=== PATIENT | male | born 1960 | race African-American/Black ===

== ENCOUNTER 2019-12-05 07:40 | Observation (INO) | payer MEDICARE, OTHER, SELFPAY ==
[2019-12-05] VITALS (10 sets, daily range): BP systolic 144–184; BP diastolic 89–104; PULSE 62–80; RESP 15–18; TEMP 35.8–36.8; O2SAT 94–100; BMI 17.6
--- NOTE | ~2019-12-05 | XR_ITS ---
XR chest 1V portable DATE: 12/05/2019 08:20 INDICATION: Chest pain TECHNIQUE: Portable upright AP chest on 12/05/2019 at 0806 hours COMPARISON: 10/10/2017 two-view chest FINDINGS: Cardiomegaly. A generator overlies the lower lateral left chest, with pacemaker/defibrillat or lead overlying the left parasagittal area, distal lead overlying the aortic arch. Aortic calcification and mild unfolding. No pulmonary infiltrate or consolidation, pleural effusion. Pulmonary vascularity appears within uppe r normal limits. There is suggestion of some osteosclerosis of the thoracic spine, possibly secondary to osteoblastic metastatic disease from prostate cancer. Consider bone scan. IMPRESSION: Cardiomegaly, aortic atherosclerosis Interval pacemaker/defibrillator device since 10/10/2017 No active pulmonary disease Possible osteosclerosis of thoracic spine; consider bone scan. Reviewed, dictated and finalized at location B. LE[employer] COLLECTOR
--- NOTE | 2019-12-05 08:10 | ED.ARRPALP ---
HPI - Arrhythmia/Palpitations General Chief Complaint: Arrhythmia/Palpitations Stated Complaint: tachycardia Time Seen by Provider: 12/05/19 07:42 Source: patient Mode of arrival: EMS Limitations: no limitations History of Present Illness HPI narrative: Pt is a 59 y/o male, with a H/O CKD, who presents to the ED, via EMS, secondary to having tachycardia while he was getting Dialysis. Pt denies CP, SOB, or palpitations. He states that he had an hour left of dialysis when EMS was called. Pt has a H/o multiple cardiac stents and a pacemaker/defibrillator. His Semiconductor Wafers Etch Operator is Dr. Newton and his Surgery Aide is Dr. Bah. Pt's pacemaker/defibrillator is a [employer] scientific and he states that it did not go off. MD complaint: rapid heart beat Duration: now resolved Arrhythmia history: pacemaker and AICD Associated symptoms: denies other symptoms Related Data Allergies Allergy/AdvReac Type Severity Reaction Status Date / Time No Known Allergies Allergy Unverified 07/02/19 10:40 Review of Systems Review of Systems: All systems reviewed & are unremarkable except as noted in HPI and below Cardiovascular: Cardiovascular: Reports chest pain and Denies palpitations Respiratory: Respiratory: Reports dyspnea PMFSH Past Medical History Medical History (Updated 12/05/19 @ 09:41 by Clifton Del Valle DO) Amputated right leg Anemia Arthritis CAD (coronary artery disease) Dialysis patient GERD (gastroesophageal reflux disease) Glaucoma HLD (hyperlipidemia) HTN (hypertension) Hypothyroid Myocardial infarction Surgical History Surgical History (Updated 12/05/19 @ 09:01 by Giovani Cook) H/O kidney transplant History of cardiac catheterization Social History Social History (Updated 12/05/19 @ 09:02 by Giovani Cook) Smoking status: Never smoker Exam Narrative: Exam Narrative: APPEARANCE: No acute distress, nontoxic, resting in bed EYES: EOMI HEENT: Normocephalic, atraumatic, OMM RESPIRATORY: No respiratory distress Clear to auscultation bilaterally with no rhonchi wheezing or rales. CARDIOVASCULAR: Regular rate and rhythm without murmurs rubs or gallops. ABDOMINAL: Soft, nontender, nondistended, no rebound or guarding MUSCULOSKELETAl: Moves all extremities. No clubbing, cyanosis or edema. Right BKA NEURO: Awake and alert. Following commands, speech normal, no focal deficits SKIN:: Warm, dry. No rashes lesions or abrasions PSYCHIATRIC: Normal affect/mood, Course Course Emergency Course: Reviewed old records Patient with a EMBI is a device. Unable to use our machine for interrogation called rep. Patient's device only follows after going above heart rate of 200 bpm. States only records of going this high. Rep will come in to interrogate. The patient does adamantly deny any defibrillation occurring Discussed with patient and family results of workup and diagnosis. Discussed need for admission. Patient and family understand and agree to current treatment plan Consultations Consultation #1: Discussed case with Jennie Martinez NP for the heart care group. Will consult with pt. Date: 12/05/19 Time: 09:25 Consultation #2: Discussed case with Dr. Tinsley, the hospitalist. Accepted admission. Date: 12/05/19 Time: 09:30 Vital Signs Vital signs: Vital Signs Temperature 98.3 F 12/05/19 07:40 Pulse Rate 77 12/05/19 07:40 Respiratory Rate 15 12/05/19 07:40 Blood Pressure 144/95 H 12/05/19 07:40 Pulse Oximetry 100 12/05/19 07:40 Temperature 98.3 F 12/05/19 07:40 Pulse Rate 77 12/05/19 07:40 Respiratory Rate 15 12/05/19 07:40 Blood Pressure 144/95 H 12/05/19 07:40 Pulse Oximetry 100 12/05/19 07:40 MDM - Arrhythmia/Palpitations Lab Data Result diagrams: 12/05/19 08:35 12/05/19 08:35 Labs: Lab Results 12/05/19 12/05/19 12/05/19 Range/Units 08:35 08:35 08:35 WBC 5.7 (4.5-10.0) K/mm3 RBC 4.02 L (4.6-6.20) M/mm3 Hgb 11.9 L (
[2019-12-05 08:42] LABS: Basophils Percent Auto 0.5 % (0.2-1.2); Eosinophils Absolute Auto 0.1 K/mm3 (0-0.3); Eosinophils Percent Auto 2.3 % (0-4.4); Hematocrit 39.2 % (42.0-52.0); Hemoglobin 11.9 g/dL (14.0-18.0); Immature Granulocyte Absolute 0.02 K/mm3 (0.00-0.031); Immature Granulocyte Percent A 0.3 % (0-0.5); Immature Platelet Fraction Pct 4.8 % (0.9-11.2); Lymphocytes Absolute Auto 0.69 K/mm3 (0.9-3.2); Lymphocytes Percent Auto 12.1 % (18.3-44.2); Mean Corpuscular HGB Conc 30.4 g/dl (32-36); Mean Corpuscular Hemoglobin 29.6 pg (26-34); Mean Corpuscular Volume 97.5 fl (80-100); Mean Platelet Volume 11.9 fl (7.4-10.4); Monocytes Absolute Auto 0.9 K/mm3 (0.1-0.6); Monocytes Percent Auto 15.4 % (2.6-8.5); Neutrophils Percent Auto 69.4 % (45.5-73.1); Platelet Count Result 122 k/mm3 (150-375); Red Blood Count 4.02 M/mm3 (4.6-6.20); White Blood Count 5.7 K/mm3 (4.5-10.0)
[2019-12-05 08:51] LABS: INR 1.2; Prothrombin Time 14.4 Seconds (11.1-14.7)
[2019-12-05 08:52] LABS: Partial Thromboplastin Time 36.4 SECONDS (22.3-36.8)
[2019-12-05 08:58] LABS: Alanine Aminotransferase 17 U/L (4-50); Albumin Level 4.2 g/dL (3.5-5.1); Alkaline Phosphatase 99 U/L (38-126); Aspartate Amino Transferase 23 U/L (17-59); Bilirubin,Total 0.4 mg/dL (0.2-1.3); Blood Urea Nitrogen 63 mg/dL (9-20); Calcium 8.7 mg/dL (8.4-10.2); Carbon Dioxide 26 mmol/L (22-30); Chloride 95 mmol/L (98-107); Estimated CRCL calculation 6 ml/min; Estimated Glomerular Filt Rate 7; Glucose 79 mg/dL (75-110); Magnesium 2.3 mg/dL (1.6-2.3); Potassium 4.4 mmol/L (3.4-5.0); Sodium 138 mmol/L (137-145)
--- NOTE | 2019-12-05 09:02 | PC.NURSE ---
after multiple failed attempts to interrogate pacemaker [employer] rep contacted. states will be out to read device
--- NOTE | 2019-12-05 09:59 | ECG_ITS ---
Measurements Intervals [place] Rate: 71 P: 58 SC: 176 QRS: 62 QRSD: 112 T: 242 QT: 435 QTc: 475 Interpretive Statements SINUS RHYTHM VENTRICULAR TRIGEMINY INTRAVENTRICULAR CONDUCTION DELAY ST-T WAVE ABNORMALITY IN INF/LAT LEADS- CONSIDE RISCHEMIA ABNORMAL ECG Electronically Signed On 12-05-2019 11:08:51 JALOUSIES INSTALLER by Nikita Jerez D.O.
[2019-12-05] MEDS: ASPIRIN 81 MG CHEWABLE TABLET 324 MG PO (11:19)
--- NOTE | 2019-12-05 12:01 | ADMGEN ---
This patient, Veronica Villagran, was admitted to IMU Room 206-02. Patient/family oriented to hospital policies and general routines including ID bracelet, bed and alarms, visiting hours, pain management, procedures, bathroom and other care routines, personal items, smoking policy, room service/diet, and visiting hours. Valuables list has been completed. Information on how to activate the Rapid Response Team has been discussed. Patient/Family are encouraged to report perceived risks to care and to ask questions if they do not understand what they are told or what they should do.
--- NOTE | 2019-12-05 15:03 | PM.CNCAR ---
Assessment and Plan Additional Plan 59-year-old gentleman with longstanding ischemic heart disease, stated history of ischemic cardiomyopathy and chronically implanted defibrillator. Admitted to the hospital because of labile blood pressure noted. When he was finishing dialysis this morning no symptoms of acute coronary syndrome no ECG evidence of acute coronary syndrome. Elevated troponin is noted but is flat and in this setting would be a attributes due to chronic renal failure rather than an acute coronary syndrome. He has active follow-up scheduled with cardiology [facility]. He does not need ischemic a workup while he is here at [place] in my opinion as he is completely asymptomatic. History of Present Illness History of Present Illness Consult date/time: Date of service: 12/05/19 15:03 Reason For Visit: Elevated troponin/palpitations/chronic renal fail Narrative: This is a very pleasant 59-year-old man with seeing at the request of the hospitalist because of abnormal troponin levels. He is sleeping soundly in bed when I entered the room to see him and upon awakening he is in good spirits and has no complaints of any kind. The patient was brought [facility] by ambulance this morning from his side to be to dialysis appointment because he states that the firestopper technician was concerned that his blood pressure was fluctuating wildly up and down as he was finishing dialysis. He reports that is Farsi could tell he was asymptomatic he did not feel like he was in any sort of distress. He specifically denies having any sense of chest pain pressure or heaviness. He has a history of coronary artery disease with previous infarction, percutaneous revascularization and chronic implantation of a per defibrillator. His group activities aide is in the group at [facility] and diagnosed he receives his care over there as far as his a cardiac and his general medical needs. He it when he was seen in the emergency room had an electrocardiogram done which showed a sinus mechanism with some PVCs, voltage evidence of LVH with secondary repolarization abnormalities. Troponin level was found to be elevated at 2.7 his 2nd level which just came back before the I came in to see him was 2.6. The remainder of his lab data is remarkable for id with end-stage renal disease his creatinine on arrival l is 9.2. He has not had any recent symptoms of orthopnea PND edema or so or shortness of breath he does not believe he has ever received a defibrillator countershock. He has a subcutaneous device placed with a of intrathoracic lead presumably to avoid accessing his subclavian veins since he has been on dialysis for close to 20 years. He states hypertensive nephrosclerosis was the principal reason for his renal failure. Review of Systems Constitutional: Constitutional: Reports no additional constitutional complaints Eyes: Eyes: Reports no additional eye complaints ENT: Reports system reviewed and no additional complaints, except as documented Cardiovascular: Cardiovascular: Reports no additional cardiovascular complaints Respiratory: Respiratory: Reports no additional respiratory complaints Gastrointestinal: Gastrointestinal: Reports nausea Genitourinary: Genitourinary: Reports no additional male genitourinary complaints Musculoskeletal: Musculoskeletal: Reports myalgias Integumentary/Breasts: Skin/Breast: Reports system reviewed and no additional complaints, except as docu Neurologic: Reports system reviewed and no additional complaints, except as documented Endocrine: Endocrine: Reports no additional endocrine complaints Hematologic/Lymphatic: Hematologic/Lymphatic: Reports no additional hematologic/lymphatic complaints [facility] Past Medical History Medical History (Updated 12/05/19 @ 09:41 by Clifton Del Valle DO) Amputated right leg Anemia Arthritis CAD (coronary artery disease) Dialysis patient GERD (gastroes
--- NOTE | 2019-12-05 15:20 | PM.IMHP ---
H&P: HPI History of Present Illness Chief complaint: Tachycardia and fluctuating blood pressure. <Monik Florez PA-C - Last Filed: 12/05/19 21:33> Narrative: Veronica Villagran is a pleasant 59 year old male with history of VFib arrest in November 2016, coronary artery disease with history of stent x4, ischemic cardiomyopathy status post PM/ICD insertion, end-stage renal disease on hemodialysis, peripheral vascular disease, and chronic anemia who presented to the emergency department earlier this morning via EMS from dialysis for evaluation of ?tachycardia and fluctuating blood pressures.? At the time my evaluation the patient has no complaints and tells me he was in his usual state of health when he went to dialysis. Near completion of his treatment, his blood pressures were noted to be fluctuating greatly (although I have not seen documentation of such and Veronica is unable to remember any of his readings) and he was reportedly tachycardic. The dialysis nurse was concerned by this, and called EMS. On arrival to the emergency department he was in sinus rhythm with a pulse of 77 and a blood pressure of 144/95. Troponins were drawn, came back elevated, and he is being admitted in this setting. Again, he was having no symptoms today and he continues to remain asymptomatic. He has not had lightheadedness, dizziness, headache, chest pain, pleuritic pain, racing heart, palpitations, shortness of breath, nausea, or vomiting. <Monik Florez PA-C - Last Filed: 12/05/19 21:33> Review of Systems Review of Systems: Narrative: Twelve systems were reviewed with pertinent positives and negatives as per HPI. He denies fever, chills, sweats. No recent cold or flu-like symptoms. He no longer urinates. Notes occasional loose stools. Except as documented, all other systems were reviewed and are negative. <Monik Florez PA-C - Last Filed: 12/05/19 21:33> [facility] Past Medical History Medical History: Medical History (Updated 12/06/19 @ 06:39 by Partha Dennis MD) Arthritis Cardiac arrest with ventricular fibrillation In November 2016. Chronic anemia Coronary artery disease With history of stent x4 at [facility] in November 2016. Dialysis patient End-stage renal disease on hemodialysis GERD (gastroesophageal reflux disease) Glaucoma Hypertension Hypothyroidism Hypothyroidism Ischemic cardiomyopathy Status post PM/ICD insertion. Peripheral vascular disease <Monik Florez PA-C - Last Filed: 12/05/19 21:33> Surgical History Surgical History: Surgical History (Updated 12/05/19 @ 21:23 by Monik Florez PA-C) H/O kidney transplant Renal transplant 1999. It became nonfunctioning in 2005 and he has been on hemodialysis since that diet. History of cardiac catheterization With stents x4 in November 2016 done at [facility]. Status post above-knee amputation of right lower extremity <Monik Florez PA-C - Last Filed: 12/05/19 21:33> Family History Family History: Family History (Updated 12/05/19 @ 21:23 by Monik Florez PA-C) Father Carcinoma of colon Acute myocardial infarction <Monik Florez PA-C - Last Filed: 12/05/19 21:33> Social History Social History: Social History (Updated 12/05/19 @ 21:24 by Monik Florez PA-C) Social History: The patient lives in [place] with his daughter. He designates his 3 children as his surrogate decision makers and he wishes to be a full code. 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 He smoked remotely in high school. No alcohol or drug abuse. Smoking status: Former smoker Alcohol intake: never Substance use: never Gender identity (if verbalized by the patient): Male Spiritual care concerns: Yes ([place]) Agree to blood products: Yes <Monik Florez PA-C - Last Filed: 12/05/19 21:33> Meds Home Medications and Allergies Home medications: Home Medi
--- NOTE | 2019-12-05 16:57 | PM.CNNEP ---
Assessment and Plan Assessment and plan (1) ESRD (end stage renal disease): Code(s): N18.6 - End stage renal disease Status: Acute Assessment and Plan: Veronica has ESRD. He had dialysis today rupesh most of the treatment. We will dialyze again on sunday. His volume status looks okay. His electrolytes look okay as well (sunday) He has hypertension. H is BP is doing pretty well currently on his current meds. (2) Palpitations: Code(s): R00.2 - Palpitations Status: Acute Assessment and Plan: he had rapid irregular heart rate. rhythm strip was not taken at dialysis. the EKG done here shows a controlled heart rate and sinus rhythm. He could have had an episode of atrial fibrillation or possible just frequent ectopy. he has positive troponins. Hospitalist will be seeing soon. cardiology will probably be consulted. History of Present Illness Reason for Consult Consult date: 12/06/19 Chief Complaint Chief complaint: Tachycardia and fluctuating blood pressure. History of Present Illness Narrative: (Note insertion delayed by crash of the computer system) Veronica is a very pleasant 59 yo gentleman who has ESRD on HD three times a week. He is taken care of Dr Avi Newton who does not come to this hospital. He also has hypertension, ahyperlipidemia, PVD s/p right AKA, Cardiomyopathy, cardiac arrest in the past, anemia of ckd, renal osteodystrophy. Veronica was doing well on HD today and about 2 hours into the treatment he developed rapid heart rate of about 140 and irregular rhythm. he felt fine at the time. no associated sx like chest pain or sob. the dialysis nurse called Dr Newton who requested he be sent to the ER. In the ER he was evaluated and admitted to the floor for further evaluation. He had an elevated troponin. he has been feeling fine before this. no exertional prater. zachary does not smoke or drink. Review of Systems Constitutional: Constitutional: Reports no additional constitutional complaints Eyes: Eyes: Reports no additional eye complaints ENT: Reports system reviewed and no additional complaints, except as documented Cardiovascular: Cardiovascular: Reports no additional cardiovascular complaints Respiratory: Respiratory: Reports no additional respiratory complaints Gastrointestinal: Gastrointestinal: Reports no additional gastrointestinal complaints Genitourinary: Genitourinary: Reports no additional male genitourinary complaints Musculoskeletal: Musculoskeletal: Reports no additional musculoskeletal complaints Integumentary/Breasts: Skin/Breast: Reports system reviewed and no additional complaints, except as docu Neurologic: Reports system reviewed and no additional complaints, except as documented Psychiatric: Psychiatric: Reports no additional psychiatric complaints [facility] Past Medical History Medical History (Updated 12/06/19 @ 06:39 by Partha Dennis MD) Arthritis Cardiac arrest with ventricular fibrillation In November 2016. Chronic anemia Coronary artery disease With history of stent x4 at [facility] in November 2016. Dialysis patient End-stage renal disease on hemodialysis GERD (gastroesophageal reflux disease) Glaucoma Hypertension Hypothyroidism Hypothyroidism Ischemic cardiomyopathy Status post PM/ICD insertion. Peripheral vascular disease Surgical History Surgical History (Updated 12/05/19 @ 21:23 by Monik Florez PA-C) H/O kidney transplant Renal transplant 1999. It became nonfunctioning in 2005 and he has been on hemodialysis since that diet. History of cardiac catheterization With stents x4 in November 2016 done at [facility]. Status post above-knee amputation of right lower extremity Family History Family History (Updated 12/05/19 @ 21:23 by Monik Florez PA-C) Father Carcinoma of colon Acute myocardial infarction Social History Social History (Updated 12/05/19 @ 21:24 by Monik Florez PA-C) Social Histo
[2019-12-05] MEDS: ACETAMINOPHEN 325 MG TABLET 650 MG PO (23:35)
[2019-12-05] MEDS: ATORVASTATIN 40 MG TABLET PO (23:35)
[2019-12-05] MEDS: TICAGRELOR 90 MG TABLET PO (23:35)
[2019-12-05] MEDS: carvediloL 25 MG TABLET PO (23:36)
[2019-12-05] MEDS: DORZOLAMIDE HCL 2% OPHTH DROPS 1 DROP EACH EYE (23:36)
[2019-12-06] VITALS (8 sets, daily range): BP systolic 123–144; BP diastolic 72–88; PULSE 55–80; RESP 16; TEMP 36–36.4; O2SAT 98–100
[2019-12-06 05:19] LABS: Basophils Percent Auto 0.6 % (0.2-1.2); Eosinophils Absolute Auto 0.1 K/mm3 (0-0.3); Eosinophils Percent Auto 1.9 % (0-4.4); Hematocrit 40.1 % (42.0-52.0); Hemoglobin 12.1 g/dL (14.0-18.0); Immature Granulocyte Absolute 0.02 K/mm3 (0.00-0.031); Immature Granulocyte Percent A 0.4 % (0-0.5); Lymphocytes Absolute Auto 0.45 K/mm3 (0.9-3.2); Lymphocytes Percent Auto 8.6 % (18.3-44.2); Mean Corpuscular HGB Conc 30.2 g/dl (32-36); Mean Corpuscular Hemoglobin 29.6 pg (26-34); Mean Platelet Volume 11.8 fl (7.4-10.4); Monocytes Absolute Auto 0.7 K/mm3 (0.1-0.6); Monocytes Percent Auto 13.1 % (2.6-8.5); Neutrophils Absolute Auto 3.9 K/mm3 (1.3-6.7); Neutrophils Percent Auto 75.4 % (45.5-73.1); Platelet Count Result 119 k/mm3 (150-375); Red Blood Count 4.09 M/mm3 (4.6-6.20); Red Cell Distribution Width 17.8 % (11.5-14.5); White Blood Count 5.2 K/mm3 (4.5-10.0)
[2019-12-06 05:36] LABS: Blood Urea Nitrogen 83 mg/dL (9-20); Calcium 9.6 mg/dL (8.4-10.2); Carbon Dioxide 24 mmol/L (22-30); Chloride 99 mmol/L (98-107); Estimated CRCL calculation 5 ml/min; Estimated Glomerular Filt Rate 6; Glucose 79 mg/dL (75-110); Potassium 5.6 mmol/L (3.4-5.0); Sodium 139 mmol/L (137-145)
[2019-12-06] MEDS: DORZOLAMIDE HCL 2% OPHTH DROPS 1 DROP EACH EYE (09:34)
[2019-12-06] MEDS: CINACALCET 30 MG TABLET 90 MG PO (09:36)
[2019-12-06] MEDS: AMIODARONE HCL 200 MG TABLET PO (09:36)
[2019-12-06] MEDS: TICAGRELOR 90 MG TABLET PO (09:37)
[2019-12-06] MEDS: ASPIRIN 81 MG ENTERIC TABLET PO (09:37)
[2019-12-06] MEDS: lisinopriL 20 MG TABLET 40 MG PO (09:37)
[2019-12-06] MEDS: carvediloL 25 MG TABLET PO (09:37)
--- NOTE | 2019-12-06 11:16 | PM.PNNEP ---
Progress Note: A&P Assessment and Plan (1) ESRD (end stage renal disease): Code(s): N18.6 - End stage renal disease Status: Acute Assessment and Plan: had most of his dialysis treatment on Sunday will plan next HD on Sunday if he remains hospitalized electrolytes, volume status, and clearance acceptable at this time (2) Palpitations: Code(s): R00.2 - Palpitations Status: Acute Assessment and Plan: no further instances since admission Cardiology recommendations noted Will continue to follow -- would not be opposed to discharge from renal perspective if otherwise medically stable. Discussed with Dr. Tinsley Subjective Date/time seen: 12/06/19 11:16 He seems to be doing reasonably well at the time of my visit; no further palpitations since admission; asking about possible discharge today. Exam Narrative: Exam Narrative: General: WD/WN male in NAD Heart: normal S1 and S2; no rub Lungs: clear to auscultation Abdomen: soft, nontender, nondistended, positive bowel sounds Extremities: no cyanosis or clubbing; no edema Skin: warm and dry Objective Data Vital Signs Vital Signs: Vital Signs Temp Pulse Resp BP Pulse Ox 12/06/19 10:00 62 12/06/19 09:37 64 12/06/19 09:36 64 12/06/19 08:00 36.0 C L 65 16 123/72 99 12/06/19 06:00 65 12/06/19 04:00 36.4 C 61 16 144/88 H 100 12/06/19 02:00 62 12/06/19 00:00 36.3 C L 80 16 128/73 98 12/05/19 23:36 72 12/05/19 22:00 68 12/05/19 20:00 36.2 C L 74 16 184/104 H 94 12/05/19 18:00 77 12/05/19 16:00 36.4 C L 65 18 157/89 H 98 12/05/19 14:00 79 12/05/19 12:05 35.8 C L 62 18 150/95 H 99 12/05/19 11:54 80 18 158/101 H 98 Intake/Output Intake/Output: Intake & Output 12/03/19 12/04/19 12/05/19 12/06/19 23:59 23:59 23:59 23:59 Intake Total 690 840 Output Total 0 Balance 690 840 Meds/Results Medications: Active Medications Generic Name Dose Route Start Last Admin Trade Name Freq PRN Reason Stop Dose Admin Acetaminophen 650 mg 12/05/19 22:56 12/05/19 23:35 Tylenol Tablet PO 650 mg Q6H PRN Administration Mild Pain (1-3) or Fever Amiodarone HCl 200 mg 12/06/19 08:00 12/06/19 09:36 Pacerone PO 200 mg DAILY@0800 TORITO Administration Aspirin 81 mg 12/06/19 09:00 12/06/19 09:37 Aspirin Ec PO 81 mg DAILY TORITO Administration Atorvastatin Calcium 40 mg 12/05/19 22:30 12/05/19 23:35 Lipitor PO 40 mg HS TORITO Administration Carvedilol 25 mg 12/05/19 22:30 12/06/19 09:37 Coreg PO 25 mg Q12HR TORITO Administration Cinacalcet 90 mg 12/06/19 09:00 12/06/19 09:36 Sensipar PO 01/05/20 09:01 90 mg DAILY TORITO Administration Dorzolamide HCl 1 drop 12/05/19 22:30 12/06/19 09:34 Trusopt EACH EYE 1 drop Q12HR TORITO Administration Lisinopril 40 mg 12/06/19 09:00 12/06/19 09:37 Prinivil PO 40 mg DAILY TORITO Administration Non-Formulary Medication 500 mg 12/06/19 09:00 Lanthanum [Fosrenol] PO 01/05/20 09:01 TID TORITO Ticagrelor 90 mg 12/05/19 22:30 12/06/19 09:37 Brilinta PO 90 mg Q12HR TORITO Administration Radiology Results: ITS Impressions Chest X-Ray 12/05/19 08:25 IMPRESSION: Cardiomegaly, aortic atherosclerosis Interval pacemaker/defibrillator device since 10/10/2017 No active pulmonary disease Possible osteosclerosis of thoracic spine; consider bone scan. Labs Labs: Laboratory Tests 12/06/19 04:36 12/06/19 04:36
--- NOTE | 2019-12-06 11:41 | PM.DS ---
DS: Diagnosis Admitting Diagnosis Admitting Diagnosis: Other specified abnormal findings of blood chemistry Discharge Diagnosis (1) Elevated troponin: Code(s): R79.89 - Other specified abnormal findings of blood chemistry Status: Acute Assessment and Plan: Patient initially sent to emergency department with reported tachycardia and fluctuations in blood pressure near the end of dialysis. He was completely asymptomatic with that, and vital signs have been stable since arrival to the hospital. Troponins were drawn for unclear reasons, and were elevated. Will continue to trend these to peak, however I doubt this indicates acute coronary syndrome. Dr. Bruno is input is appreciated. (2) End-stage renal disease on hemodialysis: Code(s): N18.6 - End stage renal disease; Z99.2 - Dependence on renal dialysis Status: Acute Assessment and Plan: Nephrology consulted by the emergency department physician. Dialysis was nearly complete today when he was sent to the emergency department, and he does not seem overtly overloaded. (3) Chronic anemia: Code(s): D64.9 - Anemia, unspecified Status: Acute Assessment and Plan: Hemoglobin and hematocrit are stable on review of previous labs. (4) Ischemic cardiomyopathy: Code(s): I25.5 - Ischemic cardiomyopathy Status: Acute Assessment and Plan: Interrogate pacemaker. No history to suggest that his defibrillator fired. At this time he is euvolemic and his volume status will be monitored closely. (5) Abnormal chest x-ray: Code(s): R93.89 - Abnormal findings on diagnostic imaging of other specified body structures Status: Acute Assessment and Plan: Possible osteosclerosis of thoracic spine noted on chest x-ray. Bone scan to be considered, may be done as an outpatient if deemed necessary. (6) Hypertension: Code(s): I10 - Essential (primary) hypertension Status: Acute Assessment and Plan: Blood pressures were reviewed and they are stable/reasonably well controlled. Continue antihypertensives and monitor daily. DS: Summary Hospital Course Reason for hospitalization: Veronica Villagran is a pleasant 59 year old male with history of VFib arrest in November 2016, coronary artery disease with history of stent x4, ischemic cardiomyopathy status post PM/ICD insertion, end-stage renal disease on hemodialysis, peripheral vascular disease, and chronic anemia who presented to the emergency department earlier this morning via EMS from dialysis for evaluation of ?tachycardia and fluctuating blood pressures.? At the time my evaluation the patient has no complaints and tells me he was in his usual state of health when he went to dialysis. Near completion of his treatment, his blood pressures were noted to be fluctuating greatly (although I have not seen documentation of such and Veronica is unable to remember any of his readings) and he was reportedly tachycardic. The dialysis nurse was concerned by this, and called EMS. On arrival to the emergency department he was in sinus rhythm with a pulse of 77 and a blood pressure of 144/95. Troponins were drawn, came back elevated, and he is being admitted in this setting. Again, he was having no symptoms today and he continues to remain asymptomatic. He has not had lightheadedness, dizziness, headache, chest pain, pleuritic pain, racing heart, palpitations, shortness of breath, nausea, or vomiting Hospital Course: Patient is a 59-year-old male with history of end-stage renal disease on hemodialysis he had a cardiac arrest in 2017, he was at the dialysis center during the dialysis it was noted the patient was tachycardic however patient did not have any complaint of chest pain palpitation fever or chills he was brought to the emergency department for further evaluation and he was admitted for observation, it present time patient is feelin
== END 2019-12-06 12:26 | disposition home or self-care (01) ==
LOC: ANHED 09:41 → ANHIMU 09:53
PROVIDERS: Admitting Provider Family Medicine; Emergency Provider Emergency Medicine; PCP Family Medicine; Visit Provider Family Medicine
DX: R00.0 Tachycardia, unspecified (principal); I99.8 Other disorder of circulatory system; R79.89 Other specified abnormal findings of blood chemistry; I25.10 Atherosclerotic heart disease of native coronary artery without angina pectoris; I25.5 Ischemic cardiomyopathy; R93.89 Abnormal findings on diagnostic imaging of other specified body structures; I12.0 Hypertensive chronic kidney disease with stage 5 chronic kidney disease or end stage renal disease; N18.6 End stage renal disease; Z99.2 Dependence on renal dialysis; Z94.0 Kidney transplant status; D63.1 Anemia in chronic kidney disease; N25.0 Renal osteodystrophy; E03.9 Hypothyroidism, unspecified; I25.2 Old myocardial infarction; I73.9 Peripheral vascular disease, unspecified; Z95.5 Presence of coronary angioplasty implant and graft; Z95.810 Presence of automatic (implantable) cardiac defibrillator; Z86.74 Personal history of sudden cardiac arrest; Z89.611 Acquired absence of right leg above knee
CPT/HCPCS: 36415; 71045; 80048; 80053; 83735; 84443; 84484; 85025; 85055; 85610; 85730; 87081; 93005; 99285; A9270; G0378

== ENCOUNTER 2019-12-26 07:13 | Observation (INO) | payer MEDICARE, OTHER, SELFPAY ==
[2019-12-26] VITALS (27 sets, daily range): BP systolic 111–158; BP diastolic 53–113; PULSE 67–134; RESP 16–22; TEMP 35.6–37; O2SAT 96–100; BMI 17.7; BMI 17.5
--- NOTE | ~2019-12-26 | XR_ITS ---
EXAMINATION: XR chest 1V portable DATE: 12/26/2019 07:54 INDICATION: Chest pain. TECHNIQUE: A single frontal view of the chest was obtained. COMPARISON: Chest single view 12/05/2019, CT abdomen 01/16/2018 FINDINGS: There is a diffuse interstitial pattern, consistent with mild pulmonary edema. There is no pneumonia, pleural effusion, or pneumothorax. Cardiomegaly is noted. There is a generator overlying t he left chest wall with lead overlying the mediastinum. IMPRESSION: 1. Mild pulmonary edema. 2. Cardiomegaly. Reviewed, dictated and finalized at location A. [facility]
[2019-12-26 07:50] LABS: Basophils Absolute Auto 0.1 K/mm3 (0.0-0.1); Basophils Percent Auto 0.8 % (0.2-1.2); Eosinophils Absolute Auto 0.1 K/mm3 (0-0.3); Eosinophils Percent Auto 1.9 % (0-4.4); Hematocrit 40.1 % (42.0-52.0); Immature Granulocyte Absolute 0.01 K/mm3 (0.00-0.031); Immature Granulocyte Percent A 0.2 % (0-0.5); Lymphocytes Absolute Auto 0.46 K/mm3 (0.9-3.2); Lymphocytes Percent Auto 7.4 % (18.3-44.2); Mean Corpuscular HGB Conc 29.9 g/dl (32-36); Mean Corpuscular Hemoglobin 29.3 pg (26-34); Mean Platelet Volume 12.7 fl (7.4-10.4); Monocytes Absolute Auto 0.9 K/mm3 (0.1-0.6); Monocytes Percent Auto 14.6 % (2.6-8.5); Neutrophils Absolute Auto 4.7 K/mm3 (1.3-6.7); Neutrophils Percent Auto 75.1 % (45.5-73.1); Platelet Count Result 136 k/mm3 (150-375); Red Blood Count 4.09 M/mm3 (4.6-6.20); Red Cell Distribution Width 17.2 % (11.5-14.5); White Blood Count 6.3 K/mm3 (4.5-10.0)
[2019-12-26 08:01] LABS: INR 1.2; Prothrombin Time 14.9 Seconds (11.1-14.7)
[2019-12-26 08:02] LABS: Alanine Aminotransferase 18 U/L (4-50); Albumin Level 4.5 g/dL (3.5-5.1); Alkaline Phosphatase 119 U/L (38-126); Aspartate Amino Transferase 27 U/L (17-59); Bilirubin,Total 0.5 mg/dL (0.2-1.3); Blood Urea Nitrogen 61 mg/dL (9-20); Calcium 8.7 mg/dL (8.4-10.2); Carbon Dioxide 24 mmol/L (22-30); Chloride 96 mmol/L (98-107); Estimated CRCL calculation 7 ml/min; Estimated Glomerular Filt Rate 8; Glucose 102 mg/dL (75-110); Potassium 4.3 mmol/L (3.4-5.0); Sodium 141 mmol/L (137-145)
--- NOTE | 2019-12-26 09:13 | ED.GENADULT ---
HPI - General Adult General Chief complaint: Chest Pain Stated complaint: CP,TACHYCARDIA Time Seen by Provider: 12/26/19 07:26 Source: patient, family and EMS Mode of arrival: EMS Limitations: no limitations History of Present Illness HPI narrative: 59-year-old -[place] with a history of ESRD on hemodialysis, here with a complaint of midsternal chest pain. Patient states that he was on dialysis started to develop severe midsternal chest pain. He states that it was like severe heartburn. Patient denies any shortness of breath, nausea or vomiting. He states that his pain is now better. Onset (ago): minute(s) (30) Location: chest Radiation: non-radiation Severity: severe Severity scale (1-10): 9 Quality: burning Pain Consistency: constant Relieving factors: none Exacerbating factors: none Associated symptoms: denies other symptoms Related Data Home Medications Medication Instructions Recorded Confirmed Brilinta 90 mg PO Q12H 12/05/19 12/05/19 amiodarone 200 mg PO DAILY 12/05/19 12/05/19 aspirin [Adult Low Dose Aspirin] 81 mg PO DAILY 12/05/19 12/05/19 atorvastatin 40 mg PO HS 12/05/19 12/05/19 carvedilol 25 mg PO Q12H 12/05/19 12/05/19 cinacalcet [Sensipar] 90 mg PO DAILY 12/05/19 12/05/19 dorzolamide 1 drp OPHTHALMIC (EYE) Q12H 12/05/19 12/05/19 lanthanum [Fosrenol] 500 mg PO TID 12/05/19 12/05/19 lisinopril 40 mg PO DAILY 12/05/19 12/05/19 Allergies Allergy/AdvReac Type Severity Reaction Status Date / Time No Known Allergies Allergy Verified 12/26/19 07:38 Review of Systems Review of Systems: All systems reviewed & are unremarkable except as noted in HPI and below Constitutional: Constitutional: Reports as per HPI Eyes: Eyes: Reports as per HPI ENT: Reports system reviewed and no additional complaints, except as documented Cardiovascular: Cardiovascular: Reports as per HPI Respiratory: Respiratory: Reports no additional respiratory complaints Gastrointestinal: Gastrointestinal: Reports as per HPI Musculoskeletal: Musculoskeletal: Reports no additional musculoskeletal complaints Neurologic: Reports system reviewed and no additional complaints, except as documented [facility] Past Medical History Medical History Arthritis Cardiac arrest with ventricular fibrillation In November 2016. Chronic anemia Coronary artery disease With history of stent x4 at [facility] in November 2016. Dialysis patient End-stage renal disease on hemodialysis GERD (gastroesophageal reflux disease) Glaucoma Hypertension Hypothyroidism Hypothyroidism Ischemic cardiomyopathy Status post PM/ICD insertion. Peripheral vascular disease Surgical History Surgical History (System 12/17/19 @ 16:28 by Kayla Brooke) H/O kidney transplant Renal transplant 1999. It became nonfunctioning in 2005 and he has been on hemodialysis since that diet. History of cardiac catheterization With stents x4 in November 2016 done at [facility]. Status post above-knee amputation of right lower extremity Family History Family History (System 12/17/19 @ 16:28 by Kayla Brooke) Father Carcinoma of colon Acute myocardial infarction Social History Social History (System 12/17/19 @ 16:28 by Kayla Brooke) Social History: The patient lives in [place] with his daughter. He designates his 3 children as his surrogate decision makers and he wishes to be a full code. 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 He smoked remotely in high school. No alcohol or drug abuse. Smoking status: Former smoker Alcohol intake: never Substance use: never Gender identity (if verbalized by the patient): Male Spiritual care concerns: Yes (Worship) Agree to blood products: Yes Exam Narrative: Exam Narrative: GENERAL: Well-appearing, well-nourished, and in no acute distress. HEAD: Normocephalic, atraumatic. EYES: PERRLA and
--- NOTE | 2019-12-26 10:21 | ADMGEN ---
This patient, Veronica Villagran , was admitted to IMU Room 212-01. Patient/family oriented to hospital policies and general routines including ID bracelet, bed and alarms, visiting hours, pain management, procedures, bathroom and other care routines, personal items, smoking policy, room service/diet, and visiting hours. Valuables list has been completed. Information on how to activate the Rapid Response Team has been discussed. Patient/Family are encouraged to report perceived risks to care and to ask questions if they do not understand what they are told or what they should do.
--- NOTE | 2019-12-26 11:59 | ECG_ITS ---
Measurements Intervals [place] Rate: 136 P: 177 ME: 103 QRS: 45 QRSD: 109 T: -72 QT: 317 QTc: 478 Interpretive Statements SINUS OR ECTOPIC ATRIAL TACHYCARDIA WITH SHORT ME INTERVAL LEFT VENTRICULAR HYPERTROPHY AND ST-T CHANGE DELAYED PRECORDIAL R/S TRANSITION ST-T WAVE ABNORMALITY IN ANTEROLAT/INF LEADS- CONSIDER ISCHEMIA BASELINE ARTIFACT- I, III, AVL, AVF ABNORMAL ECG Electronically Signed On 12-26-2019 12:33:17 REHAB PHYSICIAN by Nikita Jerez D.O.
--- NOTE | 2019-12-26 15:11 | PM.IMHP ---
H&P: HPI History of Present Illness Chief complaint: chest pain Narrative: Veronica Villagran Sr. is a 59 year old male who has end-stage renal disease. He was at dialysis on Sunday and Sunday. The patient stated that he has severe GERD at times. The patient had been admitted earlier this month with chest pain. It was felt that it was noncardiac in nature. He had elevated troponins at that time it was felt that it was just related to his dialysis. Patient was near the end of his dialysis other he did not completed when he started to complain of some burning to the is midsternal area. The patient stated this is felt like acid reflux it did not feel like any chest pain or pressure discomfort. He had no nausea or vomiting. The patient stated when he started to have the flush with his dialysis he was feeling better are ready before evening came to the emergency room. Patient's troponin was noted to be 1.520. 2.64 was his last troponin on his last admission. He does have a history of having in defibrillator and four cardiac stents performed at [facility]. Patient has a asset protection specialist that is at [facility]. He is currently pain free and not having any discomfort. Initially cardiology had been consulted but I discontinued that consult Since patient was recently here with a similar episode approximately 3 weeks ago. Date of service 12/26/2019 Review of Systems Review of Systems: Narrative: No further complaints at this time. The patient tells me that he has been wheelchair-bound because he has not been fitted for a prosthesis for his right above the knee amputation yet. He said that he is supposed to be fitted soon. He has early cataracts not yet mature enough to be extracted. He stated that he is supposed to return to his eye doctor and someone the near future. All systems reviewed & are unremarkable except as noted in HPI and below Constitutional: Constitutional: Reports as per HPI and Reports no additional constitutional complaints Eyes: Eyes: Reports as per HPI, Reports no additional eye complaints and Reports blurry vision ENT: Reports system reviewed and no additional complaints, except as documented and Reports Normal hearing present Cardiovascular: Cardiovascular: Reports no additional cardiovascular complaints Respiratory: Respiratory: Reports no additional respiratory complaints and Reports no additional respiratory complaints Gastrointestinal: Gastrointestinal: Reports as per HPI and Reports no additional gastrointestinal complaints Musculoskeletal: Musculoskeletal: Reports no additional musculoskeletal complaints Integumentary/Breasts: Skin/Breast: Reports system reviewed and no additional complaints, except as docu and Reports as per HPI Neurologic: Reports system reviewed and no additional complaints, except as documented, Reports as per HPI and Reports Normal hearing present Psychiatric: Psychiatric: Reports no additional psychiatric complaints and Reports as per HPI Endocrine: Endocrine: Reports no additional endocrine complaints Hematologic/Lymphatic: Hematologic/Lymphatic: Reports no additional hematologic/lymphatic complaints Allergic/Immunologic: Allergic/Immunologic: Reports no additional allergic/immunologic complaints [facility] Past Medical History Medical History (Updated 12/26/19 @ 15:33 by Britt Longo NP) Arthritis Cardiac arrest with ventricular fibrillation In November 2016. Chronic anemia Coronary artery disease With history of stent x4 at [facility] in November 2016. Dialysis AV fistula malfunction 2 in the left forearm that are new nonfunctioning. The 1 on the right has a positive bruit and thrill. Dialysis patient End-stage renal disease on hemodialysis GERD (gastroesophageal reflux disease) Glaucoma Hyperparathyroidism Hypertension Ischemic cardiomyopathy Status post PM/ICD insertion. Peripheral vascular disease Surgical History Surgical History (Updated 12/26/19 @ 15:21 by Britt Longo NP)
[2019-12-26] MEDS: SEVELAMER CARBONATE 800 MG TABLET PO (17:29)
--- NOTE | 2019-12-26 17:30 | PM.CNNEP ---
Assessment and Plan Assessment and plan (1) ESRD (end stage renal disease): Code(s): N18.6 - End stage renal disease Status: Chronic (2) Chest pain: Qualifiers: Chest pain type: chest pain due to myocardial ischemia Ischemic chest pain type: unspecified angina pectoris type Qualified Code(s): I25.9 - Chronic ischemic heart disease, unspecified Code(s): R07.9 - Chest pain, unspecified Status: Acute (3) Ischemic cardiomyopathy: Code(s): I25.5 - Ischemic cardiomyopathy Status: Acute (4) Hypertension: Code(s): I10 - Essential (primary) hypertension Status: Acute Assessment and Plan: . Additional Plan Celso has end-stage renal disease. He was unable to complete his full dialysis treatment due to symptoms of chest pain that led to ending his dialysis treatment and being sent to the emergency room for further evaluation and therapy. Although his troponins are elevated, they are not any different than the last time he was here arguing that these are probably more related to his kidney disease than to actual acute coronary syndrome. Furthermore, the patient is quite insistent that his symptoms more related to his gastroesophageal reflux disease than to his heart (cardiac in nature). He is currently chest pain-free now but I will defer to Cardiology if any other intervention needs to be done as he does have known coronary artery disease with a history of stents in place. As the patient received a partial dialysis treatment today, I will do the right the ?rest of his treatment and ?later today to maintain his Sunday, Sunday, Sunday dialysis schedule as well as to ensure adequate clearance of uremic toxins and maintain stability in his electrolytes. He does not appear to be any respiratory distress and his electrolytes, as evidence by testing in the ER, appear to be quite stable. I will continue follow patient with you while he remains hospitalized and make further recommendations during his hospital course. Thank you for allowing me to participate in the care of this patient. History of Present Illness Reason for Consult Consult date: 12/26/19 Reason for consult: end stage renal disease Chief Complaint Chief complaint: chest pain History of Present Illness Narrative: The patient is a 59 year old male with a past medical history as noted below who presented to [facility] ER with complaints of chest pain. The patient was at his scheduled dialysis treatment today when he started having a burning sensation to the midsternal area. He told the dialysis nurses that it felt like his GERD/refux symptoms. However, the dialysis nurses were concerned that the symptom was more cardiac related. His dialysis treatment was aborted and his blood was returned -- per the patient, when his blood was returned to him, he was already feeling much better. Nevertheless, he sent to the ER for further evaluation. Workup and evaluation in the emergency room demonstrated the patient to be hemodynamically stable. Routine blood test demonstrated labs consistent with his known history of end-stage renal disease although he did have an elevated troponin. However, in comparison to his previous troponins, he was not any higher than this. As he only received a partial dialysis treatment and on the possibility that his chest pain symptoms were indeed cardiac related, he was admitted the hospital for further evaluation and therapy. Renal consultation was requested due to his end-stage renal disease. The patient normally dialyzes under the care of Dr. Avi Newton at [facility] on a Sunday, Sunday, Sunday schedule. As already mentioned, he was receiving dialysis when the chest pain symptoms began. From what he tells me, he had about an hour of his dialysis treatment before the treatment was abruptly aborted/ended. He did not have much fluid on in comparison to what
[2019-12-26] MEDS: TICAGRELOR 90 MG TABLET PO (22:39)
[2019-12-26] MEDS: carvediloL 25 MG TABLET PO (22:39)
[2019-12-26] MEDS: ATORVASTATIN 40 MG TABLET PO (22:39)
[2019-12-26] MEDS: DORZOLAMIDE HCL 2% OPHTH DROPS 1 DROP EACH EYE (22:40)
[2019-12-27] VITALS: PULSE 65
--- NOTE | 2019-12-27 | ECHO_ITS ---
Patient Info Name: Veronica Villagran Age: 59 years : 1960 Gender: Male Ht: 69 in Wt: 117 lbs BSA: 1.59 m2 HR: 57 bpm BP: 102 / 66 mmHg Heart Rhythm: Sinus Rhythm Technical Quality: Good Exam Date: 12/27/2019 9:54 AM Exam Location: [facility] Exam Room: [facility] Patient Status: Inpatient Admit Date: 12/26/2019 Staff Ordering Physician: Britt Longo NP Train Control Technician: Barbara Qiu RDCS Attending Provider: Lolis Zavala PA-C Referring Physician: Qing THOMPSON; Exam Type: CA echo doppler color flow Study Info Indications - CHEST PRESSURE CARDIOMEGALY Complete two-dimensional, color flow and Doppler transthoracic echocardiogram is performed. Summary 1. Left ventricular chamber dimension is moderately enlarged. 2. Left ventricular systolic function is severely reduced, estimated at 15-20%. 3. The aortic valve is trileaflet. 4. The aortic valve is sclerotic but leaflet separation is well maintained. 5. There is trivial prater valvular regurgitation. Left Ventricle Left ventricular chamber dimension is moderately enlarged. Left ventricular systolic function is severely reduced, estimated at 15-20%. The left ventricular diastolic function is grade II diastolic dysfunction. Right Ventricle Right ventricular chamber dimension is normal. Left Atria Left atrial chamber dimension is severely enlarged. Right Atria Right atrial chamber dimension is moderately enlarged. Aortic Valve The aortic valve is trileaflet. There is trace aortic valve regurgitation. The aortic valve is sclerotic but leaflet separation is well maintained. Pulmonic Valve The pulmonic valve is normal. There is trace pulmonic regurgitation. Mitral Valve The mitral valve has normal leaflets. There is trace mitral valve regurgitation. Tricuspid Valve The tricuspid valve leaflets are normal. There is mild tricuspid valve regurgitation. Pericardium/Pleural The pericardium appears normal. Aorta The aortic root size at the sinus of Valsalva is normal. Left Ventricular Outflow Tract Name Value Normal LVOT Doppler LVOT Peak Gradient 5 mmHg LVOT Mean Gradient 2 mmHg LVOT VTI 19 cm LVOT VTI/AV VTI Ratio 0.7 Pulmonic Valve Name Value Normal PV Doppler PV Peak Gradient 4 mmHg PV Regurgitation Doppler [place] Peak End Diastolic Velocity 149 cm/s Mitral Valve Name Value Normal MV Doppler MV Decel Dickson 492 cm/s2 MV PHT
[2019-12-27 02:00] VITALS: PULSE 58
[2019-12-27 04:00] VITALS: BP 102/66; PULSE 57; PULSE 59; RESP 18; TEMP 36.3; O2SAT 100
[2019-12-27 04:25] LABS: Basophils Percent Auto 0.9 % (0.2-1.2); Eosinophils Absolute Auto 0.2 K/mm3 (0-0.3); Eosinophils Percent Auto 3.3 % (0-4.4); Hematocrit 37.1 % (42.0-52.0); Hemoglobin 11.1 g/dL (14.0-18.0); Immature Granulocyte Absolute 0.01 K/mm3 (0.00-0.031); Immature Granulocyte Percent A 0.2 % (0-0.5); Lymphocytes Absolute Auto 0.39 K/mm3 (0.9-3.2); Lymphocytes Percent Auto 8.6 % (18.3-44.2); Mean Corpuscular HGB Conc 29.9 g/dl (32-36); Mean Corpuscular Hemoglobin 29.6 pg (26-34); Mean Corpuscular Volume 98.9 fl (80-100); Mean Platelet Volume 11.9 fl (7.4-10.4); Monocytes Absolute Auto 0.7 K/mm3 (0.1-0.6); Neutrophils Absolute Auto 3.3 K/mm3 (1.3-6.7); Platelet Count Result 109 k/mm3 (150-375); Red Blood Count 3.75 M/mm3 (4.6-6.20); Red Cell Distribution Width 16.9 % (11.5-14.5); White Blood Count 4.5 K/mm3 (4.5-10.0)
[2019-12-27 04:42] LABS: Alanine Aminotransferase 15 U/L (4-50); Albumin Level 3.5 g/dL (3.5-5.1); Alkaline Phosphatase 85 U/L (38-126); Aspartate Amino Transferase 20 U/L (17-59); Bilirubin,Total 0.3 mg/dL (0.2-1.3); Blood Urea Nitrogen 44 mg/dL (9-20); Calcium 9.3 mg/dL (8.4-10.2); Carbon Dioxide 28 mmol/L (22-30); Chloride 102 mmol/L (98-107); Estimated CRCL calculation 7 ml/min; Estimated Glomerular Filt Rate 9; Glucose 94 mg/dL (75-110); Magnesium 2.6 mg/dL (1.6-2.3); Potassium 4.1 mmol/L (3.4-5.0); Sodium 139 mmol/L (137-145)
[2019-12-27 04:52] LABS: Macrocytosis 1+ (NORMAL)
[2019-12-27 04:53] LABS: Ovalocytes 1+ (NORMAL)
[2019-12-27 06:00] VITALS: PULSE 63
[2019-12-27 08:00] VITALS: BP 116/77; PULSE 61; RESP 18; TEMP 36.3; O2SAT 100
--- NOTE | 2019-12-27 09:14 | PM.DS ---
DS: Diagnosis Admitting Diagnosis Admitting Diagnosis: End stage renal disease Discharge Diagnosis (1) Chest pain: Qualifiers: Chest pain type: chest pain due to myocardial ischemia Ischemic chest pain type: unspecified angina pectoris type Qualified Code(s): I25.9 - Chronic ischemic heart disease, unspecified Code(s): R07.9 - Chest pain, unspecified Status: Acute Assessment and Plan: Date of Service 12/27/19 Mr. Villagran is a pleasant 59 yo M with history of end-stage renal disease on hemodialysis MWF, right above the knee amputation, coronary artery disease, and hypertension. He presented to the ED from dialysis due to chest pain, although the patient adamantly denies chest pain to me and tells me he just was having heart burn, reflux symptoms. His troponins were elevated to 1.7 in the ED and he was admitted for observation. Troponins were elevated but flat, trended 1.70 > 1.52 > 1.59. He had a similar event a few weeks ago 12/05/19 for which he was also admitted here, at which time troponins trended 2.71 > 2.65 > 2.64. During his last admission 12/05/19, he was evaluated by cardiology here and was not felt to require further ischemic workup at that time. Patient has a history of ischemic heart disease for which he follows with a retail business development manager at [facility]. He has a history of 4 coronary stents and ICD. He reports he recently saw his retail business development manager in the last couple weeks. He will continue to follow with his retail business development manager. He was not having any dyspepsia or chest pain day of discharge and offered no complaints. Although he does have a history of ischemic heart disease, it is felt that his elevated troponins at this time are a result of his end-stage renal disease. He will follow up with his retail business development manager at [facility] and Dr Newton (his sheet heater) at discharge. (2) Elevated troponin: Code(s): R79.89 - Other specified abnormal findings of blood chemistry Status: Acute Assessment and Plan: . (3) ESRD (end stage renal disease): Code(s): N18.6 - End stage renal disease Status: Chronic Assessment and Plan: Nephrology consulted and he did complete dialysis here Sunday. (4) Hypertension: Qualifiers: Hypertension type: essential hypertension Qualified Code(s): I10 - Essential (primary) hypertension Code(s): I10 - Essential (primary) hypertension Status: Acute Assessment and Plan: Continue with lisinopril and Coreg (5) Peripheral vascular disease: Code(s): I73.9 - Peripheral vascular disease, unspecified Status: Acute (6) Hyperparathyroidism: Code(s): E21.3 - Hyperparathyroidism, unspecified Status: Acute DS: Summary Time Spent with Patient Time attestation: Total time spent providing and/or coordinating discharge services: 35 minutes Exam Narrative: Exam Narrative: General: Male sitting up in bed in no acute distress. HEENT: Normocephalic, EOMI, oral mucosa moist. Cardiovascular: Rate and rhythm are regular. Respiratory: Lungs clear to auscultation all flores. Non-labored breathing. Abdomen: Soft, non-tender, non-distended, bowel sounds present. Extremities: Peripheral pulses intact. No edema. Right AKA. Neuro: No focal neurological deficits. Speech is clear. DS: Data Data Completed and Pending Labs on day of discharge: Labs from last 24 hours 12/27/19 12/27/19 12/27/19 04:10 04:09 04:09 WBC 4.5 RBC 3.75 L Hgb 11.1 L Hct 37.1 L MCV 98.9 MCH 29.6 MCHC 29.9 L RDW 16.9 H Plt Count 109 L MPV 11.9 H Immature Gran % (Auto) 0.2 Neut % (Auto) 72.0 Lymph % (Auto) 8.6 L [place] % (Auto) 15.0 H Eos % (Auto) 3.3 Baso % (Auto) 0.9 Lymph # (Auto) 0.39 L [place] # (Auto) 0.7 H Eos # (Auto) 0.2 Baso # (Auto) 0.0 Abs Immat Gran (auto) 0.01 Absolute Neuts (auto)
[2019-12-27] MEDS: SEVELAMER CARBONATE 800 MG TABLET PO (10:46)
[2019-12-27] MEDS: CINACALCET 30 MG TABLET 90 MG PO (10:46)
[2019-12-27] MEDS: lisinopriL 20 MG TABLET 40 MG PO (10:47)
[2019-12-27] MEDS: ASPIRIN 81 MG CHEWABLE TABLET PO (10:47)
[2019-12-27] MEDS: TICAGRELOR 90 MG TABLET PO (10:48)
[2019-12-27] MEDS: carvediloL 25 MG TABLET PO (10:49)
[2019-12-27] MEDS: AMIODARONE HCL 200 MG TABLET PO (10:49)
[2019-12-27] MEDS: DORZOLAMIDE HCL 2% OPHTH DROPS 1 DROP EACH EYE (10:50)
== END 2019-12-27 11:15 | disposition home or self-care (01) ==
LOC: ANHED 09:29 → ANHIMU 09:58
PROVIDERS: Nurse Practitioner; Admitting Provider Family Medicine; Emergency Provider Family Medicine; PCP Family Medicine; Visit Provider Physician Assistant
DX: I25.9 Chronic ischemic heart disease, unspecified (principal); R79.89 Other specified abnormal findings of blood chemistry; I12.0 Hypertensive chronic kidney disease with stage 5 chronic kidney disease or end stage renal disease; N18.6 End stage renal disease; Z94.0 Kidney transplant status; Z99.2 Dependence on renal dialysis; K21.9 Gastro-esophageal reflux disease without esophagitis; I73.9 Peripheral vascular disease, unspecified; E21.3 Hyperparathyroidism, unspecified; I25.10 Atherosclerotic heart disease of native coronary artery without angina pectoris; I25.5 Ischemic cardiomyopathy; D64.9 Anemia, unspecified; E03.9 Hypothyroidism, unspecified; H26.9 Unspecified cataract; H40.9 Unspecified glaucoma; M19.90 Unspecified osteoarthritis, unspecified site; Z79.82 Long term (current) use of aspirin; Z79.899 Other long term (current) drug therapy; Z86.74 Personal history of sudden cardiac arrest; Z87.891 Personal history of nicotine dependence; Z89.611 Acquired absence of right leg above knee; Z95.5 Presence of coronary angioplasty implant and graft; Z95.810 Presence of automatic (implantable) cardiac defibrillator
CPT/HCPCS: 36415; 71045; 80053; 83735; 84443; 84484; 85025; 85610; 93005; 93306; 99285; A9270; G0257; G0378; J7030

== ENCOUNTER 2020-05-17 07:12 | Observation (INO) | payer MEDICARE, OTHER, SELFPAY ==
[2020-05-17] VITALS (20 sets, daily range): BP systolic 92–146; BP diastolic 53–92; PULSE 51–96; RESP 16–20; TEMP 35.8–36.6; O2SAT 93–100; BMI 18.9
--- NOTE | ~2020-05-17 | XR_ITS ---
EXAMINATION: XR chest 1V portable DATE: 05/17/2020 07:48 INDICATION: Chest pain. TECHNIQUE: A single frontal view of the chest was obtained. COMPARISON: Chest single view 12/26/2019, CT abdomen 01/16/2018 FINDINGS: There are interstitial opacities in the mid and lower lung zones. No pleural effusion or pn eumothorax. Cardiomegaly is noted. There is a defibrillator in left chest with lead overlying the med iastinum. IMPRESSION: 1. Interstitial opacities in the mid and lower lung zones, likely mild pulmonary edema. 2. Cardiomegaly. Reviewed, dictated and finalized at location A. IMPRESSION: 1. Interstitial opacities in the mid and lower lung zones, likely mild pulmonar y edema. 2. Cardiomegaly.
--- NOTE | 2020-05-17 07:20 | ECG_ITS ---
Measurements Intervals [place] Rate: 85 P: 42 CA: 180 QRS: 59 QRSD: 114 T: 85 QT: 408 QTc: 488 Interpretive Statements SINUS RHYTHM VENTRICULAR COUPLET, ATRIAL AND VENTRICULAR PREMATURE COMPLEXES POSSIBLE LEFT ATRIAL ENLARGEMENT INTRAVENTRICULAR CONDUCTION DELAY LEFT VENTRICULAR HYPERTROPHY AND ST-T CHANGE DELAYED PRECORDIAL R/S TRANSITION BORDERLINE ST-T WAVE ABNORMALITY- INF/HIGH LAT LEADS BASELINE ARTIFACT- I, III, AVL ABNORMAL ECG Electronically Signed On 05-17-2020 7:41:51 CDT by Nikita Jerez D.O.
--- NOTE | 2020-05-17 07:30 | ED.CHESTPAIN ---
HPI - Chest Pain General Chief Complaint: Chest Pain Stated Complaint: elevated heart rate - resolved Time Seen by Provider: 05/17/20 07:14 Source: patient Mode of arrival: EMS Limitations: no limitations History of Present Illness HPI narrative: This patient is a 60 year old male with history of CAD, VT s/p stent, defibrillator, ESRD on dialysis who presents for evaluation of an elevated heart rate. Patient states he was receiving dialysis when he developed heart burn . He states he told nursing staff at [facility] and they checked his heart rate. He states they reported his heart rate was 126-135 so they recommended him be sent to ER. He reports his heart burn lasted only minutes and it has already resolved. He denies associated diaphoresis, shortness of breath, dizziness, nausea, vomiting or palpitation with his heart burn. He reports history of VT in the past but states this does not feel like his previous VT. He denies chest pain , heart burn or sob with exertion. Pertinent past history: coronary artery disease Onset (ago): minute(s) Timing of current episode: now resolved Onset: during rest Pain location: left chest Pain radiation: none Quality: burning Relieving factors: nothing Exacerbating factors: nothing Related Data Home Medications Medication Instructions Recorded Confirmed Brilinta 90 mg PO Q12H 12/05/19 05/17/20 amiodarone 200 mg PO DAILY 12/05/19 05/17/20 aspirin [Adult Low Dose Aspirin] 81 mg PO DAILY 12/05/19 05/17/20 atorvastatin [Lipitor] 40 mg PO HS 12/05/19 05/17/20 carvedilol [Coreg] 25 mg PO Q12H 12/05/19 05/17/20 dorzolamide 1 drp OPHTHALMIC (EYE) DAILY 12/05/19 05/17/20 lanthanum [Fosrenol] 1,000 mg PO TID 12/05/19 05/17/20 lisinopril 40 mg PO DAILY 12/05/19 05/17/20 Allergies Allergy/AdvReac Type Severity Reaction Status Date / Time No Known Allergies Allergy Verified 12/26/19 07:38 Review of Systems Review of Systems: All systems reviewed & are unremarkable except as noted in HPI and below Constitutional: Constitutional: Denies chills and Denies fever(s) ENT: Denies sore throat Cardiovascular: Cardiovascular: Denies radiating jaw, neck or arm pain and Denies slow heart rate Respiratory: Respiratory: Denies cough, Denies dyspnea and Denies wheezing Gastrointestinal: Gastrointestinal: Denies abdominal pain, Denies diarrhea, Denies nausea and Denies vomiting Genitourinary: Genitourinary: Denies hematuria [facility] Past Medical History Medical History Burning chest pain Cardiac arrest with ventricular fibrillation In November 2016. Chronic anemia Coronary artery disease With history of stent x4 at [facility] in November 2016. Dialysis AV fistula malfunction 2 in the left forearm that are new nonfunctioning. The 1 on the right has a positive bruit and thrill. Dialysis patient End-stage renal disease on hemodialysis Sunday GERD (gastroesophageal reflux disease) Glaucoma Hyperparathyroidism Hypertension Ischemic cardiomyopathy Status post PM/ICD insertion. Peripheral artery disease Peripheral vascular disease Surgical History Surgical History H/O kidney transplant Renal transplant 2002. It became nonfunctioning in 2005 and he has been on hemodialysis since that diet. History of cardiac catheterization With stents x4 in November 2016 done at [facility]. Status post above-knee amputation of right lower extremity Family History Family History Father Carcinoma of colon Sibling Heart disease both brothers Social History Social History Social History: The patient lives in [place] and his daughter last with him. He designates his 3 children as his surrogate decision makers and he wishes to be a full code. He was honorably discharged from
--- NOTE | 2020-05-17 07:35 | PC.NURSE ---
mom present to sign transfer form. mom gave verbal consent to [facility] for transfer
[2020-05-17 07:39] LABS: Basophils Percent Auto 0.6 % (0.2-1.2); Eosinophils Absolute Auto 0.1 K/mm3 (0-0.3); Eosinophils Percent Auto 2.2 % (0-4.4); Hematocrit 37.1 % (42.0-52.0); Hemoglobin 11.8 g/dL (14.0-18.0); Immature Granulocyte Absolute 0.01 K/mm3 (0.00-0.031); Immature Granulocyte Percent A 0.2 % (0-0.5); Lymphocytes Absolute Auto 0.47 K/mm3 (0.9-3.2); Lymphocytes Percent Auto 9.3 % (18.3-44.2); Mean Corpuscular HGB Conc 31.8 g/dl (32-36); Mean Corpuscular Hemoglobin 31.3 pg (26-34); Mean Corpuscular Volume 98.4 fl (80-100); Mean Platelet Volume 12.2 fl (7.4-10.4); Monocytes Absolute Auto 0.6 K/mm3 (0.1-0.6); Monocytes Percent Auto 11.4 % (2.6-8.5); Neutrophils Absolute Auto 3.9 K/mm3 (1.3-6.7); Neutrophils Percent Auto 76.3 % (45.5-73.1); Platelet Count Result 102 k/mm3 (150-375); Red Blood Count 3.77 M/mm3 (4.6-6.20); White Blood Count 5.1 K/mm3 (4.5-10.0)
[2020-05-17 07:44] LABS: Blood Urea Nitrogen 62 mg/dL (9-20); Calcium 9.4 mg/dL (8.4-10.2); Carbon Dioxide 27 mmol/L (22-30); Chloride 97 mmol/L (98-107); Estimated CRCL calculation 6 ml/min; Estimated Glomerular Filt Rate 6; Glucose 100 mg/dL (75-110); Potassium 4.1 mmol/L (3.4-5.0); Sodium 139 mmol/L (137-145)
[2020-05-17 08:01] LABS: Troponin I 0.185 ng/mL (0.000-0.034)
[2020-05-17 11:33] LABS: Troponin I 0.185 ng/mL (0.000-0.034)
--- NOTE | 2020-05-17 12:36 | PM.IMHP ---
H&P: HPI History of Present Illness Chief complaint: elevated troponin/arrhythmia/chest pain Narrative: Veronica Villagran Sr. is a 60 year old maleWho has a history of end-stage renal disease and has dialysis on Sunday. The patient's last admission here was December [id number]. The patient was admitted for chest pain at that time. and the patient had been admitted earlier that month and was found to be noncardiac. The patient chronically has elevated troponin the baseline troponin was 0.185 and that the 3 hour was the same. Patient complain of some heartburn in dialysis and felt that his heart was racing. His heart rate was in the 126-135. Patient stated his pain lasted about a minute and he stated that it was just heart burn. Patient stated that he has severe acid reflux and he gets heartburn on and off several times. The patient was just laying there and dialysis when this occurred. He took some Tums and the pain went away. However since the patient complained of some heartburn and fast heart rate he was then sent to the emergency room. He is pain-free at this time. He does have a history of having for cardiac stents performed at [facility]. The patient does have a defibrillator and has gone off on several occasions. His heart rate sounds regular and it looks like he is having frequent PVCs. Multifocal PVCs. He a is sinus rhythm with occasional supraventricular premature complex. Is with the EKG is read as. His chest x-ray is read as interstitial PACs in the mid and lower lung zones. Likely mild pulmonary edema. Cardiomegaly. This appears to be the same as his last admission. The patient was ordered Zofran. Review of Systems Review of Systems: All systems reviewed & are unremarkable except as noted in HPI and below Constitutional: Constitutional: Reports as per HPI and Reports no additional constitutional complaints Eyes: Eyes: Reports as per HPI and Reports no additional eye complaints ENT: Reports system reviewed and no additional complaints, except as documented and Reports Normal hearing present Cardiovascular: Cardiovascular: Reports no additional cardiovascular complaints Respiratory: Respiratory: Reports no additional respiratory complaints and Reports no additional respiratory complaints Gastrointestinal: Gastrointestinal: Reports as per HPI and Reports no additional gastrointestinal complaints Musculoskeletal: Musculoskeletal: Reports no additional musculoskeletal complaints Integumentary/Breasts: Skin/Breast: Reports system reviewed and no additional complaints, except as docu and Reports as per HPI Neurologic: Reports system reviewed and no additional complaints, except as documented, Reports as per HPI and Reports Normal hearing present Psychiatric: Psychiatric: Reports no additional psychiatric complaints and Reports as per HPI Endocrine: Endocrine: Reports no additional endocrine complaints Hematologic/Lymphatic: Hematologic/Lymphatic: Reports no additional hematologic/lymphatic complaints Allergic/Immunologic: Allergic/Immunologic: Reports no additional allergic/immunologic complaints [facility] Past Medical History Medical History (Updated 05/17/20 @ 12:46 by Britt Longo NP) Cardiac arrest with ventricular fibrillation In November 2016. Chronic anemia Coronary artery disease With history of stent x4 at [facility] in November 2016. Dialysis AV fistula malfunction 2 in the left forearm that are new nonfunctioning. The 1 on the right has a positive bruit and thrill. Dialysis patient End-stage renal disease on hemodialysis Sunday GERD (gastroesophageal reflux disease) Glaucoma Hyperparathyroidism Hypertension Ischemic cardiomyopathy Status post PM/ICD insertion. Peripheral artery disease Peripheral vascular disease Surgical History Surgical History (Updated 12/26/19 @ 15:21 by Britt Longo NP) H/O kidney transplant Renal transplant 2002. It
--- NOTE | 2020-05-17 13:49 | PM.CNNEP ---
Assessment and Plan Assessment and plan (1) End-stage renal disease on hemodialysis: Code(s): N18.6 - End stage renal disease; Z99.2 - Dependence on renal dialysis Status: Chronic Assessment and Plan: the patient has end-stage renal disease. He had dialysis for an hour and a half today. Electrolytes are okay. He has no shortness of breath or swelling and is on no oxygen. If he gets dialysis at will be till midnight tonight because there are other patients ahead of him so we will just do the last 2 hours of today's treatment tomorrow since he is not in any distress. We can check a renal panel and will dialyze him in the morning. (2) Burning chest pain: Code(s): R07.89 - Other chest pain Status: Acute Assessment and Plan: The patient has a history of GERD. Because of the rapid heart rate this was fear to be cardiac. He is getting an evaluation to make sure he is okay. He does have substantial risk factors for cardiac disease including prior cardiac arrest and known coronary disease. His troponins are lower than they have been in a long time. (3) Peripheral artery disease: Code(s): I73.9 - Peripheral vascular disease, unspecified Status: Chronic Assessment and Plan: Status post right [id number] amputation (4) Cardiac defibrillator in place: Code(s): Z95.810 - Presence of automatic (implantable) cardiac defibrillator Status: Chronic Assessment and Plan: no cardiac issues lately (5) Chronic anemia: Code(s): D64.9 - Anemia, unspecified Status: Chronic Assessment and Plan: hemoglobin is good. Is above 11. Will hold off on the EPO today. (6) Hypertension: Qualifiers: Hypertension type: essential hypertension Qualified Code(s): I10 - Essential (primary) hypertension Code(s): I10 - Essential (primary) hypertension Status: Chronic Assessment and Plan: Blood pressure is well controlled. History of Present Illness Reason for Consult Consult date: 05/17/20 Chief Complaint Chief complaint: elevated troponin/arrhythmia/chest pain History of Present Illness Narrative: Celso is a very pleasant 60-year-old gentleman who has multiple medical problems including peripheral vascular disease status post right above the knee amputation, end-stage renal disease on dialysis 3 times a week, history of cardiac arrest, coronary disease, GERD, glaucoma, renal osteodystrophy, anemia of kidney disease, hypertension, who was well until today when he was at dialysis. He began to have heartburn. This is described as a burning in his chest which worsened if he laid down. He says that he has had episodes of GERD in the last 20 years. Generally he will goal whole year without symptoms but then he will have symptoms for a couple of weeks. He feels like this is what is coming along. He went to dialysis this morning and asked for Tums for his chest. The nurses saw that his heart rate was higher than it usually is and they were worried this might be angina so they took him off the machineand sent him over to the emergency room. He had been on dialysis for about an hour and a half. Patient denies any shortness of breath. No chest pain. The burning in his chest is actually improved. No swelling or skin rash. Review of Systems Constitutional: Constitutional: Reports no additional constitutional complaints Eyes: Eyes: Reports no additional eye complaints ENT: Reports system reviewed and no additional complaints, except as documented Cardiovascular: Cardiovascular: Reports no additional cardiovascular complaints Respiratory: Respiratory: Reports no additional respiratory complaints Gastrointestinal: Gastrointestinal: Reports no additional gastrointestinal complaints Genitourinary: Genitourinary: Reports no additional male genitourinary complaints Musculoskeletal: Musculoskeletal: Reports no additional
[2020-05-17 14:02] LABS: Troponin I 0.224 ng/mL (0.000-0.034)
--- NOTE | 2020-05-17 14:55 | PM.CNCAR ---
Assessment and Plan Assessment and plan (1) Elevated troponin: Code(s): R79.89 - Other specified abnormal findings of blood chemistry <Jennie Martinez APRN - Last Filed: 05/17/20 15:59> Status: Chronic <Jennie Martinez APRN - Last Filed: 05/17/20 15:59> Assessment and Plan: Troponin 0.185, 0.185 and 0.224 without ischemic symptoms. EKG personally reviewed reveals sinus rhythm at 85 beats per minute. Ventricular couplets and atrial premature complexes. Possible left atrial enlargement. LVH with ST T wave abnormalities. Elevated troponins are most likely related to the tachycardia in a known ischemic cardiomyopathy and end-stage renal disease. Not ACS. His heartburn lasted only minutes relieved with Tums. He states he has been having some heartburn lately. When he has VF arrest and 4 stents placed in 2017 he remembers having chest tightness but not heartburn. Continue aspirin, atorvastatin, carvedilol, lisinopril, Brilinta and amiodarone. <Jennie Martinez APRN - Last Filed: 05/17/20 15:59> (2) Ischemic cardiomyopathy: Code(s): I25.5 - Ischemic cardiomyopathy <Jennie Martinez APRN - Last Filed: 05/17/20 15:59> Status: Acute <Jennie Martinez APRN - Last Filed: 05/17/20 15:59> Assessment and Plan: Follows at [facility] regularly. Continue meds as above. ICD was interrogated in the emergency room by [email or web address]. The rate of the tachycardia this morning was 150 beats per minute. The ICD has a conditional shock zone is set at 170 beats per minute. Shock zone at 200 beats per minute. <Jennie Martinez APRN - Last Filed: 05/17/20 15:59> (3) Cardiac defibrillator in place: Code(s): Z95.810 - Presence of automatic (implantable) cardiac defibrillator <Jennie Martinez APRN - Last Filed: 05/17/20 15:59> Status: Chronic <Jennie Martinez APRN - Last Filed: 05/17/20 15:59> Assessment and Plan: [employer] subcutaneous ICD. Followed by [facility]. Settings as above. <Jennie Martinez APRN - Last Filed: 05/17/20 15:59> (4) Tachycardia: Code(s): R00.0 - Tachycardia, unspecified <Jennie Martinez APRN - Last Filed: 05/17/20 15:59> Status: Acute <Jennie Martinez APRN - Last Filed: 05/17/20 15:59> Assessment and Plan: During dialysis. Rhythm strip from EMS reveals a rate of 150 beats per minute. SVT versus atrial fibrillation. Plan is to have him have dialysis tomorrow morning. Monitor his heart rhythm and rate during dialysis. He should follow up with his primary production broacher soon after discharge. <Jennie Martinez APRN - Last Filed: 05/17/20 15:59> Additional Plan Plan discussed Dr. Eason 1545 05/17/2020. <Jennie Martinez APRN - Last Filed: 05/17/20 15:59> History of Present Illness History of Present Illness Consult date/time: 05/17/20 14:18 <Jennie Martinez APRN - Last Filed: 05/17/20 15:59> Requesting physician: Antonella Lewis MD <Jennie Martinez APRN - Last Filed: 05/17/20 15:59> Consult reason: Other (Significant cardiac history, chest pain) <Jennie Martinez APRN - Last Filed: 05/17/20 15:59> Reason For Visit: elevated troponin/arrhythmia/chest pain <Jennie Martinez APRN - Last Filed: 05/17/20 15:59> Narrative: 60-year-old male with a history of V fib arrest in November of 2016, coronary artery disease with history of stent x4, ischemic cardiomyopathy status post [employer] subcutaneous ICD implant, end-stage renal disease on hemodialysis, chronic anemia, peripheral vascular disease that was brought via EMS to the emergency room from dialysis this morning for elevated heart rate. He states he was in dialysis and after about an an hour and a half he experienced heartburn. He told the nurse and she took vital signs notin
[2020-05-17] MEDS: carvediloL 25 MG TABLET PO ×2 (15:41→20:44)
[2020-05-17] MEDS: ASPIRIN 81 MG ENTERIC TABLET PO (15:41)
[2020-05-17] MEDS: lisinopriL 20 MG TABLET 40 MG PO (15:42)
[2020-05-17] MEDS: AMIODARONE HCL 200 MG TABLET PO (15:42)
[2020-05-17] MEDS: TICAGRELOR 90 MG TABLET PO ×2 (15:42→20:44)
[2020-05-17] MEDS: DORZOLAMIDE HCL 2% OPHTH DROPS 1 DROP EACH EYE (15:43)
[2020-05-17] MEDS: ONDANSETRON INJ 4 MG/2 ML VIAL IV PUSH (20:44)
[2020-05-17] MEDS: ATORVASTATIN 40 MG TABLET PO (20:44)
[2020-05-17] MEDS: FAMOTIDINE 20 MG/2 ML VIAL IV PUSH (20:44)
[2020-05-18] VITALS (18 sets, daily range): BP systolic 94–117; BP diastolic 53–76; PULSE 51–62; RESP 16–20; TEMP 35.8–36.8; O2SAT 97–100
[2020-05-18 05:07] LABS: Alanine Aminotransferase 10 U/L (4-50); Albumin Level 3.8 g/dL (3.5-5.1); Alkaline Phosphatase 259 U/L (38-126); Aspartate Amino Transferase 16 U/L (17-59); Bilirubin,Total 0.5 mg/dL (0.2-1.3); Blood Urea Nitrogen 79 mg/dL (9-20); CRP 0.9 mg/dL (<1.0); Calcium 9.3 mg/dL (8.4-10.2); Carbon Dioxide 25 mmol/L (22-30); Chloride 100 mmol/L (98-107); Estimated CRCL calculation 5 ml/min; Estimated Glomerular Filt Rate 5; Glucose 104 mg/dL (75-110); Magnesium 3.1 mg/dL (1.6-2.3); Phosphorus 7.6 mg/dL (2.5-4.5); Potassium 4.7 mmol/L (3.4-5.0); Sodium 138 mmol/L (137-145)
[2020-05-18] MEDS: ONDANSETRON INJ 4 MG/2 ML VIAL IV PUSH (07:28)
[2020-05-18] MEDS: ASPIRIN 81 MG ENTERIC TABLET PO (07:36)
--- NOTE | 2020-05-18 08:07 | PM.PNNEP ---
Progress Note: A&P Assessment and Plan (1) End-stage renal disease on hemodialysis: Code(s): N18.6 - End stage renal disease; Z99.2 - Dependence on renal dialysis Status: Chronic Assessment and Plan: the patient has end-stage renal disease. will do another treatment today for a couple of hours to make up for the short treatment yesterday. (2) Burning chest pain: Code(s): R07.89 - Other chest pain Status: Acute Assessment and Plan: The patient has a history of GERD. No symptoms today. (3) Peripheral artery disease: Code(s): I73.9 - Peripheral vascular disease, unspecified Status: Chronic Assessment and Plan: Status post right vwzit-slf-eodf amputation (4) Cardiac defibrillator in place: Code(s): Z95.810 - Presence of automatic (implantable) cardiac defibrillator Status: Chronic Assessment and Plan: no cardiac issues lately Cardiology input appreciated. He had SVT yesterday at the end of dialysis. Will monitor his heart rate today while getting treatment this morning. (5) Chronic anemia: Code(s): D64.9 - Anemia, unspecified Status: Chronic Assessment and Plan: hemoglobin is good. Is above 11. Will hold off on the EPO today. (6) Hypertension: Qualifiers: Hypertension type: essential hypertension Qualified Code(s): I10 - Essential (primary) hypertension Code(s): I10 - Essential (primary) hypertension Status: Chronic Assessment and Plan: Blood pressure is well controlled. Subjective Date/time seen: 05/18/20 08:07 Interval history: Patient is alert. He feels better. No more indigestion. Review of Systems Cardiovascular: Cardiovascular: Reports no additional cardiovascular complaints Respiratory: Respiratory: Reports no additional respiratory complaints Gastrointestinal: Gastrointestinal: Reports no additional gastrointestinal complaints Genitourinary: Genitourinary: Reports no additional male genitourinary complaints Exam Narrative: Exam Narrative: WDWN in NAD skin no rash head ncat lungs clear cor reg no rub abd BS+ nontender and soft ext no edema. Status post right BKA Objective Data Vital Signs Vital Signs: Vital Signs - 24 hr 05/17/20 08:19 05/17/20 09:38 05/17/20 10:00 Temperature Pulse Rate 86 84 96 Respiratory Rate 16 16 16 Blood Pressure 122/83 132/85 132/85 Pulse Oximetry 99 96 98 07/20/20 10:54 05/17/20 11:00 05/17/20 11:54 Temperature 36.6 C 35.9 C L Pulse Rate 80 84 87 Respiratory Rate 20 18 Blood Pressure 134/84 100/53 L 146/78 H Pulse Oximetry 99 99 05/17/20 12:00 05/17/20 14:00 05/17/20 15:41 Temperature Pulse Rate 88 89 85 Respiratory Rate Blood Pressure Pulse Oximetry 05/17/20 15:42 05/17/20 15:54 05/17/20 16:00 Temperature 36.4 C L Pulse Rate 85 86 88 Respiratory Rate 18 Blood Pressure 131/85 Pulse Oximetry 100 05/17/20 18:00 05/17/20 20:00 05/17/20 20:44 Temperature 36.5 C Pulse Rate 70 63 63 Respiratory Rate 20 Blood Pressure 92/62 L Pulse Oximetry 95 05/17/20 22:00 05/17/20 23:55 05/18/20 00:00 Temperature 35.8 C L Pulse Rate 64 55 L 58 L Respiratory Rate 18 Blood Pressure 114/76 Pulse Oximetry 93 05/18/20 02:00 05/18/20 04:00 05/18/20 06:00 Temperature 35.8 C L Pulse Rate 59 L 62 58 L Respiratory Rate 16 Blood Pressure 94/57 L Pulse Oximetry 100 05/18/20 07:33 Temperature 36.4 C L Pulse Rate 54 L Respiratory Rate 18 Blood Pressure 94/53 L Pulse Oximetry 100 Intake/Output Intake/Output: Intake & Output 05/15/20 05/16/20 05/17/20 05/18/20 23:59 23:59 23:59 23:59 Intake Total 100 Balance 100 Meds/Results Medications: Active Medications Generic Name Dose Route Start Last Admin Trade Name Freq PRN Reason Stop Dose Admin Amiodarone HCl 200 mg 05/17/20 09:00 05/17/20 15:42 Pac
[2020-05-18] MEDS: FAMOTIDINE 20 MG/2 ML VIAL IV PUSH (09:25)
[2020-05-18] MEDS: TICAGRELOR 90 MG TABLET PO (09:25)
[2020-05-18] MEDS: DORZOLAMIDE HCL 2% OPHTH DROPS 1 DROP EACH EYE (09:25)
--- NOTE | 2020-05-18 14:49 | PM.DS ---
DS: Admitting Diagnosis Admitting Diagnosis Admitting Diagnosis: Other specified abnormal findings of blood chemistry DS: Discharge Diagnosis Discharge Diagnosis (1) Chest pain: Code(s): R07.9 - Chest pain, unspecified Status: Acute (2) Elevated troponin: Code(s): R79.89 - Other specified abnormal findings of blood chemistry Status: Chronic (3) Hyperparathyroidism: Code(s): E21.3 - Hyperparathyroidism, unspecified Status: Chronic (4) Glaucoma: Code(s): H40.9 - Unspecified glaucoma Status: Chronic (5) Chronic anemia: Code(s): D64.9 - Anemia, unspecified Status: Chronic (6) Hypertension: Qualifiers: Hypertension type: essential hypertension Qualified Code(s): I10 - Essential (primary) hypertension Code(s): I10 - Essential (primary) hypertension Status: Chronic (7) Ischemic cardiomyopathy: Code(s): I25.5 - Ischemic cardiomyopathy Status: Acute (8) ESRD (end stage renal disease): Code(s): N18.6 - End stage renal disease Status: Chronic DS: Summary Hospital Course Reason for hospitalization: Tachycardia Hospital Course: Mr. Villagran is a 60 y.o. male with PMH significant for ESRD on HD M,W,F, V fib arrest in Nov, CAD with hx of stenting x4, ischemic cardiomyopathy s/p ICD implant, chronic anemia, hypertension, GERD, and PVD who presented to the emergency department from hemodialysis for the evaluation of elevated heart rate. He reports that he developed heartburn approximately 1.5 hours after starting dialysis. The nurse took his vitals and noticed that his heart rate was between 126-135. His heartburn resolved with Tums. The initial rhythm strip revealed tachycardia with a rate of 150 bpm and was reviewed by cardiology and noted to be SVT versus atrial fibrillation. Initial EKG demonstrated sinus rhythm with frequent PVCs. Subsequent EKGs demonstrated sinus rhythm. During the episode, he had no palpitations, chest pain, or dyspnea. The ICD was interrogated in the ED and revealed a 16 beat run of NSVT documented 05/14/20. Initial workup in the ED revealed WBC 5,100, Hb 11.8, Hct 37.1, platelets 102, sodium 139, potassium 4.1, chloride 97, CO2 27, BUN 62, Cr 10, glucose 100, troponin 0.185 with trend up to 0.224 in the setting of ESRD, and CXR with cardiomegaly and interstitial opacities which may represent mild pulmonary edema. He was admitted to the hospitalist service and cardiology was consulted. His troponin elevation was likely related to his tachycardia with known ischemic cardiomyopathy and ESRD and was not felt to be ACS. He was monitored on telemetry monitoring with sinus ryhthm and frequent PVCs. Cardiology recommended that he follow-up with his primary cardiology service soon after discharge. He underwent dialysis 05/18/20 to complete his full treatment since his prior treatment was short and tolerated this well with no tachycardia noted. He was cleared for discharge from a cardiology standpoint and discharged in stable condition on the afternoon of 05/18/20. Status at Discharge Functional status at discharge: wheelchair bound Overall status at discharge: patient is back to baseline Time Spent with Patient Time attestation: Total time spent providing and/or coordinating discharge services: 35 minutes Exam Narrative: Exam Narrative: Vitals at presentation: Temp Pulse Resp BP Pulse Ox 97.8 F 90 18 133/92 H 99 05/17/20 07:12 05/17/20 07:12 05/17/20 07:12 05/17/20 07:12 05/17/20 07:12 Vitals at discharge: Temp Pulse Resp BP Pulse Ox 98.2 F 57 L 20 110/76 97 05/18/20 12:30 05/18/20 14:00 05/18/20 12:30 05/18/20 12:30 05/18/20 12:00
== END 2020-05-18 15:12 | disposition home or self-care (01) ==
LOC: ANHED 07:29 → ANHIMU 09:41
PROVIDERS: Nurse Practitioner; Admitting Provider Family Medicine; Emergency Provider General Practice; PCP Family Medicine; Visit Provider Physician Assistant
DX: R07.89 Other chest pain (principal); R79.89 Other specified abnormal findings of blood chemistry; E21.3 Hyperparathyroidism, unspecified; D63.1 Anemia in chronic kidney disease; I25.10 Atherosclerotic heart disease of native coronary artery without angina pectoris; I25.2 Old myocardial infarction; Z95.5 Presence of coronary angioplasty implant and graft; Z95.810 Presence of automatic (implantable) cardiac defibrillator; I12.0 Hypertensive chronic kidney disease with stage 5 chronic kidney disease or end stage renal disease; N18.6 End stage renal disease; Z99.2 Dependence on renal dialysis; K21.9 Gastro-esophageal reflux disease without esophagitis; I73.9 Peripheral vascular disease, unspecified; I49.9 Cardiac arrhythmia, unspecified; I25.9 Chronic ischemic heart disease, unspecified; Z89.611 Acquired absence of right leg above knee; R00.0 Tachycardia, unspecified; H40.9 Unspecified glaucoma
CPT/HCPCS: 36415; 71045; 80048; 80053; 83735; 84100; 84443; 84484; 85025; 86140; 93005; 96374; 96375; 96376; 99285; A9270; G0257; G0378; J2405; J7030

== ENCOUNTER 2020-06-21 06:53 | Emergency (ER) | payer MEDICARE, OTHER, SELFPAY ==
[2020-06-21] VITALS (17 sets, daily range): BP systolic 129–154; BP diastolic 90–98; PULSE 72–89; RESP 13–26; TEMP 36.6; O2SAT 96–100
--- NOTE | ~2020-06-21 | XR_ITS ---
EXAMINATION: XR chest 2V EXAM DATE: 06/21/2020 07:32 INDICATION: Arrhythmia. secured entrance monitor. TECHNIQUE: Frontal and lateral projections of the chest obtained and reviewed. Comparison is made to prior examination from 05/17/2020. FINDINGS: There is cardiomegaly and pulmonary vascular congestion. No confluent consolidation, pneum othorax or pleural effusion suspected. Bones appear sclerotic, and on the lateral projection appears to disproportionately affect the endplates. This appearance could indicate hyperparathyroidism. There is aortic arteriosclerosis. IMPRESSION: 1. Sclerotic appearing bones, endplates in particular. Recommend evaluating possibility of hyperpara thyroidism. 2. Cardiomegaly, congestion. Reviewed, dictated and finalized at location B. IMPRESSION: 1. Sclerotic appearing bones, endplates in particular. Recommend evaluating po ssibility of hyperparathyroidism. 2. Cardiomegaly, congestion.
--- NOTE | 2020-06-21 07:04 | ECG_ITS ---
Measurements Intervals [place] Rate: 83 P: 56 HI: 180 QRS: -49 QRSD: 136 T: -88 QT: 427 QTc: 504 Interpretive Statements SINUS RHYTHM VENTRICULAR PREMATURE COMPLEXES POSSIBLE LEFT ATRIAL ENLARGEMENT LEFT AXIS DEVIATION INCOMPLETE LEFT BUNDLE BRANCH BLOCK DELAYED PRECORDIAL R/S TRANSITION ST-T WAVE ABNORMALITY IN LATERAL LEADS- CONSIDER ISCHEMIA BASELINE ARTIFACT- I, V1, V5-V6 ABNORMAL ECG Electronically Signed On 06-21-2020 7:52:40 CDT by Nikita Jerez D.O.
--- NOTE | 2020-06-21 07:08 | ED.ARRPALP ---
HPI - Arrhythmia/Palpitations General Chief Complaint: Arrhythmia/Palpitations Stated Complaint: ELEVATED HR Time Seen by Provider: 06/21/20 07:04 History of Present Illness HPI narrative: He was tachycardic today at dialysis with reported willy in the 130s. He has a h/o similar events. He was recently admitted here and [place] for the same. He has had a continuous lpn rn hospice in placed for the past month. He has an AICD. No Chest pain, SOB. Related Data Home Medications Medication Instructions Recorded Confirmed Brilinta 90 mg PO Q12H 12/05/19 05/17/20 amiodarone 200 mg PO DAILY 12/05/19 05/17/20 aspirin [Adult Low Dose Aspirin] 81 mg PO DAILY 12/05/19 05/17/20 atorvastatin [Lipitor] 40 mg PO HS 12/05/19 05/17/20 carvedilol [Coreg] 25 mg PO Q12H 12/05/19 05/17/20 dorzolamide 1 drp OPHTHALMIC (EYE) DAILY 12/05/19 05/17/20 lanthanum [Fosrenol] 1,000 mg PO TID 12/05/19 05/17/20 lisinopril 40 mg PO DAILY 12/05/19 05/17/20 cinacalcet [Sensipar] mg PO 06/21/20 isosorbide mononitrate mg PO 06/21/20 Allergies Allergy/AdvReac Type Severity Reaction Status Date / Time No Known Allergies Allergy Verified 06/21/20 07:03 Review of Systems Review of Systems: All systems reviewed & are unremarkable except as noted in HPI and below Constitutional: Constitutional: Denies chills and Denies fever(s) Cardiovascular: Cardiovascular: Denies chest pain, Reports rapid heart rate and Denies radiating jaw, neck or arm pain Respiratory: Respiratory: Denies dyspnea Gastrointestinal: Gastrointestinal: Denies abdominal pain Musculoskeletal: Musculoskeletal: Denies back pain Neurologic: Denies confusion [facility] Past Medical History Medical History Burning chest pain Cardiac arrest with ventricular fibrillation In November 2016. Chronic anemia Coronary artery disease With history of stent x4 at [facility] in November 2016. Dialysis AV fistula malfunction 2 in the left forearm that are new nonfunctioning. The 1 on the right has a positive bruit and thrill. Dialysis patient End-stage renal disease on hemodialysis Sunday GERD (gastroesophageal reflux disease) Glaucoma Hyperparathyroidism Hypertension Ischemic cardiomyopathy Status post PM/ICD insertion. Peripheral artery disease Peripheral vascular disease Surgical History Surgical History H/O kidney transplant Renal transplant 2002. It became nonfunctioning in 2005 and he has been on hemodialysis since that diet. History of cardiac catheterization With stents x4 in November 2016 done at [facility]. Status post above-knee amputation of right lower extremity Family History Family History Father Carcinoma of colon Sibling Heart disease both brothers Social History Social History Social History: The patient lives in [place] and his daughter last with him. He designates his 3 children as his surrogate decision makers and he wishes to be a full code. 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 He smoked remotely in high school. No alcohol or drug abuse. Smoking status: Former smoker Alcohol intake: current Drinks per week: 1 Substance use type: marijuana Gender identity (if verbalized by the patient): Male Spiritual care concerns: No Agree to blood products: Yes Exam Const: General: no acute distress, alert and ill appearing chronically Orientation/consciousness: patient oriented x3 HENMT: Head: normal to inspection Chest: Chest palpation & inspection: no tenderness Resp: Effort & Inspection: normal respiratory effort Auscultation: clear to auscultation bilaterally Cardio: Rate: regular rate Rhythm: regular rhythm GI: Inspection: non-distended Other: no
[2020-06-21 07:29] LABS: Basophils Percent Auto 0.4 % (0.2-1.2); Eosinophils Absolute Auto 0.1 K/mm3 (0-0.3); Eosinophils Percent Auto 1.7 % (0-4.4); Hematocrit 41.7 % (42.0-52.0); Hemoglobin 12.8 g/dL (14.0-18.0); Immature Granulocyte Absolute 0.01 K/mm3 (0.00-0.031); Immature Granulocyte Percent A 0.2 % (0-0.5); Lymphocytes Absolute Auto 0.47 K/mm3 (0.9-3.2); Mean Corpuscular HGB Conc 30.7 g/dl (32-36); Mean Corpuscular Hemoglobin 30.1 pg (26-34); Mean Corpuscular Volume 98.1 fl (80-100); Mean Platelet Volume 12.9 fl (7.4-10.4); Monocytes Absolute Auto 0.5 K/mm3 (0.1-0.6); Monocytes Percent Auto 11.1 % (2.6-8.5); Neutrophils Absolute Auto 3.6 K/mm3 (1.3-6.7); Neutrophils Percent Auto 76.6 % (45.5-73.1); Platelet Count Result 122 k/mm3 (150-375); Red Blood Count 4.25 M/mm3 (4.6-6.20); Red Cell Distribution Width 15.2 % (11.5-14.5); White Blood Count 4.7 K/mm3 (4.5-10.0)
[2020-06-21 07:39] LABS: Anion Gap 16 mmol/L (8-16); Blood Urea Nitrogen 61 mg/dL (9-20); Calcium 9.5 mg/dL (8.4-10.2); Carbon Dioxide 27 mmol/L (22-30); Chloride 98 mmol/L (98-107); Estimated CRCL calculation 6 ml/min; Estimated Glomerular Filt Rate 7; Glucose 91 mg/dL (75-110); Potassium 4.5 mmol/L (3.4-5.0); Sodium 141 mmol/L (137-145)
[2020-06-21 07:43] LABS: INR 1.4; Prothrombin Time 16.8 Seconds (11.1-14.7)
[2020-06-21 07:58] LABS: Troponin I 0.176 ng/mL (0.000-0.034)
== END 2020-06-21 09:10 | disposition home or self-care (01) ==
PROVIDERS: Emergency Medicine; Emergency Provider Emergency Medicine; PCP Family Medicine
DX: R00.0 Tachycardia, unspecified (principal); I25.10 Atherosclerotic heart disease of native coronary artery without angina pectoris; Z95.5 Presence of coronary angioplasty implant and graft; N18.6 End stage renal disease; Z99.2 Dependence on renal dialysis; I12.0 Hypertensive chronic kidney disease with stage 5 chronic kidney disease or end stage renal disease; I73.9 Peripheral vascular disease, unspecified; Z94.0 Kidney transplant status; I25.5 Ischemic cardiomyopathy; Z95.0 Presence of cardiac pacemaker; Z89.611 Acquired absence of right leg above knee; I51.7 Cardiomegaly; Z87.891 Personal history of nicotine dependence; I49.3 Ventricular premature depolarization; I44.7 Left bundle-branch block, unspecified; R94.31 Abnormal electrocardiogram [ECG] [EKG]
CPT/HCPCS: 36415; 71046; 80048; 84484; 85025; 85610; 85730; 93005; 99284

== ENCOUNTER 2020-06-25 06:07 | Emergency (ER) | payer MEDICARE, OTHER, SELFPAY ==
[2020-06-25] VITALS (20 sets, daily range): BP systolic 102–150; BP diastolic 76–103; PULSE 64–150; RESP 13–24; TEMP 36.6–36.9; O2SAT 96–100
--- NOTE | ~2020-06-25 | XR_ITS ---
EXAMINATION: XR chest 1V portable EXAM DATE: 06/25/2020 06:39 INDICATION: Heart palpitations. TECHNIQUE: Frontal AP chest x-ray for interpretation, compared to study dated 06/21/2020. FINDINGS: There is cardiomegaly and pulmonary vascular congestion. No confluent consolidation, pneu mothorax or pleural effusion suspected. Bones appear sclerotic, and on the lateral projection appears to disproportionately affect the endplates. This appearance could indicate hyperparathyroidism. Ther e is aortic arteriosclerosis. There is no significant interval change. IMPRESSION: 1. Sclerotic appearing bones, endplates in particular. Recommend considering possibility of calcium turnover disorder. 2. Cardiomegaly, congestion. Reviewed, dictated and finalized at location A. IMPRESSION: 1. Sclerotic appearing bones, endplates in particular. Recommend considering p ossibility of calcium turnover disorder. 2. Cardiomegaly, congestion.
--- NOTE | 2020-06-25 06:12 | ECG_ITS ---
Measurements Intervals [place] Rate: 148 P: 206 OR: 86 QRS: -2 QRSD: 107 T: 250 QT: 318 QTc: 500 Interpretive Statements SUPRAVENTRICULAR TACHYCARDIA, POSSIBLE ATRIAL FLUTTER LOW QRS VOLTAGE IN LIMB LEADS INTRAVENTRICULAR CONDUCTION DELAY BORDERLINE R WAVE PROGRESSION, ANTERIOR LEADS ST-T WAVE ABNORMALITY IN INF/LAT LEADS- CONSIDER ISCHEMIA ABNORMAL ECG Electronically Signed On 06-25-2020 12:21:49 CDT by Nikita Jerez D.O.
--- NOTE | 2020-06-25 06:21 | ED.GENADULT ---
HPI - General Adult General Chief complaint: Unspecified <Bhanu Mcfarland MD - Last Filed: 06/28/20 19:11> Stated complaint: elevated hr <Bhanu Mcfarland MD - Last Filed: 06/28/20 19:11> Time Seen by Provider: 06/25/20 06:09 <Bhanu Mcfarland MD - Last Filed: 06/28/20 19:11> History of Present Illness HPI narrative: Patient is a 60-year-old male with history of end-stage renal disease who presents the ER with an elevated heart rate. Patient went to dialysis which she is due for and was found to have a heart rate in the 150s so he was sent to the ER without receiving his treatment. This happened patient a couple days ago. Patient has been wearing a Holter monitor and is post received results today from his weight reducing technician, Dr. Walker, is located at [facility].. Patient has had a similar episode to this in the past and has seen cardiology here. At that time they felt he had either SVT or atrial fibrillation. Patient has no chest pain or shortness of breath or nausea or vomiting. He has not taken his carvedilol or his amiodarone as he waits until after he finishes dialysis take his medications. <Bhanu Mcfarland MD - Last Filed: 06/28/20 19:11> Related Data Home medications: Home Medications Medication Instructions Recorded Confirmed Brilinta 90 mg PO Q12H 12/05/19 05/17/20 amiodarone 200 mg PO DAILY 12/05/19 05/17/20 aspirin [Adult Low Dose Aspirin] 81 mg PO DAILY 12/05/19 05/17/20 atorvastatin [Lipitor] 40 mg PO HS 12/05/19 05/17/20 carvedilol [Coreg] 25 mg PO Q12H 12/05/19 05/17/20 dorzolamide 1 drp OPHTHALMIC (EYE) DAILY 12/05/19 05/17/20 lanthanum [Fosrenol] 1,000 mg PO TID 12/05/19 05/17/20 lisinopril 40 mg PO DAILY 12/05/19 05/17/20 cinacalcet [Sensipar] mg PO 06/21/20 isosorbide mononitrate mg PO 06/21/20 <Bhanu Mcfarland MD - Last Filed: 06/28/20 19:11> Allergies/adverse reactions: Allergies Allergy/AdvReac Type Severity Reaction Status Date / Time No Known Allergies Allergy Verified 06/21/20 07:03 <Bhanu Mcfarland MD - Last Filed: 06/28/20 19:11> Review of Systems Review of Systems: All systems reviewed & are unremarkable except as noted in HPI and below <Bhanu Mcfarland MD - Last Filed: 06/28/20 19:11> Constitutional: Constitutional: Denies chills, Denies fever(s) and Denies weakness <Bhanu Mcfarland MD - Last Filed: 06/28/20 19:11> ENT: Denies nasal congestion and Denies sore throat <Bhanu Mcfarland MD - Last Filed: 06/28/20 19:11> Cardiovascular: Cardiovascular: Denies chest pain, Reports rapid heart rate and Denies radiating jaw, neck or arm pain <Bhanu Mcfarland MD - Last Filed: 06/28/20 19:11> Respiratory: Respiratory: Denies cough and Denies dyspnea <Bhanu Mcfarland MD - Last Filed: 06/28/20 19:11> Gastrointestinal: Gastrointestinal: Denies abdominal pain, Denies nausea and Denies vomiting <Bhanu Mcfarland MD - Last Filed: 06/28/20 19:11> PMFSH Social History Social History: Social History Social History: The patient lives in [place] and his daughter last with him. He designates his 3 children as his surrogate decision makers and he wishes to be a full code. 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 He smoked remotely in high school. No alcohol or drug abuse. Smoking status: Former smoker Alcohol intake: current Drinks per week: 1 Substance use type: marijuana Gender identity (if verbalized by the patient): Male Spiritual care concerns: No Agree to blood products: Yes <Bhanu Mcfarland MD - Last Filed: 06/28/20 19:11> Exam Narrative: Exam Narrative: GENERAL: Chronically ill-appearing, well-nourished, and in no acute distress. HEAD: Normocephalic, atraumatic. EYES: PERRL and EOMI. ENT: Mucous membranes moist. CHEST: Clear to auscultation. No respiratory distress. HEART: T
[2020-06-25] MEDS: METOPROLOL TARTRATE INJ 5 MG/5 ML VIAL (06:25)
[2020-06-25] MEDS: METOPROLOL TARTRATE INJ 5 MG/5 ML VIAL IV PUSH (06:34)
[2020-06-25 06:50] LABS: INR 1.3; Prothrombin Time 15.7 Seconds (11.1-14.7)
[2020-06-25 06:51] LABS: Partial Thromboplastin Time 36.2 SECONDS (22.3-36.8)
[2020-06-25 06:55] LABS: Anion Gap 15 mmol/L (8-16); Blood Urea Nitrogen 53 mg/dL (9-20); Calcium 8.7 mg/dL (8.4-10.2); Carbon Dioxide 28 mmol/L (22-30); Chloride 96 mmol/L (98-107); Estimated CRCL calculation 7 ml/min; Estimated Glomerular Filt Rate 8; Glucose 111 mg/dL (75-110); Potassium 4.7 mmol/L (3.4-5.0); Sodium 139 mmol/L (137-145)
[2020-06-25 06:59] LABS: Basophils Percent Auto 0.3 % (0.2-1.2); Eosinophils Absolute Auto 0.1 K/mm3 (0-0.3); Eosinophils Percent Auto 0.9 % (0-4.4); Hematocrit 41.4 % (42.0-52.0); Hemoglobin 12.8 g/dL (14.0-18.0); Immature Granulocyte Absolute 0.05 K/mm3 (0.00-0.031); Immature Granulocyte Percent A 0.7 % (0-0.5); Lymphocytes Absolute Auto 0.37 K/mm3 (0.9-3.2); Lymphocytes Percent Auto 5.3 % (18.3-44.2); Mean Corpuscular HGB Conc 30.9 g/dl (32-36); Mean Corpuscular Hemoglobin 30.8 pg (26-34); Mean Corpuscular Volume 99.8 fl (80-100); Mean Platelet Volume 12.7 fl (7.4-10.4); Monocytes Percent Auto 14.2 % (2.6-8.5); Neutrophils Absolute Auto 5.5 K/mm3 (1.3-6.7); Neutrophils Percent Auto 78.6 % (45.5-73.1); Platelet Count Result 141 k/mm3 (150-375); Red Blood Count 4.15 M/mm3 (4.6-6.20); Red Cell Distribution Width 15.2 % (11.5-14.5)
[2020-06-25 07:11] LABS: NT Pro B Type Natriuretic Pept > 35000 PG/ML (5-100)
[2020-06-25] MEDS: ASPIRIN 81 MG CHEWABLE TABLET 324 MG PO (07:56)
[2020-06-25] MEDS: AMIODARONE HCL 200 MG TABLET PO (08:17)
[2020-06-25] MEDS: carvediloL 12.5 MG TABLET PO (10:18)
--- NOTE | 2020-06-25 12:01 | PC.NURSE ---
Called for bed status - No beds yet
[2020-06-25] MEDS: SIMETHICONE 80 MG TAB.CHEW PO (14:45)
== END 2020-06-25 15:00 | disposition short-term general hospital (02) ==
PROVIDERS: Emergency Medicine; Emergency Provider Emergency Medicine; PCP Family Medicine
DX: I48.92 Unspecified atrial flutter (principal); R79.89 Other specified abnormal findings of blood chemistry; I12.0 Hypertensive chronic kidney disease with stage 5 chronic kidney disease or end stage renal disease; N18.6 End stage renal disease; Z99.2 Dependence on renal dialysis; D63.1 Anemia in chronic kidney disease; K21.9 Gastro-esophageal reflux disease without esophagitis; E21.3 Hyperparathyroidism, unspecified; I25.5 Ischemic cardiomyopathy; I73.9 Peripheral vascular disease, unspecified; Z94.0 Kidney transplant status; Z89.611 Acquired absence of right leg above knee; Z79.82 Long term (current) use of aspirin; I47.1 Supraventricular tachycardia; I45.9 Conduction disorder, unspecified; R94.31 Abnormal electrocardiogram [ECG] [EKG]
CPT/HCPCS: 36415; 71045; 80048; 83880; 84484; 85025; 85610; 85730; 93005; 96374; 96375; 99285; A9270

== ENCOUNTER 2020-07-05 06:08 | Inpatient (IN) | payer MEDICARE, OTHER, SELFPAY ==
[2020-07-05] VITALS (12 sets, daily range): BP systolic 91–163; BP diastolic 49–78; PULSE 76–105; RESP 16–24; TEMP 36.4–37.5; O2SAT 95–100; BMI 18.7
--- NOTE | ~2020-07-05 | CT_ITS ---
EXAMINATION: CT abdomen pelvis wo con DATE: 07/05/2020 09:05 INDICATION: Generalized abdominal pain and diarrhea TECHNIQUE: Computed tomography (CT) of the abdomen and pelvis was performed without intravenous contr ast. The dose-length product (DLP) was 230.61 mGy-cm. Automated exposure control and iterative recons truction technique were employed. COMPARISON: 01/16/2018 FINDINGS: There is stable cardiomegaly. A 1.9 x 1.7 cm pleural-based nodule is present in the right m iddle lobe. There is subsegmental atelectasis of the left lower lobe. There are chronic innumerable c entrilobular nodules of the visualized lung bases. A 2.6 cm area of low attenuation of the liver ayden cent to the ligamentum teres may reflect focal fatty infiltration. There is chronic mild prominence o f the pancreatic duct. The pancreas itself appears unremarkable. The spleen and adrenal glands are un remarkable. Stones are present in the nondistended gallbladder. There are multiple rim calcified cyst s of the kidneys. There is extensive calcified atherosclerosis of the aorta and many of the other art eries with multiple areas of severe stenosis. A femoral bypass graft is noted on the left. There is l iquid stool in the distal colon, consistent with history of diarrhea. Colonic diverticulosis is prese nt without evidence of diverticulitis. No pathologically enlarged abdominal or pelvic lymph nodes are identified. There is no free intraperitoneal gas or evidence of bowel obstruction. Severe renal oste odystrophy is noted. Coarse right lower quadrant calcification are most consistent with calcified and nonfunctional transplant kidney. IMPRESSION: 1. Liquid stool in the distal colon, consistent with history of diarrhea. 2. Pleural-based nodule of the right middle lobe, possibly infectious/inflammatory or atelectasis, fo llow-up CT of the chest in three months is recommended. 3. Chronic innumerable centrilobular nodules of the visualized lung bases, likely infection/inflammat ion. 4. Cholelithiasis without evidence of cholecystitis. 5. Cardiomegaly. 6. Low attenuation of the liver adjacent to the ligamentum teres, possibly fatty infiltration. Attent ion on follow-up examination is recommended. Reviewed, dictated and finalized at location A. IMPRESSION: 1. Liquid stool in the distal colon, consistent with history of diarrhea. 2. Pleural-based nodule of the right middle lobe, possibly infectious/inflammat ory or atelectasis, follow-up CT of the chest in three months is recommended. 3. Chronic innumerable centrilobular nodules of the visualized lung bases, like ly infection/inflammation. 4. Cholelithiasis without evidence of cholecystitis. 5. Cardiomegaly. 6. Low attenuation of the liver adjacent to the ligamentum teres, possibly fatt y infiltration. Attention on follow-up examination is recommended.
--- NOTE | ~2020-07-05 | XR_ITS ---
EXAMINATION: XR chest 1V portable DATE: 07/06/2020 05:48 INDICATION: End-stage renal disease TECHNIQUE: frontal view of the chest was obtained. COMPARISON: Chest radiograph dated 06/25/2020 FINDINGS: Nipple shadow projects over the anterior left sixth rib and lateral right lower lung zone. Minimal st reaky atelectasis/scarring at the left lung bases. Blunting at the left costophrenic angle suggesting small left pleural effusion. No other airspace opacities, pulmonary edema, pneumothorax or right-feliberto ed pleural effusion. Cardiomegaly. Implantable cardiac defibrillator with lead projecting over the st ernum. Coronary artery stenting. IMPRESSION: 1. Small left pleural effusion and minimal bibasilar atelectasis. 2. Cardiomegaly. Reviewed, dictated and finalized at location A.
--- NOTE | ~2020-07-05 | CT_ITS ---
EXAMINATION: CT forearm LT wo con DATE: 07/09/2020 14:48 INDICATION: Staph aureus bacteremia. TECHNIQUE: High resolution computed tomography (CT) of the left forearm was performed without intrave nous contrast. Additional sagittal and coronal reconstructions were performed. Automated exposure con trol and iterative reconstruction technique were employed. The dose-length product was 540.76 mGy-cm. COMPARISON: None FINDINGS: Bone alignment is normal. No fracture. There are few small enthesopathic ossicles at the distal tessa ps tendon along with a few chronic erosions with sclerotic margins at its insertion at the tip of the olecranon. There is subcutaneous edema about throughout the left forearm most prominent along the ul vidhya side. No soft tissue gas to suggest necrotizing fasciitis. No evident abscess although sensitivit y is decreased in the absence of intravenous contrast. Extensive vascular calcifications. There are a few scattered subcutaneous heterotopic ossicles predominant along the radial side of the forearm as well as at the distal aspect of a likely prior dialysis fistula at the humeral fossa. IMPRESSION: 1. Subcutaneous edema throughout the left forearm most prominent along the ulnar side which given his tory of prior IV site infection is concerning for cellulitis. No evident abscess or soft tissue gas. 2. Erosive encephalopathy at the olecranon insertion of the distal triceps tendon likely related to c hronic renal insufficiency although differential would include other rheumatologic diseases such as r heumatoid or psoriatic arthritis. Reviewed, dictated and finalized at location A. IMPRESSION: 1. Subcutaneous edema throughout the left forearm most prominent along the ulna r side which given history of prior IV site infection is concerning for celluli tis. No evident abscess or soft tissue gas. 2. Erosive encephalopathy at the olecranon insertion of the distal triceps tend on likely related to chronic renal insufficiency although differential would in clude other rheumatologic diseases such as rheumatoid or psoriatic arthritis.
--- NOTE | ~2020-07-05 | US_ITS ---
EXAMINATION: US venous doppler [facility] DATE: 07/07/2020 14:29 INDICATION: Bilateral lower limb pain TECHNIQUE: Grayscale ultrasound images without and with compression and Doppler ultrasound images of the bilateral lower extremity veins were obtained. COMPARISON: None. FINDINGS: The visualized portions of right common femoral vein, femoral vein and greater saphenous vein outflow are patent. Remaining vessels are not visualized due to reported right sided [id number] amputati on. The visualized portions of left common femoral vein, femoral vein, popliteal vein, posterior tibial v eins, peroneal veins, gastrocnemius vein, lesser saphenous vein and greater saphenous vein outflow ar e patent. IMPRESSION: 1. No deep venous thrombosis in either lower limb. Reviewed, dictated and finalized at location A.
--- NOTE | ~2020-07-05 | CT_ITS ---
EXAMINATION: CT chest wo con DATE: 07/07/2020 14:34 INDICATION: Pleural nodules, Staphylococcus bacteremia TECHNIQUE: Computed tomography (CT) of the chest was performed without intravenous contrast. The dose -length product (DLP) was 228.18 mGy-cm. Automated exposure control and iterative reconstruction tech [employer] were employed. COMPARISON: 07/05/2020 FINDINGS: A pleural-based nodule of the right middle lobe described on recent CT is unchanged. There are additional developing nodules in the right lower lobe. There is a 1.9 x 1.5 cm nodule in the left lung apex with tiny foci of internal cavitation. Additional smaller nodules are seen in the superior segment of the right lower lobe. There are innumerable centrilobular nodules of the lungs. Small ple ural effusions are present. There is no pneumothorax. Cardiomegaly is noted. There is enlargement of the main and central pulmonary arteries, consistent with pulmonary hypertension. Calcified coronary a rtery atherosclerosis is noted. No pathologically enlarged thoracic lymph nodes are identified. Renal osteodystrophy is noted. IMPRESSION: 1. Multifocal airspace opacities of the lungs, consistent with pneumonia. 2. Small pleural effusions. 3. Cardiomegaly. 4. Findings consistent with pulmonary hypertension. Reviewed, dictated and finalized at location B.
--- NOTE | ~2020-07-05 | CT_ITS ---
EXAMINATION: CT chest w con EXAM DATE: 07/19/2020 08:37 INDICATION: Evaluate veins for SVC syndrome. Dialysis for 20 years. TECHNIQUE: Spiral CT of the chest following intravenous injection of 75 mL Omnipaque 350. Axial, cor onal and sagittal images were reviewed. Coronal maximum intensity pixel images of chest reviewed. Davis naqvi dose-length product (DLP) for this examination was 202.86 mGy-cm. The exposure was tailored accor ding to patient size (auto mA exposure control), and iterative reconstruction (ASIR) was used as genaro tional dose reduction technique. Comparison is made to prior examination from 07/07/2020. FINDINGS: The left arm was injected. There is extensive edema along the left side of the chest, both superficially and also surrounding the pectoralis major and minor muscles. The left subclavian vein is patent. There is narrowing of the subclavian as it crosses the aortic arch, and near complete loss of opacification at the brachiocephalic junction which also appears narrowed without extrinsic mass effect identified. No contrast reflux into the right IJ vein which appears to be dominant drainage fr om neck, could be from unopacified blood. Cannot evaluate right internal jugular vein for thrombosis, however the SVC opacified normally and is widely patent beyond the brachiocephalic junction. There are 6 pulmonary nodules identified without spiculations. These are in regions of previously jamil pected pneumonia on chest CT 2 weeks ago, therefore could be noncalcified granulomas. Can't exclude m etastatic disease. Largest in the right lower lobe measuring 1.3 cm. There is mild emphysema. Moderate-sized bilateral pleural effusions with adjacent right basilar segmental atelectasis and left basilar multisegmental atelectasis, most of the left lower lobe is collapsed. Tracheobronchial tree is patent. There is no mediastinal, hilar or axillary lymphadenopathy. There is no pneumothorax. There is severe cardiomegaly, with contrast also refluxed beyond the right atrium suggesting some com ponent of right heart dysfunction. No central pulmonary emboli. There are likely coronary arterial s tent or stents. Correlate with prior cardiac history. Upper abdomen is unremarkable. Dense bones l ikely renal osteodystrophy. IMPRESSION: 1. Narrowing of the brachiocephalic junction with widely patent SVC. Could be from scarring at this location, particularly if patient has had dialysis catheters. If patient has SVC syndrome clinically, potentially this could be evaluated by vascular interventionalists for possible stent placement. 2. Approximately 6 pulmonary nodules, could be granulomas but metastatic disease not excludable. 3. Moderate bilateral pleural effusions, left basilar multi segmental right basilar segmental atelec tasis. 4. Severe cardiomegaly. 5. Renal osteodystrophy. 6. Emphysema Reviewed, dictated and finalized at location B. IMPRESSION: 1. Narrowing of the brachiocephalic junction with widely patent SVC. Could be from scarring at this location, particularly if patient has had dialysis cathet ers. If patient has SVC syndrome clinically, potentially this could be evaluate d by vascular interventionalists for possible stent placement. 2. Approximately 6 pulmonary nodules, could be granulomas but metastatic disea se not excludable. 3. Moderate bilateral pleural effusions, left basilar multi segmental right ba silar segmental atelectasis. 4. Severe cardiomegaly. 5. Renal osteodystrophy. 6. Emphysema
[2020-07-05 06:33] LABS: Basophils Absolute Auto 0.1 K/mm3 (0.0-0.1); Basophils Percent Auto 0.6 % (0.2-1.2); Eosinophils Percent Auto 0.2 % (0-4.4); Hematocrit 33.1 % (42.0-52.0); Hemoglobin 10.1 g/dL (14.0-18.0); Immature Granulocyte Absolute 0.19 K/mm3 (0.00-0.031); Immature Granulocyte Percent A 1.7 % (0-0.5); Lymphocytes Absolute Auto 0.18 K/mm3 (0.9-3.2); Lymphocytes Percent Auto 1.6 % (18.3-44.2); Mean Corpuscular HGB Conc 30.5 g/dl (32-36); Mean Corpuscular Volume 101.5 fl (80-100); Mean Platelet Volume 12.4 fl (7.4-10.4); Monocytes Absolute Auto 1.1 K/mm3 (0.1-0.6); Monocytes Percent Auto 9.8 % (2.6-8.5); Neutrophils Absolute Auto 9.4 K/mm3 (1.3-6.7); Neutrophils Percent Auto 86.1 % (45.5-73.1); Nucleated Red Blood Cells Perc 0.3 % (0.0-0.2); Platelet Count Result 110 k/mm3 (150-375); Red Blood Count 3.26 M/mm3 (4.6-6.20); Red Cell Distribution Width 16.5 % (11.5-14.5)
[2020-07-05 06:43] LABS: Ovalocytes 1+ (NORMAL); Platelet Estimate Decreased (Adequate)
[2020-07-05 06:44] LABS: Burr Cells 1+ (NORMAL)
[2020-07-05 07:00] LABS: Alanine Aminotransferase 92 U/L (4-50); Albumin Level 4.2 g/dL (3.5-5.1); Alkaline Phosphatase 266 U/L (38-126); Anion Gap 23 mmol/L (8-16); Aspartate Amino Transferase 166 U/L (17-59); Bilirubin,Total 1.2 mg/dL (0.2-1.3); Blood Urea Nitrogen 73 mg/dL (9-20); Calcium 7.7 mg/dL (8.4-10.2); Carbon Dioxide 19 mmol/L (22-30); Chloride 93 mmol/L (98-107); Glucose 43 mg/dL (75-110); Lipase 180 U/L (23-300); Sodium 135 mmol/L (137-145)
--- NOTE | 2020-07-05 07:09 | ED.NAVMDI ---
HPI - Nausea/Vomiting/Diarrhea General Chief complaint: Nausea/Vomiting/Diarrhea Stated complaint: bad case of diarrhea Time Seen by Provider: 07/05/20 07:09 Source: patient Mode of arrival: wheelchair Limitations: no limitations History of Present Illness HPI Narrative: Patient is a 60-year-old male with a history of hypertension, end-stage renal disease on Sunday, Sunday, Sunday dialysis, who presents for evaluation of diarrhea. Patient reports he has had a 3-day history of runny stools. He denies abdominal pain or fever. No nausea or vomiting. Patient denies fever or cough. No chest pain or shortness of breath. Denies any palpitations. Patient states he has been able to eat but has continuous diarrhea anytime he eats something. Patient with recent admissions and discharges from [facility] for tachycardia. Patient is due for dialysis today. Patient son present at bedside and states he has not been doing well at home and they would like to obtain placement for him as well. Related Data Home Medications Medication Instructions Recorded Confirmed Brilinta 90 mg PO Q12H 12/05/19 05/17/20 amiodarone 200 mg PO DAILY 12/05/19 05/17/20 aspirin [Adult Low Dose Aspirin] 81 mg PO DAILY 12/05/19 05/17/20 atorvastatin [Lipitor] 40 mg PO HS 12/05/19 05/17/20 carvedilol [Coreg] 25 mg PO Q12H 12/05/19 05/17/20 dorzolamide 1 drp OPHTHALMIC (EYE) DAILY 12/05/19 05/17/20 lanthanum [Fosrenol] 1,000 mg PO TID 12/05/19 05/17/20 lisinopril 40 mg PO DAILY 12/05/19 05/17/20 cinacalcet [Sensipar] mg PO 06/21/20 isosorbide mononitrate mg PO 06/21/20 Allergies Allergy/AdvReac Type Severity Reaction Status Date / Time No Known Allergies Allergy Verified 07/05/20 06:19 Review of Systems Review of Systems: Narrative: CONSTITUTIONAL: Denies fever, chills, or sweats. ENT: Denies rhinorrhea, congestion, sore throat CARDIOVASCULAR: Denies chest pain, palpitations, or edema. RESPIRATORY: Denies cough or dyspnea. GASTROINTESTINAL: Denies abdominal pain, nausea, vomiting, reports diarrhea GENITOURINARY: Denies dysuria or hematuria. SKIN: Denies rash or itching. MUSCULOSKELETAL: Denies back pain, joint pain, or myalgia. NEUROLOGIC: Denies headache, numbness, or weakness. [facility] Past Medical History Medical History Burning chest pain Cardiac arrest with ventricular fibrillation In November 2016. Chronic anemia Coronary artery disease With history of stent x4 at [facility] in November 2016. Dialysis AV fistula malfunction 2 in the left forearm that are new nonfunctioning. The 1 on the right has a positive bruit and thrill. Dialysis patient End-stage renal disease on hemodialysis Sunday GERD (gastroesophageal reflux disease) Glaucoma Hyperparathyroidism Hypertension Ischemic cardiomyopathy Status post PM/ICD insertion. Peripheral artery disease Peripheral vascular disease Surgical History Surgical History H/O kidney transplant Renal transplant 2002. It became nonfunctioning in 2005 and he has been on hemodialysis since that diet. History of cardiac catheterization With stents x4 in November 2016 done at [facility]. Status post above-knee amputation of right lower extremity Family History Family History Father Carcinoma of colon Sibling Heart disease both brothers Social History Social History Social History: The patient lives in [place] and his daughter last with him. He designates his 3 children as his surrogate decision makers and he wishes to be a full code. 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 He smoked remotely in high school. No alcohol or drug abuse. Smoking status: Former smoker Alcohol intake: current D
[2020-07-05 07:18] LABS: Estimated Glomerular Filt Rate 6
--- NOTE | 2020-07-05 07:42 | PC.NURSE ---
pt given 2 cups of cranberry juice for low blood sugar per md request. 22 ga iv cath lt hand found to be accidentally removed by pt. iv cath partially pulled out while pt up to bsc. have requested ultrasound placement of new iv. aware
--- NOTE | 2020-07-05 07:51 | PC.NURSE ---
could not draw blood on patient. patient is a difficult stick, RN, Doctor, and charge notify.
[2020-07-05 08:54] LABS: Glucose Point of Care 97 (65-105)
--- NOTE | 2020-07-05 09:01 | PC.NURSE ---
lt ij iv placed by physician. lactic acid obtained. states ok that blood cultures not obtained at this time. pt will need port-a-cath for future iv access. to ct scan
[2020-07-05] MEDS: SODIUM CHLORIDE 0.9% IV 1,000 ML 100 ML IV CONT (09:05)
[2020-07-05 09:09] LABS: Lactic Acid Reflex 3.1 mmol/L (0.7-2.1)
--- NOTE | 2020-07-05 10:05 | ADMGEN ---
This patient, Veronica Villagran Aleah, was admitted to Medical Room 348-01. Patient/family oriented to hospital policies and general routines including ID bracelet, bed and alarms, visiting hours, pain management, procedures, bathroom and other care routines, personal items, smoking policy, room service/diet, and visiting hours. Valuables list has been completed. Information on how to activate the Rapid Response Team has been discussed. Patient/Family are encouraged to report perceived risks to care and to ask questions if they do not understand what they are told or what they should do.
[2020-07-05] MEDS: ACETAMINOPHEN 325 MG TABLET 650 MG PO (11:41)
[2020-07-05 11:55] LABS: Reflex Lactic Acid Yes or No Add Lactic
--- NOTE | 2020-07-05 14:00 | PM.IMHP ---
H&P: HPI History of Present Illness Date/Time: 07/05/20 14:00 Chief complaint: Diarrhea. Narrative: Veronica Villagran Sr. is a 60-year-old male with multiple medical problems including VFib arrest in November 2016, coronary artery disease with history of stents, ischemic cardiomyopathy status post PM/ICD insertion, end-stage renal disease on hemodialysis, peripheral vascular disease, and chronic anemia who presented to the emergency department earlier today via private vehicle from home with complaints of diarrhea. Yesterday afternoon he ordered food from a local restaurant and had a chicken sandwich with roasted vegetables for lunch. Within approximately 30 minutes, he began having diarrhea and has had 6 to 8 loose stools since that time. The stool is watery and brown/yellow in color, and he has had a couple of episodes of incontinence due to having a sudden urge to have a bowel movement and inability to get to the bathroom quickly as he has been feeling more weak in the last 12 hours. His appetite is poor but he goes on to say this is been an ongoing issue for about a month as I am just not hungry for some reason. He has not had fever, chills, or sweats. He denies sick contacts but reports a recent hospitalization within the last week at [facility] in which he had a cardiac stent placed. At that time he was also started on amiodarone and long-term anticoagulation due to the discovery of atrial fibrillation, presumably on a Holter monitor that he had recently worn due to tachyarrhythmias. He has not been on any antibiotics recently and has never been exposed to or had C diff to his knowledge. There is no blood or mucus in his stool. He denies epigastric pain, abdominal pain, indigestion, bloating, and vomiting. The biggest complaint he has at the time my evaluation is of a sore buttocks from the bed, but he has had ongoing problems with discomfort in this area due to limited mobility. He also mentions that the last several days he has had severe pain in both of his thighs, occasionally it feels like a charley horse, and they are very tender to palpation. With further questioning, it was discovered that he had his atorvastatin dose was doubled, from 40 mg to 80 mg during his recent hospitalization at [facility]. Review of Systems Review of Systems: Narrative: Twelve systems were reviewed with pertinent positives and negatives as per HPI. No recent travel. He denies sick contacts. No cough or shortness of breath. He denies anosmia and dysgeusia. No chest pain, pleuritic pain, or palpitations. As above he was recently hospitalized at [facility] and had a stent placed in possibly angioplasty as well. For the last 6 or more months he has had intermittent tachyarrhythmias in wore a 30 day event monitor recently. He was started on amiodarone and long-term anticoagulation while at [facility] last week for atrial fibrillation, and I presume this was found on his Holter monitor and perhaps even at the time of his stent. He no longer urinates. He has no wounds. No lightheadedness or dizziness. Except as documented, all other systems were reviewed and are negative. [facility] Past Medical History Medical History (Updated 07/05/20 @ 21:49 by Monik Florez PA-C) Cardiac arrest with ventricular fibrillation (~11/2016) Chronic anemia Coronary artery disease (~11/2016) History of stent x4 at [facility]. Dialysis AV fistula malfunction 2 in the left forearm that are new nonfunctioning. The 1 on the right has a positive bruit and thrill. End-stage renal disease on hemodialysis Sunday, Sunday, and Sunday schedule. Gastroesophageal reflux disease Glaucoma Hyperparathyroidism Hypertension Ischemic cardiomyopathy Status post PM/ICD insertion. Paroxysmal atrial fibrillation On amiodarone and anticoagulation as of June 2020. Peripheral vascular disease Surgical History Surgical History (Updated 07/05/20 @ 17:06 by Monik Florez PA-C) History of card
[2020-07-05 14:42] LABS: Glucose Point of Care 86 (65-105)
[2020-07-05 16:14] LABS: INR 2.5; Lactic Acid 3.7 mmol/L (0.7-2.1); Prothrombin Time 26.1 Seconds (11.1-14.7)
[2020-07-05 16:16] LABS: Partial Thromboplastin Time 67.3 SECONDS (22.3-36.8)
--- NOTE | 2020-07-05 16:18 | PM.CNNEP ---
Assessment and Plan Assessment and plan (1) ESRD (end stage renal disease): Code(s): N18.6 - End stage renal disease Status: Chronic (2) Diarrhea: Code(s): R19.7 - Diarrhea, unspecified Status: Acute (3) Elevated LFTs: Code(s): R79.89 - Other specified abnormal findings of blood chemistry Status: Acute (4) Hypoglycemia: Code(s): E16.2 - Hypoglycemia, unspecified Status: Acute (5) Elevated lactic acid level: Code(s): R79.89 - Other specified abnormal findings of blood chemistry Status: Acute (6) Ischemic cardiomyopathy: Code(s): I25.5 - Ischemic cardiomyopathy Status: Acute Assessment and Plan: . Additional Plan Celso has end-stage renal disease. He was unable to get his dialysis treatment today at his outpatient dialysis unit as he presented to the hospital for further evaluation. Although he is due for dialysis today, he has no critical electrolytes and his volume status is stable (he is probably more volume depleted at this time). Unfortunately, at this time, there are number of other dialysis patients that need dialysis treatments today as well so I will tentative plan to do the patient's dialysis treatment tomorrow and eventually convert him back to his normal Sunday dialysis schedule. As already mentioned, he does not appear to be any respiratory distress and his electrolytes, as evidence by testing in the ER, appear to be quite stable. I will follow the trend of his CKD parameters while he remains hospitalized and adjust his medications and dialysis prescription as deemed necessary to maintain stability in these parameters. I will continue follow patient with you while he remains hospitalized and make further recommendations during his hospital course. Thank you for allowing me to participate in the care of this patient. History of Present Illness Reason for Consult Consult date: 07/05/20 Reason for consult: end stage renal disease Chief Complaint Chief complaint: Diarrhea. History of Present Illness Narrative: The patient is a 60 year old male with a past medical history as noted below who presented to [facility] ER with complaints of diarrhea. Patient states he has been having runny stools for the last 3 - 4 days. He states that anytime he eats something, within half an hour, he has diarrhea averaging somewhere between 6 to 8 loose stools The stool is watery and without evidence of bright red blood, and he has had a couple of episodes of incontinence due to having a sudden urge to have a bowel movement and inability to get to the bathroom quickly enough. This ongoing diarrhea has resulted in further weakness and fatigue, particularly in the last 12 - 24hours. His appetite is poor as well. However, he denies any abdominal pain, fever, chills, nausea/vomiting, chest pain, palpitations, dizziness/lightheadedness, or shortness of breath. Due to the persistence of these symptoms, he came to the ER for further evaluation. Workup and evaluation in the emergency room demonstrated the patient to be hemodynamically stable (runs soft BPs at baseline). Routine blood test demonstrated labs consistent with his known history of end-stage renal disease although significant findings included elevated LFTs, mild leukocytosis, hypoglycemia, and an elevated lactic acid. He had a CT scan of the abdomen and pelvis which demonstrated no acute intra-abdominal findings other than fluid present in the colon consistent with history of diarrhea. He was given some IVFs due to concerns of dehydration/volume depletion and given the constellation of symptoms as welll as aboratory + imaging findings, he was admitted to the hospital for further treatment. Renal consultation was requested due to his end-stage renal disease. The patient normally dialyzes under the care of Dr. Avi Newton at [facility] on a Sunday,
[2020-07-05 16:21] LABS: Anion Gap 16 mmol/L (8-16); Blood Urea Nitrogen 76 mg/dL (9-20); Calcium 7.6 mg/dL (8.4-10.2); Carbon Dioxide 21 mmol/L (22-30); Chloride 98 mmol/L (98-107); Glucose 87 mg/dL (75-110); Lactate Dehydrogenase 1065 U/L (313-618); Magnesium 2.1 mg/dL (1.6-2.3); Potassium 4.3 mmol/L (3.4-5.0); Sodium 135 mmol/L (137-145)
[2020-07-05 16:22] LABS: Creatine Kinase 2615 U/L (55-170); Estimated CRCL calculation 5 ml/min; Estimated Glomerular Filt Rate 5
[2020-07-05 16:57] LABS: CRP 38.4 mg/dL (<1.0)
[2020-07-05 17:22] LABS: Vitamin B12 > 1000.0 pg/mL (239-931)
[2020-07-05 18:06] LABS: Free T4 Free Thyroxine Reflex 1.78 ng/dL (0.78-2.19)
[2020-07-05 18:16] LABS: Ferritin > 2000.00 ng/mL (11.1-264)
[2020-07-05] MEDS: DEXTROSE 5%/0.9% SOD CHL 1,000 ML 75 ML IV CONT (18:25)
[2020-07-05 18:55] LABS: Total Triiodothyronine (T3) 0.45 NG/ML (0.97-1.69)
[2020-07-05 20:31] LABS: Hepatitis B Surface Antigen Negative (Negative)
[2020-07-05 20:37] LABS: HAV RESULT Negative (Negative); Hepatitis B Core IgM Result Negative (Negative)
[2020-07-05 20:48] LABS: Hepatitis C Virus Antibody Negative (Negative)
[2020-07-05] MEDS: TICAGRELOR 90 MG TABLET PO (20:54)
[2020-07-05] MEDS: SODIUM CHLORIDE 0.9% IV 500 ML 250 ML IV CONT (23:34)
[2020-07-06] VITALS (31 sets, daily range): BP systolic 92–182; BP diastolic 42–78; PULSE 68–147; RESP 14–18; TEMP 36–36.9; O2SAT 92–100; BMI 20.2
[2020-07-06] MEDS: DEXTROSE 5%/0.9% SOD CHL 1,000 ML 75 ML IV CONT (01:11)
[2020-07-06] MEDS: ACETAMINOPHEN 325 MG TABLET 650 MG PO ×2 (04:38→10:31)
[2020-07-06 06:23] LABS: Hematocrit 28.7 % (42.0-52.0); Hemoglobin 9.2 g/dL (14.0-18.0); Mean Corpuscular HGB Conc 32.1 g/dl (32-36); Mean Corpuscular Hemoglobin 30.9 pg (26-34); Mean Corpuscular Volume 96.3 fl (80-100); Mean Platelet Volume 12.8 fl (7.4-10.4); Platelet Count Result 81 k/mm3 (150-375); Red Blood Count 2.98 M/mm3 (4.6-6.20); Red Cell Distribution Width 16.4 % (11.5-14.5); White Blood Count 12.6 K/mm3 (4.5-10.0)
[2020-07-06 06:48] LABS: Alanine Aminotransferase 91 U/L (4-50); Alkaline Phosphatase 169 U/L (38-126); Anion Gap 16 mmol/L (8-16); Aspartate Amino Transferase 129 U/L (17-59); Blood Urea Nitrogen 86 mg/dL (9-20); Calcium 7.6 mg/dL (8.4-10.2); Carbon Dioxide 20 mmol/L (22-30); Chloride 98 mmol/L (98-107); Glucose 79 mg/dL (75-110); Magnesium 2.2 mg/dL (1.6-2.3); Potassium 4.5 mmol/L (3.4-5.0); Sodium 134 mmol/L (137-145)
[2020-07-06 06:53] LABS: Creatine Kinase 2435 U/L (55-170); Estimated CRCL calculation 5 ml/min; Estimated Glomerular Filt Rate 5
[2020-07-06 07:03] LABS: Band Neutrophils Percent 7 % (0-6); Eosinophils Absolute Manual 0.12 K/mm3 (0.02-0.5); Eosinophils Percent Manual 1 % (0-4); Lymphocytes Absolute Manual 0.75 K/mm3 (1.1-4.5); Monocytes Absolute Manual 0.63 K/mm3 (0.1-0.90); Monocytes Percent Manual 5 % (3-9); Neutrophils Absolute Manual 11.08 K/mm3 (1.3-6.7); Neutrophils Percent Manual 81 % (46-73); Total Cells Counted 100
[2020-07-06 07:05] LABS: Platelet Estimate Decreased (Adequate)
[2020-07-06 07:06] LABS: Burr Cells 2+ (NORMAL)
[2020-07-06 08:09] LABS: Hepatitis B Surface Anti Res Positive
--- NOTE | 2020-07-06 09:58 | P.PNNP_ITS ---
Progress Note: A&P Assessment and Plan (1) ESRD (end stage renal disease): Code(s): N18.6 - End stage renal disease Status: Chronic Assessment and Plan: * HD today and eventually get back on Sun/Sun/Sunday schedule * follow electrolytes, volume status, and clearance (2) Diarrhea: Code(s): R19.7 - Diarrhea, unspecified Status: Acute Assessment and Plan: * etiology? * clinically better today * follow cultures * on empiric antibiotics (3) Elevated LFTs: Code(s): R79.89 - Other specified abnormal findings of blood chemistry Status: Acute Assessment and Plan: * possibly due to mild rhabdomyolysis +/- high dose statin therapy * trend LFTs * follow CPK levels * statin on hold (4) Hypoglycemia: Code(s): E16.2 - Hypoglycemia, unspecified Status: Resolved Assessment and Plan: * due to diarrhea and poor oral intake * follow oral intake and blood sugars (5) Elevated lactic acid level: Code(s): R79.89 - Other specified abnormal findings of blood chemistry Status: Acute (6) Ischemic cardiomyopathy: Code(s): I25.5 - Ischemic cardiomyopathy Status: Acute Assessment and Plan: * appears compensated * fluid removal with HD as tolerated * follow respiratory status and daily weights Will continue to follow. Subjective Date/time seen: 07/06/20 09:58 Tolerating dialysis at the time of my visit (seen on HD at 9:50AM); feels significantly better today -- less diarrhea although still with some pain in bilateral thighs; no events/issues overnight or earlier this AM. Exam Narrative: Exam Narrative: General: Frail AA male in NAD Heart: normal S1 and S2; no rub Lungs: clear to auscultation Abdomen: soft, nontender, nondistended, positive bowel sounds Extremities: no cyanosis or clubbing; no edema; s/p right AKA Skin: warm and dry Objective Data Vital Signs Vital Signs: Vital Signs Temp Pulse Resp BP Pulse Ox 07/06/20 09:52 36.7 C 91 18 182/74 H 07/06/20 09:16 97 07/06/20 08:00 88 07/06/20 04:36 36.9 C 93 16 108/64 99 07/06/20 04:00 86 07/06/20 00:00 94 07/05/20 20:00 94 07/05/20 19:39 36.4 C L 89 18 98/64 L 100 07/05/20 16:00 81 07/05/20 14:00 37.3 C 76 20 163/70 H 97 07/05/20 12:36 104 H 135/59 L 07/05/20 12:00 101 H 07/05/20 10:05 36.9 C 89 24 H 103/49 L 100 07/05/20 10:01 102 H 22 H 91/77 L 96 Intake/Output Intake/Output: Intake & Output 07/03/20 07/04/20 07/05/20 07/06/20 23:59 23:59 23:59 23:59 Intake Total 1570 1154 Balance 1570 1154 Meds/Results Medications: Active Medications Generic Name Dose Route Start Last Admin Trade Name Freq PRN Reason Stop Dose Admin Acetaminophen 650 mg 07/05/20 11:20 07/06/20 04:38 Tylenol Tablet PO 650 mg Q4H PRN Administration Headache Amiodarone HCl 200 mg 07/06/20 09:00 Pacerone PO DAILY [facility] Apixaban 2.5 mg 07/05/20 22:55 07/05/20 23:23 Eliquis PO Not Given BID [facility] Carvedilol 25 mg 07/05/20 21:00 07/05/20 23:23 Coreg PO Not Given
--- NOTE | 2020-07-06 09:58 | PM.PNNEP ---
Progress Note: A&P Assessment and Plan (1) ESRD (end stage renal disease): Code(s): N18.6 - End stage renal disease Status: Chronic Assessment and Plan: HD today and eventually get back on Sun/Sun/Sunday schedule follow electrolytes, volume status, and clearance (2) Diarrhea: Code(s): R19.7 - Diarrhea, unspecified Status: Acute Assessment and Plan: etiology? clinically better today follow cultures on empiric antibiotics (3) Elevated LFTs: Code(s): R79.89 - Other specified abnormal findings of blood chemistry Status: Acute Assessment and Plan: possibly due to mild rhabdomyolysis +/- high dose statin therapy trend LFTs follow CPK levels statin on hold (4) Hypoglycemia: Code(s): E16.2 - Hypoglycemia, unspecified Status: Resolved Assessment and Plan: due to diarrhea and poor oral intake follow oral intake and blood sugars (5) Elevated lactic acid level: Code(s): R79.89 - Other specified abnormal findings of blood chemistry Status: Acute (6) Ischemic cardiomyopathy: Code(s): I25.5 - Ischemic cardiomyopathy Status: Acute Assessment and Plan: appears compensated fluid removal with HD as tolerated follow respiratory status and daily weights Will continue to follow. Subjective Date/time seen: 07/06/20 09:58 Tolerating dialysis at the time of my visit (seen on HD at 9:50AM); feels significantly better today -- less diarrhea although still with some pain in bilateral thighs; no events/issues overnight or earlier this AM. Exam Narrative: Exam Narrative: General: Frail AA male in NAD Heart: normal S1 and S2; no rub Lungs: clear to auscultation Abdomen: soft, nontender, nondistended, positive bowel sounds Extremities: no cyanosis or clubbing; no edema; s/p right AKA Skin: warm and dry Objective Data Vital Signs Vital Signs: Vital Signs Temp Pulse Resp BP Pulse Ox 07/06/20 09:52 36.7 C 91 18 182/74 H 07/06/20 09:16 97 07/06/20 08:00 88 07/06/20 04:36 36.9 C 93 16 108/64 99 07/06/20 04:00 86 07/06/20 00:00 94 07/05/20 20:00 94 07/05/20 19:39 36.4 C L 89 18 98/64 L 100 07/05/20 16:00 81 07/05/20 14:00 37.3 C 76 20 163/70 H 97 07/05/20 12:36 104 H 135/59 L 07/05/20 12:00 101 H 07/05/20 10:05 36.9 C 89 24 H 103/49 L 100 07/05/20 10:01 102 H 22 H 91/77 L 96 Intake/Output Intake/Output: Intake & Output 07/03/20 07/04/20 07/05/20 07/06/20 23:59 23:59 23:59 23:59 Intake Total 1570 1154 Balance 1570 1154 Meds/Results Medications: Active Medications Generic Name Dose Route Start Last Admin Trade Name Freq PRN Reason Stop Dose Admin Acetaminophen 650 mg 07/05/20 11:20 07/06/20 04:38 Tylenol Tablet PO 650 mg Q4H PRN Administration Headache Amiodarone HCl 200 mg 07/06/20 09:00 Pacerone PO DAILY [facility] Apixaban 2.5 mg 07/05/20 22:55 07/05/20 23:23 Eliquis PO Not Given BID [facility] Carvedilol 25 mg 07/05/20 21:00 07/05/20 23:23 Coreg PO Not Given Q12HR [facility] Cinacalcet 90 mg 07/06/20 09:00 Sensipar PO 08/05/20 09:01 DAILY [facility] Clopidogrel Bisulfate 75 mg 07/06/20 09:00 Plavix PO DAILY [facility] Dextrose 12.5 gm 07/05/20 14:08 Dextrose 50% Syringe IV PUSH PRN PRN Hypoglycemia Protocol Dorzolamide HCl 1 drop 07/06/20 09:00 Trusopt EACH EYE DAILY [facility] Glucagon 1 mg 07/05/20 14:08 Glucagon For Inj IM PRN PRN Hypoglycemia Protocol Glucose 15 gm 07/05/20 14:08 Glutose 15 PO PRN PRN Hypoglycemia Protocol Piperacillin Sod/Tazobactam Sod 2.25 gm in 50 mls @ 100 mls/hr 07/05/20 21:00 07/05/20 21:24 Zosyn 2.25 Gm/D5w 50 Ml IVPB Infused Q12H [facility] Infusion Dextrose 1,000 mls @ 100 mls/hr 07/05/20 14:08 Dextrose 5% 1,000 Ml IVPB PRN P
[2020-07-06] MEDS: AMIODARONE HCL 200 MG TABLET PO (10:33)
--- NOTE | 2020-07-06 13:06 | PM.IMPN ---
Progress Note: A&P Assessment and Plan (1) Rhabdomyolysis: Code(s): M62.82 - Rhabdomyolysis Status: Acute Assessment and Plan: Recenlty his atorvastatin dose was increased from 40mg daily to 80mg daily which may have contributed. Hold statin therapy. Continue dialysis. Trend CK in the morning. (2) Diarrhea: Code(s): R19.7 - Diarrhea, unspecified Status: Acute Assessment and Plan: Seems improved today. For now he has been started on Zosyn, pending stool studies. (3) Elevated LFTs: Code(s): R79.89 - Other specified abnormal findings of blood chemistry Status: Acute Assessment and Plan: These are likely elevated in the setting of rhabdomyolysis, however CT of the abdomen pelvis does show low attenuation of the liver adjacent to the ligamentum teres which could be possible fatty infiltration. Recommendation was given for follow-up examination. Hepatitis panel is negative. Cholelithiasis noted on CT, but no exam findings or imaging findings to suggest cholecystitis. Continue to trend LFTs. (4) Hypoglycemia: Code(s): E16.2 - Hypoglycemia, unspecified Status: Resolved Assessment and Plan: He has had poor oral intake over the past couple of days. We can continue to monitor accu-cheks q shift for now and continue hypoglycemia protocol. (5) Elevated lactic acid level: Code(s): R79.89 - Other specified abnormal findings of blood chemistry Status: Acute Assessment and Plan: Cannot rule out sepsis given tachycardia, relatively soft blood pressures (which have improved), mild leukocytosis, and elevated lactic acid level. Dehydration could be responsible for all of the above as well. For now will continue with Zosyn, pending blood and stool stool cultures. (6) Generalized weakness: Code(s): R53.1 - Weakness Status: Acute Assessment and Plan: Secondary to diarrhea, mild dehydration, and rhabdomyolysis. Appreciate PT/OT evaluations. (7) End-stage renal disease on hemodialysis: Code(s): N18.6 - End stage renal disease; Z99.2 - Dependence on renal dialysis Status: Chronic Assessment and Plan: Dr. Vora has been consulted and his input is appreciated. Patient follows with Dr Benjy Newton and receives HD on [facility]. (8) Chronic anemia: Code(s): D64.9 - Anemia, unspecified Status: Chronic Assessment and Plan: H&H low but stable. No signs or symptoms of acute bleeding. Will monitor. Suspect a component of anemia chronic kidney disease. (9) Paroxysmal atrial fibrillation: Code(s): I48.0 - Paroxysmal atrial fibrillation Status: Acute Assessment and Plan: Continue carvedilol, amiodarone (monitor LFTs), and apixaban. (10) Abnormal finding on lung imaging: Code(s): R91.8 - Other nonspecific abnormal finding of lung field Status: Acute Assessment and Plan: Noted on CT of the abdomen and pelvis: (1) Pleural-based nodule of the right middle lobe, possibly infectious/inflammatory or atelectasis, follow-up CT of the chest in three months is recommended. (2) Chronic innumerable centrilobular nodules of the visualized lung bases, likely infection/inflammation. He gives no history to suggest underlying infection.. Continue Zosyn and monitor for change in respiratory status or development of cough. He will need follow-up CT imaging as detailed above. (11) Coronary artery disease: Onset Date: ~11/2016
[2020-07-06] MEDS: APIXABAN 2.5 MG TABLET PO ×2 (13:26→18:29)
[2020-07-06] MEDS: PANTOPRAZOLE 40 MG TABLET PO (13:26)
[2020-07-06] MEDS: CLOPIDOGREL BISULFATE 75 MG TABLET PO (13:26)
[2020-07-06] MEDS: DORZOLAMIDE HCL 2% OPHTH DROPS 1 DROP EACH EYE (13:26)
[2020-07-06] MEDS: CINACALCET 30 MG TABLET 90 MG PO (13:26)
[2020-07-06] MEDS: carvediloL 25 MG TABLET PO (14:38)
[2020-07-06 22:29] LABS: Glucose Point of Care 87 (65-105)
[2020-07-07] VITALS (25 sets, daily range): BP systolic 75–104; BP diastolic 35–61; PULSE 48–97; RESP 12–22; TEMP 35.9–37; O2SAT 87–100
--- NOTE | 2020-07-07 | ECHO_ITS ---
Patient Info Name: Veronica Villagran Age: 60 years : 1960 Gender: Male Ht: 69 in Wt: 123 lbs BSA: 1.64 m2 HR: 70 bpm BP: 82 / 52 mmHg Heart Rhythm: Sinus Arrhythmia Technical Quality: Good Exam Date: 07/07/2020 3:24 PM [facility] Status: Inpatient Admit Date: 07/06/2020 Staff Ordering Physician: Lolis Zavala PA-C Bioinformatician: Roddy Lindsay RDCS Attending Provider: Lolis Zavala PA-C Exam Type: CA echo doppler color flow Study Info Indications I25.5 - Ischemic cardiomyopathy Complete two-dimensional, color flow and Doppler transthoracic echocardiogram is performed. Strain analysis performed. History/Risk Factors Bacteremia w/ concern for endocarditis; CAD w/ recent stent, ESRD, HTN, pAfib. Summary 1. Complete two-dimensional, color flow and Doppler transthoracic echocardiogram is performed. 2. There is mildly increased left ventricular wall thickness. 3. Left ventricular systolic function is severely reduced, estimated at 25-30%. 4. Left ventricular septal wall motion is abnormal with septal motion related to bundle branch block. 5. The left ventricular diastolic function is grade I diastolic dysfunction. 6. Left atrial chamber dimension is severely enlarged. 7. Right atrial chamber dimension is severely enlarged. 8. There is mild mitral valve regurgitation. 9. Moderate pulmonary hypertension, estimated pulmonary arterial systolic pressure is 51 mmHg. 10. There is mild to moderate tricuspid valve regurgitation. 11. There is mild aortic valve stenosis with a peak velocity of 165 cm/s, mean gradient of 6 mmHg, and aortic valve area of 2.0 cm2. Recommendations * Consider CHRISTY if clinically indicated. Left Ventricle Left ventricular chamber dimension is normal. Left ventricular systolic function is severely reduced, estimated at 25-30%. There is mildly increased left ventricular wall thickness. Left ventricular septal wall motion is abnormal with septal motion related to bundle branch block. The left ventricular diastolic function is grade I diastolic dysfunction. Right Ventricle Right ventricular chamber dimension is mildly enlarged. Right ventricular systolic function is reduced. Left Atria Left atrial chamber dimension is severely enlarged. Right Atria Right atrial chamber dimension is severely enlarged. Atrial Septum Aneurysmal atrial septal motion. Aortic Valve The aortic valve is trileaflet. There is mild aortic valve stenosis with a peak velocity of 165 cm/s, mean gradient of 6 mmHg, and aortic valve area of 2.0 cm2. There is mild aortic valve regurgitation. There is mild aortic valve calcification. Pulmonic Valve The pulmonic valve is normal. There is mild pulmonic regurgitation. Mitral Valve The mitral valve has normal leaflets. There is mild mitral valve regurgitation. The mitral valve annulus is mildly calcified. Tricuspid Valve The tricuspid valve leaflets are normal. There is mild to moderate tricuspid valve regurgitation. Moderate pulmonary hypertension, estimated pulmonary arterial systolic pressure is 51 mmHg. Pericardium/Pleural The pericardium appears normal. There is trivial pericardial effusion. Inferior Vena Cava Normal inferior vena cava with <50% collapse upon inspiration consistent with elevated right atrial pressure, 10 mmHg. Aorta There is mild aortic atherosclerosis. Left Ventricular Outflow Tract
[2020-07-07 05:32] LABS: Basophils Percent Auto 0.1 % (0.2-1.2); Eosinophils Percent Auto 0.3 % (0-4.4); Hematocrit 28.6 % (42.0-52.0); Immature Granulocyte Absolute 0.42 K/mm3 (0.00-0.031); Immature Granulocyte Percent A 3.8 % (0-0.5); Lymphocytes Absolute Auto 0.51 K/mm3 (0.9-3.2); Lymphocytes Percent Auto 4.7 % (18.3-44.2); Mean Corpuscular HGB Conc 31.5 g/dl (32-36); Mean Corpuscular Volume 95.3 fl (80-100); Mean Platelet Volume 12.6 fl (7.4-10.4); Monocytes Absolute Auto 1.1 K/mm3 (0.1-0.6); Monocytes Percent Auto 9.7 % (2.6-8.5); Neutrophils Absolute Auto 8.9 K/mm3 (1.3-6.7); Neutrophils Percent Auto 81.4 % (45.5-73.1); Nucleated Red Blood Cells Perc 0.2 % (0.0-0.2); Platelet Count Result 86 k/mm3 (150-375); Red Cell Distribution Width 16.4 % (11.5-14.5); White Blood Count 10.9 K/mm3 (4.5-10.0)
[2020-07-07 05:41] LABS: Lactic Acid Reflex 3.9 mmol/L (0.7-2.1)
[2020-07-07 05:43] LABS: Alanine Aminotransferase 140 U/L (4-50); Albumin Level 3.1 g/dL (3.5-5.1); Alkaline Phosphatase 165 U/L (38-126); Anion Gap 14 mmol/L (8-16); Aspartate Amino Transferase 177 U/L (17-59); Bilirubin,Total 1.1 mg/dL (0.2-1.3); Blood Urea Nitrogen 51 mg/dL (9-20); Calcium 6.9 mg/dL (8.4-10.2); Carbon Dioxide 22 mmol/L (22-30); Chloride 100 mmol/L (98-107); Glucose 84 mg/dL (75-110); Magnesium 2.2 mg/dL (1.6-2.3); Potassium 4.5 mmol/L (3.4-5.0); Sodium 136 mmol/L (137-145)
[2020-07-07 05:56] LABS: Estimated CRCL calculation 8 ml/min; Estimated Glomerular Filt Rate 10
[2020-07-07 08:25] LABS: Reflex Lactic Acid Yes or No Add Lactic
[2020-07-07 08:54] LABS: Lactic Acid 2.7 mmol/L (0.7-2.1)
--- NOTE | 2020-07-07 09:27 | PC.NURSE ---
Pt to dialysis per bed.
[2020-07-07 10:06] LABS: Creatine Kinase 2630 U/L (55-170)
[2020-07-07] MEDS: ALBUMIN HUMAN 25% 12.5 GM/50ML 50 ML IVPB ×2 (11:00→11:29)
[2020-07-07] MEDS: SODIUM CHLORIDE 0.9% IV 1,000 ML 999 ML IV CONT (11:00)
--- NOTE | 2020-07-07 11:05 | PC.NURSE ---
Called Mother in regards to the pts Lanthanum/Fosrenol. Pt mother to bring home meds since it is a nonformulary medication with our pharmacy.
[2020-07-07] MEDS: EPOETIN ALFA-EPBX 10,000 UNITS/ML VIAL 10000 UNITS IV PUSH (11:13)
--- NOTE | 2020-07-07 12:21 | PM.PNNEP ---
Progress Note: A&P Assessment and Plan (1) ESRD (end stage renal disease): Code(s): N18.6 - End stage renal disease Status: Chronic Assessment and Plan: HD today and to get back on Sun/Sun/Sunday schedule follow electrolytes, volume status, and clearance (2) Staphylococcus aureus bacteremia with sepsis: Code(s): A41.01 - Sepsis due to Methicillin susceptible Staphylococcus aureus Status: Acute Assessment and Plan: as note by blood cultures source? on antibiotics Infectious Disease consulted follow repeat cultures (3) Diarrhea: Code(s): R19.7 - Diarrhea, unspecified Status: Acute Assessment and Plan: etiology? seems somewhat better follow cultures on empiric antibiotics (4) Elevated LFTs: Code(s): R79.89 - Other specified abnormal findings of blood chemistry Status: Acute Assessment and Plan: possibly due to mild rhabdomyolysis +/- high dose statin therapy trend LFTs follow CPK levels statin on hold (5) Hypoglycemia: Code(s): E16.2 - Hypoglycemia, unspecified Status: Resolved Assessment and Plan: due to diarrhea and poor oral intake follow oral intake and blood sugars (6) Ischemic cardiomyopathy: Code(s): I25.5 - Ischemic cardiomyopathy Status: Acute Assessment and Plan: appears compensated fluid removal with HD as tolerated follow respiratory status and daily weights Will continue to follow. Subjective Date/time seen: 07/07/20 12:21 Seen on dialysis at the time of my visit (seen at ~ 11:50AM); discomfort laying bed due to on/off diarrhea; BP quite low at the start of HD and better now; no acute distress noted. Exam Narrative: Exam Narrative: General: Frail AA male in NAD Heart: normal S1 and S2; no rub Lungs: clear to auscultation Abdomen: soft, nontender, nondistended, positive bowel sounds Extremities: no cyanosis or clubbing; no edema; s/p right AKA Skin: warm and intact Objective Data Vital Signs Vital Signs: Vital Signs Temp Pulse Resp BP Pulse Ox 07/07/20 12:00 82 94/49 L 07/07/20 11:45 69 103/45 L 07/07/20 11:30 82/47 L 07/07/20 11:15 97 75/35 L 07/07/20 11:00 67 89/40 L 07/07/20 10:30 75 75/39 L 07/07/20 10:15 85/54 L 07/07/20 10:00 76 75/47 L 07/07/20 09:57 85 81/52 L 07/07/20 09:40 36.4 C L 77 18 77/43 L 07/07/20 08:00 76 07/07/20 04:30 36.6 C 81 18 104/52 L 100 07/07/20 04:07 75 07/07/20 00:00 74 07/06/20 21:37 70 92 07/06/20 21:29 36.6 C 16 92/42 L 07/06/20 20:00 69 07/06/20 19:11 99 07/06/20 18:28 96/54 L 07/06/20 16:00 90 07/06/20 15:54 102/50 L 07/06/20 14:40 36.4 C 89 14 98/54 L 98 07/06/20 14:38 89 07/06/20 12:49 36.8 C Intake/Output Intake/Output: Intake & Output 07/04/20 07/05/20 07/06/20 07/07/20 23:59 23:59 23:59 23:59 Intake Total 1570 1504 836 Balance 1570 1504 836 Meds/Results Medications: Active Medications Generic Name Dose Route Start Last Admin Trade Name Freq PRN Reason Stop Dose Admin Acetaminophen 650 mg 07/07/20 09:21 Tylenol Tablet PO Q4H PRN Pain Rated 5 or Less Hydrocodone Bitart/Acetaminophen 1 tab 07/07/20 09:20 [place] 5-325 Mg PO Q6H PRN Pain Rated 6 or Greater Amiodarone HCl 200 mg 07/06/20 09:00 07/06/20 10:33 Pacerone PO 200 mg DAILY TORITO Administration Apixaban 2.5 mg 07/05/20 22:55 07/06/20 18:29 Eliquis PO 2.5 mg BID TORITO Administration Aspirin 81 mg 07/07/20 09:00 Aspirin Ec PO QAM TORITO Carvedilol 12.5 mg 07/07/20 09:00 Coreg PO Q12HR TORITO Cinacalcet 90 mg 07/06/20 09:00 07/06/20 13:26 Sensipar PO 10/08/20 09:01 90 mg DAILY TORITO Administration Clopidogrel Bisulfate 75 mg 07/06/20 09:00 07/06/20 13:26 Plavix PO 75 mg DAILY TORITO Adm
--- NOTE | 2020-07-07 13:45 | WPDINFPN2 ---
Progress Note: A&P Assessment and Plan (1) Staphylococcus aureus bacteremia with sepsis: Code(s): A41.01 - Sepsis due to Methicillin susceptible Staphylococcus aureus Status: Acute Assessment and Plan: S aureus bacteremia, possibly due to peripheral IV left forearm when at [facility] last week. REC Vanc #1, f/u micro. Subjective Date/time seen: 07/07/20 13:45 Objective Data Vital Signs Vital Signs: Vital Signs - 24 hr 07/06/20 14:38 07/06/20 14:40 07/06/20 15:54 Temperature 36.4 C Pulse Rate 89 89 Respiratory Rate 14 Blood Pressure 98/54 L 102/50 L Pulse Oximetry 98 07/06/20 16:00 07/06/20 18:28 07/06/20 19:11 Temperature Pulse Rate 90 Respiratory Rate Blood Pressure 96/54 L Pulse Oximetry 99 07/06/20 20:00 07/06/20 21:29 07/06/20 21:37 Temperature 36.6 C Pulse Rate 69 70 Respiratory Rate 16 Blood Pressure 92/42 L Pulse Oximetry 92 07/07/20 00:00 07/07/20 04:07 07/07/20 04:30 Temperature 36.6 C Pulse Rate 74 75 81 Respiratory Rate 18 Blood Pressure 104/52 L Pulse Oximetry 100 07/07/20 08:00 07/07/20 09:40 07/07/20 09:57 Temperature 36.4 C L Pulse Rate 76 77 85 Respiratory Rate 18 Blood Pressure 77/43 L 81/52 L Pulse Oximetry 07/07/20 10:00 07/07/20 10:15 07/07/20 10:30 Temperature Pulse Rate 76 75 Respiratory Rate Blood Pressure 75/47 L 85/54 L 75/39 L Pulse Oximetry 07/07/20 11:00 07/07/20 11:15 07/07/20 11:30 Temperature Pulse Rate 67 97 Respiratory Rate Blood Pressure 89/40 L 75/35 L 82/47 L Pulse Oximetry 07/07/20 11:45 07/07/20 12:00 07/07/20 12:15 Temperature Pulse Rate 69 82 65 Respiratory Rate Blood Pressure 103/45 L 94/49 L 94/41 L Pulse Oximetry 07/07/20 12:30 Temperature Pulse Rate 59 L Respiratory Rate Blood Pressure 94/56 L Pulse Oximetry Intake/Output Intake/Output: Intake & Output 07/04/20 07/05/20 07/06/20 07/07/20 23:59 23:59 23:59 23:59 Intake Total 1570 1504 836 Balance 1570 1504 836 Meds/Results Medications: Active Medications Generic Name Dose Route Start Last Admin Trade Name Freq PRN Reason Stop Dose Admin Acetaminophen 650 mg 07/07/20 09:21 Tylenol Tablet PO Q4H PRN Pain Rated 5 or Less Hydrocodone Bitart/Acetaminophen 1 tab 07/07/20 09:20 [place] 5-325 Mg PO Q6H PRN Pain Rated 6 or Greater Amiodarone HCl 200 mg 07/06/20 09:00 07/06/20 10:33 Pacerone PO 200 mg DAILY TORITO Administration Apixaban 2.5 mg 07/05/20 22:55 07/06/20 18:29 Eliquis PO 2.5 mg BID TORITO Administration Aspirin 81 mg 07/07/20 09:00 Aspirin Ec PO QAM TORITO Carvedilol 12.5 mg 07/07/20 09:00 Coreg PO Q12HR TORITO Cinacalcet 90 mg 07/06/20 09:00 07/06/20 13:26 Sensipar PO 08/05/20 09:01 90 mg DAILY TORITO Administration Clopidogrel Bisulfate 75 mg 07/06/20 09:00 07/06/20 13:26 Plavix PO 75 mg DAILY TORITO Administration Dextrose 12.5 gm 07/05/20 14:08 Dextrose 50% Syringe IV PUSH PRN PRN Hypoglycemia Protocol Dorzolamide HCl 1 drop 07/06/20 09:00 07/06/20 13:26 Trusopt EACH EYE 1 drop DAILY TORITO Administration Glucagon 1 mg 07/05/20 14:08 Glucagon For Inj IM PRN PRN Hypoglycemia Protocol Glucose 15 gm 07/05/20 14:08 Glutose 15 PO PRN PRN Hypoglycemia Protocol Dextrose 1,000 mls @ 100 mls/hr 07/05/20 14:08 Dextrose 5% 1,000 Ml IVPB PRN PRN Hypoglycemia Protocol Albumin Human 50 mls @ 999 mls/hr 07/06/20 00:44 07/07/20 11:29 Albutein IVPB 08/05/20 00:45 999 mls/hr Q10M PRN Administration HYPOTENSION Vancomycin HCl 1,000 mg in 250 mls @ 250 mls/hr 07/07/20 09:00 Vancomycin 1,000 Mg/D5w 250 Ml IVPB PRN PRN PHARMACY DOSING Lisinopril 40 mg 07/06/20 18:00 07/06/20 18:28 Prinivil PO Not Given QPM [facility] Non-Formulary Medicati
[2020-07-07] MEDS: AMIODARONE HCL 200 MG TABLET PO (13:50)
--- NOTE | 2020-07-07 13:51 | ECG_ITS ---
Measurements Intervals [place] Rate: 68 P: 16 OR: 214 QRS: 73 QRSD: 129 T: 60 QT: 442 QTc: 472 Interpretive Statements SINUS RHYTHM WITH FIRST DEGREE AV BLOCK VENTRICULAR BIGEMINY AND VENTRICULAR PREMATURE COMPLEX INTRAVENTRICULAR CONDUCTION DELAY BORDERLINE R WAVE PROGRESSION, ANTERIOR LEADS BORDERLINE T WAVE ABNORMALITY- INF/HIGH LAT LEADS ABNORMAL ECG Electronically Signed On 07-07-2020 16:03:56 CDT by Nikita Jerez D.O.
--- NOTE | 2020-07-07 14:09 | PCOTNOTE ---
Attempted OT evaluation, but unable to complete at this time as patient leaving for ultrasound and CT scan. Will attempt again later today.
--- NOTE | 2020-07-07 15:01 | CONS_ITS ---
DATE OF CONSULTATION: 07/07/2020 REASON FOR CONSULTATION: Staph aureus bacteremia. HISTORY OF PRESENT ILLNESS: The patient is a 60-year-old male who has had previous renal transplant, which became nonfunctional. He is not on any immunosuppressants. He denies previous bloodstream infection or long-term antibiotics for any purpose. He was at [facility], been admitted about 10 days prior to admission and discharged about 3 to 4 days before admission. He was there for acute coronary syndrome and had stents placed. He did have a left ulnar peripheral IV that infiltrated while he was inpatient and was removed. He did have pain at the time and subsequently has had bruising throughout the left forearm. He does not have chronic edema. After discharge from [facility], he developed diarrhea and presented here on the . He also had fecal incontinence and rectal urgency along with anorexia. Upon arrival here, he did have mild leukocytosis, was also suspected to have rhabdomyolysis. Elevated lactate level was also noted and as a result, he had blood cultures performed and was started on piperacillin. A single blood culture now positive and consultation requested. Piperacillin has been changed to vancomycin today. No other recent antibiotics. He denies fever, rigors, night sweats. His diarrhea has improved and no surgical intervention. ALLERGIES: NONE KNOWN. PRESENT MEDICATIONS: Home medication list reviewed. No immunosuppressants. HABITS: No alcohol or illicit drugs. Tobacco, briefly smoked in high school. PAST MEDICAL HISTORY: In addition to the above, AICD placement, coronary artery disease, GERD, glaucoma, hyperparathyroidism, hypertension, ischemic cardiomyopathy, PAF, PVD, prior cardiac cath, and above the knee amputation, right leg. REVIEW OF SYSTEMS: 14-point review was otherwise negative. FAMILY HISTORY: Not pertinent to his present illness. SOCIAL HISTORY: He is single, disabled, retired. PHYSICAL EXAMINATION: GENERAL: This is a middle-aged male who appears his actual age, in no distress. VITAL SIGNS: T-max 37.5 on arrival, afebrile since. 94/56, 59, 18, saturation 100% on room air. SKIN: He has ecchymoses which are confluent over the left forearm with woody edema. No fluctuance, draining sinus tracts. There are few areas of dried blood. He has no cords. He has no decubitus ulcers. NODES: No cervical adenopathy. EENT: Teeth in excellent repair. No thrush. The conjunctivae are normal. No petechiae. Pupils equal, round, reactive. NECK: No masses or thyromegaly. LUNGS: Clear to auscultation and percussion. Chest equal expansion. Normal AP diameter. CARDIAC: Bradycardic, regular. Has a grade 1/6 systolic flow murmur, left sternal border. Chest with AICD in place. No overlying erythema nor fluctuance. ABDOMEN: Soft, nontender. No organomegaly. No masses. EXTREMITIES: His right AKA wound is very well healed. No inflammatory findings. Left foot and left leg without ulcers or cellulitis. LABORATORY DATA: MRSA screen in November was negative. Blood cultures from 07/05, 1 set identified as Staph aureus, the other as gram-positive cocci. His white count today 10.9, after being 11 on admission. Hemoglobin 9, platelets are 86,000, down from 110. Differential with minimal left shift. Prothrombin time 26.1. His hyponatremia 136, BUN 51, creatinine 7.1, down from 11.6. His lactate 2.7. Calcium is low, but his albumin is 3.1. CRP 38. CPK 2630 similar to prior. Transaminases 4 times normal. Ferritin high. Hepatitis panel was nonreactive other than the surface antibody which was positive. RADIOLOGY DATA: Chest x-ray, left pleural effusion, atelectasis, cardiomegaly, no acute findings. His abdomen pe
--- NOTE | 2020-07-07 15:14 | PCOTNOTE ---
Attempted OT evaluation, but unable to complete as patient having an ECHO done. Will attempt again at another time.
[2020-07-07] MEDS: carvediloL 12.5 MG TABLET PO (15:32)
[2020-07-07] MEDS: DORZOLAMIDE HCL 2% OPHTH DROPS 1 DROP EACH EYE (16:02)
[2020-07-07] MEDS: PANTOPRAZOLE 40 MG TABLET PO (16:02)
[2020-07-07] MEDS: CLOPIDOGREL BISULFATE 75 MG TABLET PO (16:03)
[2020-07-07] MEDS: CINACALCET 30 MG TABLET 90 MG PO (16:03)
[2020-07-07] MEDS: ASPIRIN 81 MG ENTERIC TABLET PO (16:03)
--- NOTE | 2020-07-07 16:24 | P.PNIM_ITS ---
Progress Note: A&P Assessment and Plan (1) Staphylococcus aureus bacteremia with sepsis: Code(s): A41.01 - Sepsis due to Methicillin susceptible Staphylococcus aureus Status: Acute Assessment and Plan: * Blood culture growing Staph aureus. Concerning given his subcutaneous defibrillator, recent coronary stenting, and hemodialysis vascular access. It is noted he had a left upper extremity peripheral IV infiltration at recent hospitalization at [facility], Dr Nuñez suspects could be possible source. * Appreciate Dr Nuñez's input. He was initially treated with IV zosyn for presumed infectious diarrhea. Diarrhea is now resolved. * Switched to IV vancomycin today, continue. * Echocardiogram pending. (2) Rhabdomyolysis: Qualifiers: Rhabdomyolysis type: non-traumatic Qualified Code(s): M62.82 - Rhabdomyolysis Code(s): M62.82 - Rhabdomyolysis Status: Acute Assessment and Plan: * Recenlty his atorvastatin dose was increased from 40mg daily to 80mg daily which could have contributed. * Hold statin therapy. Continue dialysis. Trend CK. (3) Diarrhea: Qualifiers: Diarrhea type: unspecified type Qualified Code(s): R19.7 - Diarrhea, unspecified Code(s): R19.7 - Diarrhea, unspecified Status: Resolved Assessment and Plan: * Resolved; no BMs since admission. (4) Elevated LFTs: Code(s): R79.89 - Other specified abnormal findings of blood chemistry Status: Acute Assessment and Plan: * These may be elevated in the setting of rhabdomyolysis or infection, however CT of the abdomen pelvis does show low attenuation of the liver adjacent to the ligamentum teres which could be possible fatty infiltration. Recommendation was given for follow-up examination. * Hepatitis panel is negative. Cholelithiasis noted on CT, but no exam findings or imaging findings to suggest cholecystitis. * Continue to trend LFTs. (5) Hypoglycemia: Code(s): E16.2 - Hypoglycemia, unspecified Status: Resolved Assessment and Plan: * Poor oral intake. Blood sugars as low as 20s this evening, administered glucose gel x 2; D5% at 50mL per hour started. * Continue to monitor accu-cheks closely and continue hypoglycemia protocol. (6) Generalized weakness: Code(s): R53.1 - Weakness Status: Acute Assessment and Plan: * Multifactorial may be related to renal failure, acute infection, rhabdo. Appreciate PT/OT evaluations. (7) End-stage renal disease on hemodialysis: Code(s): N18.6 - End stage renal disease; Z99.2 - Dependence on renal dialysis Status: Chronic Assessment and Plan: * Dr. Vora has been consulted and his input is appreciated. Patient follows with Dr Benjy Newton and receives HD [facility]. (8) Chronic anemia: Code(s): D64.9 - Anemia, unspecified Status: Chronic Assessment and Plan: * H&H low but stable. No signs or symptoms of acute bleeding. Will monitor. Suspect a component of anemia chronic kidney disease. (9) Paroxysmal atrial fibrillation: Code(s): I48.0 - Paroxysmal atrial fibrillation Status: Acute Assessment and Plan: * Continue amiodarone (monitor LFTs)
--- NOTE | 2020-07-07 16:24 | PM.IMPN ---
Progress Note: A&P Assessment and Plan (1) Staphylococcus aureus bacteremia with sepsis: Code(s): A41.01 - Sepsis due to Methicillin susceptible Staphylococcus aureus Status: Acute Assessment and Plan: Blood culture growing Staph aureus. Concerning given his subcutaneous defibrillator, recent coronary stenting, and hemodialysis vascular access. It is noted he had a left upper extremity peripheral IV infiltration at recent hospitalization at [facility], Dr Nuñez suspects could be possible source. Appreciate Dr Nuñez's input. He was initially treated with IV zosyn for presumed infectious diarrhea. Diarrhea is now resolved. Switched to IV vancomycin today, continue. Echocardiogram pending. (2) Rhabdomyolysis: Qualifiers: Rhabdomyolysis type: non-traumatic Qualified Code(s): M62.82 - Rhabdomyolysis Code(s): M62.82 - Rhabdomyolysis Status: Acute Assessment and Plan: Recenlty his atorvastatin dose was increased from 40mg daily to 80mg daily which could have contributed. Hold statin therapy. Continue dialysis. Trend CK. (3) Diarrhea: Qualifiers: Diarrhea type: unspecified type Qualified Code(s): R19.7 - Diarrhea, unspecified Code(s): R19.7 - Diarrhea, unspecified Status: Resolved Assessment and Plan: Resolved; no BMs since admission. (4) Elevated LFTs: Code(s): R79.89 - Other specified abnormal findings of blood chemistry Status: Acute Assessment and Plan: These may be elevated in the setting of rhabdomyolysis or infection, however CT of the abdomen pelvis does show low attenuation of the liver adjacent to the ligamentum teres which could be possible fatty infiltration. Recommendation was given for follow-up examination. Hepatitis panel is negative. Cholelithiasis noted on CT, but no exam findings or imaging findings to suggest cholecystitis. Continue to trend LFTs. (5) Hypoglycemia: Code(s): E16.2 - Hypoglycemia, unspecified Status: Resolved Assessment and Plan: Poor oral intake. Blood sugars as low as 20s this evening, administered glucose gel x 2; D5% at 50mL per hour started. Continue to monitor accu-cheks closely and continue hypoglycemia protocol. (6) Generalized weakness: Code(s): R53.1 - Weakness Status: Acute Assessment and Plan: Multifactorial may be related to renal failure, acute infection, rhabdo. Appreciate PT/OT evaluations. (7) End-stage renal disease on hemodialysis: Code(s): N18.6 - End stage renal disease; Z99.2 - Dependence on renal dialysis Status: Chronic Assessment and Plan: Dr. Vora has been consulted and his input is appreciated. Patient follows with Dr Benjy Newton and receives HD on F at [facility]. (8) Chronic anemia: Code(s): D64.9 - Anemia, unspecified Status: Chronic Assessment and Plan: H&H low but stable. No signs or symptoms of acute bleeding. Will monitor. Suspect a component of anemia chronic kidney disease. (9) Paroxysmal atrial fibrillation: Code(s): I48.0 - Paroxysmal atrial fibrillation Status: Acute Assessment and Plan: Continue amiodarone (monitor LFTs), and apixaban. Coreg held due to hypotension. (10) Abnormal finding on lung imaging: Code(s): R91.8 - Other nonspecific abnormal finding of lung field Status: Acute Assessment and Plan: Possible pneumonia noted on chest CT. Pleural-based nodule of right middle lobe is noted, additional developing nodules in right lower
[2020-07-07 16:29] LABS: Glucose Point of Care 47 (65-105)
[2020-07-07] MEDS: GLUCOSE ORAL GEL 15 GM OF GLUCSE IN 37.5 GM TUBE PO ×2 (16:29→16:59)
[2020-07-07] MEDS: APIXABAN 2.5 MG TABLET PO (16:30)
--- NOTE | 2020-07-07 16:49 | PHAR ---
HOME MEDICATION VERIFIED BY PHARMACY: LANTHANUM CARBONATE 1000 MG CHEWABLE TABLETS
[2020-07-07 16:53] LABS: Glucose Point of Care 58 (65-105)
[2020-07-07 17:45] LABS: Glucose Point of Care 24 (65-105)
[2020-07-07 17:45] LABS: Glucose Point of Care < 20 (65-105)
[2020-07-07] MEDS: DEXTROSE 5% 1,000 ML 1,000 ML 50 ML IVPB (17:50)
[2020-07-07 18:06] LABS: Glucose Point of Care 111 (65-105)
[2020-07-07 18:06] LABS: Glucose Point of Care 73 (65-105)
[2020-07-07 18:11] LABS: Glucose 86 mg/dL (75-110)
[2020-07-07 18:22] LABS: Glucose Point of Care 93 (65-105)
[2020-07-07 18:41] LABS: Glucose Point of Care 97 (65-105)
[2020-07-07] MEDS: ACETAMINOPHEN 325 MG TABLET 650 MG PO (21:55)
[2020-07-07 22:18] LABS: Glucose Point of Care 134 (65-105)
[2020-07-08 02:23] LABS: Glucose Point of Care 96 (65-105)
[2020-07-08 05:58] LABS: Basophils Percent Auto 0.2 % (0.2-1.2); Eosinophils Absolute Auto 0.1 K/mm3 (0-0.3); Eosinophils Percent Auto 0.5 % (0-4.4); Hematocrit 29.3 % (42.0-52.0); Hemoglobin 9.3 g/dL (14.0-18.0); Immature Granulocyte Absolute 0.53 K/mm3 (0.00-0.031); Immature Granulocyte Percent A 3.1 % (0-0.5); Lymphocytes Absolute Auto 1.22 K/mm3 (0.9-3.2); Lymphocytes Percent Auto 7.2 % (18.3-44.2); Mean Corpuscular HGB Conc 31.7 g/dl (32-36); Mean Corpuscular Hemoglobin 30.6 pg (26-34); Mean Corpuscular Volume 96.4 fl (80-100); Mean Platelet Volume 12.7 fl (7.4-10.4); Monocytes Absolute Auto 1.5 K/mm3 (0.1-0.6); Monocytes Percent Auto 9.1 % (2.6-8.5); Neutrophils Absolute Auto 13.5 K/mm3 (1.3-6.7); Neutrophils Percent Auto 79.9 % (45.5-73.1); Nucleated Red Blood Cells Absolute Auto 0.2 K/mm3 (0.0-0.012); Nucleated Red Blood Cells Perc 1.1 % (0.0-0.2); Platelet Count Result 98 k/mm3 (150-375); Red Blood Count 3.04 M/mm3 (4.6-6.20); Red Cell Distribution Width 16.6 % (11.5-14.5); White Blood Count 16.9 K/mm3 (4.5-10.0)
[2020-07-08 05:59] VITALS: BP 110/49; PULSE 68; RESP 18; TEMP 35.8; O2SAT 83
[2020-07-08 06:19] LABS: Alanine Aminotransferase 137 U/L (4-50); Albumin Level 2.9 g/dL (3.5-5.1); Alkaline Phosphatase 148 U/L (38-126); Anion Gap 12 mmol/L (8-16); Aspartate Amino Transferase 157 U/L (17-59); Blood Urea Nitrogen 35 mg/dL (9-20); Calcium 6.5 mg/dL (8.4-10.2); Carbon Dioxide 22 mmol/L (22-30); Chloride 99 mmol/L (98-107); Glucose 96 mg/dL (75-110); Magnesium 2.2 mg/dL (1.6-2.3); Potassium 4.3 mmol/L (3.4-5.0); Sodium 133 mmol/L (137-145)
[2020-07-08 06:21] LABS: Estimated CRCL calculation 14 ml/min; Estimated Glomerular Filt Rate 17
[2020-07-08 06:22] LABS: Creatine Kinase 3046 U/L (55-170)
[2020-07-08] MEDS: CINACALCET 30 MG TABLET 90 MG PO (09:19)
[2020-07-08] MEDS: ASPIRIN 81 MG ENTERIC TABLET PO (09:20)
[2020-07-08] MEDS: APIXABAN 2.5 MG TABLET PO ×2 (09:20→16:47)
[2020-07-08 09:21] VITALS: PULSE 68
[2020-07-08] MEDS: AMIODARONE HCL 200 MG TABLET PO (09:21)
[2020-07-08] MEDS: DORZOLAMIDE HCL 2% OPHTH DROPS 1 DROP EACH EYE (09:21)
[2020-07-08] MEDS: CLOPIDOGREL BISULFATE 75 MG TABLET PO (09:21)
[2020-07-08] MEDS: PANTOPRAZOLE 40 MG TABLET PO (09:21)
[2020-07-08 11:55] LABS: Glucose Point of Care 77 (65-105)
[2020-07-08 12:08] LABS: Glucose Point of Care 83 (65-105)
--- NOTE | 2020-07-08 13:34 | PM.PNNEP ---
Progress Note: A&P Assessment and Plan (1) ESRD (end stage renal disease): Code(s): N18.6 - End stage renal disease Status: Chronic Assessment and Plan: HD tomorrow and continue Sun/Sun/Sunday schedule follow electrolytes, volume status, and clearance (2) Staphylococcus aureus bacteremia with sepsis: Code(s): A41.01 - Sepsis due to Methicillin susceptible Staphylococcus aureus Status: Acute Assessment and Plan: as note by blood cultures source? on antibiotics Infectious Disease recommendations follow repeat cultures (3) Diarrhea: Qualifiers: Diarrhea type: unspecified type Qualified Code(s): R19.7 - Diarrhea, unspecified Code(s): R19.7 - Diarrhea, unspecified Status: Resolved Assessment and Plan: etiology? seems somewhat better follow cultures on empiric antibiotics (4) Elevated LFTs: Code(s): R79.89 - Other specified abnormal findings of blood chemistry Status: Acute Assessment and Plan: possibly due to mild rhabdomyolysis +/- high dose statin therapy trend LFTs follow CPK levels statin on hold (5) Hypoglycemia: Code(s): E16.2 - Hypoglycemia, unspecified Status: Resolved Assessment and Plan: due to diarrhea and poor oral intake follow oral intake and blood sugars (6) Ischemic cardiomyopathy: Code(s): I25.5 - Ischemic cardiomyopathy Status: Acute Assessment and Plan: appears compensated fluid removal with HD as tolerated follow respiratory status and daily weights Will continue to follow. Subjective Date/time seen: 07/08/20 13:34 Tolerated dialysis yesterday although BP was bit soft during treatment and minimal fluid was removed; otherwise, no acute complaints voiced at this time. Exam Narrative: Exam Narrative: General: WD/WN AA male in NAD Heart: normal S1 and S2; no rub Lungs: clear to auscultation Abdomen: soft, nontender, nondistended, positive bowel sounds Extremities: no cyanosis or clubbing; no edema; s/p right AKA Skin: no rash or nodules Objective Data Vital Signs Vital Signs: Vital Signs Temp Pulse Resp BP Pulse Ox 07/08/20 09:21 68 07/08/20 05:59 35.8 C L 68 18 110/49 L 83 L 07/07/20 20:46 35.9 C L 56 L 22 H 95/55 L 91 07/07/20 16:00 68 07/07/20 15:32 85 07/07/20 14:04 36.6 C 58 L 12 82/52 L 87 L 07/07/20 13:50 85 Intake/Output Intake/Output: Intake & Output 07/05/20 07/06/20 07/07/20 07/08/20 23:59 23:59 23:59 23:59 Intake Total 1570 1504 1406 390 Output Total 400 0 Balance 1570 1504 1006 390 Meds/Results Medications: Active Medications Generic Name Dose Route Start Last Admin Trade Name Freq PRN Reason Stop Dose Admin Acetaminophen 650 mg 07/07/20 09:21 07/07/20 21:55 Tylenol Tablet PO 650 mg Q4H PRN Administration Pain Rated 5 or Less Hydrocodone Bitart/Acetaminophen 1 tab 07/07/20 09:20 [place] 5-325 Mg PO Q6H PRN Pain Rated 6 or Greater Amiodarone HCl 200 mg 07/06/20 09:00 07/08/20 09:21 Pacerone PO 200 mg DAILY TORITO Administration Apixaban 2.5 mg 07/05/20 22:55 07/08/20 09:20 Eliquis PO 2.5 mg BID TORITO Administration Aspirin 81 mg 07/07/20 09:00 07/08/20 09:20 Aspirin Ec PO 81 mg QAM TORITO Administration Carvedilol 12.5 mg 07/07/20 09:00 07/07/20 15:32 Coreg PO 12.5 mg Q12HR TORITO Administration Cinacalcet 90 mg 07/06/20 09:00 07/08/20 09:19 Sensipar PO 08/05/20 09:01 90 mg DAILY TORITO Administration Clopidogrel Bisulfate 75 mg 07/06/20 09:00 07/08/20 09:21 Plavix PO 75 mg DAILY TORITO Administration Dextrose 12.5 gm 07/05/20 14:08 Dextrose 50% Syringe IV PUSH PRN PRN Hypoglycemia Protocol Dorzolamide HCl 1 drop 07/06/20 09:00 07/08/20 09:21 Trusopt EACH EYE 1 drop DAILY TORITO Administration Glucagon 1 mg 07/05/20 14:08
--- NOTE | 2020-07-08 14:24 | WPDINFPN2 ---
Progress Note: A&P Assessment and Plan (1) Staphylococcus aureus bacteremia with sepsis: Code(s): A41.01 - Sepsis due to Methicillin susceptible Staphylococcus aureus Status: Acute Assessment and Plan: 1. S aureus bacteremia, possibly due to peripheral IV left forearm when at [facility] last week. Exam and symptoms do not suggest need for surgical intervention L arm. 2. CRf, no U.O at baseline REC Vanc #2, change to Ancef #1. Repeat BCs done this am. Subjective Date/time seen: 07/08/20 14:24 Interval history: no complaints Exam Narrative: Exam Narrative: afebrile Const: General: no acute distress Eyes: General: appearance normal, both eyes and all related structures Resp: Effort & Inspection: normal respiratory effort Auscultation: clear to auscultation bilaterally Cardio: Rate: regular rate Rhythm: regular rhythm Heart sounds: no murmurs GI: Inspection: non-distended GI Palp: Yes Soft to palpation and No Tenderness to palpation present (GI) Extrem: Left upper extremity: edema Objective Data Vital Signs Vital Signs: Vital Signs - 24 hr 07/07/20 15:32 07/07/20 16:00 07/07/20 20:46 Temperature 35.9 C L Pulse Rate 85 68 56 L Respiratory Rate 22 H Blood Pressure 95/55 L Pulse Oximetry 91 07/08/20 05:59 07/08/20 09:21 Temperature 35.8 C L Pulse Rate 68 68 Respiratory Rate 18 Blood Pressure 110/49 L Pulse Oximetry 83 L Intake/Output Intake/Output: Intake & Output 07/05/20 07/06/20 07/07/20 07/08/20 23:59 23:59 23:59 23:59 Intake Total 1570 1504 1406 390 Output Total 400 0 Balance 1570 1504 1006 390 Meds/Results Medications: Active Medications Generic Name Dose Route Start Last Admin Trade Name Freq PRN Reason Stop Dose Admin Acetaminophen 650 mg 07/07/20 09:21 07/07/20 21:55 Tylenol Tablet PO 650 mg Q4H PRN Administration Pain Rated 5 or Less Hydrocodone Bitart/Acetaminophen 1 tab 07/07/20 09:20 [place] 5-325 Mg PO Q6H PRN Pain Rated 6 or Greater Amiodarone HCl 200 mg 07/06/20 09:00 07/08/20 09:21 Pacerone PO 200 mg DAILY TORITO Administration Apixaban 2.5 mg 07/05/20 22:55 07/08/20 09:20 Eliquis PO 2.5 mg BID TORITO Administration Aspirin 81 mg 07/07/20 09:00 07/08/20 09:20 Aspirin Ec PO 81 mg QAM TORITO Administration Carvedilol 12.5 mg 07/07/20 09:00 07/07/20 15:32 Coreg PO 12.5 mg Q12HR TORITO Administration Cinacalcet 90 mg 07/06/20 09:00 07/08/20 09:19 Sensipar PO 08/05/20 09:01 90 mg DAILY TORITO Administration Clopidogrel Bisulfate 75 mg 07/06/20 09:00 07/08/20 09:21 Plavix PO 75 mg DAILY TORITO Administration Dextrose 12.5 gm 07/05/20 14:08 Dextrose 50% Syringe IV PUSH PRN PRN Hypoglycemia Protocol Dorzolamide HCl 1 drop 07/06/20 09:00 07/08/20 09:21 Trusopt EACH EYE 1 drop DAILY TORITO Administration Glucagon 1 mg 07/05/20 14:08 Glucagon For Inj IM PRN PRN Hypoglycemia Protocol Glucose 15 gm 07/05/20 14:08 07/07/20 16:59 Glutose 15 PO 15 gm PRN PRN Administration Hypoglycemia Protocol Dextrose 1,000 mls @ 100 mls/hr 07/05/20 14:08 07/07/20 17:50 Dextrose 5% 1,000 Ml IVPB 50 mls/hr PRN PRN Administration Hypoglycemia Protocol Albumin Human 50 mls @ 999 mls/hr 07/06/20 00:44 07/07/20 11:29 Albutein IVPB 08/05/20 00:45 999 mls/hr Q10M PRN Administration HYPOTENSION Cefazolin Sodium 2 gm in 50 mls @ 100 mls/hr 07/08/20 17:00 Ancef 2 Gm/D5w 50 Ml IVPB DAILY@1700 TORITO Lisinopril 40 mg 07/06/20 18:00 07/06/20 18:28 Prinivil PO Not Given QPM TORITO Pantoprazole Sodium 40 mg 07/06/20 09:00 07/08/20 09:21 Protonix PO 40 mg QAM TORITO Administration Radiology Results: ITS Impressions Abdomen/Pelvis CT 07/05/20 09:09 IMPRESSION: 1. Liquid stool in the distal colon, consistent with history of diarrhea. 2. Pleural-base
[2020-07-08 14:35] VITALS: BP 80/54; PULSE 75; RESP 20; TEMP 35.8
[2020-07-08 15:51] LABS: Glucose Point of Care 262 (65-105)
--- NOTE | 2020-07-08 16:01 | P.PNIM_ITS ---
Progress Note: A&P Assessment and Plan (1) Staphylococcus aureus bacteremia with sepsis: Code(s): A41.01 - Sepsis due to Methicillin susceptible Staphylococcus aureus Status: Acute Assessment and Plan: * Blood culture growing Staph aureus methicillin sensitive. Concerning given his subcutaneous defibrillator, recent coronary stenting, and hemodialysis vascular access. It is noted he had a left upper extremity peripheral IV infiltration at recent hospitalization at [facility], Dr Nuñez suspects could be possible source. * He was initially treated with IV zosyn for presumed infectious diarrhea. Diarrhea is now resolved. * Switched to IV vancomycin 07/07 and today to ancef with cultures growing MSSA * Echocardiogram still pending. (2) Rhabdomyolysis: Qualifiers: Rhabdomyolysis type: non-traumatic Qualified Code(s): M62.82 - Rha bdomyolysis Code(s): M62.82 - Rhabdomyolysis Status: Acute Assessment and Plan: * Recenlty his atorvastatin dose was increased from 40mg daily to 80mg daily which could have contributed. * Hold statin therapy. Continue dialysis. slightly higher today and continue to follow (3) Diarrhea: Qualifiers: Diarrhea type: unspecified type Qualified Code(s): R19.7 - Diarrhea, unspecified Code(s): R19.7 - Diarrhea, unspecified Status: Resolved Assessment and Plan: * Resolved; no BMs since admission. (4) Elevated LFTs: Code(s): R79.89 - Other specified abnormal findings of blood chemistry Status: Acute Assessment and Plan: * These may be elevated in the setting of rhabdomyolysis or infection, however CT of the abdomen pelvis does show low attenuation of the liver adjacent to the ligamentum teres which could be possible fatty infiltration. Recommendation was given for follow-up examination. * Hepatitis panel is negative. Cholelithiasis noted on CT, but no exam findings or imaging findings to suggest cholecystitis. * Continue to trend LFTs. (5) Hypoglycemia: Code(s): E16.2 - Hypoglycemia, unspecified Status: Resolved Assessment and Plan: * Poor oral intake. Blood sugars as low as 20s 07/07, administered glucose gel x 2; D5% at 50mL per hour started. * Continue to monitor accu-cheks closely and up today so can DC IV glucose (6) Generalized weakness: Code(s): R53.1 - Weakness Status: Acute Assessment and Plan: * Multifactorial may be related to renal failure, acute infection, rhabdo. Appreciate PT/OT evaluations. (7) End-stage renal disease on hemodialysis: Code(s): N18.6 - End stage renal disease; Z99.2 - Dependence on renal dialysis Status: Chronic Assessment and Plan: * Dr. Vora has been consulted . Patient follows with Dr Benjy Newton and receives HD on [facility] at [facility] [place]. (8) Chronic anemia: Code(s): D64.9 - Anemia, unspecified Status: Chronic Assessment and Plan: * H&H low but stable. No signs or symptoms of acute bleeding. Will monitor. Suspect a component of anemia chronic kidney disease. (9) Paroxysmal atrial fibrillation: Code(s): I48.0 - Paroxysmal atrial fibrillation Status: Acute Assessment and Plan:
--- NOTE | 2020-07-08 16:01 | PM.IMPN ---
Progress Note: A&P Assessment and Plan (1) Staphylococcus aureus bacteremia with sepsis: Code(s): A41.01 - Sepsis due to Methicillin susceptible Staphylococcus aureus Status: Acute Assessment and Plan: Blood culture growing Staph aureus methicillin sensitive. Concerning given his subcutaneous defibrillator, recent coronary stenting, and hemodialysis vascular access. It is noted he had a left upper extremity peripheral IV infiltration at recent hospitalization at [facility], Dr Nuñez suspects could be possible source. He was initially treated with IV zosyn for presumed infectious diarrhea. Diarrhea is now resolved. Switched to IV vancomycin 07/07 and today to ancef with cultures growing MSSA Echocardiogram still pending. (2) Rhabdomyolysis: Qualifiers: Rhabdomyolysis type: non-traumatic Qualified Code(s): M62.82 - Rhabdomyolysis Code(s): M62.82 - Rhabdomyolysis Status: Acute Assessment and Plan: Recenlty his atorvastatin dose was increased from 40mg daily to 80mg daily which could have contributed. Hold statin therapy. Continue dialysis. slightly higher today and continue to follow (3) Diarrhea: Qualifiers: Diarrhea type: unspecified type Qualified Code(s): R19.7 - Diarrhea, unspecified Code(s): R19.7 - Diarrhea, unspecified Status: Resolved Assessment and Plan: Resolved; no BMs since admission. (4) Elevated LFTs: Code(s): R79.89 - Other specified abnormal findings of blood chemistry Status: Acute Assessment and Plan: These may be elevated in the setting of rhabdomyolysis or infection, however CT of the abdomen pelvis does show low attenuation of the liver adjacent to the ligamentum teres which could be possible fatty infiltration. Recommendation was given for follow-up examination. Hepatitis panel is negative. Cholelithiasis noted on CT, but no exam findings or imaging findings to suggest cholecystitis. Continue to trend LFTs. (5) Hypoglycemia: Code(s): E16.2 - Hypoglycemia, unspecified Status: Resolved Assessment and Plan: Poor oral intake. Blood sugars as low as 20s 07/07, administered glucose gel x 2; D5% at 50mL per hour started. Continue to monitor accu-cheks closely and up today so can DC IV glucose (6) Generalized weakness: Code(s): R53.1 - Weakness Status: Acute Assessment and Plan: Multifactorial may be related to renal failure, acute infection, rhabdo. Appreciate PT/OT evaluations. (7) End-stage renal disease on hemodialysis: Code(s): N18.6 - End stage renal disease; Z99.2 - Dependence on renal dialysis Status: Chronic Assessment and Plan: Dr. Vora has been consulted . Patient follows with Dr Benjy Newton and receives HD on [facility] at [facility]. (8) Chronic anemia: Code(s): D64.9 - Anemia, unspecified Status: Chronic Assessment and Plan: H&H low but stable. No signs or symptoms of acute bleeding. Will monitor. Suspect a component of anemia chronic kidney disease. (9) Paroxysmal atrial fibrillation: Code(s): I48.0 - Paroxysmal atrial fibrillation Status: Acute Assessment and Plan: Continue amiodarone (monitor LFTs), and apixaban. Coreg held due to hypotension. (10) Abnormal finding on lung imaging: Code(s): R91.8 - Other nonspecific abnormal finding of lung field Status: Acute Assessment and Plan: Possible pneumonia noted on chest CT. Pleural-based nodule of right middle lobe is noted, additional
[2020-07-08] MEDS: ceFAZolin 2 GM/D5W 50 ML 2 GM/50 ML BAG IVPB (16:48)
[2020-07-08 19:43] VITALS: BP 86/40; PULSE 83; RESP 18; TEMP 36.1; O2SAT 92
[2020-07-08 21:25] LABS: Glucose Point of Care 72 (65-105)
[2020-07-09] VITALS (27 sets, daily range): BP systolic 82–141; BP diastolic 52–101; PULSE 56–91; RESP 12–18; TEMP 36–36.8; O2SAT 93–100
[2020-07-09 02:38] LABS: Glucose Point of Care 110 (65-105)
[2020-07-09 05:36] LABS: Basophils Absolute Auto 0.1 K/mm3 (0.0-0.1); Basophils Percent Auto 0.5 % (0.2-1.2); Eosinophils Absolute Auto 0.1 K/mm3 (0-0.3); Eosinophils Percent Auto 0.6 % (0-4.4); Hematocrit 30.7 % (42.0-52.0); Hemoglobin 9.6 g/dL (14.0-18.0); Immature Granulocyte Absolute 0.83 K/mm3 (0.00-0.031); Immature Granulocyte Percent A 3.6 % (0-0.5); Lymphocytes Absolute Auto 1.55 K/mm3 (0.9-3.2); Lymphocytes Percent Auto 6.7 % (18.3-44.2); Mean Corpuscular HGB Conc 31.3 g/dl (32-36); Mean Corpuscular Hemoglobin 30.4 pg (26-34); Mean Corpuscular Volume 97.2 fl (80-100); Mean Platelet Volume 12.2 fl (7.4-10.4); Monocytes Absolute Auto 1.5 K/mm3 (0.1-0.6); Monocytes Percent Auto 6.3 % (2.6-8.5); Neutrophils Absolute Auto 19.2 K/mm3 (1.3-6.7); Neutrophils Percent Auto 82.3 % (45.5-73.1); Nucleated Red Blood Cells Absolute Auto 0.4 K/mm3 (0.0-0.012); Nucleated Red Blood Cells Perc 1.7 % (0.0-0.2); Platelet Count Result 130 k/mm3 (150-375); Red Blood Count 3.16 M/mm3 (4.6-6.20); Red Cell Distribution Width 16.7 % (11.5-14.5); White Blood Count 23.3 K/mm3 (4.5-10.0)
[2020-07-09 06:17] LABS: Anion Gap 13 mmol/L (8-16); Blood Urea Nitrogen 48 mg/dL (9-20); Calcium 5.7 mg/dL (8.4-10.2); Carbon Dioxide 21 mmol/L (22-30); Chloride 98 mmol/L (98-107); Estimated CRCL calculation 11 ml/min; Estimated Glomerular Filt Rate 13; Glucose 73 mg/dL (75-110); Potassium 4.4 mmol/L (3.4-5.0); Sodium 132 mmol/L (137-145)
[2020-07-09 06:31] LABS: Creatine Kinase 7124 U/L (55-170)
[2020-07-09] MEDS: GLUCOSE ORAL GEL 15 GM OF GLUCSE IN 37.5 GM TUBE PO ×2 (06:39→07:01)
[2020-07-09] MEDS: DEXTROSE 50% 25 GM/50 ML SYRINGE IV PUSH ×3 (07:55→12:43)
[2020-07-09 07:57] LABS: Glucose Point of Care 20 (65-105)
[2020-07-09 08:09] LABS: Glucose Point of Care 61 (65-105)
[2020-07-09 08:09] LABS: Glucose Point of Care 43 (65-105)
[2020-07-09 08:09] LABS: Glucose Point of Care 59 (65-105)
[2020-07-09] MEDS: DEXTROSE 5% 1,000 ML 1,000 ML 50 ML IV CONT (08:23)
[2020-07-09 08:37] LABS: Glucose Point of Care 67 (65-105)
[2020-07-09] MEDS: AMIODARONE HCL 200 MG TABLET PO (09:06)
--- NOTE | 2020-07-09 09:25 | PC.NURSE ---
Patient to dialysis at 0920.
[2020-07-09] MEDS: SODIUM CHLORIDE 0.9% IV 1,000 ML 999 ML IV CONT (09:49)
[2020-07-09] MEDS: EPOETIN ALFA-EPBX 10,000 UNITS/ML VIAL 10000 UNITS IV PUSH (10:50)
--- NOTE | 2020-07-09 11:04 | PCOTNOTE ---
Patient in dialysis and unavailable to be seen for skilled OT. Will attempt treatment later if time, or continue plan of care tomorrow 07/10/2020.
[2020-07-09 11:22] LABS: Glucose Point of Care 38 (65-105)
--- NOTE | 2020-07-09 12:34 | PM.PNNEP ---
Progress Note: A&P Assessment and Plan (1) ESRD (end stage renal disease): Code(s): N18.6 - End stage renal disease Status: Chronic Assessment and Plan: HD today and continue Sun/Sun/Sunday schedule follow electrolytes, volume status, and clearance (2) Staphylococcus aureus bacteremia with sepsis: Code(s): A41.01 - Sepsis due to Methicillin susceptible Staphylococcus aureus Status: Acute Assessment and Plan: as noted by blood cultures source? on antibiotics Infectious Disease recommendations follow repeat cultures (3) Diarrhea: Qualifiers: Diarrhea type: unspecified type Qualified Code(s): R19.7 - Diarrhea, unspecified Code(s): R19.7 - Diarrhea, unspecified Status: Resolved Assessment and Plan: etiology? seems somewhat better follow cultures on empiric antibiotics (4) Elevated LFTs: Code(s): R79.89 - Other specified abnormal findings of blood chemistry Status: Acute Assessment and Plan: possibly due to mild rhabdomyolysis +/- high dose statin therapy trend LFTs follow CPK levels statin on hold (5) Hypoglycemia: Code(s): E16.2 - Hypoglycemia, unspecified Status: Resolved Assessment and Plan: due to diarrhea and poor oral intake follow oral intake and blood sugars (6) Ischemic cardiomyopathy: Code(s): I25.5 - Ischemic cardiomyopathy Status: Acute Assessment and Plan: appears compensated fluid removal with HD as tolerated follow respiratory status and daily weights Will continue to follow. Subjective Date/time seen: 07/09/20 12:34 Tolerating dialysis at the time of my visit (see on HD treatment at ~ 12:20PM); feels a bit better but states he feels cold as a rock -- no acute distress voiced and no apparent events/issues overnight or earlier this AM; still does not feel like his usual state though -- main complaint is just weakness. Exam Narrative: Exam Narrative: General: WD/WN AA male in NAD Heart: normal S1 and S2; no rub Lungs: clear to auscultation Abdomen: soft, nontender, nondistended, positive bowel sounds Extremities: no cyanosis or clubbing; no edema; s/p right AKA Skin: warm and dry Objective Data Vital Signs Vital Signs: Vital Signs Temp Pulse Resp BP Pulse Ox 07/09/20 12:15 66 98/54 L 07/09/20 12:00 56 L 108/56 L 07/09/20 11:45 79 120/70 07/09/20 11:30 83 101/60 07/09/20 11:15 85 120/64 07/09/20 11:00 72 122/72 07/09/20 10:45 76 91/53 L 07/09/20 10:30 59 L 103/66 07/09/20 10:15 79 121/68 07/09/20 10:00 77 139/80 07/09/20 09:45 77 141/66 H 07/09/20 09:37 77 121/54 L 07/09/20 09:32 86 113/79 07/09/20 09:21 36.8 C 73 18 137/64 07/09/20 09:06 81 07/09/20 04:16 36.2 C L 59 L 16 100/52 L 96 07/08/20 19:43 36.1 C L 83 18 86/40 L 92 07/08/20 14:35 35.8 C L 75 20 80/54 L Intake/Output Intake/Output: Intake & Output 07/06/20 07/07/20 07/08/20 07/09/20 23:59 23:59 23:59 23:59 Intake Total 1504 1406 1740 470 Output Total 400 0 Balance 1504 1006 1740 470 Meds/Results Medications: Active Medications Generic Name Dose Route Start Last Admin Trade Name Freq PRN Reason Stop Dose Admin Acetaminophen 650 mg 07/07/20 09:21 07/07/20 21:55 Tylenol Tablet PO 650 mg Q4H PRN Administration Pain Rated 5 or Less Hydrocodone Bitart/Acetaminophen 1 tab 07/07/20 09:20 [place] 5-325 Mg PO Q6H PRN Pain Rated 6 or Greater Amiodarone HCl 200 mg 07/06/20 09:00 07/09/20 09:06 Pacerone PO 200 mg DAILY TORITO Administration Apixaban 2.5 mg 07/05/20 22:55 07/08/20 16:47 Eliquis PO 2.5 mg BID TORITO Administration Aspirin 81 mg 07/07/20 09:00 07/08/20 09:20 Aspirin Ec PO 81 mg QAM TORITO Administration Carvedilol 12.5 mg 07/07/20 09:00 07/07/20 15:32 Coreg PO 12.5
--- NOTE | 2020-07-09 12:38 | PC.NURSE ---
GLUCOSE 35. PT AWAKE AND ALERT. DR REARDON NOTIFIED AND NEW ORDERS RECEIVED.
--- NOTE | 2020-07-09 12:54 | PCPTNOTE ---
The PT treatment was unable to be completed today due to patient out of room for dialysis. Will continue per Plan of Care frequency and duration.
[2020-07-09 13:00] LABS: Glucose Point of Care 77 (65-105)
[2020-07-09 13:00] LABS: Glucose Point of Care 35 (65-105)
--- NOTE | 2020-07-09 13:26 | WPDINFPN2 ---
Progress Note: A&P Assessment and Plan (1) Staphylococcus aureus bacteremia with sepsis: Code(s): A41.01 - Sepsis due to Methicillin susceptible Staphylococcus aureus Status: Acute Assessment and Plan: 1. S aureus bacteremia, possibly due to peripheral IV left forearm when at [facility] last week. Exam and symptoms do not suggest need for surgical intervention L arm. But BC still +, 1/2 sets so far 2. CRf, no U.O at baseline REC (antibiotic #3) Ancef #2. F/U on identification of new organism but likely the same PHUONG. Due to new + BC, get CT of forearm. Will need minimum 11 days more IV rx Subjective Date/time seen: 07/09/20 13:26 Interval history: feeling a little better, on HD Exam Narrative: Exam Narrative: afebrile Const: General: no acute distress Resp: Effort & Inspection: normal respiratory effort Auscultation: clear to auscultation bilaterally Cardio: Rate: regular rate Rhythm: regular rhythm Heart sounds: no murmurs GI: Inspection: non-distended GI Palp: Yes Soft to palpation and No Tenderness to palpation present (GI) Extrem: Other: left forearm with a little less edema. No cord and no tenderness and no fluctuance Objective Data Vital Signs Vital Signs: Vital Signs - 24 hr 07/08/20 14:35 07/08/20 19:43 07/09/20 04:16 Temperature 35.8 C L 36.1 C L 36.2 C L Pulse Rate 75 83 59 L Respiratory Rate 20 18 16 Blood Pressure 80/54 L 86/40 L 100/52 L Pulse Oximetry 92 96 07/09/20 09:06 07/09/20 09:21 07/09/20 09:32 Temperature 36.8 C Pulse Rate 81 73 86 Respiratory Rate 18 Blood Pressure 137/64 113/79 Pulse Oximetry 07/09/20 09:37 07/09/20 09:45 07/09/20 10:00 Temperature Pulse Rate 77 77 77 Respiratory Rate Blood Pressure 121/54 L 141/66 H 139/80 Pulse Oximetry 07/09/20 10:15 07/09/20 10:30 07/09/20 10:45 Temperature Pulse Rate 79 59 L 76 Respiratory Rate Blood Pressure 121/68 103/66 91/53 L Pulse Oximetry 07/09/20 11:00 07/09/20 11:15 07/09/20 11:30 Temperature Pulse Rate 72 85 83 Respiratory Rate Blood Pressure 122/72 120/64 101/60 Pulse Oximetry 07/09/20 11:45 07/09/20 12:00 07/09/20 12:15 Temperature Pulse Rate 79 56 L 66 Respiratory Rate Blood Pressure 120/70 108/56 L 98/54 L Pulse Oximetry Intake/Output Intake/Output: Intake & Output 07/06/20 07/07/20 07/08/20 07/09/20 23:59 23:59 23:59 23:59 Intake Total 1504 1406 1740 470 Output Total 400 0 Balance 1504 1006 1740 470 Meds/Results Medications: Active Medications Generic Name Dose Route Start Last Admin Trade Name Freq PRN Reason Stop Dose Admin Acetaminophen 650 mg 07/07/20 09:21 07/07/20 21:55 Tylenol Tablet PO 650 mg Q4H PRN Administration Pain Rated 5 or Less Hydrocodone Bitart/Acetaminophen 1 tab 07/07/20 09:20 07/09/20 12:53 [place] 5-325 Mg PO 1 tab Q6H PRN Administration Pain Rated 6 or Greater Amiodarone HCl 200 mg 07/06/20 09:00 07/09/20 09:06 Pacerone PO 200 mg DAILY TORITO Administration Apixaban 2.5 mg 07/05/20 22:55 07/08/20 16:47 Eliquis PO 2.5 mg BID TORITO Administration Aspirin 81 mg 07/07/20 09:00 07/08/20 09:20 Aspirin Ec PO 81 mg QAM TORITO Administration Carvedilol 12.5 mg 07/07/20 09:00 07/07/20 15:32 Coreg PO 12.5 mg Q12HR TORITO Administration Cinacalcet 90 mg 07/06/20 09:00 07/08/20 09:19 Sensipar PO 08/05/20 09:01 90 mg DAILY TORITO Administration Clopidogrel Bisulfate 75 mg 07/06/20 09:00 07/08/20 09:21 Plavix PO 75 mg DAILY TORITO Administration Dextrose 12.5 gm 07/05/20 14:08 07/09/20 11:48 Dextrose 50% Syringe IV PUSH 12.5 gm PRN PRN Administration Hypoglycemia Protocol Dorzolamide HCl 1 drop 07/06/20 09:00 07/08/20 09:21 Trusopt EACH EYE 1 drop DAILY TORITO Administration Epoetin Nathaniel-epbx 10,000 units 07/09/20 18:37 07/09/20 10:50 Retacrit IV PUSH 07/09/20 18:38 10,000 uni
[2020-07-09 13:49] LABS: Glucose Point of Care 65 (65-105)
--- NOTE | 2020-07-09 13:52 | PC.NURSE ---
DR REARDON NOTIFIED OF GLUCOSE OF 65
[2020-07-09] MEDS: ASPIRIN 81 MG ENTERIC TABLET PO (14:03)
[2020-07-09] MEDS: DORZOLAMIDE HCL 2% OPHTH DROPS 1 DROP EACH EYE (14:04)
[2020-07-09] MEDS: CINACALCET 30 MG TABLET 90 MG PO (14:04)
[2020-07-09] MEDS: APIXABAN 2.5 MG TABLET PO ×2 (14:04→20:09)
--- NOTE | 2020-07-09 14:04 | PCOTNOTE ---
Per RN, patient having low blood sugar (38) and recommended holding treatment today. Will continue plan of care tomorrow 07/10/2020.
[2020-07-09] MEDS: PANTOPRAZOLE 40 MG TABLET PO (14:05)
--- NOTE | 2020-07-09 14:57 | P.PNIM_ITS ---
Progress Note: A&P Assessment and Plan (1) Staphylococcus aureus bacteremia with sepsis: Code(s): A41.01 - Sepsis due to Methicillin susceptible Staphylococcus aureus Status: Acute Assessment and Plan: * Blood culture growing Staph aureus methicillin sensitive. Concerning given his subcutaneous defibrillator, recent coronary stenting, and hemodialysis vascular access. It is noted he had a left upper extremity peripheral IV infiltration at recent hospitalization at [facility], Dr Nuñez suspects could be possible source. and CT of warm ordered for today * He was initially treated with IV zosyn for presumed infectious diarrhea. Diarrhea is now resolved. * Switched to IV vancomycin 07/07 and 07/08 to ancef(D#3 total antibiotics) with cultures growing MSSA and 1 of 2 of 2nd set still positive * Echocardiogram EF 25-30% with no vegetations seen. (2) Rhabdomyolysis: Qualifiers: Rhabdomyolysis type: non-traumatic Qualified Code(s): M62.82 - Rhabdomyolysis Code(s): M62.82 - Rhabdomyolysis Status: Acute Assessment and Plan: * Recenlty his atorvastatin dose was increased from 40mg daily to 80mg daily which could have contributed. * Holding statin therapy. Continue dialysis. slightly higher today and continue to follow (3) Diarrhea: Qualifiers: Diarrhea type: unspecified type Qualified Code(s): R19.7 - Diarrhea, unspecified Code(s): R19.7 - Diarrhea, unspecified Status: Resolved Assessment and Plan: * Resolved. (4) Elevated LFTs: Code(s): R79.89 - Other specified abnormal findings of blood chemistry Status: Acute Assessment and Plan: * These may be elevated in the setting of rhabdomyolysis or infection, however CT of the abdomen pelvis does show low attenuation of the liver adjacent to the ligamentum teres which could be possible fatty infiltration. R ecommendation was given for follow-up examination. * Hepatitis panel is negative. Cholelithiasis noted on CT, but no exam findings or imaging findings to suggest cholecystitis. * Continue to trend LFTs. (5) Hypoglycemia: Code(s): E16.2 - Hypoglycemia, unspecified Status: Resolved Assessment and Plan: * Poor oral intake. and sepsis. Blood sugars as low as 20s 07/07, administered glucose gel x 2; D5% at 100mL per hour started. * Continue to monitor accu-cheks closely and up today so can DC IV glucose (6) Generalized weakness: Code(s): R53.1 - Weakness Status: Acute Assessment and Plan: * Multifactorial may be related to renal failure, acute infection, rhabdo. Appreciate PT/OT evaluations. (7) End-stage renal disease on hemodialysis: Code(s): N18.6 - End stage renal disease; Z99.2 - Dependence on renal dialysis Status: Chronic Assessment and Plan: * Dr. Diony ly . Patient follows with Dr Benjy Newton and receives HD on [facility] at [facility]. (8) Chronic anemia: Code(s): D64.9 - Anemia, unspecified Status: Chronic Assessment and Plan: * H&H low but stable. No signs or symptoms of acute bleeding. Will monitor. Suspect a component of anemia chronic kidney disease. (9) Paroxysmal atrial fibrillation: Code(
--- NOTE | 2020-07-09 14:57 | PM.IMPN ---
Progress Note: A&P Assessment and Plan (1) Staphylococcus aureus bacteremia with sepsis: Code(s): A41.01 - Sepsis due to Methicillin susceptible Staphylococcus aureus Status: Acute Assessment and Plan: Blood culture growing Staph aureus methicillin sensitive. Concerning given his subcutaneous defibrillator, recent coronary stenting, and hemodialysis vascular access. It is noted he had a left upper extremity peripheral IV infiltration at recent hospitalization at [facility], Dr Nuñez suspects could be possible source. and CT of warm ordered for today He was initially treated with IV zosyn for presumed infectious diarrhea. Diarrhea is now resolved. Switched to IV vancomycin 07/07 and 07/08 to ancef(D#3 total antibiotics) with cultures growing MSSA and 1 of 2 of 2nd set still positive Echocardiogram EF 25-30% with no vegetations seen. (2) Rhabdomyolysis: Qualifiers: Rhabdomyolysis type: non-traumatic Qualified Code(s): M62.82 - Rhabdomyolysis Code(s): M62.82 - Rhabdomyolysis Status: Acute Assessment and Plan: Recenlty his atorvastatin dose was increased from 40mg daily to 80mg daily which could have contributed. Holding statin therapy. Continue dialysis. slightly higher today and continue to follow (3) Diarrhea: Qualifiers: Diarrhea type: unspecified type Qualified Code(s): R19.7 - Diarrhea, unspecified Code(s): R19.7 - Diarrhea, unspecified Status: Resolved Assessment and Plan: Resolved. (4) Elevated LFTs: Code(s): R79.89 - Other specified abnormal findings of blood chemistry Status: Acute Assessment and Plan: These may be elevated in the setting of rhabdomyolysis or infection, however CT of the abdomen pelvis does show low attenuation of the liver adjacent to the ligamentum teres which could be possible fatty infiltration. Recommendation was given for follow-up examination. Hepatitis panel is negative. Cholelithiasis noted on CT, but no exam findings or imaging findings to suggest cholecystitis. Continue to trend LFTs. (5) Hypoglycemia: Code(s): E16.2 - Hypoglycemia, unspecified Status: Resolved Assessment and Plan: Poor oral intake. and sepsis. Blood sugars as low as 20s 07/07, administered glucose gel x 2; D5% at 100mL per hour started. Continue to monitor accu-cheks closely and up today so can DC IV glucose (6) Generalized weakness: Code(s): R53.1 - Weakness Status: Acute Assessment and Plan: Multifactorial may be related to renal failure, acute infection, rhabdo. Appreciate PT/OT evaluations. (7) End-stage renal disease on hemodialysis: Code(s): N18.6 - End stage renal disease; Z99.2 - Dependence on renal dialysis Status: Chronic Assessment and Plan: Dr. Diony ly . Patient follows with Dr Benjy Newton and receives HD on [facility] at [facility]. (8) Chronic anemia: Code(s): D64.9 - Anemia, unspecified Status: Chronic Assessment and Plan: H&H low but stable. No signs or symptoms of acute bleeding. Will monitor. Suspect a component of anemia chronic kidney disease. (9) Paroxysmal atrial fibrillation: Code(s): I48.0 - Paroxysmal atrial fibrillation Status: Acute Assessment and Plan: Continue amiodarone (monitor LFTs), and apixaban. restart Coreg at half the usual dose 12.5 (10) Abnormal finding on lung imaging: Code(s): R91.8 - Other nonspecific abnormal finding of lung field Status: Acute Assessment a
[2020-07-09] MEDS: CLOPIDOGREL BISULFATE 75 MG TABLET PO (15:12)
--- NOTE | 2020-07-09 15:54 | PC.NURSE ---
This patient, Veronica Villagran , was transferred to [IMU] on 07/09/20 at 1525. Personal belongings sent with patient. Belongings list checked and signed with receiving [EDGING SUPERVISOR]. Report given to [Dee]. Appropriate documentation sent with patient.
[2020-07-09 16:23] LABS: Glucose Point of Care 93 (65-105)
[2020-07-09 17:38] LABS: Glucose Point of Care 53 (65-105)
[2020-07-09 19:11] LABS: Glucose Point of Care 85 (65-105)
[2020-07-09] MEDS: ceFAZolin 2 GM/D5W 50 ML 2 GM/50 ML BAG IVPB (20:09)
[2020-07-09 20:53] LABS: Glucose Point of Care 181 (65-105)
[2020-07-09] MEDS: DEXTROSE 5% 1,000 ML 1,000 ML 100 ML IV CONT (23:47)
[2020-07-10] VITALS (15 sets, daily range): BP systolic 87–114; BP diastolic 58–76; PULSE 69–90; RESP 16–20; TEMP 35.9–36.2; O2SAT 92–100
[2020-07-10 00:31] LABS: Glucose Point of Care 91 (65-105)
[2020-07-10 05:32] LABS: Glucose Point of Care 114 (65-105)
[2020-07-10 05:37] LABS: Basophils Absolute Auto 0.1 K/mm3 (0.0-0.1); Basophils Percent Auto 0.6 % (0.2-1.2); Eosinophils Absolute Auto 0.2 K/mm3 (0-0.3); Eosinophils Percent Auto 0.7 % (0-4.4); Hematocrit 28.6 % (42.0-52.0); Immature Granulocyte Absolute 1.24 K/mm3 (0.00-0.031); Immature Granulocyte Percent A 5.3 % (0-0.5); Mean Corpuscular HGB Conc 31.5 g/dl (32-36); Mean Corpuscular Hemoglobin 30.4 pg (26-34); Mean Corpuscular Volume 96.6 fl (80-100); Mean Platelet Volume 12.6 fl (7.4-10.4); Monocytes Absolute Auto 1.2 K/mm3 (0.1-0.6); Monocytes Percent Auto 5.1 % (2.6-8.5); Neutrophils Absolute Auto 19.4 K/mm3 (1.3-6.7); Neutrophils Percent Auto 82.3 % (45.5-73.1); Nucleated Red Blood Cells Absolute Auto 0.3 K/mm3 (0.0-0.012); Nucleated Red Blood Cells Perc 1.2 % (0.0-0.2); Platelet Count Result 143 k/mm3 (150-375); Red Blood Count 2.96 M/mm3 (4.6-6.20); Red Cell Distribution Width 16.9 % (11.5-14.5); White Blood Count 23.5 K/mm3 (4.5-10.0)
[2020-07-10 05:45] LABS: Alanine Aminotransferase 58 U/L (4-50); Albumin Level 2.9 g/dL (3.5-5.1); Alkaline Phosphatase 179 U/L (38-126); Anion Gap 14 mmol/L (8-16); Aspartate Amino Transferase 157 U/L (17-59); Bilirubin,Total 0.8 mg/dL (0.2-1.3); Blood Urea Nitrogen 28 mg/dL (9-20); Calcium 6.3 mg/dL (8.4-10.2); Carbon Dioxide 23 mmol/L (22-30); Chloride 95 mmol/L (98-107); Estimated CRCL calculation 15 ml/min; Estimated Glomerular Filt Rate 20; Glucose 94 mg/dL (75-110); Potassium 3.8 mmol/L (3.4-5.0); Sodium 132 mmol/L (137-145)
[2020-07-10 07:37] LABS: Creatine Kinase 5320 U/L (55-170)
[2020-07-10 08:47] LABS: Glucose Point of Care 57 (65-105)
[2020-07-10] MEDS: GLUCOSE ORAL GEL 15 GM OF GLUCSE IN 37.5 GM TUBE PO (09:52)
[2020-07-10] MEDS: DEXTROSE 5% 1,000 ML 1,000 ML 100 ML IV CONT ×2 (10:11→22:43)
[2020-07-10] MEDS: carvediloL 12.5 MG TABLET PO ×2 (11:11→22:43)
[2020-07-10] MEDS: ASPIRIN 81 MG ENTERIC TABLET PO (11:11)
[2020-07-10] MEDS: PANTOPRAZOLE 40 MG TABLET PO (11:11)
[2020-07-10] MEDS: CINACALCET 30 MG TABLET 90 MG PO (11:12)
[2020-07-10] MEDS: APIXABAN 2.5 MG TABLET PO ×2 (11:12→18:34)
[2020-07-10] MEDS: lisinopriL 10 MG TABLET PO (11:12)
[2020-07-10] MEDS: AMIODARONE HCL 200 MG TABLET PO (11:12)
[2020-07-10] MEDS: CLOPIDOGREL BISULFATE 75 MG TABLET PO (11:12)
[2020-07-10] MEDS: DORZOLAMIDE HCL 2% OPHTH DROPS 1 DROP EACH EYE (11:26)
[2020-07-10 12:39] LABS: Glucose Point of Care 92 (65-105)
--- NOTE | 2020-07-10 15:00 | PCPTNOTE ---
PT reevaluation this date, due to pt transfer from medical floor to IMU due to change in medical status; continue PT with updated goals/POC;
--- NOTE | 2020-07-10 15:56 | P.PNIM_ITS ---
Progress Note: A&P Assessment and Plan (1) Staphylococcus aureus bacteremia with sepsis: Code(s): A41.01 - Sepsis due to Methicillin susceptible Staphylococcus aureus Status: Acute Assessment and Plan: * Blood culture growing Staph aureus methicillin sensitive. Concerning given his subcutaneous defibrillator, recent coronary stenting, and hemodialysis vascular access. It is noted he had a left upper extremity peripheral IV infiltration at recent hospitalization at [facility], Dr Nuñez suspects could be possible source. and CT of arm ordered revealed cellulitis with no abscess * He was initially treated with IV zosyn for presumed infectious diarrhea. Diarrhea is still present and will check stool cultures * Switched to IV vancomycin 07/07 and 07/08 to ancef(D#4 total antibiotics) with cultures growing MSSA and 2 of 2 of 2nd set still positive * Echocardiogram EF 25-30% with no vegetations seen. (2) Rhabdomyolysis: Qualifiers: Rhabdomyolysis type: non-traumatic Qualified Code(s): M62.82 - Rhabdomyolysis Code(s): M62.82 - Rhabdomyolysis Status: Acute Assessment and Plan: * Recenlty his atorvastatin dose was increased from 40mg daily to 80mg daily which could have contributed. * Holding statin therapy. Continue dialysis. ck downt to 5300 today (3) Diarrhea: Qualifiers: Diarrhea type: unspecified type Qualified Code(s): R19.7 - Diarrhea, unspecified Code(s): R19.7 - Diarrhea, unspecified Status: Resolved Assessment and Plan: * check stool specimens (4) Elevated LFTs: Code(s): R79.89 - Other specified abnormal findings of blood chemistry Status: Acute Assessment and Plan: * These may be elevated in the setting of rhabdomyolysis or infection, however CT of the abdomen pelvis does show low attenuation of the liver adjacent to the ligamentum teres which could be possible fatty infiltration. Recommendation was given for follow-up examination. * Hepatitis panel is negative. Cholelithiasis noted on CT, but no exam findings or imaging findings to suggest cholecystitis. * Continue to trend LFTs. (5) Hypoglycemia: Code(s): E16.2 - Hypoglycemia, unspecified Status: Resolved Assessment and Plan: * Poor oral intake. and sepsis. Blood sugars as low as 20s /, administered glucose gel x 2; D5% at 100mL per hour started. * Continue to monitor accu-cheks closely still requiring intermitant D 50 with the d5w at 100 per hour (6) Generalized weakness: Code(s): R53.1 - Weakness Status: Acute Assessment and Plan: * Multifactorial may be related to renal failure, acute infection, rhabdo. Appreciate PT/OT evaluations. (7) End-stage renal disease on hemodialysis: Code(s): N18.6 - End stage renal disease; Z99.2 - Dependence on renal dialysis Status: Chronic Assessment and Plan: * Dr. Diony ly . Patient follows with Dr Benjy Newton and receives HD on F at [facility]. (8) Chronic anemia: Code(s): D64.9 - Anemia, unspecified Status: Chronic Assessment and Plan: * H&H low but stable. No signs or symptoms of acute bleeding. Will monitor. Suspect a component of anemia chronic kidney disease.
--- NOTE | 2020-07-10 15:56 | PM.IMPN ---
Progress Note: A&P Assessment and Plan (1) Staphylococcus aureus bacteremia with sepsis: Code(s): A41.01 - Sepsis due to Methicillin susceptible Staphylococcus aureus Status: Acute Assessment and Plan: Blood culture growing Staph aureus methicillin sensitive. Concerning given his subcutaneous defibrillator, recent coronary stenting, and hemodialysis vascular access. It is noted he had a left upper extremity peripheral IV infiltration at recent hospitalization at [facility], Dr Nuñez suspects could be possible source. and CT of arm ordered revealed cellulitis with no abscess He was initially treated with IV zosyn for presumed infectious diarrhea. Diarrhea is still present and will check stool cultures Switched to IV vancomycin 07/07 and 07/08 to ancef(D#4 total antibiotics) with cultures growing MSSA and 2 of 2 of 2nd set still positive Echocardiogram EF 25-30% with no vegetations seen. (2) Rhabdomyolysis: Qualifiers: Rhabdomyolysis type: non-traumatic Qualified Code(s): M62.82 - Rhabdomyolysis Code(s): M62.82 - Rhabdomyolysis Status: Acute Assessment and Plan: Recenlty his atorvastatin dose was increased from 40mg daily to 80mg daily which could have contributed. Holding statin therapy. Continue dialysis. ck downt to 5300 today (3) Diarrhea: Qualifiers: Diarrhea type: unspecified type Qualified Code(s): R19.7 - Diarrhea, unspecified Code(s): R19.7 - Diarrhea, unspecified Status: Resolved Assessment and Plan: check stool specimens (4) Elevated LFTs: Code(s): R79.89 - Other specified abnormal findings of blood chemistry Status: Acute Assessment and Plan: These may be elevated in the setting of rhabdomyolysis or infection, however CT of the abdomen pelvis does show low attenuation of the liver adjacent to the ligamentum teres which could be possible fatty infiltration. Recommendation was given for follow-up examination. Hepatitis panel is negative. Cholelithiasis noted on CT, but no exam findings or imaging findings to suggest cholecystitis. Continue to trend LFTs. (5) Hypoglycemia: Code(s): E16.2 - Hypoglycemia, unspecified Status: Resolved Assessment and Plan: Poor oral intake. and sepsis. Blood sugars as low as 20s 07/07, administered glucose gel x 2; D5% at 100mL per hour started. Continue to monitor accu-cheks closely still requiring intermitant D 50 with the d5w at 100 per hour (6) Generalized weakness: Code(s): R53.1 - Weakness Status: Acute Assessment and Plan: Multifactorial may be related to renal failure, acute infection, rhabdo. Appreciate PT/OT evaluations. (7) End-stage renal disease on hemodialysis: Code(s): N18.6 - End stage renal disease; Z99.2 - Dependence on renal dialysis Status: Chronic Assessment and Plan: Dr. Diony ly . Patient follows with Dr Benjy Newton and receives HD on [facility] at [facility]. (8) Chronic anemia: Code(s): D64.9 - Anemia, unspecified Status: Chronic Assessment and Plan: H&H low but stable. No signs or symptoms of acute bleeding. Will monitor. Suspect a component of anemia chronic kidney disease. (9) Paroxysmal atrial fibrillation: Code(s): I48.0 - Paroxysmal atrial fibrillation Status: Acute Assessment and Plan: Continue amiodarone (monitor LFTs), and apixaban. restarted Coreg at half the usual dose 12.5 (10) Abnormal finding on lung imaging: Code(s): R91.8 - Other nonspecif
--- NOTE | 2020-07-10 16:08 | PM.PNNEP ---
Progress Note: A&P Assessment and Plan (1) ESRD (end stage renal disease): Code(s): N18.6 - End stage renal disease Status: Chronic Assessment and Plan: HD yesterday and continue Sun/Sun/Sunday schedule follow electrolytes, volume status, and clearance (2) Staphylococcus aureus bacteremia with sepsis: Code(s): A41.01 - Sepsis due to Methicillin susceptible Staphylococcus aureus Status: Acute Assessment and Plan: as noted by blood cultures source? - presumed to be previous IV infiltration/phebitis on antibiotics Infectious Disease recommendations follow repeat cultures (3) Elevated LFTs: Code(s): R79.89 - Other specified abnormal findings of blood chemistry Status: Acute Assessment and Plan: possibly due to mild rhabdomyolysis +/- high dose statin therapy trend LFTs follow CPK levels statin on hold (4) Hypoglycemia: Code(s): E16.2 - Hypoglycemia, unspecified Status: Resolved Assessment and Plan: due to diarrhea and poor oral intake follow oral intake and blood sugars (5) Ischemic cardiomyopathy: Code(s): I25.5 - Ischemic cardiomyopathy Status: Acute Assessment and Plan: appears compensated fluid removal with HD as tolerated follow respiratory status and daily weights Will continue to follow. Subjective Date/time seen: 07/10/20 16:08 Tolerated dialysis yesterday without any acute issues or problems; no apparent distress voiced aside from fatigue; blood cultures remain positive; no events overnight or earlier this AM. Exam Narrative: Exam Narrative: General: WD/WN AA male in NAD Heart: normal S1 and S2; no rub Lungs: clear to auscultation Abdomen: soft, nontender, nondistended, positive bowel sounds Extremities: no cyanosis or clubbing; no edema; s/p right AKA Skin: warm and dry Objective Data Vital Signs Vital Signs: Vital Signs Temp Pulse Resp BP Pulse Ox 07/10/20 12:00 36.2 C L 88 20 99/69 L 99 07/10/20 11:12 89 07/10/20 11:11 89 07/10/20 08:00 36.1 C L 76 18 98/66 L 95 07/10/20 04:00 35.9 C L 90 18 114/76 100 07/10/20 02:00 89 07/10/20 00:18 102/76 07/10/20 00:00 87 16 98 07/09/20 23:11 36.1 C L 86 16 82/66 L 98 07/09/20 22:00 73 07/09/20 21:21 36.1 C L 88 16 87/55 L 96 07/09/20 20:00 91 16 96 Intake/Output Intake/Output: Intake & Output 07/07/20 07/08/20 07/09/20 07/10/20 23:59 23:59 23:59 23:59 Intake Total 1406 1740 1760 2004 Output Total 400 0 1523 Balance 1006 0989 663 4751 Meds/Results Medications: Active Medications Generic Name Dose Route Start Last Admin Trade Name Freq PRN Reason Stop Dose Admin Acetaminophen 650 mg 07/07/20 09:21 07/07/20 21:55 Tylenol Tablet PO 650 mg Q4H PRN Administration Pain Rated 5 or Less Hydrocodone Bitart/Acetaminophen 1 tab 07/07/20 09:20 07/09/20 12:53 Quincy 5-325 Mg PO 1 tab Q6H PRN Administration Pain Rated 6 or Greater Amiodarone HCl 200 mg 07/06/20 09:00 07/10/20 11:12 Pacerone PO 200 mg DAILY TORITO Administration Apixaban 2.5 mg 07/05/20 22:55 07/10/20 11:12 Eliquis PO 2.5 mg BID TORITO Administration Aspirin 81 mg 07/07/20 09:00 07/10/20 11:11 Aspirin Ec PO 81 mg QAM TORITO Administration Carvedilol 12.5 mg 07/07/20 09:00 07/10/20 11:11 Coreg PO 12.5 mg Q12HR TORITO Administration Cinacalcet 90 mg 07/06/20 09:00 07/10/20 11:12 Sensipar PO 08/05/20 09:01 90 mg DAILY TORITO Administration Clopidogrel Bisulfate 75 mg 07/06/20 09:00 07/10/20 11:12 Plavix PO 75 mg DAILY TORITO Administration Dextrose 12.5 gm 07/05/20 14:08 07/09/20 11:48 Dextrose 50% Syringe IV PUSH 12.5 gm PRN PRN Administration Hypoglycemia Protocol Dorzolamide HCl 1 drop 07/06/20 09:00 07/10/20 11:26 Trusopt EACH EYE 1 drop DAILY TORITO Administration Gl
[2020-07-10 17:19] LABS: Glucose Point of Care 62 (65-105)
[2020-07-10] MEDS: ceFAZolin 2 GM/D5W 50 ML 2 GM/50 ML BAG IVPB (18:35)
[2020-07-10 20:48] LABS: Glucose Point of Care 93 (65-105)
[2020-07-11] VITALS (17 sets, daily range): BP systolic 69–100; BP diastolic 41–73; PULSE 61–76; RESP 16–20; TEMP 35.8–36.4; O2SAT 97–100
[2020-07-11 00:21] LABS: Glucose Point of Care 114 (65-105)
[2020-07-11] MEDS: ACETAMINOPHEN 325 MG TABLET 650 MG PO ×2 (01:46→05:30)
[2020-07-11 02:54] LABS: Glucose Point of Care 98 (65-105)
[2020-07-11 04:41] LABS: Glucose Point of Care 117 (65-105)
[2020-07-11 04:55] LABS: Basophils Absolute Auto 0.1 K/mm3 (0.0-0.1); Basophils Percent Auto 0.4 % (0.2-1.2); Eosinophils Absolute Auto 0.2 K/mm3 (0-0.3); Eosinophils Percent Auto 0.9 % (0-4.4); Hematocrit 22.8 % (42.0-52.0); Hemoglobin 7.3 g/dL (14.0-18.0); Immature Granulocyte Absolute 1.04 K/mm3 (0.00-0.031); Immature Granulocyte Percent A 4.5 % (0-0.5); Immature Platelet Fraction Pct 10.2 % (0.9-11.2); Lymphocytes Absolute Auto 1.11 K/mm3 (0.9-3.2); Lymphocytes Percent Auto 4.8 % (18.3-44.2); Mean Corpuscular Hemoglobin 31.2 pg (26-34); Mean Corpuscular Volume 97.4 fl (80-100); Mean Platelet Volume 12.3 fl (7.4-10.4); Monocytes Absolute Auto 1.2 K/mm3 (0.1-0.6); Monocytes Percent Auto 5.1 % (2.6-8.5); Neutrophils Absolute Auto 19.7 K/mm3 (1.3-6.7); Neutrophils Percent Auto 84.3 % (45.5-73.1); Nucleated Red Blood Cells Absolute Auto 0.1 K/mm3 (0.0-0.012); Nucleated Red Blood Cells Perc 0.5 % (0.0-0.2); Platelet Count Result 117 k/mm3 (150-375); Red Blood Count 2.34 M/mm3 (4.6-6.20); Red Cell Distribution Width 17.1 % (11.5-14.5); White Blood Count 23.3 K/mm3 (4.5-10.0)
[2020-07-11 05:23] LABS: Alanine Aminotransferase 19 U/L (4-50); Albumin Level 2.6 g/dL (3.5-5.1); Alkaline Phosphatase 167 U/L (38-126); Anion Gap 13 mmol/L (8-16); Aspartate Amino Transferase 128 U/L (17-59); Bilirubin,Total 0.6 mg/dL (0.2-1.3); Blood Urea Nitrogen 37 mg/dL (9-20); Calcium 5.5 mg/dL (8.4-10.2); Carbon Dioxide 21 mmol/L (22-30); Chloride 90 mmol/L (98-107); Glucose 96 mg/dL (75-110); Potassium 3.9 mmol/L (3.4-5.0); Sodium 124 mmol/L (137-145)
[2020-07-11 05:28] LABS: Estimated CRCL calculation 14 ml/min; Estimated Glomerular Filt Rate 15
[2020-07-11] MEDS: CINACALCET 30 MG TABLET 90 MG PO (11:08)
[2020-07-11] MEDS: ASPIRIN 81 MG ENTERIC TABLET PO (11:09)
[2020-07-11] MEDS: PANTOPRAZOLE 40 MG TABLET PO (11:09)
[2020-07-11] MEDS: CLOPIDOGREL BISULFATE 75 MG TABLET PO (11:09)
[2020-07-11] MEDS: AMIODARONE HCL 200 MG TABLET PO (11:10)
[2020-07-11] MEDS: carvediloL 12.5 MG TABLET PO ×2 (11:10→20:48)
[2020-07-11] MEDS: APIXABAN 2.5 MG TABLET PO ×2 (11:10→16:25)
[2020-07-11] MEDS: DORZOLAMIDE HCL 2% OPHTH DROPS 1 DROP EACH EYE (11:11)
[2020-07-11] MEDS: lisinopriL 10 MG TABLET PO (11:11)
[2020-07-11] MEDS: DEXTROSE 5% 1,000 ML 1,000 ML 100 ML IV CONT (11:12)
[2020-07-11 12:02] LABS: Glucose Point of Care 113 (65-105)
[2020-07-11 14:58] LABS: Glucose Point of Care 85 (65-105)
[2020-07-11] MEDS: DEXTROSE 10% 1,000 ML 50 ML IV CONT (16:27)
--- NOTE | 2020-07-11 16:57 | PM.IMPN ---
Progress Note: A&P Assessment and Plan (1) Staphylococcus aureus bacteremia with sepsis: Code(s): A41.01 - Sepsis due to Methicillin susceptible Staphylococcus aureus Status: Acute Assessment and Plan: Blood culture growing Staph aureus methicillin sensitive. Concerning given his subcutaneous defibrillator, recent coronary stenting, and hemodialysis vascular access. It is noted he had a left upper extremity peripheral IV infiltration at recent hospitalization at [facility], Dr Nuñez suspects could be possible source. and CT of arm ordered revealed cellulitis with no abscess He was initially treated with IV zosyn for presumed infectious diarrhea. Diarrhea is still present and check stool cultures Switched to IV vancomycin 07/07 and 07/08 to ancef(D#5 total antibiotics) with cultures growing MSSA and 2 of 2 of 2nd set still positive from 07/08 will repeat 07/12 Echocardiogram EF 25-30% with no vegetations seen. (2) Rhabdomyolysis: Qualifiers: Rhabdomyolysis type: non-traumatic Qualified Code(s): M62.82 - Rhabdomyolysis Code(s): M62.82 - Rhabdomyolysis Status: Acute Assessment and Plan: Recenlty his atorvastatin dose was increased from 40mg daily to 80mg daily which could have contributed. Holding statin therapy. Continue dialysis. ck downt to 5300 07/10, recheck am (3) Diarrhea: Qualifiers: Diarrhea type: unspecified type Qualified Code(s): R19.7 - Diarrhea, unspecified Code(s): R19.7 - Diarrhea, unspecified Status: Resolved Assessment and Plan: check stool specimens (4) Elevated LFTs: Code(s): R79.89 - Other specified abnormal findings of blood chemistry Status: Acute Assessment and Plan: These may be elevated in the setting of rhabdomyolysis or infection, however CT of the abdomen pelvis does show low attenuation of the liver adjacent to the ligamentum teres which could be possible fatty infiltration. Recommendation was given for follow-up examination. Hepatitis panel is negative. Cholelithiasis noted on CT, but no exam findings or imaging findings to suggest cholecystitis. Continue to trend LFTs. (5) Hypoglycemia: Code(s): E16.2 - Hypoglycemia, unspecified Status: Resolved Assessment and Plan: Poor oral intake. and sepsis. Blood sugars as low as 20s 07/07, administered glucose gel x 2; D5% at 100mL per hour started.and changed to d10 at 50 to decrease volume Continue to monitor accu-cheks closely (6) Generalized weakness: Code(s): R53.1 - Weakness Status: Acute Assessment and Plan: Multifactorial may be related to renal failure, acute infection, rhabdo. Appreciate PT/OT evaluations. (7) End-stage renal disease on hemodialysis: Code(s): N18.6 - End stage renal disease; Z99.2 - Dependence on renal dialysis Status: Chronic Assessment and Plan: Dr. Diony ly . Patient follows with Dr Benjy Newton and receives HD on F at [facility]. (8) Chronic anemia: Code(s): D64.9 - Anemia, unspecified Status: Chronic Assessment and Plan: H&H low but stable. No signs or symptoms of acute bleeding. Will monitor. Suspect a component of anemia chronic kidney disease. (9) Paroxysmal atrial fibrillation: Code(s): I48.0 - Paroxysmal atrial fibrillation Status: Acute Assessment and Plan: Continue amiodarone (monitor LFTs), and apixaban. restarted Coreg at half the usual dose 12.5 (10) Abnormal finding on lung imaging: Code(s): R91.8 -
[2020-07-11 17:02] LABS: Glucose Point of Care 91 (65-105)
--- NOTE | 2020-07-11 17:02 | P.PNNP_ITS ---
Progress Note: A&P Assessment and Plan (1) ESRD (end stage renal disease): Code(s): N18.6 - End stage renal disease Status: Chronic Assessment and Plan: * HD tomorrow and continue Sun/Sun/Sunday schedule * follow electrolytes, volume status, and clearance (2) Staphylococcus aureus bacteremia with sepsis: Code(s): A41.01 - Sepsis due to Methicillin susceptible Staphylococcus aureus Status: Acute Assessment and Plan: * as noted by blood cultures * source? - presumed to be previous IV infiltration/phebitis - transthoracic echo negative for endocarditits * on antibiotics * Infectious Disease recommendations * follow repeat cultures (3) Elevated LFTs: Code(s): R79.89 - Other specified abnormal findings of blood chemistry Status: Acute Assessment and Plan: * possibly due to mild rhabdomyolysis +/- high dose statin therapy * trend LFTs * follow CPK levels * statin on hold (4) Hypoglycemia: Code(s): E16.2 - Hypoglycemia, unspecified Status: Resolved Assessment and Plan: * due to diarrhea and poor oral intake * follow oral intake and blood sugars (5) Hyponatremia: Code(s): E87.1 - Hypo-osmolality and hyponatremia Status: Acute Assessment and Plan: * due to the use of D10W IVFs to maintain his blood sugar + kidney failure + cardiomyopathy * dialysis will compensate to some degree * would wean D10 IVF as tolerated (6) Ischemic cardiomyopathy: Code(s): I25.5 - Ischemic cardiomyopathy Status: Acute Assessment and Plan: * appears compensated * fluid removal with HD as tolerated * follow respiratory status and daily weights Will continue to follow. Subjective Date/time seen: 07/11/20 17:02 BP has been fluctuating (but has chronic hypotension at baseline); no apparent distress aside from his bottom being sore and just feeling weak and tired. Exam Narrative: Exam Narrative: General: WD/WN AA male in NAD Heart: normal S1 and S2; no rub Lungs: clear to auscultation Abdomen: soft, nontender, nondistended, positive bowel sounds Extremities: no cyanosis or clubbing; no edema; s/p right AKA Skin: warm and intact Objective Data Vital Signs Vital Signs: Vital Signs Temp Pulse Resp BP Pulse Ox 07/11/20 16:47 35.8 C L 61 20 69/41 L 100 07/11/20 14:00 71 07/11/20 13:25 35.8 C L 66 20 87/51 L 98 07/11/20 12:00 70 07/11/20 11:10 66 07/11/20 10:00 68 07/11/20 09:34 35.9 C L 66 20 70/47 L 97 07/11/20 08:00 69 07/11/20 06:00 62 07/11/20 04:00 36.4 C 68 16 89/62 L 100 07/11/20 01:39 75 07/11/20 00:00 36.4 C 76 18 100/73 100 07/10/20 22:43 78 07/10/20 22:00 69 07/10/20 20:00 36.2 C L 79 18 94/60 L 100 07/10/20 18:00 79 Intake/Output Intake/Output: Intake & Output 07/08/20 07/09/20 07/10/20 07/11/20 23:59 23:59 23:59 23:59 Intake Total 1740 1760 3155 1540 Output Total 0 1523 300 Balance 9527 805 9545 1540 Meds/Results Medications: Active Medications Generic Name Dose Route Start Last Admin Trade Name Freq PRN Reason Stop Dose Admin Acetaminophen 6
--- NOTE | 2020-07-11 17:02 | PM.PNNEP ---
Progress Note: A&P Assessment and Plan (1) ESRD (end stage renal disease): Code(s): N18.6 - End stage renal disease Status: Chronic Assessment and Plan: HD tomorrow and continue Sun/Sun/Sunday schedule follow electrolytes, volume status, and clearance (2) Staphylococcus aureus bacteremia with sepsis: Code(s): A41.01 - Sepsis due to Methicillin susceptible Staphylococcus aureus Status: Acute Assessment and Plan: as noted by blood cultures source? - presumed to be previous IV infiltration/phebitis - transthoracic echo negative for endocarditits on antibiotics Infectious Disease recommendations follow repeat cultures (3) Elevated LFTs: Code(s): R79.89 - Other specified abnormal findings of blood chemistry Status: Acute Assessment and Plan: possibly due to mild rhabdomyolysis +/- high dose statin therapy trend LFTs follow CPK levels statin on hold (4) Hypoglycemia: Code(s): E16.2 - Hypoglycemia, unspecified Status: Resolved Assessment and Plan: due to diarrhea and poor oral intake follow oral intake and blood sugars (5) Hyponatremia: Code(s): E87.1 - Hypo-osmolality and hyponatremia Status: Acute Assessment and Plan: due to the use of D10W IVFs to maintain his blood sugar + kidney failure + cardiomyopathy dialysis will compensate to some degree would wean D10 IVF as tolerated (6) Ischemic cardiomyopathy: Code(s): I25.5 - Ischemic cardiomyopathy Status: Acute Assessment and Plan: appears compensated fluid removal with HD as tolerated follow respiratory status and daily weights Will continue to follow. Subjective Date/time seen: 07/11/20 17:02 BP has been fluctuating (but has chronic hypotension at baseline); no apparent distress aside from his bottom being sore and just feeling weak and tired. Exam Narrative: Exam Narrative: General: WD/WN AA male in NAD Heart: normal S1 and S2; no rub Lungs: clear to auscultation Abdomen: soft, nontender, nondistended, positive bowel sounds Extremities: no cyanosis or clubbing; no edema; s/p right AKA Skin: warm and intact Objective Data Vital Signs Vital Signs: Vital Signs Temp Pulse Resp BP Pulse Ox 07/11/20 16:47 35.8 C L 61 20 69/41 L 100 07/11/20 14:00 71 07/11/20 13:25 35.8 C L 66 20 87/51 L 98 07/11/20 12:00 70 07/11/20 11:10 66 07/11/20 10:00 68 07/11/20 09:34 35.9 C L 66 20 70/47 L 97 07/11/20 08:00 69 07/11/20 06:00 62 07/11/20 04:00 36.4 C 68 16 89/62 L 100 07/11/20 01:39 75 07/11/20 00:00 36.4 C 76 18 100/73 100 07/10/20 22:43 78 07/10/20 22:00 69 07/10/20 20:00 36.2 C L 79 18 94/60 L 100 07/10/20 18:00 79 Intake/Output Intake/Output: Intake & Output 07/08/20 07/09/20 07/10/20 07/11/20 23:59 23:59 23:59 23:59 Intake Total 1740 1760 3155 1540 Output Total 0 1523 300 Balance 8124 718 5252 1540 Meds/Results Medications: Active Medications Generic Name Dose Route Start Last Admin Trade Name Freq PRN Reason Stop Dose Admin Acetaminophen 650 mg 07/07/20 09:21 07/11/20 05:30 Tylenol Tablet PO 650 mg Q4H PRN Administration Pain Rated 5 or Less Hydrocodone Bitart/Acetaminophen 1 tab 07/07/20 09:20 07/11/20 11:15 [place] 5-325 Mg PO 1 tab Q6H PRN Administration Pain Rated 6 or Greater Amiodarone HCl 200 mg 07/06/20 09:00 07/11/20 11:10 Pacerone PO 200 mg DAILY TORITO Administration Apixaban 2.5 mg 07/05/20 22:55 07/11/20 16:25 Eliquis PO 2.5 mg BID TORITO Administration Aspirin 81 mg 07/07/20 09:00 07/11/20 11:09 Aspirin Ec PO 81 mg QAM TORITO Administration Carvedilol 12.5 mg 07/07/20 09:00 07/11/20 11:10 Coreg PO 12.5 mg Q12HR TORITO Administration Cinacalcet 90 mg 07/06/20 09:00 07/11/20 11:08 Sensipar PO 10/0
[2020-07-11] MEDS: ceFAZolin 2 GM/D5W 50 ML 2 GM/50 ML BAG IVPB (17:53)
[2020-07-11 20:52] LABS: Glucose Point of Care 83 (65-105)
[2020-07-12] VITALS (32 sets, daily range): BP systolic 74–111; BP diastolic 41–77; PULSE 53–89; RESP 12–20; TEMP 35–36.9; O2SAT 91–100
[2020-07-12 00:12] LABS: Glucose Point of Care 99 (65-105)
[2020-07-12 04:09] LABS: Glucose Point of Care 72 (65-105)
[2020-07-12 05:20] LABS: Hematocrit 24.4 % (42.0-52.0); Hemoglobin 7.9 g/dL (14.0-18.0); Immature Platelet Fraction Pct 10.6 % (0.9-11.2); Mean Corpuscular HGB Conc 32.4 g/dl (32-36); Mean Corpuscular Hemoglobin 30.5 pg (26-34); Mean Corpuscular Volume 94.2 fl (80-100); Mean Platelet Volume 12.1 fl (7.4-10.4); Platelet Count Result 123 k/mm3 (150-375); Red Blood Count 2.59 M/mm3 (4.6-6.20); Red Cell Distribution Width 16.9 % (11.5-14.5); White Blood Count 23.6 K/mm3 (4.5-10.0)
[2020-07-12 05:40] LABS: Alanine Aminotransferase 11 U/L (4-50); Albumin Level 2.5 g/dL (3.5-5.1); Alkaline Phosphatase 163 U/L (38-126); Anion Gap 15 mmol/L (8-16); Aspartate Amino Transferase 101 U/L (17-59); Bilirubin,Total 0.6 mg/dL (0.2-1.3); Blood Urea Nitrogen 48 mg/dL (9-20); Calcium 5.1 mg/dL (8.4-10.2); Carbon Dioxide 17 mmol/L (22-30); Chloride 88 mmol/L (98-107); Creatine Kinase 3136 U/L (55-170); Estimated CRCL calculation 12 ml/min; Estimated Glomerular Filt Rate 13; Glucose 86 mg/dL (75-110); Phosphorus 4.1 mg/dL (2.5-4.5); Potassium 4.1 mmol/L (3.4-5.0); Sodium 120 mmol/L (137-145)
[2020-07-12 07:01] LABS: Band Neutrophils Percent 6 % (0-6); Lymphocytes Absolute Manual 0.94 K/mm3 (1.1-4.5); Monocytes Percent Manual 3 % (3-9); Neutrophils Absolute Manual 21.94 K/mm3 (1.3-6.7); Neutrophils Percent Manual 87 % (46-73); Platelet Estimate Decreased (Adequate); Total Cells Counted 100
[2020-07-12 07:02] LABS: Burr Cells 1+ (NORMAL); Hypochromasia 1+ (NORMAL); Poikilocytosis 1+ (NORMAL); Polychromasia 1+ (NORMAL)
[2020-07-12 08:17] LABS: Glucose Point of Care 74 (65-105)
[2020-07-12] MEDS: CINACALCET 30 MG TABLET 90 MG PO (08:45)
[2020-07-12] MEDS: CLOPIDOGREL BISULFATE 75 MG TABLET PO (08:46)
[2020-07-12] MEDS: ASPIRIN 81 MG ENTERIC TABLET PO (08:46)
[2020-07-12] MEDS: PANTOPRAZOLE 40 MG TABLET PO (08:46)
[2020-07-12] MEDS: AMIODARONE HCL 200 MG TABLET PO (08:47)
[2020-07-12] MEDS: APIXABAN 2.5 MG TABLET PO ×2 (08:47→19:06)
[2020-07-12] MEDS: DORZOLAMIDE HCL 2% OPHTH DROPS 1 DROP EACH EYE (08:47)
[2020-07-12] MEDS: lisinopriL 5 MG TABLET PO (08:47)
[2020-07-12] MEDS: carvediloL 12.5 MG TABLET PO (08:47)
--- NOTE | 2020-07-12 08:57 | PC.NURSE ---
Patient left floor for dialysis at this time
[2020-07-12] MEDS: ALBUMIN HUMAN 25% 12.5 GM/50ML 50 ML IVPB (09:43)
[2020-07-12] MEDS: SODIUM CHLORIDE 0.9% IV 1,000 ML 999 ML IV CONT (09:43)
--- NOTE | 2020-07-12 10:32 | PCOTNOTE ---
Attempted to see Patient at this time, Patient out of the room, in dialysis. Will try back at a later time.
[2020-07-12] MEDS: EPOETIN ALFA-EPBX 10,000 UNITS/ML VIAL 10000 UNITS IV PUSH (11:20)
--- NOTE | 2020-07-12 11:50 | PCPTNOTE ---
The patient treatment was not able to be completed today due to patient being out of the room in dialysis. Will plan to continue treatment per plan of care.
[2020-07-12 12:20] LABS: SARS-CoV-2 RNA PCR Negative
--- NOTE | 2020-07-12 13:00 | PCOTNOTE ---
Attempted to see Patient for afternoon session this date. Patient has not returned from dialysis at this time.
[2020-07-12] MEDS: DEXTROSE 10% 1,000 ML 50 ML IV CONT (14:21)
--- NOTE | 2020-07-12 14:51 | WPDINFPN2 ---
Progress Note: A&P Assessment and Plan (1) Staphylococcus aureus bacteremia with sepsis: Code(s): A41.01 - Sepsis due to Methicillin susceptible Staphylococcus aureus Status: Acute Assessment and Plan: 1. S aureus bacteremia, suspect septic phlebitis LUAva. BC still +, as of 07/07 2. CRf, no U.O at baseline REC (antibiotic #6) Ancef #5. CT reviewed with him, no need for surgical intervention. Will need another 3 weeks IV rx. Redo BCs Subjective Date/time seen: 07/12/20 14:51 Interval history: no new complaints, seen at end of his HD session Exam Narrative: Exam Narrative: afebrile Const: General: no acute distress Resp: Effort & Inspection: normal respiratory effort Auscultation: clear to auscultation bilaterally Cardio: Rate: regular rate Rhythm: regular rhythm Heart sounds: no gallops, no murmurs and no rubs GI: Inspection: non-distended GI Palp: Yes Soft to palpation and No Tenderness to palpation present (GI) Skin: General skin exam: normal color Extrem: Other: LUE edema, about the same. No erythema nor fluctuance nor tenderness Objective Data Vital Signs Vital Signs: Vital Signs - 24 hr 07/11/20 16:00 07/11/20 16:47 07/11/20 18:00 Temperature 35.8 C L Pulse Rate 62 61 64 Respiratory Rate 20 Blood Pressure 69/41 L Pulse Oximetry 100 07/11/20 20:00 07/11/20 20:48 07/11/20 22:00 Temperature 36.2 C L Pulse Rate 66 65 65 Respiratory Rate 16 Blood Pressure 91/61 L Pulse Oximetry 98 07/12/20 00:00 07/12/20 02:00 07/12/20 04:00 Temperature 36.3 C L 36.1 C L Pulse Rate 62 58 L 62 Respiratory Rate 18 18 Blood Pressure 98/61 L 96/58 L Pulse Oximetry 100 99 07/12/20 06:00 07/12/20 08:00 07/12/20 08:41 Temperature 35.7 C L Pulse Rate 59 L 89 Respiratory Rate 14 Blood Pressure 88/57 L Pulse Oximetry 91 07/12/20 08:47 07/12/20 09:05 07/12/20 09:15 Temperature 35.7 C L Pulse Rate 63 66 64 Respiratory Rate 16 Blood Pressure 85/52 L 85/46 L Pulse Oximetry 07/12/20 09:30 07/12/20 09:45 07/12/20 10:00 Temperature Pulse Rate 60 55 L 60 Respiratory Rate Blood Pressure 74/48 L 102/56 L 84/43 L Pulse Oximetry 07/12/20 10:15 07/12/20 10:30 07/12/20 10:45 Temperature Pulse Rate 64 61 64 Respiratory Rate Blood Pressure 92/49 L 104/52 L 98/44 L Pulse Oximetry 07/12/20 11:00 07/12/20 11:15 07/12/20 11:30 Temperature Pulse Rate 55 L 61 64 Respiratory Rate Blood Pressure 85/60 L 104/67 111/66 Pulse Oximetry 07/12/20 11:45 07/12/20 12:00 07/12/20 12:15 Temperature Pulse Rate 64 63 66 Respiratory Rate Blood Pressure 91/57 L 85/63 L 85/43 L Pulse Oximetry 07/12/20 12:30 07/12/20 12:45 07/12/20 13:00 Temperature Pulse Rate 66 60 60 Respiratory Rate Blood Pressure 81/77 L 85/43 L 103/45 L Pulse Oximetry 07/12/20 13:15 07/12/20 13:24 Temperature 36.9 C Pulse Rate 63 53 L Respiratory Rate 16 Blood Pressure 98/50 L 99/56 L Pulse Oximetry Intake/Output Intake/Output: Intake & Output 07/09/20 07/10/20 07/11/20 07/12/20 23:59 23:59 23:59 23:59 Intake Total 1760 3155 1660 1000 Output Total 1012 010 3660 Balance 237 4201 1659 Meds/Results Medications: Active Medications Generic Name Dose Route Start Last Admin Trade Name Freq PRN Reason Stop Dose Admin Acetaminophen 650 mg 07/07/20 09:21 07/11/20 05:30 Tylenol Tablet PO 650 mg Q4H PRN Administration Pain Rated 5 or Less Hydrocodone Bitart/Acetaminophen 1 tab 07/07/20 09:20 07/12/20 14:45 [place] 5-325 Mg PO 1 tab Q6H PRN Administration Pain Rated 6 or Greater Amiodarone HCl 200 mg 07/06/20 09:00 07/12/20 08:47 Pacerone PO 200 mg DAILY TORITO Administration Apixaban 2.5 mg 07/05/20 22:55 07/12/20 08:47 Eliquis PO 2.5 mg BID TORITO Administration Aspirin 81 mg 07/07/20 09:00 07/12/20 08:46 Aspirin Ec PO 81 mg QAM TORITO Admini
[2020-07-12] MEDS: DEXTROSE 50% 25 GM/50 ML SYRINGE IV PUSH (16:07)
[2020-07-12 16:44] LABS: Glucose Point of Care 35 (65-105)
[2020-07-12 16:44] LABS: Glucose Point of Care 147 (65-105)
--- NOTE | 2020-07-12 17:16 | P.PNNP_ITS ---
Progress Note: A&P Assessment and Plan (1) ESRD (end stage renal disease): Code(s): N18.6 - End stage renal disease Status: Chronic Assessment and Plan: * HD earlier today * did well. (2) Staphylococcus aureus bacteremia with sepsis: Code(s): A41.01 - Sepsis due to Methicillin susceptible Staphylococcus aureus Status: Acute Assessment and Plan: * as noted by blood cultures * source? - presumed to be previous IV infiltration/phebitis - transthoracic echo negative for endocarditits * ID on the case * on ancef (3) Elevated LFTs: Code(s): R79.89 - Other specified abnormal findings of blood chemistry Status: Acute Assessment and Plan: * possibly due to mild rhabdomyolysis +/- high dose statin therapy * alt is now normal * follow CPK levels this has dropped from ove 7000 to today's value of around 5000. check in am * statin on hold (4) Hypoglycemia: Code(s): E16.2 - Hypoglycemia, unspecified Status: Resolved Assessment and Plan: * due to diarrhea and poor oral intake * follow oral intake and blood sugars * he may have some liver disease as well. (5) Hyponatremia: Code(s): E87.1 - Hypo-osmolality and hyponatremia Status: Acute Assessment and Plan: * due to the use of D10W IVFs to maintain his blood sugar + kidney failure + cardiomyopathy * dialysis will compensate to some degree * would wean D10 IVF as tolerated (6) Ischemic cardiomyopathy: Code(s): I25.5 - Ischemic cardiomyopathy Status: Acute Assessment and Plan: * appears compensated * fluid removal with HD as tolerated * follow respiratory status and daily weights Additional Plan Subjective Date/time seen: 07/12/20 17:16 Interval history: patient is sleepy. had HD earlier today no cp or sob Review of Systems Cardiovascular: Cardiovascular: Reports no additional cardiovascular complaints Respiratory: Respiratory: Reports no additional respiratory complaints Gastrointestinal: Gastrointestinal: Reports no additional gastrointestinal complaints Genitourinary: Genitourinary: Reports no additional male genitourinary complaints Exam Narrative: Exam Narrative: WDWN in NAD skin no rash head ncat lungs clear cor reg no rub abd BS+ nontender and soft ext no edema. Objective Data Vital Signs Vital Signs: Vital Signs - 24 hr 07/11/20 18:00 07/11/20 20:00 07/11/20 20:48 Temperature 36.2 C L Pulse Rate 64 66 65 Respiratory Rate 16 Blood Pressure 91/61 L Pulse Oximetry 98 07/11/20 22:00 07/12/20 00:00 07/12/20 02:00 Temperature 36.3 C L Pulse Rate 65 62 58 L Respiratory Rate 18 Blood Pressure 98/61 L Pulse Oximetry 100 07/12/20 04:00 07/12/20 06:00 07/12/20 08:00 Temperature 36.1 C L 35.7 C L Pulse Rate 62 59 L 89 Respiratory Rate 18 14 Blood Pressure 96/58 L Pulse Oximetry 99 91 07/12/20 08:41 07/12/20 08:47 07/12/20 09:05 Temperature 35.7 C L Pulse Rate 63 66 Respiratory Rate 16 Blood Pressure 88/57 L 85/52 L Pulse Oximetry
--- NOTE | 2020-07-12 17:16 | PM.PNNEP ---
Progress Note: A&P Assessment and Plan (1) ESRD (end stage renal disease): Code(s): N18.6 - End stage renal disease Status: Chronic Assessment and Plan: HD earlier today did well. (2) Staphylococcus aureus bacteremia with sepsis: Code(s): A41.01 - Sepsis due to Methicillin susceptible Staphylococcus aureus Status: Acute Assessment and Plan: as noted by blood cultures source? - presumed to be previous IV infiltration/phebitis - transthoracic echo negative for endocarditits ID on the case on ancef (3) Elevated LFTs: Code(s): R79.89 - Other specified abnormal findings of blood chemistry Status: Acute Assessment and Plan: possibly due to mild rhabdomyolysis +/- high dose statin therapy alt is now normal follow CPK levels this has dropped from ove 7000 to today's value of around 5000. check in am statin on hold (4) Hypoglycemia: Code(s): E16.2 - Hypoglycemia, unspecified Status: Resolved Assessment and Plan: due to diarrhea and poor oral intake follow oral intake and blood sugars he may have some liver disease as well. (5) Hyponatremia: Code(s): E87.1 - Hypo-osmolality and hyponatremia Status: Acute Assessment and Plan: due to the use of D10W IVFs to maintain his blood sugar + kidney failure + cardiomyopathy dialysis will compensate to some degree would wean D10 IVF as tolerated (6) Ischemic cardiomyopathy: Code(s): I25.5 - Ischemic cardiomyopathy Status: Acute Assessment and Plan: appears compensated fluid removal with HD as tolerated follow respiratory status and daily weights Additional Plan Subjective Date/time seen: 07/12/20 17:16 Interval history: patient is sleepy. had HD earlier today no cp or sob Review of Systems Cardiovascular: Cardiovascular: Reports no additional cardiovascular complaints Respiratory: Respiratory: Reports no additional respiratory complaints Gastrointestinal: Gastrointestinal: Reports no additional gastrointestinal complaints Genitourinary: Genitourinary: Reports no additional male genitourinary complaints Exam Narrative: Exam Narrative: WDWN in NAD skin no rash head ncat lungs clear cor reg no rub abd BS+ nontender and soft ext no edema. Objective Data Vital Signs Vital Signs: Vital Signs - 24 hr 07/11/20 18:00 07/11/20 20:00 07/11/20 20:48 Temperature 36.2 C L Pulse Rate 64 66 65 Respiratory Rate 16 Blood Pressure 91/61 L Pulse Oximetry 98 07/11/20 22:00 07/12/20 00:00 07/12/20 02:00 Temperature 36.3 C L Pulse Rate 65 62 58 L Respiratory Rate 18 Blood Pressure 98/61 L Pulse Oximetry 100 07/12/20 04:00 07/12/20 06:00 07/12/20 08:00 Temperature 36.1 C L 35.7 C L Pulse Rate 62 59 L 89 Respiratory Rate 18 14 Blood Pressure 96/58 L Pulse Oximetry 99 91 07/12/20 08:41 07/12/20 08:47 07/12/20 09:05 Temperature 35.7 C L Pulse Rate 63 66 Respiratory Rate 16 Blood Pressure 88/57 L 85/52 L Pulse Oximetry 07/12/20 09:15 07/12/20 09:30 07/12/20 09:45 Temperature Pulse Rate 64 60 55 L Respiratory Rate Blood Pressure 85/46 L 74/48 L 102/56 L Pulse Oximetry 07/12/20 10:00 07/12/20 10:15 07/12/20 10:30 Temperature Pulse Rate 60 64 61 Respiratory Rate Blood Pressure 84/43 L 92/49 L 104/52 L Pulse Oximetry 07/12/20 10:45 07/12/20 11:00 07/12/20 11:15 Temperature Pulse Rate 64 55 L 61 Respiratory Rate Blood Pressure 98/44 L 85/60 L 104/67 Pulse Oximetry 07/12/20 11:30 07/12/20 11:45 07/12/20 12:00 Temperature Pulse Rate 64 64 63 Respiratory Rate Blood Pressure 111/66 91/57 L 85/63 L Pulse Oximetry 07/12/20 12:15 07/12/20 12:30 07/12/20 12:45 Temperature Pulse Rate 66 66 60 Respiratory Rate Blood Pressure 85/43 L 81/77 L 85/43 L Pulse Oximetry 07/12/20 13:00 07/12/20 1
--- NOTE | 2020-07-12 18:06 | PM.IMPN ---
Progress Note: A&P Assessment and Plan (1) Staphylococcus aureus bacteremia with sepsis: Code(s): A41.01 - Sepsis due to Methicillin susceptible Staphylococcus aureus Status: Acute Assessment and Plan: Blood culture growing Staph aureus methicillin sensitive. Concerning given his subcutaneous defibrillator, recent coronary stenting, and hemodialysis vascular access. It is noted he had a left upper extremity peripheral IV infiltration at recent hospitalization at [facility], Dr Nuñez suspects could be possible source. and CT of arm ordered revealed cellulitis with no abscess He was initially treated with IV zosyn for presumed infectious diarrhea. Diarrhea is still present and stool cultures so far negative Switched to IV vancomycin 07/07 and 07/08 to ancef(D#6 total antibiotics) with cultures growing MSSA and 2 of 2 of 2nd set still positive from 07/08 repeat drawn today 07/12 Echocardiogram EF 25-30% with no vegetations seen. (2) Rhabdomyolysis: Qualifiers: Rhabdomyolysis type: non-traumatic Qualified Code(s): M62.82 - Rhabdomyolysis Code(s): M62.82 - Rhabdomyolysis Status: Acute Assessment and Plan: Recenlty his atorvastatin dose was increased from 40mg daily to 80mg daily which could have contributed. Holding statin therapy. Continue dialysis. ck downt to 3136 today (3) Diarrhea: Qualifiers: Diarrhea type: unspecified type Qualified Code(s): R19.7 - Diarrhea, unspecified Code(s): R19.7 - Diarrhea, unspecified Status: Resolved Assessment and Plan: stool cultures so far neg, c diff not tested (4) Elevated LFTs: Code(s): R79.89 - Other specified abnormal findings of blood chemistry Status: Acute Assessment and Plan: These may be elevated in the setting of rhabdomyolysis or infection, however CT of the abdomen pelvis does show low attenuation of the liver adjacent to the ligamentum teres which could be possible fatty infiltration. Recommendation was given for follow-up examination. Hepatitis panel is negative. Cholelithiasis noted on CT, but no exam findings or imaging findings to suggest cholecystitis. Continue to trend LFTs down (5) Hypoglycemia: Code(s): E16.2 - Hypoglycemia, unspecified Status: Resolved Assessment and Plan: Poor oral intake. and sepsis. Blood sugars as low as 20s 07/07, administered glucose gel x 2; D5% at 100mL per hour started.and changed to d10 at 50 to decrease volume Continue to monitor accu-cheks closely (6) Generalized weakness: Code(s): R53.1 - Weakness Status: Acute Assessment and Plan: Multifactorial may be related to renal failure, acute infection, rhabdo. Appreciate PT/OT evaluations. (7) End-stage renal disease on hemodialysis: Code(s): N18.6 - End stage renal disease; Z99.2 - Dependence on renal dialysis Status: Chronic Assessment and Plan: Dr. Diony ly . Patient follows with Dr Benjy Newton and receives HD on F at [facility]. (8) Chronic anemia: Code(s): D64.9 - Anemia, unspecified Status: Chronic Assessment and Plan: H&H low but stable. No signs or symptoms of acute bleeding. Will monitor. Suspect a component of anemia chronic kidney disease. hgb 7.9 today (9) Paroxysmal atrial fibrillation: Code(s): I48.0 - Paroxysmal atrial fibrillation Status: Acute Assessment and Plan: Continue amiodarone (monitor LFTs), and apixaban. restarted Coreg at half the usual dose 12.5 (10) Abnorm
[2020-07-12] MEDS: ceFAZolin 2 GM/D5W 50 ML 2 GM/50 ML BAG IVPB (19:05)
[2020-07-12 19:44] LABS: Glucose Point of Care 86 (65-105)
[2020-07-12 23:39] LABS: Glucose Point of Care 72 (65-105)
[2020-07-13] VITALS (13 sets, daily range): BP systolic 81–101; BP diastolic 49–67; PULSE 68–87; RESP 20; TEMP 36.1–36.6; O2SAT 95–99
[2020-07-13] MEDS: ACETAMINOPHEN 325 MG TABLET 650 MG PO (04:28)
[2020-07-13 06:03] LABS: Basophils Absolute Auto 0.1 K/mm3 (0.0-0.1); Basophils Percent Auto 0.5 % (0.2-1.2); Eosinophils Absolute Auto 0.2 K/mm3 (0-0.3); Eosinophils Percent Auto 0.7 % (0-4.4); Hematocrit 27.7 % (42.0-52.0); Hemoglobin 8.9 g/dL (14.0-18.0); Immature Granulocyte Absolute 1.25 K/mm3 (0.00-0.031); Immature Granulocyte Percent A 4.3 % (0-0.5); Lymphocytes Absolute Auto 0.83 K/mm3 (0.9-3.2); Lymphocytes Percent Auto 2.9 % (18.3-44.2); Mean Corpuscular HGB Conc 32.1 g/dl (32-36); Mean Corpuscular Hemoglobin 30.6 pg (26-34); Mean Corpuscular Volume 95.2 fl (80-100); Mean Platelet Volume 12.7 fl (7.4-10.4); Monocytes Absolute Auto 1.2 K/mm3 (0.1-0.6); Neutrophils Absolute Auto 25.2 K/mm3 (1.3-6.7); Neutrophils Percent Auto 87.6 % (45.5-73.1); Nucleated Red Blood Cells Absolute Auto 0.2 K/mm3 (0.0-0.012); Nucleated Red Blood Cells Perc 0.6 % (0.0-0.2); Platelet Count Result 146 k/mm3 (150-375); Red Blood Count 2.91 M/mm3 (4.6-6.20); Red Cell Distribution Width 16.6 % (11.5-14.5); White Blood Count 28.8 K/mm3 (4.5-10.0)
[2020-07-13 06:21] LABS: Alanine Aminotransferase 9 U/L (4-50); Albumin Level 2.7 g/dL (3.5-5.1); Alkaline Phosphatase 205 U/L (38-126); Anion Gap 12 mmol/L (8-16); Aspartate Amino Transferase 93 U/L (17-59); Bilirubin,Total 0.5 mg/dL (0.2-1.3); Blood Urea Nitrogen 32 mg/dL (9-20); Calcium 5.6 mg/dL (8.4-10.2); Carbon Dioxide 23 mmol/L (22-30); Chloride 90 mmol/L (98-107); Glucose 86 mg/dL (75-110); Phosphorus 3.1 mg/dL (2.5-4.5); Potassium 3.7 mmol/L (3.4-5.0); Sodium 125 mmol/L (137-145)
[2020-07-13 06:25] LABS: Creatine Kinase 2759 U/L (55-170); Estimated CRCL calculation 16 ml/min; Estimated Glomerular Filt Rate 19
--- NOTE | 2020-07-13 08:28 | P.PNNP_ITS ---
Progress Note: A&P Assessment and Plan (1) ESRD (end stage renal disease): Code(s): N18.6 - End stage renal disease Status: Chronic Assessment and Plan: * HD earlier today * did well. (2) Staphylococcus aureus bacteremia with sepsis: Code(s): A41.01 - Sepsis due to Methicillin susceptible Staphylococcus aureus Status: Acute Assessment and Plan: * as noted by blood cultures * on ancef * id following the patient. * Source of the infection is still unclear. Fistula looks fine. (3) Elevated LFTs: Code(s): R79.89 - Other specified abnormal findings of blood chemistry Status: Acute Assessment and Plan: * possibly due to mild rhabdomyolysis +/- high dose statin therapy * alt is now normal * CK down to 05/17/2059 * statin on hold (4) Hypoglycemia: Code(s): E16.2 - Hypoglycemia, unspecified Status: Resolved Assessment and Plan: * due to diarrhea and poor oral intake * follow oral intake and blood sugars * he may have some liver disease as well. (5) Hyponatremia: Code(s): E87.1 - Hypo-osmolality and hyponatremia Status: Acute Assessment and Plan: * due to renal failure and free water intake. * D10W doesn't help (6) Ischemic cardiomyopathy: Code(s): I25.5 - Ischemic cardiomyopathy Status: Acute Assessment and Plan: * appears compensated * fluid removal with HD as tolerated * follow respiratory status and daily weights Additional Plan Subjective Date/time seen: 07/13/20 08:28 Interval history: patient is Alert and feels okay. No chest pain or shortness of breath. Due for dialysis tomorrow Review of Systems Cardiovascular: Cardiovascular: Reports no additional cardiovascular complaints Respiratory: Respiratory: Reports no additional respiratory complaints Gastrointestinal: Gastrointestinal: Reports no additional gastrointestinal complaints Genitourinary: Genitourinary: Reports no additional male genitourinary complaints Exam Narrative: Exam Narrative: WDWN in NAD skin no rash head ncat lungs clear cor reg no rub abd BS+ nontender and soft ext no edema. Objective Data Vital Signs Vital Signs: Vital Signs - 24 hr 07/12/20 08:41 07/12/20 08:47 07/12/20 09:05 Temperature 35.7 C L Pulse Rate 63 66 Respiratory Rate 16 Blood Pressure 88/57 L 85/52 L Pulse Oximetry 07/12/20 09:15 07/12/20 09:30 07/12/20 09:45 Temperature Pulse Rate 64 60 55 L Respiratory Rate Blood Pressure 85/46 L 74/48 L 102/56 L Pulse Oximetry 07/12/20 10:00 07/12/20 10:15 07/12/20 10:30 Temperature Pulse Rate 60 64 61 Respiratory Rate Blood Pressure 84/43 L 92/49 L 104/52 L Pulse Oximetry 07/12/20 10:45 07/12/20 11:00 07/12/20 11:15 Temperature Pulse Rate 64 55 L 61 Respiratory Rate Blood Pressure 98/44 L 85/60 L 104/67 Pulse Oximetry 07/12/20 11:30 07/12/20 11:45 07/12/20 12:00 Temperature Pulse Rate 64 64 63 Respiratory Rate Blood Pressure 111/66 91/57 L
--- NOTE | 2020-07-13 08:28 | PM.PNNEP ---
Progress Note: A&P Assessment and Plan (1) ESRD (end stage renal disease): Code(s): N18.6 - End stage renal disease Status: Chronic Assessment and Plan: HD earlier today did well. (2) Staphylococcus aureus bacteremia with sepsis: Code(s): A41.01 - Sepsis due to Methicillin susceptible Staphylococcus aureus Status: Acute Assessment and Plan: as noted by blood cultures on ancef id following the patient. Source of the infection is still unclear. Fistula looks fine. (3) Elevated LFTs: Code(s): R79.89 - Other specified abnormal findings of blood chemistry Status: Acute Assessment and Plan: possibly due to mild rhabdomyolysis +/- high dose statin therapy alt is now normal CK down to 05/17/2059 statin on hold (4) Hypoglycemia: Code(s): E16.2 - Hypoglycemia, unspecified Status: Resolved Assessment and Plan: due to diarrhea and poor oral intake follow oral intake and blood sugars he may have some liver disease as well. (5) Hyponatremia: Code(s): E87.1 - Hypo-osmolality and hyponatremia Status: Acute Assessment and Plan: due to renal failure and free water intake. D10W doesn't help (6) Ischemic cardiomyopathy: Code(s): I25.5 - Ischemic cardiomyopathy Status: Acute Assessment and Plan: appears compensated fluid removal with HD as tolerated follow respiratory status and daily weights Additional Plan Subjective Date/time seen: 07/13/20 08:28 Interval history: patient is Alert and feels okay. No chest pain or shortness of breath. Due for dialysis tomorrow Review of Systems Cardiovascular: Cardiovascular: Reports no additional cardiovascular complaints Respiratory: Respiratory: Reports no additional respiratory complaints Gastrointestinal: Gastrointestinal: Reports no additional gastrointestinal complaints Genitourinary: Genitourinary: Reports no additional male genitourinary complaints Exam Narrative: Exam Narrative: WDWN in NAD skin no rash head ncat lungs clear cor reg no rub abd BS+ nontender and soft ext no edema. Objective Data Vital Signs Vital Signs: Vital Signs - 24 hr 07/12/20 08:41 07/12/20 08:47 07/12/20 09:05 Temperature 35.7 C L Pulse Rate 63 66 Respiratory Rate 16 Blood Pressure 88/57 L 85/52 L Pulse Oximetry 07/12/20 09:15 07/12/20 09:30 07/12/20 09:45 Temperature Pulse Rate 64 60 55 L Respiratory Rate Blood Pressure 85/46 L 74/48 L 102/56 L Pulse Oximetry 07/12/20 10:00 07/12/20 10:15 07/12/20 10:30 Temperature Pulse Rate 60 64 61 Respiratory Rate Blood Pressure 84/43 L 92/49 L 104/52 L Pulse Oximetry 07/12/20 10:45 07/12/20 11:00 07/12/20 11:15 Temperature Pulse Rate 64 55 L 61 Respiratory Rate Blood Pressure 98/44 L 85/60 L 104/67 Pulse Oximetry 07/12/20 11:30 07/12/20 11:45 07/12/20 12:00 Temperature Pulse Rate 64 64 63 Respiratory Rate Blood Pressure 111/66 91/57 L 85/63 L Pulse Oximetry 07/12/20 12:15 07/12/20 12:30 07/12/20 12:45 Temperature Pulse Rate 66 66 60 Respiratory Rate Blood Pressure 85/43 L 81/77 L 85/43 L Pulse Oximetry 07/12/20 13:00 07/12/20 13:15 07/12/20 13:24 Temperature 36.9 C Pulse Rate 60 63 53 L Respiratory Rate 16 Blood Pressure 103/45 L 98/50 L 99/56 L Pulse Oximetry 07/12/20 16:00 07/12/20 20:00 07/12/20 21:00 Temperature 35.5 C L 36.4 C Pulse Rate 62 64 73 Respiratory Rate 12 20 Blood Pressure 74/47 L 87/41 L Pulse Oximetry 91 96 100 07/12/20 21:29 07/12/20 22:05 07/12/20 23:43 Temperature 36.6 C Pulse Rate 65 71 Respiratory Rate 20 Blood Pressure 94/64 L Pulse Oximetry 95 97 07/13/20 04:36 07/13/20 08:00 Temperature 36.6 C 36.4 C Pulse Rate 79 78 Respiratory Rate 20 20 Blood Pressure 101/67 94/62 L Pulse Oximetry 97 97 Intake/Output In
[2020-07-13 08:31] LABS: Glucose Point of Care 72 (65-105)
[2020-07-13] MEDS: CINACALCET 30 MG TABLET 90 MG PO (08:43)
[2020-07-13] MEDS: APIXABAN 2.5 MG TABLET PO ×2 (08:43→18:19)
[2020-07-13] MEDS: AMIODARONE HCL 200 MG TABLET PO (08:43)
[2020-07-13] MEDS: CLOPIDOGREL BISULFATE 75 MG TABLET PO (08:44)
[2020-07-13] MEDS: DORZOLAMIDE HCL 2% OPHTH DROPS 1 DROP EACH EYE (08:44)
[2020-07-13] MEDS: PANTOPRAZOLE 40 MG TABLET PO (08:44)
[2020-07-13] MEDS: ASPIRIN 81 MG ENTERIC TABLET PO (08:45)
[2020-07-13] MEDS: carvediloL 12.5 MG TABLET PO (08:47)
--- NOTE | 2020-07-13 11:36 | PCDIET ---
Nutrition Follow-Up Complete: Nutrition Diagnosis: Inadequate oral intake R/T reduced appetite and diarrhea as evidence by wt loss of 2-13lbs Nutrition Goal: PO intake of 50% of meals and supplements to help maintain wt Goal in progress. Patient only consumed average of 40% of meals since admission; however, does report drinking most of the [place] Shakes which are being provided twice daily. Remains on renal dialysis diet which is appropriate. Recommend holding Sensipar for hypocalcemia and replacing calcium, if medically appropriate. Last recorded weight is 64 kg which is increased from last review. Bowel Motility: +BM x 1 today. Labs Reviewed: Hgb (8.9), Hct (27.7), BUN (32), Cr (4.0), Na (125), Alb (2.7), Amarilis Ca (6.64) Meds Noted: [place], Albumin, Ancef, Sensipar, Plavix, Prinivil, Protonix Additional Notes: Coccyx macerated. Left hip with blister. Multiple bruised areas also documented. Will continue to monitor with same goal. Nutrition Monitoring and Evaluation: Follow up every 5 days.
[2020-07-13] MEDS: DEXTROSE 10% 1,000 ML 50 ML IV CONT (11:38)
--- NOTE | 2020-07-13 12:00 | WPDINFPN2 ---
Progress Note: A&P Assessment and Plan (1) Staphylococcus aureus bacteremia with sepsis: Code(s): A41.01 - Sepsis due to Methicillin susceptible Staphylococcus aureus Status: Acute Assessment and Plan: 1. S aureus bacteremia, suspect septic phlebitis LUE. BC still +, as of 07/07 2. CRf, no U.O at baseline 3. Leukocytosis, I think due to unresolved infection at L forearm. CT = no drainable fluid REC (antibiotic #7) Ancef #6. Will need another 3 weeks IV rx. Redo BCs in process. Follow WBC over time. Subjective Date/time seen: 07/13/20 12:00 Interval history: no new complaints Exam Narrative: Exam Narrative: afebrile Const: General: no acute distress Resp: Effort & Inspection: normal respiratory effort Cardio: Rate: regular rate Rhythm: regular rhythm Heart sounds: no gallops and no murmurs GI: Inspection: non-distended GI Palp: Yes Soft to palpation and No Tenderness to palpation present (GI) Skin: General skin exam: normal color and no rashes or lesions noted Extrem: Other: left forearm with erythema and ecchymosis. No cord. Old fistula without thrill. not warm Objective Data Vital Signs Vital Signs: Vital Signs - 24 hr 07/12/20 12:15 07/12/20 12:30 07/12/20 12:45 Temperature Pulse Rate 66 66 60 Respiratory Rate Blood Pressure 85/43 L 81/77 L 85/43 L Pulse Oximetry 07/12/20 13:00 07/12/20 13:15 07/12/20 13:24 Temperature 36.9 C Pulse Rate 60 63 53 L Respiratory Rate 16 Blood Pressure 103/45 L 98/50 L 99/56 L Pulse Oximetry 07/12/20 16:00 07/12/20 20:00 07/12/20 21:00 Temperature 35.5 C L 36.4 C Pulse Rate 62 64 73 Respiratory Rate 12 20 Blood Pressure 74/47 L 87/41 L Pulse Oximetry 91 96 100 07/12/20 21:29 07/12/20 22:05 07/12/20 23:43 Temperature 36.6 C Pulse Rate 65 71 Respiratory Rate 20 Blood Pressure 94/64 L Pulse Oximetry 95 97 07/13/20 04:36 07/13/20 08:00 07/13/20 08:43 Temperature 36.6 C 36.4 C Pulse Rate 79 78 70 Respiratory Rate 20 20 Blood Pressure 101/67 94/62 L Pulse Oximetry 97 97 07/13/20 08:47 Temperature Pulse Rate 68 Respiratory Rate Blood Pressure Pulse Oximetry Intake/Output Intake/Output: Intake & Output 07/10/20 07/11/20 07/12/20 07/13/20 23:59 23:59 23:59 23:59 Intake Total 3155 1710 1170 1240 Output Total 300 3014 Balance 2855 1710 -1848 1240 Meds/Results Medications: Active Medications Generic Name Dose Route Start Last Admin Trade Name Freq PRN Reason Stop Dose Admin Acetaminophen 650 mg 07/07/20 09:21 07/13/20 04:28 Tylenol Tablet PO 650 mg Q4H PRN Administration Pain Rated 5 or Less Hydrocodone Bitart/Acetaminophen 1 tab 07/07/20 09:20 07/13/20 08:42 [place] 5-325 Mg PO 1 tab Q6H PRN Administration Pain Rated 6 or Greater Amiodarone HCl 200 mg 07/06/20 09:00 07/13/20 08:43 Pacerone PO 200 mg DAILY TORITO Administration Apixaban 2.5 mg 07/05/20 22:55 07/13/20 08:43 Eliquis PO 2.5 mg BID TORITO Administration Aspirin 81 mg 07/07/20 09:00 07/13/20 08:45 Aspirin Ec PO 81 mg QAM TORITO Administration Carvedilol 12.5 mg 07/07/20 09:00 07/13/20 08:47 Coreg PO 12.5 mg Q12HR TORITO Administration Cinacalcet 90 mg 07/06/20 09:00 07/13/20 08:43 Sensipar PO 08/05/20 09:01 90 mg DAILY TORITO Administration Clopidogrel Bisulfate 75 mg 07/06/20 09:00 07/13/20 08:44 Plavix PO 75 mg DAILY TORITO Administration Dextrose 12.5 gm 07/05/20 14:08 07/12/20 16:07 Dextrose 50% Syringe IV PUSH 12.5 gm PRN PRN Administration Hypoglycemia Protocol Dorzolamide HCl 1 drop 07/06/20 09:00 07/13/20 08:44 Trusopt EACH EYE 1 drop DAILY TORITO Administration Glucagon 1 mg 07/05/20 14:08 Glucagon For Inj IM PRN PRN Hypoglycemia Protocol Glucose 15 gm 07/05/20 14:08 07/10/20 09:52 Glutose 15 PO 15 gm PRN PRN Administration Hypoglycemia P
[2020-07-13 12:41] LABS: Glucose Point of Care 53 (65-105)
--- NOTE | 2020-07-13 12:56 | PM.IMPN ---
Progress Note: A&P Assessment and Plan (1) Staphylococcus aureus bacteremia with sepsis: Code(s): A41.01 - Sepsis due to Methicillin susceptible Staphylococcus aureus Status: Acute Assessment and Plan: Blood culture growing Staph aureus methicillin sensitive. Concerning given his subcutaneous defibrillator, recent coronary stenting, and hemodialysis vascular access. It is noted he had a left upper extremity peripheral IV infiltration at recent hospitalization at [facility], Dr Nuñez suspects could be possible source and CT of arm ordered revealed cellulitis with no abscess He was initially treated with IV zosyn for presumed infectious diarrhea. Diarrhea is still present and stool cultures so far negative Switched to IV vancomycin 07/07 and 07/08 to ancef(D#7 total antibiotics) with cultures growing MSSA and 2 of 2 of 2nd set still positive from 07/08 repeat drawn 07/12 Echocardiogram EF 25-30% with no vegetations seen. (2) Hypoglycemia: Code(s): E16.2 - Hypoglycemia, unspecified Status: Resolved Assessment and Plan: Patient with persistent hypoglycemia. Patient has poor oral intake and sepsis. Blood sugars as low as 20s but maybe inaccurate since patient remained AOx4 with a glucose <10. A lab draw was 98 and a glucose from the earlobe was 132. We continued to give him oral dextrose, etc as well. D10 was increased to 100ml/hr. Wean D10 as toelrated. Check A1c. (3) Hypotension: Code(s): I95.9 - Hypotension, unspecified Status: Acute Assessment and Plan: BP soft intermittently. Related to low albumin or from sepsis? Was called back to the room by RN due to HoTN and Hypoglycemia. Fluid bolus given with some benefits. Will hold anti-HTN meds. He did have 3L removed with HD yesterday. Check Cortisol. Consider Midodrin (4) Rhabdomyolysis: Qualifiers: Rhabdomyolysis type: non-traumatic Qualified Code(s): M62.82 - Rhabdomyolysis Code(s): M62.82 - Rhabdomyolysis Status: Acute Assessment and Plan: His atorvastatin dose was recently increased from 40mg daily to 80mg daily which could have contributed to the Rhabdo. This has been stopped. TCK was up to 7100 but has trended down to 2760 today. Continue to monitor. Continue PT/OT. (5) Diarrhea: Qualifiers: Diarrhea type: unspecified type Qualified Code(s): R19.7 - Diarrhea, unspecified Code(s): R19.7 - Diarrhea, unspecified Status: Resolved Assessment and Plan: Persistent. Stool cultures negative thus far. Possibly related to poor oral intake and mostly liquid diet. Dietary following. (6) Elevated LFTs: Code(s): R79.89 - Other specified abnormal findings of blood chemistry Status: Acute Assessment and Plan: These may be elevated in the setting of rhabdomyolysis or infection, however CT of the abdomen pelvis does show low attenuation of the liver adjacent to the ligamentum teres which could be possible fatty infiltration. Recommendation was given for follow-up examination. Hepatitis panel is negative. Cholelithiasis noted on CT, but no exam findings or imaging findings to suggest cholecystitis. ALT normal now and AST trending to normal. Contineu to monitor. (7) Generalized weakness: Code(s): R53.1 - Weakness Status: Acute Assessment and Plan: Multifactorial may be related to renal failure, acute infection, rhabdo. Continue PT/OT (8) End-stage renal disease on hemodialysis: Code(s): N18.6 - End stage renal disease; Z99.2 - Dependence on renal dialysis Status: Chronic Assessment and Plan: Patient with ESRD. Fistula in the RU
[2020-07-13] MEDS: GLUCOSE ORAL GEL 15 GM OF GLUCSE IN 37.5 GM TUBE PO (12:57)
[2020-07-13] MEDS: DEXTROSE 50% 25 GM/50 ML SYRINGE IV PUSH (16:01)
[2020-07-13 16:44] LABS: Glucose Point of Care < 20 (65-105)
[2020-07-13 16:44] LABS: Glucose Point of Care < 20 (65-105)
[2020-07-13 16:44] LABS: Glucose Point of Care < 20 (65-105)
[2020-07-13 16:44] LABS: Glucose Point of Care 132 (65-105)
[2020-07-13 16:44] LABS: Glucose Point of Care < 20 (65-105)
[2020-07-13] MEDS: SODIUM CHLORIDE 0.9% IV 500 ML 999 ML IV CONT (17:55)
--- NOTE | 2020-07-13 17:57 | P.PCNBED_ITS ---
Procedures Central Line Placement Right Femoral: Central Line Date: 07/13/20 Central Line Time: 17:31 Discussed w/ the patient/family/POA,the placement of a central venous catheter, including its clinical necessity/indication & associated potential risks, benifits and alternatives.: Yes The patient/family/POA understand(s) and acknowledge(s) the need to proceed with central venous catheter insertion as an important element of the patient's clinical management.: Yes Time Out Performed: Yes Patient Position: supine Patient placed on monitor/pulse ox: Yes Provider Prep: mask, sterile gown, sterile gloves, Max. sterile barrier precautions, cap and hand hygiene with conventional soap/water or alcohol based hand rub Central line prep: 2% Chlorhexidine scrub and sterile full body sheet applied Local anesthesia used: lidocaine 2% Sterile US Technique with sterile gel/sterile probe covers: Yes Central line lumen inserted: triple Mauritian: 7 Length (cm): 16 Depth of Insertion (cm): 15 Post procedure: sutured in place, good blood return ( All ports except for the blue 1), all ports aspirated, flushed, capped, tegaderm and antimicrobial disc Additional comments: patient tolerated procedure well.
[2020-07-13 18:16] LABS: Glucose 98 mg/dL (75-110)
[2020-07-13] MEDS: ceFAZolin 2 GM/D5W 50 ML 2 GM/50 ML BAG IVPB (18:18)
[2020-07-13] MEDS: CENTRAL LINE FLUSH 10 ML IV PUSH ×2 (18:20→23:37)
[2020-07-13 20:04] LABS: Glucose Point of Care 76 (65-105)
[2020-07-13 20:04] LABS: Glucose Point of Care 30 (65-105)
[2020-07-13 23:39] LABS: Glucose Point of Care 95 (65-105)
[2020-07-14] VITALS (33 sets, daily range): BP systolic 84–141; BP diastolic 43–62; PULSE 61–88; RESP 18–22; TEMP 36.4–37; O2SAT 93–100
[2020-07-14 05:55] LABS: Basophils Absolute Auto 0.1 K/mm3 (0.0-0.1); Basophils Percent Auto 0.2 % (0.2-1.2); Eosinophils Absolute Auto 0.1 K/mm3 (0-0.3); Eosinophils Percent Auto 0.4 % (0-4.4); Hematocrit 25.8 % (42.0-52.0); Hemoglobin 8.4 g/dL (14.0-18.0); Immature Granulocyte Absolute 1.04 K/mm3 (0.00-0.031); Immature Granulocyte Percent A 3.7 % (0-0.5); Lymphocytes Percent Auto 2.8 % (18.3-44.2); Mean Corpuscular HGB Conc 32.6 g/dl (32-36); Mean Corpuscular Hemoglobin 30.1 pg (26-34); Mean Corpuscular Volume 92.5 fl (80-100); Mean Platelet Volume 12.1 fl (7.4-10.4); Monocytes Absolute Auto 1.3 K/mm3 (0.1-0.6); Monocytes Percent Auto 4.7 % (2.6-8.5); Neutrophils Absolute Auto 24.9 K/mm3 (1.3-6.7); Neutrophils Percent Auto 88.2 % (45.5-73.1); Nucleated Red Blood Cells Absolute Auto 0.1 K/mm3 (0.0-0.012); Nucleated Red Blood Cells Perc 0.3 % (0.0-0.2); Platelet Count Result 155 k/mm3 (150-375); Red Blood Count 2.79 M/mm3 (4.6-6.20); Red Cell Distribution Width 16.7 % (11.5-14.5); White Blood Count 28.3 K/mm3 (4.5-10.0)
[2020-07-14 05:58] LABS: Hemoglobin A1C 4.8 % (<5.7)
[2020-07-14] MEDS: CENTRAL LINE FLUSH 10 ML IV PUSH ×3 (06:12→20:12)
[2020-07-14 07:05] LABS: Alanine Aminotransferase 46 U/L (4-50); Albumin Level 2.5 g/dL (3.5-5.1); Alkaline Phosphatase 217 U/L (38-126); Anion Gap 13 mmol/L (8-16); Aspartate Amino Transferase 92 U/L (17-59); Bilirubin,Total 0.4 mg/dL (0.2-1.3); Blood Urea Nitrogen 39 mg/dL (9-20); Calcium 5.3 mg/dL (8.4-10.2); Carbon Dioxide 21 mmol/L (22-30); Chloride 87 mmol/L (98-107); Glucose 87 mg/dL (75-110); Magnesium 1.9 mg/dL (1.6-2.3); Phosphorus 3.1 mg/dL (2.5-4.5); Potassium 3.9 mmol/L (3.4-5.0); Sodium 121 mmol/L (137-145)
[2020-07-14 07:55] LABS: CRP 16.6 mg/dL (<1.0); Creatine Kinase 3304 U/L (55-170); Estimated CRCL calculation 18 ml/min; Estimated Glomerular Filt Rate 15
[2020-07-14] MEDS: DEXTROSE 10% 1,000 ML 50 ML IV CONT (08:20)
[2020-07-14] MEDS: PANTOPRAZOLE 40 MG TABLET PO (08:20)
[2020-07-14] MEDS: AMIODARONE HCL 200 MG TABLET PO (08:20)
[2020-07-14] MEDS: DORZOLAMIDE HCL 2% OPHTH DROPS 1 DROP EACH EYE (08:20)
[2020-07-14] MEDS: APIXABAN 2.5 MG TABLET PO ×2 (08:21→17:13)
[2020-07-14] MEDS: CINACALCET 30 MG TABLET 90 MG PO (08:21)
[2020-07-14] MEDS: ASPIRIN 81 MG ENTERIC TABLET PO (08:21)
[2020-07-14] MEDS: CLOPIDOGREL BISULFATE 75 MG TABLET PO (08:21)
[2020-07-14 08:52] LABS: Glucose Point of Care 74 (65-105)
--- NOTE | 2020-07-14 11:52 | PCPTNOTE ---
The patient treatment was not able to be completed on 07-14-2020 due to R.N. advised not to see patient for therapy due to right central femoral line placed as of yesterday 07-13-2020. Will plan to continue treatment per plan of care.
[2020-07-14 12:28] LABS: Glucose Point of Care 98 (65-105)
--- NOTE | 2020-07-14 13:02 | PCOTNOTE ---
Attempted to see patient this pm, however patient off floor at this time.
[2020-07-14 13:19] LABS: Glucose Point of Care 56 (65-105)
--- NOTE | 2020-07-14 13:29 | WPDINFPN2 ---
Progress Note: A&P Assessment and Plan (1) Staphylococcus aureus bacteremia with sepsis: Code(s): A41.01 - Sepsis due to Methicillin susceptible Staphylococcus aureus Status: Acute Assessment and Plan: 1. S aureus bacteremia, suspect septic phlebitis LUE. BC repeat ng after almost 2 days incubation 2. CRf, no U.O at baseline 3. Leukocytosis, I think due to unresolved infection at L forearm. CT = no drainable fluid. Exam is improved REC (antibiotic #8 / 28 days tentatively) Ancef #7. Redo BCs in process. Follow WBC over time. Subjective Date/time seen: 07/14/20 13:29 Interval history: no new complaints, seen in HD unit Exam Narrative: Exam Narrative: afebrile Const: General: no acute distress Resp: Effort & Inspection: normal respiratory effort Auscultation: clear to auscultation bilaterally Cardio: Rate: regular rate Rhythm: regular rhythm Heart sounds: no murmurs GI: GI Palp: Yes Soft to palpation and No Tenderness to palpation present (GI) Extrem: Other: left arm with less edema, ecchymosis persist Objective Data Vital Signs Vital Signs: Vital Signs - 24 hr 07/13/20 16:00 07/13/20 18:56 07/13/20 20:00 Temperature 36.1 C L Pulse Rate 81 84 Respiratory Rate 20 Blood Pressure 81/51 L 82/56 L Pulse Oximetry 96 07/13/20 20:16 07/13/20 20:31 07/13/20 22:37 Temperature 36.6 C Pulse Rate 69 87 Respiratory Rate 20 Blood Pressure 89/55 L Pulse Oximetry 95 99 07/13/20 23:52 07/14/20 00:00 07/14/20 02:00 Temperature 36.5 C Pulse Rate 83 77 79 Respiratory Rate 20 Blood Pressure 85/49 L Pulse Oximetry 96 07/14/20 04:00 07/14/20 04:58 07/14/20 06:00 Temperature 36.6 C Pulse Rate 69 72 73 Respiratory Rate 20 Blood Pressure 91/43 L Pulse Oximetry 97 07/14/20 08:00 07/14/20 08:20 07/14/20 08:27 Temperature 36.5 C Pulse Rate 77 74 Respiratory Rate 20 Blood Pressure 101/57 L Pulse Oximetry 100 94 07/14/20 10:00 07/14/20 11:25 07/14/20 12:00 Temperature Pulse Rate 77 70 67 Respiratory Rate 22 H Blood Pressure 91/56 L Pulse Oximetry 99 07/14/20 12:11 07/14/20 12:18 07/14/20 12:30 Temperature 36.4 C Pulse Rate 74 75 81 Respiratory Rate 18 Blood Pressure 104/59 L 111/58 L 114/54 L Pulse Oximetry 98 07/14/20 12:45 07/14/20 13:00 07/14/20 13:15 Temperature Pulse Rate 73 74 87 Respiratory Rate Blood Pressure 102/55 L 106/51 L 107/50 L Pulse Oximetry Intake/Output Intake/Output: Intake & Output 07/11/20 07/12/20 07/13/20 07/14/20 23:59 23:59 23:59 23:59 Intake Total 1710 1170 1360 1410 Output Total 3014 0 Balance 1710 -1844 1360 1410 Meds/Results Medications: Active Medications Generic Name Dose Route Start Last Admin Trade Name Freq PRN Reason Stop Dose Admin Acetaminophen 650 mg 07/07/20 09:21 07/13/20 04:28 Tylenol Tablet PO 650 mg Q4H PRN Administration Pain Rated 5 or Less Hydrocodone Bitart/Acetaminophen 1 tab 07/07/20 09:20 07/13/20 08:42 [place] 5-325 Mg PO 1 tab Q6H PRN Administration Pain Rated 6 or Greater Amiodarone HCl 200 mg 07/06/20 09:00 07/14/20 08:20 Pacerone PO 200 mg DAILY TORITO Administration Apixaban 2.5 mg 07/05/20 22:55 07/14/20 08:21 Eliquis PO 2.5 mg BID TORITO Administration Aspirin 81 mg 07/07/20 09:00 07/14/20 08:21 Aspirin Ec PO 81 mg QAM TORITO Administration Carvedilol 12.5 mg 07/07/20 09:00 07/13/20 20:31 Coreg PO Not Given Q12HR TORITO Cinacalcet 90 mg 07/06/20 09:00 07/14/20 08:21 Sensipar PO 08/05/20 09:01 90 mg DAILY TORITO Administration Clopidogrel Bisulfate 75 mg 07/06/20 09:00 07/14/20 08:21 Plavix PO 75 mg DAILY TORITO Administration Dextrose 12.5 gm 07/05/20 14:08 07/13/20 16:01 Dextrose 50% Syringe IV PUSH 12.5 gm PRN PRN Administration Hypoglycemia Protocol Dorzolamide HCl 1 drop 07/06/20 09:00 07/14/20 08:20
--- NOTE | 2020-07-14 15:21 | PM.IMPN ---
Progress Note: A&P Assessment and Plan (1) Staphylococcus aureus bacteremia with sepsis: Code(s): A41.01 - Sepsis due to Methicillin susceptible Staphylococcus aureus Status: Acute Assessment and Plan: Blood culture growing Staph aureus methicillin sensitive. Concerning given his subcutaneous defibrillator, recent coronary stenting, and hemodialysis vascular access. It is noted he had a left upper extremity peripheral IV infiltration at recent hospitalization at [facility], Dr Nuñez suspects could be possible source and CT of arm ordered revealed cellulitis with no abscess He was initially treated with IV zosyn for presumed infectious diarrhea. Diarrhea is better and stool cultures negative Switched to IV vancomycin 07/07 and 07/08 to ancef(D#8 total antibiotics) with cultures growing MSSA and 2 of 2 of 2nd set still positive from 07/08; repeat drawn 07/12, 07/13 NGTD Echo: EF 25-30% with no vegetations seen. WBC 28K still but CRP down to 16. (2) Cellulitis of arm: Code(s): L03.119 - Cellulitis of unspecified part of limb Status: Acute Assessment and Plan: As above. (3) Hypoglycemia: Code(s): E16.2 - Hypoglycemia, unspecified Status: Resolved Assessment and Plan: Patient with persistent hypoglycemia. Patient has poor oral intake and sepsis. Blood sugars as low as 20s but maybe inaccurate since patient remained AOx4 with a glucose <10. A lab draw was 98 and a glucose from the earlobe was 132 when fingerstick was low. Continue dextrose and wean fluids if glucose able to be maintained. (4) Hypotension: Code(s): I95.9 - Hypotension, unspecified Status: Acute Assessment and Plan: BP soft intermittently. Anti-HTN meds on hold. Cortisol okay. Consider Midodrin (5) Rhabdomyolysis: Qualifiers: Rhabdomyolysis type: non-traumatic Qualified Code(s): M62.82 - Rhabdomyolysis Code(s): M62.82 - Rhabdomyolysis Status: Acute Assessment and Plan: His atorvastatin dose was recently increased from 40mg daily to 80mg daily which could have contributed to the Rhabdo. This has been stopped. TCK was up to 7100 but has trended down to 3300 today which is higher then yesterday. Continue to monitor. Continue PT/OT. Should improve tomorrow after HD (6) Diarrhea: Qualifiers: Diarrhea type: unspecified type Qualified Code(s): R19.7 - Diarrhea, unspecified Code(s): R19.7 - Diarrhea, unspecified Status: Resolved Assessment and Plan: Persistent. Stool cultures negative. Possibly related to poor oral intake and mostly liquid diet. Dietary following. Diarrhea better since oral intake improved (7) Elevated LFTs: Code(s): R79.89 - Other specified abnormal findings of blood chemistry Status: Acute Assessment and Plan: AST/ALT elevated in the setting of rhabdomyolysis or infection, however CT of the abdomen pelvis does show low attenuation of the liver adjacent to the ligamentum teres which could be possible fatty infiltration. Recommendation was given for follow-up examination. Hepatitis panel is negative. Cholelithiasis noted on CT, but no exam findings or imaging findings to suggest cholecystitis. ALT normal now and AST trending to normal. Continue to monitor. (8) Generalized weakness: Code(s): R53.1 - Weakness Status: Acute Assessment and Plan: Multifactorial may be related to renal failure, acute infection, rhabdo. Continue PT/OT (9) End-stage renal disease on hemodialysis: Code(s): N18.6 - End stage renal disease; Z99.2 - Dependence on renal dialysis Status: Chronic Assessment
[2020-07-14 17:05] LABS: Glucose Point of Care 43 (65-105)
[2020-07-14] MEDS: ceFAZolin 2 GM/D5W 50 ML 2 GM/50 ML BAG IVPB (17:10)
[2020-07-14 17:30] LABS: Glucose Point of Care 71 (65-105)
[2020-07-14] MEDS: CALCIUM GLUC 1,000 MG/NS 50 ML 1,000 MG/50 ML BAG 100 MG IVPB (18:00)
--- NOTE | 2020-07-14 19:36 | PM.PNNEP ---
Progress Note: A&P Assessment and Plan (1) ESRD (end stage renal disease): Code(s): N18.6 - End stage renal disease Status: Chronic Assessment and Plan: HD earlier today Nurse did not notify me of initiation of treatment so I did not change in to a 3 calcium bath (2) Staphylococcus aureus bacteremia with sepsis: Code(s): A41.01 - Sepsis due to Methicillin susceptible Staphylococcus aureus Status: Acute Assessment and Plan: as noted by blood cultures on [facility] id following the patient. Source of the infection possibly left upper extremity phlebitis. (3) Elevated LFTs: Code(s): R79.89 - Other specified abnormal findings of blood chemistry Status: Acute Assessment and Plan: possibly due to mild rhabdomyolysis +/- high dose statin therapy alt is now normal CK down A bit. statin on hold (4) Hypoglycemia: Code(s): E16.2 - Hypoglycemia, unspecified Status: Resolved Assessment and Plan: due to diarrhea and poor oral intake follow oral intake and blood sugars Sodium level is dropping because of the D10 W. I switched him to D5 normal saline +1 amp of D50 to still keep the sugars up but not make the sodium level dropped. He is eating better now so hopefully will be able to wean this drip off. (5) Hyponatremia: Code(s): E87.1 - Hypo-osmolality and hyponatremia Status: Acute Assessment and Plan: due to renal failure and free water intake. (6) Ischemic cardiomyopathy: Code(s): I25.5 - Ischemic cardiomyopathy Status: Acute Assessment and Plan: appears compensated fluid removal with HD as tolerated follow respiratory status and daily weights Additional Plan Hypercalcemia. The patient has a low calcium. He is on cinacalcet. Will stop this. I discussed with Dr. Cabral. He is going to given some IV calcium. We can use a 3 calcium bath in the future. His [place] sign is negative. Subjective Date/time seen: 07/14/20 19:36 Interval history: patient is Alert and feels okay. He had dialysis earlier today and did well. No tremor or seizure Exam Narrative: Exam Narrative: WDWN in NAD skin no rash head ncat lungs clear cor reg no rub abd BS+ nontender and soft ext no edema. Neurologic [place] sign negative. Objective Data Vital Signs Vital Signs: Vital Signs - 24 hr 07/13/20 20:00 07/13/20 20:16 07/13/20 20:31 Temperature 36.6 C Pulse Rate 84 69 87 Respiratory Rate 20 Blood Pressure 89/55 L Pulse Oximetry 95 07/13/20 22:37 07/13/20 23:52 07/14/20 00:00 Temperature 36.5 C Pulse Rate 83 77 Respiratory Rate 20 Blood Pressure 85/49 L Pulse Oximetry 99 96 07/14/20 02:00 07/14/20 04:00 07/14/20 04:58 Temperature 36.6 C Pulse Rate 79 69 72 Respiratory Rate 20 Blood Pressure 91/43 L Pulse Oximetry 97 07/14/20 06:00 07/14/20 08:00 07/14/20 08:20 Temperature 36.5 C Pulse Rate 73 77 74 Respiratory Rate 20 Blood Pressure 101/57 L Pulse Oximetry 100 07/14/20 08:27 07/14/20 10:00 07/14/20 11:25 Temperature Pulse Rate 77 70 Respiratory Rate 22 H Blood Pressure 91/56 L Pulse Oximetry 94 99 07/14/20 12:00 07/14/20 12:11 07/14/20 12:18 Temperature 36.4 C Pulse Rate 67 74 75 Respiratory Rate 18 Blood Pressure 104/59 L 111/58 L Pulse Oximetry 98 07/14/20 12:30 07/14/20 12:45 07/14/20 13:00 Temperature Pulse Rate 81 73 74 Respiratory Rate Blood Pressure 114/54 L 102/55 L 106/51 L Pulse Oximetry 07/14/20 13:15 07/14/20 13:30 07/14/20 14:00 Temperature Pulse Rate 87 70 85 Respiratory Rate Blood Pressure 107/50 L 98/51 L 111/44 L Pulse Oximetry 07/14/20 14:15 07/14/20 14:30 07/14/20 14:45 Temperature Pulse Rate 76 61 64 Respiratory Rate Blood Pressure 118/45 L 98/56 L 107/48 L Pulse Oximetry 07/14/20 15:00 07/14/20 15:15 07/14/20
[2020-07-14] MEDS: DEXTROSE 50% 25 GM/50 ML SYRINGE IV PUSH (20:12)
[2020-07-14 20:33] LABS: Glucose Point of Care 162 (65-105)
[2020-07-14 20:33] LABS: Glucose Point of Care 51 (65-105)
[2020-07-14 23:18] LABS: Glucose Point of Care 84 (65-105)
[2020-07-15] VITALS (16 sets, daily range): BP systolic 83–107; BP diastolic 49–72; PULSE 70–87; RESP 12–20; TEMP 35.8–36.7; O2SAT 92–100
[2020-07-15 06:21] LABS: Hematocrit 24.3 % (42.0-52.0); Hemoglobin 7.7 g/dL (14.0-18.0); Mean Corpuscular HGB Conc 31.7 g/dl (32-36); Mean Corpuscular Hemoglobin 30.7 pg (26-34); Mean Corpuscular Volume 96.8 fl (80-100); Mean Platelet Volume 12.1 fl (7.4-10.4); Platelet Count Result 140 k/mm3 (150-375); Red Blood Count 2.51 M/mm3 (4.6-6.20); Red Cell Distribution Width 16.8 % (11.5-14.5); White Blood Count 22.7 K/mm3 (4.5-10.0)
[2020-07-15] MEDS: CENTRAL LINE FLUSH 10 ML IV PUSH ×4 (06:25→21:05)
[2020-07-15 06:45] LABS: Parathyroid Intact 214.8 pg/mL (7.5-53.5)
[2020-07-15 07:44] LABS: Alanine Aminotransferase 38 U/L (4-50); Albumin Level 2.5 g/dL (3.5-5.1); Alkaline Phosphatase 265 U/L (38-126); Anion Gap 9 mmol/L (8-16); Aspartate Amino Transferase 89 U/L (17-59); Bilirubin,Total 0.4 mg/dL (0.2-1.3); Blood Urea Nitrogen 26 mg/dL (9-20); Calcium 5.7 mg/dL (8.4-10.2); Carbon Dioxide 27 mmol/L (22-30); Chloride 95 mmol/L (98-107); Creatine Kinase 1528 U/L (55-170); Estimated CRCL calculation 20 ml/min; Estimated Glomerular Filt Rate 24; Glucose 94 mg/dL (75-110); Magnesium 1.9 mg/dL (1.6-2.3); Phosphorus 2.7 mg/dL (2.5-4.5); Potassium 3.9 mmol/L (3.4-5.0); Sodium 131 mmol/L (137-145)
[2020-07-15] MEDS: ASPIRIN 81 MG ENTERIC TABLET PO (08:13)
[2020-07-15] MEDS: AMIODARONE HCL 200 MG TABLET PO (08:14)
[2020-07-15] MEDS: PANTOPRAZOLE 40 MG TABLET PO (08:14)
[2020-07-15] MEDS: CLOPIDOGREL BISULFATE 75 MG TABLET PO (08:14)
[2020-07-15] MEDS: APIXABAN 2.5 MG TABLET PO ×2 (08:14→17:04)
[2020-07-15] MEDS: DORZOLAMIDE HCL 2% OPHTH DROPS 1 DROP EACH EYE (08:15)
[2020-07-15 08:24] LABS: Glucose Point of Care 82 (65-105)
[2020-07-15] MEDS: CALCIUM GLUC 1,000 MG/NS 50 ML 1,000 MG/50 ML BAG 100 MG IVPB (10:45)
[2020-07-15] MEDS: SALINE 0.65% NAS SOLN 44 ML BTL 1 SPRAY NASAL (12:17)
[2020-07-15 12:25] LABS: SARS-CoV-2 RNA PCR Negative
[2020-07-15 12:26] LABS: Glucose Point of Care 97 (65-105)
--- NOTE | 2020-07-15 15:58 | WPDINFPN2 ---
Progress Note: A&P Assessment and Plan (1) Staphylococcus aureus bacteremia with sepsis: Code(s): A41.01 - Sepsis due to Methicillin susceptible Staphylococcus aureus Status: Acute Assessment and Plan: 1. S aureus bacteremia, suspect septic phlebitis LUE. Repeat ng 2. CRf, no U.O at baseline 3. Leukocytosis, I think due to unresolved infection at L forearm, declining REC (antibiotic #9 / 28 days tentatively) Ancef #8. Redo BCs in process. Follow WBC over time. Subjective Date/time seen: 07/15/20 15:58 Interval history: no complaints Exam Narrative: Exam Narrative: afebrile Extrem: Other: left arm no new findings Objective Data Vital Signs Vital Signs: Vital Signs - 24 hr 07/14/20 16:00 07/14/20 16:56 07/14/20 18:00 Temperature 36.6 C 36.4 C Pulse Rate 82 84 83 Respiratory Rate 18 22 H Blood Pressure 98/48 L 98/62 L Pulse Oximetry 99 93 07/14/20 20:00 07/14/20 20:03 07/14/20 22:00 Temperature 36.7 C Pulse Rate 82 86 87 Respiratory Rate 18 Blood Pressure 84/60 L Pulse Oximetry 97 07/15/20 00:00 07/15/20 02:00 07/15/20 04:00 Temperature 36.7 C Pulse Rate 84 82 86 Respiratory Rate 20 Blood Pressure 85/64 L Pulse Oximetry 97 07/15/20 05:17 07/15/20 06:00 07/15/20 07:04 Temperature 36.6 C 36.6 C Pulse Rate 84 71 76 Respiratory Rate 18 20 Blood Pressure 92/64 L 91/60 L Pulse Oximetry 97 97 07/15/20 08:00 07/15/20 08:14 07/15/20 10:00 Temperature 36.4 C L Pulse Rate 77 70 82 Respiratory Rate 18 Blood Pressure 97/55 L Pulse Oximetry 92 07/15/20 12:00 07/15/20 13:33 Temperature 35.8 C L Pulse Rate 73 87 Respiratory Rate 12 Blood Pressure 88/65 L Pulse Oximetry 100 Intake/Output Intake/Output: Intake & Output 07/12/20 07/13/20 07/14/20 07/15/20 23:59 23:59 23:59 23:59 Intake Total 1170 1360 2030 1460 Output Total 3014 0 1800 Balance -1844 2216 062 7664 Meds/Results Medications: Active Medications Generic Name Dose Route Start Last Admin Trade Name Freq PRN Reason Stop Dose Admin Acetaminophen 650 mg 07/07/20 09:21 07/13/20 04:28 Tylenol Tablet PO 650 mg Q4H PRN Administration Pain Rated 5 or Less Hydrocodone Bitart/Acetaminophen 1 tab 07/07/20 09:20 07/15/20 10:59 [place] 5-325 Mg PO 1 tab Q6H PRN Administration Pain Rated 6 or Greater Amiodarone HCl 200 mg 07/06/20 09:00 07/15/20 08:14 Pacerone PO 200 mg DAILY TORITO Administration Apixaban 2.5 mg 07/05/20 22:55 07/15/20 08:14 Eliquis PO 2.5 mg BID TORITO Administration Aspirin 81 mg 07/07/20 09:00 07/15/20 08:13 Aspirin Ec PO 81 mg QAM TOR[place]O Administration Carvedilol 12.5 mg 07/07/20 09:00 07/13/20 20:31 Coreg PO Not Given Q12HR [facility] Clopidogrel Bisulfate 75 mg 07/06/20 09:00 07/15/20 08:14 Plavix PO 75 mg DAILY TORITO Administration Dextrose 12.5 gm 07/05/20 14:08 07/14/20 20:12 Dextrose 50% Syringe IV PUSH 12.5 gm PRN PRN Administration Hypoglycemia Protocol Dorzolamide HCl 1 drop 07/06/20 09:00 07/15/20 08:15 Trusopt EACH EYE 1 drop DAILY TORITO Administration Fluticasone Propionate 1 spray 07/15/20 21:00 Flonase 0.05% Nasal [place] NASAL Q12HR [facility] Glucagon 1 mg 07/05/20 14:08 Glucagon For Inj IM PRN PRN Hypoglycemia Protocol Glucose 15 gm 07/05/20 14:08 07/13/20 12:57 Glutose 15 PO 15 gm PRN PRN Administration Hypoglycemia Protocol Albumin Human 50 mls @ 999 mls/hr 07/06/20 00:44 07/12/20 09:43 Albutein IVPB 08/05/20 00:45 999 mls/hr Q10M PRN Administration HYPOTENSION Cefazolin Sodium 2 gm in 50 mls @ 100 mls/hr 07/08/20 17:00 07/14/20 19:44 Ancef 2 Gm/D5w 50 Ml IVPB Infused DAILY@1700 [place]ORITO Infusion Dextrose 100 ml/ Dextrose/ 1,100 mls @ 50 mls/hr 07/14/20 13:00 07/15/20 14:23 Sodium Chloride IV CONT 50 mls/hr .Q22H [place]OR[place]O Administration Lisinop
[2020-07-15 16:42] LABS: Glucose Point of Care 78 (65-105)
[2020-07-15] MEDS: ceFAZolin 2 GM/D5W 50 ML 2 GM/50 ML BAG IVPB (17:04)
--- NOTE | 2020-07-15 17:07 | P.PNNP_ITS ---
Progress Note: A&P Assessment and Plan (1) ESRD (end stage renal disease): Code(s): N18.6 - End stage renal disease Status: Chronic Assessment and Plan: * HD due tomorrow. (2) Staphylococcus aureus bacteremia with sepsis: Code(s): A41.01 - Sepsis due to Methicillin susceptible Staphylococcus aureus Status: Acute Assessment and Plan: * as noted by blood cultures * on ancef * Dr. saglado is seeing the patient. * Source of the infection possibly left upper extremity phlebitis. (3) Elevated LFTs: Code(s): R79.89 - Other specified abnormal findings of blood chemistry Status: Acute Assessment and Plan: * possibly due to mild rhabdomyolysis +/- high dose statin therapy * alt is now normal * CK Is better at 1528 * statin on hold (4) Hypoglycemia: Code(s): E16.2 - Hypoglycemia, unspecified Status: Resolved Assessment and Plan: * due to diarrhea and poor oral intake * follow oral intake and blood sugars * Sodium level is Better. * On less of the D10 normal saline. * Eating better. (5) Hyponatremia: Code(s): E87.1 - Hypo-osmolality and hyponatremia Status: Acute Assessment and Plan: * due to renal failure and free water intake. (6) Ischemic cardiomyopathy: Code(s): I25.5 - Ischemic cardiomyopathy Status: Acute Assessment and Plan: * appears compensated * fluid removal with HD as tolerated * follow respiratory status and daily weights Additional Plan Hypercalcemia. This is better with a calcium supplement. Subjective Date/time seen: 07/15/20 17:07 Interval history: Patient feels good. He says this is the best he has felt so far this hospital stay. No chest pain or shortness of breath. Still not eating all that well. Due for dialysis tomorrow Review of Systems Cardiovascular: Cardiovascular: Reports no additional cardiovascular complaints Respiratory: Respiratory: Reports no additional respiratory complaints Gastrointestinal: Gastrointestinal: Reports no additional gastrointestinal complaints Genitourinary: Genitourinary: Reports no additional male genitourinary complaints Exam Narrative: Exam Narrative: well developed well-nourished gentleman lying in hospital bed in no acute distress Skin is warm and dry without rash Head normocephalic atraumatic Lungs are clear Heart regular rate rhythm no rub or gallop Abdomen bowel sounds positive soft nontender Extremities no edema Objective Data Vital Signs Vital Signs: Vital Signs - 24 hr 07/14/20 18:00 07/14/20 20:00 07/14/20 20:03 Temperature 36.7 C Pulse Rate 83 82 86 Respiratory Rate 18 Blood Pressure 84/60 L Pulse Oximetry 97 07/14/20 22:00 07/15/20 00:00 07/15/20 02:00 Temperature 36.7 C Pulse Rate 87 84 82 Respiratory Rate 20 Blood Pressure 85/64 L Pulse Oximetry 97 07/15/20 04:00 07/15/20 05:17 07/15/20 06:00 Temperature 36.6 C Pulse Rate 86 84 71 Respiratory Rate 18 Blood Pressure 92/64 L Pulse Oximetry 97 07/15/20 07:04 07/15/20 08:00 07/15/20 08:14 Temperature 36.6 C 36.4 C L
--- NOTE | 2020-07-15 17:07 | PM.PNNEP ---
Progress Note: A&P Assessment and Plan (1) ESRD (end stage renal disease): Code(s): N18.6 - End stage renal disease Status: Chronic Assessment and Plan: HD due tomorrow. (2) Staphylococcus aureus bacteremia with sepsis: Code(s): A41.01 - Sepsis due to Methicillin susceptible Staphylococcus aureus Status: Acute Assessment and Plan: as noted by blood cultures on ancef Dr. salgado is seeing the patient. Source of the infection possibly left upper extremity phlebitis. (3) Elevated LFTs: Code(s): R79.89 - Other specified abnormal findings of blood chemistry Status: Acute Assessment and Plan: possibly due to mild rhabdomyolysis +/- high dose statin therapy alt is now normal CK Is better at 1528 statin on hold (4) Hypoglycemia: Code(s): E16.2 - Hypoglycemia, unspecified Status: Resolved Assessment and Plan: due to diarrhea and poor oral intake follow oral intake and blood sugars Sodium level is Better. On less of the D10 normal saline. Eating better. (5) Hyponatremia: Code(s): E87.1 - Hypo-osmolality and hyponatremia Status: Acute Assessment and Plan: due to renal failure and free water intake. (6) Ischemic cardiomyopathy: Code(s): I25.5 - Ischemic cardiomyopathy Status: Acute Assessment and Plan: appears compensated fluid removal with HD as tolerated follow respiratory status and daily weights Additional Plan Hypercalcemia. This is better with a calcium supplement. Subjective Date/time seen: 07/15/20 17:07 Interval history: Patient feels good. He says this is the best he has felt so far this hospital stay. No chest pain or shortness of breath. Still not eating all that well. Due for dialysis tomorrow Review of Systems Cardiovascular: Cardiovascular: Reports no additional cardiovascular complaints Respiratory: Respiratory: Reports no additional respiratory complaints Gastrointestinal: Gastrointestinal: Reports no additional gastrointestinal complaints Genitourinary: Genitourinary: Reports no additional male genitourinary complaints Exam Narrative: Exam Narrative: well developed well-nourished gentleman lying in hospital bed in no acute distress Skin is warm and dry without rash Head normocephalic atraumatic Lungs are clear Heart regular rate rhythm no rub or gallop Abdomen bowel sounds positive soft nontender Extremities no edema Objective Data Vital Signs Vital Signs: Vital Signs - 24 hr 07/14/20 18:00 07/14/20 20:00 07/14/20 20:03 Temperature 36.7 C Pulse Rate 83 82 86 Respiratory Rate 18 Blood Pressure 84/60 L Pulse Oximetry 97 07/14/20 22:00 07/15/20 00:00 07/15/20 02:00 Temperature 36.7 C Pulse Rate 87 84 82 Respiratory Rate 20 Blood Pressure 85/64 L Pulse Oximetry 97 07/15/20 04:00 07/15/20 05:17 07/15/20 06:00 Temperature 36.6 C Pulse Rate 86 84 71 Respiratory Rate 18 Blood Pressure 92/64 L Pulse Oximetry 97 07/15/20 07:04 07/15/20 08:00 07/15/20 08:14 Temperature 36.6 C 36.4 C L Pulse Rate 76 77 70 Respiratory Rate 20 18 Blood Pressure 91/60 L 97/55 L Pulse Oximetry 97 92 07/15/20 10:00 07/15/20 12:00 07/15/20 13:33 Temperature 35.8 C L Pulse Rate 82 73 87 Respiratory Rate 12 Blood Pressure 88/65 L Pulse Oximetry 100 07/15/20 16:00 Temperature Pulse Rate 83 Respiratory Rate Blood Pressure Pulse Oximetry Intake/Output Intake/Output: Intake & Output 07/12/20 07/13/20 07/14/20 07/15/20 23:59 23:59 23:59 23:59 Intake Total 1170 1360 2030 1460 Output Total 3014 0 1800 Balance -1844 9552 207 1373 Meds/Results Medications: Active Medications Generic Name Dose Route Start Last Admin Trade Name Freq PRN Reason Stop Dose Admin Acetaminophen 650 mg 07/07/20 09:21 07/13/20 04:28 Tylenol Tablet PO 65
--- NOTE | 2020-07-15 18:12 | PM.IMPN ---
Progress Note: A&P Assessment and Plan (1) Staphylococcus aureus bacteremia with sepsis: Code(s): A41.01 - Sepsis due to Methicillin susceptible Staphylococcus aureus Status: Acute Assessment and Plan: Blood culture growing Staph aureus methicillin sensitive. Concerning given his subcutaneous defibrillator, recent coronary stenting, and hemodialysis vascular access. It is noted he had a left upper extremity peripheral IV infiltration at recent hospitalization at [facility] and it is suspected to be the source. CT of left arm 07/09 revealed cellulitis with no abscess He was initially treated with IV zosyn for presumed infectious diarrhea. Stool cultures negative. Diarrhea resolved. Switched to IV vancomycin 07/07 and 07/08 to Ancef (D#9 total antibiotics) with blood cultures growing MSSA (07/05 and 07/08). Repeat Cx drawn 07/12, 07/13 NGTD Echo: EF 25-30% with no vegetations seen. WBC 22.7K now and patietn feeling better. (2) Cellulitis of arm: Code(s): L03.119 - Cellulitis of unspecified part of limb Status: Acute Assessment and Plan: As above. (3) Hypoglycemia: Code(s): E16.2 - Hypoglycemia, unspecified Status: Resolved Assessment and Plan: Patient with persistent hypoglycemia. Patient has poor oral intake and sepsis. Blood sugars as low as 20s but maybe inaccurate since patient remained AOx4 with a glucose <10. A lab draw was 98 and a glucose from the earlobe was 132 when fingerstick was low. Patient eating better. Weaning off the dextrose as glucose allows. (4) Hypotension: Code(s): I95.9 - Hypotension, unspecified Status: Acute Assessment and Plan: BP still soft intermittently. Anti-HTN meds on hold. Cortisol okay. Will add Midodrin (5) Rhabdomyolysis: Qualifiers: Rhabdomyolysis type: non-traumatic Qualified Code(s): M62.82 - Rhabdomyolysis Code(s): M62.82 - Rhabdomyolysis Status: Acute Assessment and Plan: His atorvastatin dose was recently increased from 40mg daily to 80mg daily which could have contributed to the Rhabdo. This has been stopped. TCK was up to 7100 but has trended down to 1500 today. Continue to monitor. Continue PT/OT. (6) Diarrhea: Qualifiers: Diarrhea type: unspecified type Qualified Code(s): R19.7 - Diarrhea, unspecified Code(s): R19.7 - Diarrhea, unspecified Status: Resolved Assessment and Plan: Better now that he is eating better. Stool cultures negative. Possibly related to poor oral intake and mostly liquid diet. Dietary following. Continue to monitor. (7) Elevated LFTs: Code(s): R79.89 - Other specified abnormal findings of blood chemistry Status: Acute Assessment and Plan: AST/ALT elevated in the setting of rhabdomyolysis or infection, however CT of the abdomen pelvis does show low attenuation of the liver adjacent to the ligamentum teres which could be possible fatty infiltration. Recommendation was given for follow-up examination. Hepatitis panel is negative. Cholelithiasis noted on CT, but no exam findings or imaging findings to suggest cholecystitis. ALT normal now and AST trending to normal. Continue to monitor. (8) Generalized weakness: Code(s): R53.1 - Weakness Status: Acute Assessment and Plan: Multifactorial may be related to renal failure, acute infection, rhabdo. Continue PT/OT (9) End-stage renal disease on hemodialysis: Code(s): N18.6 - End stage renal disease; Z99.2 - Dependence on renal dialysis Status: Chronic Assessment and Plan: Patient with ESRD. 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
[2020-07-15] MEDS: MIDODRINE HCL 2.5 MG TABLET PO (19:38)
[2020-07-15] MEDS: FLUTICASONE PROPIONATE 0.05% NA SPR 16 GM BTL (*BKC) 1 SPRAY NASAL (19:39)
[2020-07-15 20:31] LABS: Glucose Point of Care 90 (65-105)
[2020-07-15 23:54] LABS: Glucose Point of Care 112 (65-105)
[2020-07-16] VITALS (32 sets, daily range): BP systolic 100–147; BP diastolic 44–70; PULSE 63–116; RESP 18–22; TEMP 35.7–37; O2SAT 96–100
[2020-07-16 04:15] LABS: Glucose Point of Care 85 (65-105)
[2020-07-16] MEDS: CENTRAL LINE FLUSH 10 ML IV PUSH ×4 (04:21→22:34)
[2020-07-16 04:38] LABS: Basophils Absolute Auto 0.1 K/mm3 (0.0-0.1); Basophils Percent Auto 0.2 % (0.2-1.2); Eosinophils Absolute Auto 0.1 K/mm3 (0-0.3); Eosinophils Percent Auto 0.5 % (0-4.4); Hematocrit 23.9 % (42.0-52.0); Hemoglobin 7.4 g/dL (14.0-18.0); Immature Granulocyte Absolute 0.56 K/mm3 (0.00-0.031); Immature Granulocyte Percent A 2.6 % (0-0.5); Lymphocytes Absolute Auto 0.81 K/mm3 (0.9-3.2); Lymphocytes Percent Auto 3.8 % (18.3-44.2); Mean Corpuscular Hemoglobin 30.6 pg (26-34); Mean Corpuscular Volume 98.8 fl (80-100); Mean Platelet Volume 11.4 fl (7.4-10.4); Monocytes Absolute Auto 1.6 K/mm3 (0.1-0.6); Monocytes Percent Auto 7.6 % (2.6-8.5); Neutrophils Absolute Auto 18.1 K/mm3 (1.3-6.7); Neutrophils Percent Auto 85.3 % (45.5-73.1); Nucleated Red Blood Cells Perc 0.1 % (0.0-0.2); Platelet Count Result 129 k/mm3 (150-375); Red Blood Count 2.42 M/mm3 (4.6-6.20); Red Cell Distribution Width 17.1 % (11.5-14.5); White Blood Count 21.2 K/mm3 (4.5-10.0)
[2020-07-16 05:01] LABS: Albumin Level 2.6 g/dL (3.5-5.1); Anion Gap 8 mmol/L (8-16); Blood Urea Nitrogen 38 mg/dL (9-20); Calcium 6.1 mg/dL (8.4-10.2); Carbon Dioxide 27 mmol/L (22-30); Chloride 99 mmol/L (98-107); Creatine Kinase 1282 U/L (55-170); Estimated CRCL calculation 14 ml/min; Estimated Glomerular Filt Rate 15; Glucose 99 mg/dL (75-110); Phosphorus 3.1 mg/dL (2.5-4.5); Potassium 3.6 mmol/L (3.4-5.0); Sodium 134 mmol/L (137-145)
[2020-07-16 05:06] LABS: Hypochromasia 2+ (NORMAL); Macrocytosis 1+ (NORMAL); Microcytosis 1+ (NORMAL)
[2020-07-16] MEDS: FLUTICASONE PROPIONATE 0.05% NA SPR 16 GM BTL (*BKC) 1 SPRAY NASAL ×2 (08:19→22:33)
[2020-07-16] MEDS: CLOPIDOGREL BISULFATE 75 MG TABLET PO (08:19)
[2020-07-16] MEDS: ASPIRIN 81 MG ENTERIC TABLET PO (08:19)
[2020-07-16] MEDS: AMIODARONE HCL 200 MG TABLET PO (08:19)
[2020-07-16] MEDS: APIXABAN 2.5 MG TABLET PO ×2 (08:19→18:09)
[2020-07-16] MEDS: DORZOLAMIDE HCL 2% OPHTH DROPS 1 DROP EACH EYE (08:19)
[2020-07-16] MEDS: MIDODRINE HCL 2.5 MG TABLET PO ×3 (08:20→18:09)
[2020-07-16] MEDS: PANTOPRAZOLE 40 MG TABLET PO (08:20)
[2020-07-16] MEDS: SODIUM CHLORIDE 0.9% IV 2,000 ML 400 ML (08:39)
[2020-07-16 09:35] LABS: Glucose Point of Care 104 (65-105)
--- NOTE | 2020-07-16 10:54 | PCDIET ---
Nutrition Follow-Up Complete: Nutrition Diagnosis: Inadequate oral intake R/T reduced appetite and diarrhea as evidenced by wt loss of 2-13lbs. Nutrition Goal: Intake of 50% of meals and supplements to help maintain wt Goal met. Patient has consumed 90-100% of most meals since 07/14/20. Recommend continuing renal dialysis diet with Nepro BID. Would consider checking ionized calcium and ordering replacement, if appropriate/needed. Note: Patient out of room for dialysis at time of visit. Last recorded weight is 69 kg which is increased from last review. +I/O. HD today. Bowel Motility: BM x 1 today. Labs Reviewed: Hgb (7.4), Hct (23.9), BUN (38), Cr (4.7), Na (134), Alb (2.6), [place] Ca (7.22) Meds Noted: [place], Ancef, Albumin, Midodrine, Protonix Additional Notes: Left hip and coccyx with documented friction. Multiple areas of bruising also noted. Will continue to monitor with same goal. Nutrition Monitoring and Evaluation: Follow up every 5 days.
--- NOTE | 2020-07-16 11:26 | PCOTNOTE ---
Attempted to see patient this am, however patient off floor for dialysis.
--- NOTE | 2020-07-16 13:16 | WPDINFPN2 ---
Progress Note: A&P Assessment and Plan (1) Staphylococcus aureus bacteremia with sepsis: Code(s): A41.01 - Sepsis due to Methicillin susceptible Staphylococcus aureus Status: Acute Assessment and Plan: 1. S aureus bacteremia, suspect septic phlebitis LUE. Appears to have microbiologic cure 2. CRf, no U.O at baseline 3. Leukocytosis, I think due to unresolved infection at L forearm, declining slowly REC (antibiotic # days) Ancef #9, through 08/03/20. Follow WBC over time. Ok discharge planning Subjective Date/time seen: 07/16/20 13:16 Interval history: just finished HD. No complaints Exam Narrative: Exam Narrative: afebrile Const: General: no acute distress Resp: Effort & Inspection: normal respiratory effort Auscultation: clear to auscultation bilaterally Cardio: Rate: regular rate Rhythm: regular rhythm Heart sounds: no gallops, no murmurs and no rubs GI: Inspection: non-distended GI Palp: Yes Soft to palpation and No Tenderness to palpation present (GI) Skin: General skin exam: normal color and no rashes or lesions noted Extrem: Other: left arm stable findings with edema ecchymosis, no tenderness and no sinus tracts and nor drainage Objective Data Vital Signs Vital Signs: Vital Signs - 24 hr 07/15/20 13:33 07/15/20 16:00 07/15/20 17:48 Temperature 35.9 C L Pulse Rate 87 81 86 Respiratory Rate 12 Blood Pressure 107/72 Pulse Oximetry 100 07/15/20 20:00 07/15/20 22:00 07/15/20 23:39 Temperature 36.4 C L 36.4 C L Pulse Rate 76 81 82 Respiratory Rate 18 16 Blood Pressure 100/66 83/49 L Pulse Oximetry 100 100 07/16/20 00:00 07/16/20 02:00 07/16/20 04:00 Temperature 36.0 C L Pulse Rate 87 80 84 Respiratory Rate 18 Blood Pressure 103/70 Pulse Oximetry 96 07/16/20 06:00 07/16/20 08:00 07/16/20 08:19 Temperature Pulse Rate 82 91 91 Respiratory Rate Blood Pressure Pulse Oximetry 07/16/20 08:30 07/16/20 08:39 07/16/20 08:45 Temperature 36.7 C Pulse Rate 78 78 67 Respiratory Rate 18 Blood Pressure 110/54 L 114/50 L 108/56 L Pulse Oximetry 07/16/20 08:50 07/16/20 09:00 07/16/20 09:15 Temperature 35.7 C L Pulse Rate 86 76 79 Respiratory Rate 22 H Blood Pressure 110/51 L 116/49 L 112/47 L Pulse Oximetry 99 07/16/20 09:30 07/16/20 09:45 07/16/20 10:00 Temperature Pulse Rate 79 103 H 81 Respiratory Rate Blood Pressure 120/64 108/67 106/57 L Pulse Oximetry 07/16/20 10:17 07/16/20 10:30 07/16/20 10:45 Temperature Pulse Rate 66 81 81 Respiratory Rate Blood Pressure 130/59 L 112/61 112/61 Pulse Oximetry 07/16/20 11:00 07/16/20 11:15 07/16/20 11:30 Temperature Pulse Rate 89 89 116 H Respiratory Rate Blood Pressure 104/44 L 137/49 L 130/55 L Pulse Oximetry 07/16/20 11:45 07/16/20 12:00 07/16/20 12:14 Temperature Pulse Rate 78 86 85 Respiratory Rate Blood Pressure 116/45 L 139/48 L 122/47 L Pulse Oximetry 07/16/20 12:37 Temperature 36.6 C Pulse Rate 89 Respiratory Rate 18 Blood Pressure 104/47 L Pulse Oximetry Intake/Output Intake/Output: Intake & Output 07/13/20 07/14/20 07/15/20 07/16/20 23:59 23:59 23:59 23:59 Intake Total 1360 2030 1560 720 Output Total 0 1800 0 2000 Balance 7482 735 6825 -1280 Meds/Results Medications: Active Medications Generic Name Dose Route Start Last Admin Trade Name Freq PRN Reason Stop Dose Admin Acetaminophen 650 mg 07/07/20 09:21 07/13/20 04:28 Tylenol Tablet PO 650 mg Q4H PRN Administration Pain Rated 5 or Less Hydrocodone Bitart/Acetaminophen 1 tab 07/07/20 09:20 07/15/20 19:38 [place] 5-325 Mg PO 1 tab Q6H PRN Administration Pain Rated 6 or Greater Amiodarone HCl 200 mg 07/06/20 09:00 07/16/20 08:19 Pacerone PO 200 mg DAILY TORITO Administration Apixaban 2.5 mg 07/05/20 22:55 07/16/20 08:19 Eliquis PO 2.5 mg BID TORITO Administration As
[2020-07-16 15:04] LABS: Glucose Point of Care 94 (65-105)
[2020-07-16] MEDS: ceFAZolin 2 GM/D5W 50 ML 2 GM/50 ML BAG IVPB (18:20)
--- NOTE | 2020-07-16 21:19 | PM.IMPN ---
Progress Note: A&P Assessment and Plan (1) Staphylococcus aureus bacteremia with sepsis: Code(s): A41.01 - Sepsis due to Methicillin susceptible Staphylococcus aureus Status: Acute Assessment and Plan: Blood culture growing Staph aureus methicillin sensitive. Concerning given his subcutaneous defibrillator, recent coronary stenting, and hemodialysis vascular access. It is noted he had a left upper extremity peripheral IV infiltration at recent hospitalization at [facility] and it is suspected to be the source. CT of left arm 07/09 revealed cellulitis with no abscess. He was initially treated with IV zosyn given the presumed infectious diarrhea but stool cultures negative. Diarrhea resolved. Switched to IV vancomycin 07/07 and 07/08 to Ancef (D#10 total antibiotics) with blood cultures growing MSSA (07/05 and 07/08). Repeat Cx drawn 07/12, 07/13 NGTD. Echo: EF 25-30% with no vegetations seen. WBC 21K now and patient feeling better. (2) Cellulitis of arm: Code(s): L03.119 - Cellulitis of unspecified part of limb Status: Acute Assessment and Plan: As above. (3) Hypoglycemia: Code(s): E16.2 - Hypoglycemia, unspecified Status: Resolved Assessment and Plan: Patient with persistent hypoglycemia. Patient has poor oral intake and sepsis. Blood sugars as low as 20s but maybe inaccurate since patient remained AOx4 with a glucose <10. A lab draw was 98 and a glucose from the earlobe was 132 when fingerstick was low. Patient eating better. Weaning off the dextrose as glucose allows. (4) Hypotension: Code(s): I95.9 - Hypotension, unspecified Status: Acute Assessment and Plan: BP still soft intermittently but better. Anti-HTN meds on hold. Cortisol okay. Continue Midodrin. (5) Rhabdomyolysis: Qualifiers: Rhabdomyolysis type: non-traumatic Qualified Code(s): M62.82 - Rhabdomyolysis Code(s): M62.82 - Rhabdomyolysis Status: Acute Assessment and Plan: His atorvastatin dose was recently increased from 40mg daily to 80mg daily which could have contributed to the Rhabdo. This has been stopped. TCK was up to 7100 but has trended down to 1280 today. Continue to monitor. Continue PT/OT. (6) Diarrhea: Qualifiers: Diarrhea type: unspecified type Qualified Code(s): R19.7 - Diarrhea, unspecified Code(s): R19.7 - Diarrhea, unspecified Status: Resolved Assessment and Plan: Better now that he is eating better. Stool cultures negative. Possibly related to poor oral intake and mostly liquid diet. Dietary following. Continue to monitor. (7) Elevated LFTs: Code(s): R79.89 - Other specified abnormal findings of blood chemistry Status: Acute Assessment and Plan: AST/ALT elevated in the setting of rhabdomyolysis or infection, however CT of the abdomen pelvis does show low attenuation of the liver adjacent to the ligamentum teres which could be possible fatty infiltration. Recommendation was given for follow-up examination. Hepatitis panel is negative. Cholelithiasis noted on CT, but no exam findings or imaging findings to suggest cholecystitis. ALT normal now and AST trending to normal. Continue to monitor. (8) Generalized weakness: Code(s): R53.1 - Weakness Status: Acute Assessment and Plan: Multifactorial may be related to renal failure, acute infection, rhabdo. Continue PT/OT. Bedrest while Femoral line in place. (9) End-stage renal disease on hemodialysis: Code(s): N18.6 - End stage renal disease; Z99.2 - Dependence on renal dialysis Status: Chronic Assessment and Plan: Patient
--- NOTE | 2020-07-16 21:25 | P.PNNP_ITS ---
Progress Note: A&P Assessment and Plan (1) ESRD (end stage renal disease): Code(s): N18.6 - End stage renal disease Status: Chronic Assessment and Plan: * HD done earlier today (2) Staphylococcus aureus bacteremia with sepsis: Code(s): A41.01 - Sepsis due to Methicillin susceptible Staphylococcus aureus Status: Acute Assessment and Plan: * MSSA on 07/05, 07/08 * negative on 07/12,15 * on ancef * Dr. salgado is seeing the patient. * Source of the infection possibly left upper extremity phlebitis. (3) Elevated LFTs: Code(s): R79.89 - Other specified abnormal findings of blood chemistry Status: Acute Assessment and Plan: * possibly due to mild rhabdomyolysis +/- high dose statin therapy * alt is now normal * CK is gradually better * statin on hold. (4) Hypoglycemia: Code(s): E16.2 - Hypoglycemia, unspecified Status: Resolved Assessment and Plan: * sugars 78 to 112 * due to diarrhea and poor oral intake * could he have subtle liver disease as well? * follow oral intake and blood sugars * Sodium level continues to improve * On less of the D10 normal saline. * Eating better. (5) Hyponatremia: Code(s): E87.1 - Hypo-osmolality and hyponatremia Status: Acute Assessment and Plan: * due to renal failure and free water intake. (6) Ischemic cardiomyopathy: Code(s): I25.5 - Ischemic cardiomyopathy Status: Acute Assessment and Plan: * appears compensated * fluid removal with HD as tolerated * follow respiratory status and daily weights Additional Plan Hypercalcemia. This is better with a calcium supplement. Subjective Date/time seen: 07/16/20 21:25 Interval history: Patient feels good. Just finished dialysis No chest pain or shortness of breath. Review of Systems Cardiovascular: Cardiovascular: Reports no additional cardiovascular complaints Respiratory: Respiratory: Reports no additional respiratory complaints Gastrointestinal: Gastrointestinal: Reports no additional gastrointestinal complaints Genitourinary: Genitourinary: Reports no additional male genitourinary complaints Exam Narrative: Exam Narrative: well developed well-nourished gentleman lying in hospital bed in no acute distress Skin no rash Head normocephalic atraumatic Lungs are clear to auscultation Heart regular rate rhythm no rub or gallop Abdomen bowel sounds positive soft nontender Extremities no edema and no cyanosis Objective Data Vital Signs Vital Signs: Vital Signs - 24 hr 07/15/20 22:00 07/15/20 23:39 07/16/20 00:00 Temperature 36.4 C L Pulse Rate 81 82 87 Respiratory Rate 16 Blood Pressure 83/49 L Pulse Oximetry 100 07/16/20 02:00 07/16/20 04:00 07/16/20 06:00 Temperature 36.0 C L Pulse Rate 80 84 82 Respiratory Rate 18 Blood Pressure 103/70 Pulse Oximetry 96 07/16/20 08:00 07/16/20 08:19 07/16/20 08:30 Temperature 36.7 C Pulse Rate 91 91 78 Respiratory Rate 18 Blood Pressure 110/54 L Pulse Oximetry 07/16/20 08:39 07/16/20 08:45 07/16/20 08:50 Temperature
--- NOTE | 2020-07-16 21:25 | PM.PNNEP ---
Progress Note: A&P Assessment and Plan (1) ESRD (end stage renal disease): Code(s): N18.6 - End stage renal disease Status: Chronic Assessment and Plan: HD done earlier today (2) Staphylococcus aureus bacteremia with sepsis: Code(s): A41.01 - Sepsis due to Methicillin susceptible Staphylococcus aureus Status: Acute Assessment and Plan: MSSA on 07/05, 07/08 negative on 07/12,[address] salgado is seeing the patient. Source of the infection possibly left upper extremity phlebitis. (3) Elevated LFTs: Code(s): R79.89 - Other specified abnormal findings of blood chemistry Status: Acute Assessment and Plan: possibly due to mild rhabdomyolysis +/- high dose statin therapy alt is now normal CK is gradually better statin on hold. (4) Hypoglycemia: Code(s): E16.2 - Hypoglycemia, unspecified Status: Resolved Assessment and Plan: sugars 78 to 112 due to diarrhea and poor oral intake could he have subtle liver disease as well? follow oral intake and blood sugars Sodium level continues to improve On less of the D10 normal saline. Eating better. (5) Hyponatremia: Code(s): E87.1 - Hypo-osmolality and hyponatremia Status: Acute Assessment and Plan: due to renal failure and free water intake. (6) Ischemic cardiomyopathy: Code(s): I25.5 - Ischemic cardiomyopathy Status: Acute Assessment and Plan: appears compensated fluid removal with HD as tolerated follow respiratory status and daily weights Additional Plan Hypercalcemia. This is better with a calcium supplement. Subjective Date/time seen: 07/16/20 21:25 Interval history: Patient feels good. Just finished dialysis No chest pain or shortness of breath. Review of Systems Cardiovascular: Cardiovascular: Reports no additional cardiovascular complaints Respiratory: Respiratory: Reports no additional respiratory complaints Gastrointestinal: Gastrointestinal: Reports no additional gastrointestinal complaints Genitourinary: Genitourinary: Reports no additional male genitourinary complaints Exam Narrative: Exam Narrative: well developed well-nourished gentleman lying in hospital bed in no acute distress Skin no rash Head normocephalic atraumatic Lungs are clear to auscultation Heart regular rate rhythm no rub or gallop Abdomen bowel sounds positive soft nontender Extremities no edema and no cyanosis Objective Data Vital Signs Vital Signs: Vital Signs - 24 hr 07/15/20 22:00 07/15/20 23:39 07/16/20 00:00 Temperature 36.4 C L Pulse Rate 81 82 87 Respiratory Rate 16 Blood Pressure 83/49 L Pulse Oximetry 100 07/16/20 02:00 07/16/20 04:00 07/16/20 06:00 Temperature 36.0 C L Pulse Rate 80 84 82 Respiratory Rate 18 Blood Pressure 103/70 Pulse Oximetry 96 07/16/20 08:00 07/16/20 08:19 07/16/20 08:30 Temperature 36.7 C Pulse Rate 91 91 78 Respiratory Rate 18 Blood Pressure 110/54 L Pulse Oximetry 07/16/20 08:39 07/16/20 08:45 07/16/20 08:50 Temperature 35.7 C L Pulse Rate 78 67 86 Respiratory Rate 22 H Blood Pressure 114/50 L 108/56 L 110/51 L Pulse Oximetry 99 07/16/20 09:00 07/16/20 09:15 07/16/20 09:30 Temperature Pulse Rate 76 79 79 Respiratory Rate Blood Pressure 116/49 L 112/47 L 120/64 Pulse Oximetry 07/16/20 09:45 07/16/20 10:00 07/16/20 10:17 Temperature Pulse Rate 103 H 81 66 Respiratory Rate Blood Pressure 108/67 106/57 L 130/59 L Pulse Oximetry 07/16/20 10:30 07/16/20 10:45 07/16/20 11:00 Temperature Pulse Rate 81 81 89 Respiratory Rate Blood Pressure 112/61 112/61 104/44 L Pulse Oximetry 07/16/20 11:15 07/16/20 11:30 07/16/20 11:45 Temperature Pulse Rate 89 116 H 78 Respiratory Rate Blood Pressure 137/49 L 130/55 L 116/45 L Pulse Oximetry 0
[2020-07-16] MEDS: carvediloL 3.125 MG TABLET PO (22:33)
[2020-07-17] VITALS (24 sets, daily range): BP systolic 90–127; BP diastolic 59–74; PULSE 74–91; RESP 15–20; TEMP 35.9–36.6; O2SAT 92–100
[2020-07-17 00:29] LABS: Glucose Point of Care 119 (65-105)
[2020-07-17 04:33] LABS: Glucose Point of Care 105 (65-105)
[2020-07-17 06:22] LABS: Hematocrit 23.2 % (42.0-52.0); Mean Corpuscular HGB Conc 29.7 g/dl (32-36); Mean Corpuscular Hemoglobin 29.6 pg (26-34); Mean Corpuscular Volume 99.6 fl (80-100); Mean Platelet Volume 11.9 fl (7.4-10.4); Platelet Count Result 122 k/mm3 (150-375); Red Blood Count 2.33 M/mm3 (4.6-6.20); Red Cell Distribution Width 17.1 % (11.5-14.5); White Blood Count 17.7 K/mm3 (4.5-10.0)
[2020-07-17 06:27] LABS: Hemoglobin 6.9 g/dL (14.0-18.0)
[2020-07-17 06:30] LABS: Albumin Level 2.7 g/dL (3.5-5.1); Anion Gap 6 mmol/L (8-16); Blood Urea Nitrogen 38 mg/dL (9-20); Calcium 7.3 mg/dL (8.4-10.2); Carbon Dioxide 32 mmol/L (22-30); Chloride 98 mmol/L (98-107); Creatine Kinase 749 U/L (55-170); Estimated CRCL calculation 21 ml/min; Estimated Glomerular Filt Rate 23; Glucose 100 mg/dL (75-110); Phosphorus 2.9 mg/dL (2.5-4.5); Sodium 136 mmol/L (137-145)
[2020-07-17] MEDS: CENTRAL LINE FLUSH 10 ML IV PUSH ×4 (07:00→21:13)
[2020-07-17] MEDS: AMIODARONE HCL 200 MG TABLET PO (08:21)
[2020-07-17] MEDS: carvediloL 3.125 MG TABLET PO ×2 (08:22→21:12)
[2020-07-17] MEDS: ASPIRIN 81 MG ENTERIC TABLET PO (08:22)
[2020-07-17] MEDS: DORZOLAMIDE HCL 2% OPHTH DROPS 1 DROP EACH EYE (08:22)
[2020-07-17] MEDS: CLOPIDOGREL BISULFATE 75 MG TABLET PO (08:22)
[2020-07-17] MEDS: APIXABAN 2.5 MG TABLET PO ×2 (08:22→17:25)
[2020-07-17] MEDS: FLUTICASONE PROPIONATE 0.05% NA SPR 16 GM BTL (*BKC) 1 SPRAY NASAL ×2 (08:22→21:13)
[2020-07-17] MEDS: PANTOPRAZOLE 40 MG TABLET PO (08:23)
[2020-07-17] MEDS: MIDODRINE HCL 2.5 MG TABLET PO ×3 (08:23→17:25)
[2020-07-17 08:54] LABS: Glucose Point of Care 87 (65-105)
[2020-07-17] MEDS: ACETAMINOPHEN 325 MG TABLET 650 MG PO (09:47)
--- NOTE | 2020-07-17 11:32 | PM.IMPN ---
Progress Note: A&P Assessment and Plan (1) Staphylococcus aureus bacteremia with sepsis: Code(s): A41.01 - Sepsis due to Methicillin susceptible Staphylococcus aureus Status: Acute Assessment and Plan: Blood culture growing Staph aureus methicillin sensitive. Concerning given his subcutaneous defibrillator, recent coronary stenting, and hemodialysis vascular access. It is noted he had a left upper extremity peripheral IV infiltration at recent hospitalization at [facility] and it is suspected to be the source. CT of left arm 07/09 revealed cellulitis with no abscess. He was initially treated with IV zosyn given the presumed infectious diarrhea but stool cultures negative. Diarrhea resolved. Switched to IV vancomycin 07/07 and to Ancef 07/08 (D#11 total antibiotics of 28) with blood cultures growing MSSA (07/05 and 07/08). Repeat Cx drawn 07/12, 07/13 NGTD. Echo: EF 25-30% with no vegetations seen. WBC 17.7K now. Patient recovering well now. Patient will need either a change in his Abx (to be given with HD) or he will need care home IV access for abx. (2) Cellulitis of arm: Code(s): L03.119 - Cellulitis of unspecified part of limb Status: Acute Assessment and Plan: As above. (3) Hypoglycemia: Code(s): E16.2 - Hypoglycemia, unspecified Status: Resolved Assessment and Plan: Patient with persistent hypoglycemia. Patient has poor oral intake and sepsis. Blood sugars as low as 20s but maybe inaccurate since patient remained AOx4 with a glucose <10. A lab draw was 98 and a glucose from the earlobe was 132 when fingerstick was low. Patient eating better. Able to come off the dextrose. If able to maintain glucose today, will remove central line. (4) Hypotension: Code(s): I95.9 - Hypotension, unspecified Status: Acute Assessment and Plan: BP overall improved. Cortisol okay. Continue Midodrin. Coreg added and appears to be tolerating. (5) Rhabdomyolysis: Qualifiers: Rhabdomyolysis type: non-traumatic Qualified Code(s): M62.82 - Rhabdomyolysis Code(s): M62.82 - Rhabdomyolysis Status: Acute Assessment and Plan: His atorvastatin dose was recently increased from 40mg daily to 80mg daily which could have contributed to the Rhabdo. This has been stopped. TCK was up to 7100 but has trended down to 750 today. Continue to monitor. Continue PT/OT. (6) Diarrhea: Qualifiers: Diarrhea type: unspecified type Qualified Code(s): R19.7 - Diarrhea, unspecified Code(s): R19.7 - Diarrhea, unspecified Status: Resolved Assessment and Plan: Resolved. patient is eating better. Stool cultures negative. Related to poor oral intake and mostly liquid diet. Dietary following. Continue to monitor. (7) Elevated LFTs: Code(s): R79.89 - Other specified abnormal findings of blood chemistry Status: Acute Assessment and Plan: AST/ALT elevated in the setting of rhabdomyolysis or infection, however CT of the abdomen pelvis does show low attenuation of the liver adjacent to the ligamentum teres which could be possible fatty infiltration. Recommendation was given for follow-up examination. Hepatitis panel is negative. Cholelithiasis noted on CT, but no exam findings or imaging findings to suggest cholecystitis. ALT normal now and AST trending to normal. Continue to monitor. Will need repeat imaging as outpatient (8) Generalized weakness: Code(s): R53.1 - Weakness Status: Acute Assessment and Plan: Multifactorial may be related to renal failure, acute infection, rhabdo. Continue PT/OT. Possibly be able to remove Femoral line today.
[2020-07-17 12:23] LABS: Glucose Point of Care 85 (65-105)
--- NOTE | 2020-07-17 14:47 | P.PNNP_ITS ---
Progress Note: A&P Assessment and Plan (1) ESRD (end stage renal disease): Code(s): N18.6 - End stage renal disease Status: Chronic Assessment and Plan: * HD done earlier today (2) Staphylococcus aureus bacteremia with sepsis: Code(s): A41.01 - Sepsis due to Methicillin susceptible Staphylococcus aureus Status: Acute Assessment and Plan: * MSSA on 07/05, 07/08 * negative on 07/12,15 * on ancef * Dr. salgado is seeing the patient. * Source of the infection possibly left upper extremity phlebitis. his arm feels better. It is still a little bit swollen. (3) Elevated LFTs: Code(s): R79.89 - Other specified abnormal findings of blood chemistry Status: Acute Assessment and Plan: * possibly due to mild rhabdomyolysis +/- high dose statin therapy * alt is now normal * CK is gradually better * statin on hold. (4) Hypoglycemia: Code(s): E16.2 - Hypoglycemia, unspecified Status: Resolved Assessment and Plan: * sugars 78 to 112 * due to diarrhea and poor oral intake * could he have subtle liver disease as well? * follow oral intake and blood sugars * Sodium level continues to improve * Off the D10NS * Eating better. (5) Hyponatremia: Code(s): E87.1 - Hypo-osmolality and hyponatremia Status: Acute Assessment and Plan: * due to renal failure and free water intake. * improved (6) Ischemic cardiomyopathy: Code(s): I25.5 - Ischemic cardiomyopathy Status: Acute Assessment and Plan: * appears compensated * fluid removal with HD as tolerated * follow respiratory status and daily weights Additional Plan Hypercalcemia. This is better with a calcium supplement. Subjective Date/time seen: 07/17/20 14:47 Interval history: Patient feels blah he is getting a unit of blood. No chest pain or shortness of breath. He has aches and pains in his back Review of Systems Cardiovascular: Cardiovascular: Reports no additional cardiovascular complaints Respiratory: Respiratory: Reports no additional respiratory complaints Gastrointestinal: Gastrointestinal: Reports no additional gastrointestinal complaints Genitourinary: Genitourinary: Reports no additional male genitourinary complaints Exam Narrative: Exam Narrative: well developed well-nourished gentleman lying in hospital bed in no acute distress Skin no rash or subcu nodules Head normocephalic atraumatic Lungs are clear to auscultation Heart regular rate rhythm no rub or gallop Abdomen bowel sounds positive soft nontender Extremities no edema Objective Data Vital Signs Vital Signs: Vital Signs - 24 hr 07/16/20 16:00 07/16/20 18:00 07/16/20 19:48 Temperature 36.4 C 36.6 C Pulse Rate 97 95 93 Respiratory Rate 18 18 Blood Pressure 105/59 L 100/49 L Pulse Oximetry 99 100 07/16/20 20:00 07/16/20 22:00 07/16/20 22:33 Temperature Pulse Rate 96 81 94 Respiratory Rate Blood Pressure Pulse Oximetry 100 07/17/20 00:00 07/17/20 02:00 07/17/20 04:00 Temperature 36.2 C L 36.4 C Pulse Rate 91 80 88 Respiratory Rate 20 15 Blood Pressure 121/71 126/71
--- NOTE | 2020-07-17 14:47 | PM.PNNEP ---
Progress Note: A&P Assessment and Plan (1) ESRD (end stage renal disease): Code(s): N18.6 - End stage renal disease Status: Chronic Assessment and Plan: HD done earlier today (2) Staphylococcus aureus bacteremia with sepsis: Code(s): A41.01 - Sepsis due to Methicillin susceptible Staphylococcus aureus Status: Acute Assessment and Plan: MSSA on 07/05, 07/08 negative on 07/12,[address] salgado is seeing the patient. Source of the infection possibly left upper extremity phlebitis. his arm feels better. It is still a little bit swollen. (3) Elevated LFTs: Code(s): R79.89 - Other specified abnormal findings of blood chemistry Status: Acute Assessment and Plan: possibly due to mild rhabdomyolysis +/- high dose statin therapy alt is now normal CK is gradually better statin on hold. (4) Hypoglycemia: Code(s): E16.2 - Hypoglycemia, unspecified Status: Resolved Assessment and Plan: sugars 78 to 112 due to diarrhea and poor oral intake could he have subtle liver disease as well? follow oral intake and blood sugars Sodium level continues to improve Off the D10NS Eating better. (5) Hyponatremia: Code(s): E87.1 - Hypo-osmolality and hyponatremia Status: Acute Assessment and Plan: due to renal failure and free water intake. improved (6) Ischemic cardiomyopathy: Code(s): I25.5 - Ischemic cardiomyopathy Status: Acute Assessment and Plan: appears compensated fluid removal with HD as tolerated follow respiratory status and daily weights Additional Plan Hypercalcemia. This is better with a calcium supplement. Subjective Date/time seen: 07/17/20 14:47 Interval history: Patient feels blah he is getting a unit of blood. No chest pain or shortness of breath. He has aches and pains in his back Review of Systems Cardiovascular: Cardiovascular: Reports no additional cardiovascular complaints Respiratory: Respiratory: Reports no additional respiratory complaints Gastrointestinal: Gastrointestinal: Reports no additional gastrointestinal complaints Genitourinary: Genitourinary: Reports no additional male genitourinary complaints Exam Narrative: Exam Narrative: well developed well-nourished gentleman lying in hospital bed in no acute distress Skin no rash or subcu nodules Head normocephalic atraumatic Lungs are clear to auscultation Heart regular rate rhythm no rub or gallop Abdomen bowel sounds positive soft nontender Extremities no edema Objective Data Vital Signs Vital Signs: Vital Signs - 24 hr 07/16/20 16:00 07/16/20 18:00 07/16/20 19:48 Temperature 36.4 C 36.6 C Pulse Rate 97 95 93 Respiratory Rate 18 18 Blood Pressure 105/59 L 100/49 L Pulse Oximetry 99 100 07/16/20 20:00 07/16/20 22:00 07/16/20 22:33 Temperature Pulse Rate 96 81 94 Respiratory Rate Blood Pressure Pulse Oximetry 100 07/17/20 00:00 07/17/20 02:00 07/17/20 04:00 Temperature 36.2 C L 36.4 C Pulse Rate 91 80 88 Respiratory Rate 20 15 Blood Pressure 121/71 126/71 Pulse Oximetry 96 92 07/17/20 06:00 07/17/20 08:00 07/17/20 08:21 Temperature 36.1 C L Pulse Rate 83 84 86 Respiratory Rate 20 Blood Pressure 120/66 Pulse Oximetry 98 07/17/20 08:22 07/17/20 10:13 07/17/20 10:21 Temperature 36.3 C L Pulse Rate 86 84 86 Respiratory Rate 20 Blood Pressure 106/69 Pulse Oximetry 93 07/17/20 10:33 07/17/20 11:33 07/17/20 11:49 Temperature 35.9 C L 36.3 C L 36.3 C L Pulse Rate 84 78 Respiratory Rate 18 16 Blood Pressure 106/67 113/67 Pulse Oximetry 97 98 07/17/20 12:00 07/17/20 12:33 07/17/20 13:33 Temperature 36.1 C L 36.1 C L Pulse Rate 80 86 74 Respiratory Rate 16 16 Blood Pressure 108/59 L 111/60 Pulse Oximetry 95 100 07/17/20 14:27 Temperature Pulse Rate 78 Re
[2020-07-17 16:33] LABS: Glucose Point of Care 107 (65-105)
[2020-07-17] MEDS: ceFAZolin 2 GM/D5W 50 ML 2 GM/50 ML BAG IVPB (17:25)
[2020-07-17] MEDS: CALCIUM CARBONATE (TUMS) 500 MG (200 MG ELEMENTAL) PO (18:53)
[2020-07-17 20:10] LABS: Glucose Point of Care 95 (65-105)
[2020-07-18] VITALS (17 sets, daily range): BP systolic 95–143; BP diastolic 59–97; PULSE 72–88; RESP 18–20; TEMP 35.8–36.8; O2SAT 93–100
[2020-07-18] MEDS: ACETAMINOPHEN 325 MG TABLET 650 MG PO ×3 (00:14→20:14)
[2020-07-18 00:20] LABS: Glucose Point of Care 119 (65-105)
[2020-07-18 04:44] LABS: Glucose Point of Care 105 (65-105)
[2020-07-18 05:31] LABS: Basophils Percent Auto 0.2 % (0.2-1.2); Eosinophils Absolute Auto 0.1 K/mm3 (0-0.3); Eosinophils Percent Auto 0.5 % (0-4.4); Hematocrit 25.9 % (42.0-52.0); Hemoglobin 8.1 g/dL (14.0-18.0); Immature Granulocyte Absolute 0.16 K/mm3 (0.00-0.031); Immature Granulocyte Percent A 0.9 % (0-0.5); Lymphocytes Absolute Auto 0.87 K/mm3 (0.9-3.2); Lymphocytes Percent Auto 4.9 % (18.3-44.2); Mean Corpuscular HGB Conc 31.3 g/dl (32-36); Mean Corpuscular Volume 95.9 fl (80-100); Mean Platelet Volume 11.6 fl (7.4-10.4); Monocytes Absolute Auto 1.4 K/mm3 (0.1-0.6); Neutrophils Absolute Auto 15.2 K/mm3 (1.3-6.7); Neutrophils Percent Auto 85.5 % (45.5-73.1); Nucleated Red Blood Cells Perc 0.1 % (0.0-0.2); Platelet Count Result 114 k/mm3 (150-375); Red Cell Distribution Width 17.9 % (11.5-14.5); White Blood Count 17.8 K/mm3 (4.5-10.0)
[2020-07-18 06:01] LABS: Anion Gap 9 mmol/L (8-16); Blood Urea Nitrogen 59 mg/dL (9-20); Calcium 8.1 mg/dL (8.4-10.2); Carbon Dioxide 30 mmol/L (22-30); Chloride 98 mmol/L (98-107); Estimated CRCL calculation 15 ml/min; Estimated Glomerular Filt Rate 15; Glucose 105 mg/dL (75-110); Potassium 4.7 mmol/L (3.4-5.0); Sodium 137 mmol/L (137-145)
[2020-07-18] MEDS: CENTRAL LINE FLUSH 10 ML IV PUSH (06:42)
[2020-07-18] MEDS: FLUTICASONE PROPIONATE 0.05% NA SPR 16 GM BTL (*BKC) 1 SPRAY NASAL ×2 (08:24→20:14)
[2020-07-18] MEDS: ASPIRIN 81 MG ENTERIC TABLET PO (08:24)
[2020-07-18] MEDS: MIDODRINE HCL 2.5 MG TABLET PO ×3 (08:24→17:35)
[2020-07-18] MEDS: CLOPIDOGREL BISULFATE 75 MG TABLET PO (08:24)
[2020-07-18] MEDS: DORZOLAMIDE HCL 2% OPHTH DROPS 1 DROP EACH EYE (08:24)
[2020-07-18] MEDS: AMIODARONE HCL 200 MG TABLET PO (08:25)
[2020-07-18] MEDS: PANTOPRAZOLE 40 MG TABLET PO (08:25)
[2020-07-18] MEDS: carvediloL 3.125 MG TABLET PO ×2 (08:25→20:14)
[2020-07-18] MEDS: APIXABAN 2.5 MG TABLET PO ×2 (08:25→17:35)
[2020-07-18 08:33] LABS: Glucose Point of Care 105 (65-105)
[2020-07-18] MEDS: lisinopriL 2.5 MG TABLET PO (08:33)
--- NOTE | 2020-07-18 10:55 | PM.PNNEP ---
Progress Note: A&P Assessment and Plan (1) ESRD (end stage renal disease): Code(s): N18.6 - End stage renal disease Status: Chronic Assessment and Plan: HD due on Sunday. The patient has swelling. But the swelling in his arm and face is out of proportion all to the swelling in the rest of his body. His says that the left arm swelling started after he had a cardiac catheterization and stent a few weeks ago. I am not sure why that would be related but it almost seems like he may have some venous obstruction causing the swelling in his face and arm. Will order CT angio to look at all of this. I can Try to remove extra fluid tomorrow on dialysis. (2) Staphylococcus aureus bacteremia with sepsis: Code(s): A41.01 - Sepsis due to Methicillin susceptible Staphylococcus aureus Status: Acute Assessment and Plan: MSSA on 07/05, 07/08 negative on 07/12,15 on ancef . Can this be given on dialysis days? Dr. salgado is seeing the patient. Source of the infection possibly left upper extremity phlebitis. his arm feels better. It is still a little bit swollen. (3) Elevated LFTs: Code(s): R79.89 - Other specified abnormal findings of blood chemistry Status: Acute Assessment and Plan: possibly due to mild rhabdomyolysis +/- high dose statin therapy alt is now normal CK is gradually better statin on hold. (4) Hypoglycemia: Code(s): E16.2 - Hypoglycemia, unspecified Status: Resolved Assessment and Plan: Doing better. He is eating better. He is off the IV dextrose. (5) Hyponatremia: Code(s): E87.1 - Hypo-osmolality and hyponatremia Status: Acute Assessment and Plan: due to renal failure and free water intake. improved (6) Ischemic cardiomyopathy: Code(s): I25.5 - Ischemic cardiomyopathy Status: Acute Assessment and Plan: Will remove as much fluid as we can tomorrow Additional Plan Hypercalcemia. This is better with a calcium supplement. Subjective Date/time seen: 07/18/20 10:55 Interval history: Patient feels blah Femoral line is now out. No chest pain or shortness of breath. He has aches and pains in his back His face is more swollen today. His left arm is still swollen and he has some blisters on his fingers now. Review of Systems Cardiovascular: Cardiovascular: Reports no additional cardiovascular complaints Respiratory: Respiratory: Reports no additional respiratory complaints Gastrointestinal: Gastrointestinal: Reports no additional gastrointestinal complaints Genitourinary: Genitourinary: Reports no additional male genitourinary complaints Exam Narrative: Exam Narrative: WDWN in NAD skin Blisters onskin over 5th 4th and 3rd proximal phalanges. head ncat lungs clear cor reg no rub or gallop abd BS+ nontender and soft ext no edema. Objective Data Vital Signs Vital Signs: Vital Signs - 24 hr 07/17/20 11:33 07/17/20 11:49 07/17/20 12:00 Temperature 36.3 C L 36.3 C L Pulse Rate 78 80 Respiratory Rate 16 Blood Pressure 113/67 Pulse Oximetry 98 07/17/20 12:33 07/17/20 13:33 07/17/20 14:27 Temperature 36.1 C L 36.1 C L Pulse Rate 86 74 78 Respiratory Rate 16 16 Blood Pressure 108/59 L 111/60 Pulse Oximetry 95 100 07/17/20 16:00 07/17/20 16:21 07/17/20 18:05 Temperature 36.1 C L Pulse Rate 84 81 81 Respiratory Rate 20 Blood Pressure 90/60 L Pulse Oximetry 96 07/17/20 19:41 07/17/20 20:00 07/17/20 21:12 Temperature 36.6 C Pulse Rate 89 86 90 Respiratory Rate 20 Blood Pressure 127/74 Pulse Oximetry 98 98 07/17/20 22:00 07/17/20 23:48 07/18/20 00:00 Temperature 36.4 C L Pulse Rate 82 83 83 Respiratory Rate 20 Blood Pressure 116/73 Pulse Oximetry 98 98 07/18/20 02:00 07/18/20 04:00 07/18/20 06:00 Temperature 36.4 C L Pulse Rate 72 77
[2020-07-18 12:53] LABS: Glucose Point of Care 128 (65-105)
--- NOTE | 2020-07-18 13:08 | PM.IMPN ---
Progress Note: A&P Assessment and Plan (1) Facial edema: Code(s): R60.0 - Localized edema Status: Acute Assessment and Plan: Patient has been noted to have a round facial features with occasional asymmetry (seems to prefer to lie on his left side). Edema would improve with HD. Facial edema not mentioned by RN overnight but more prominent this morning possibly related to the patietn having to lie flat due to having the central line removed. Repeat exam once he is back up right shows improvement. Agree with CTA of the chest to exclude SVC syndrome. Consider VTE but has not had problems with HD from the right arm. He was noted to have severe pulmonary HTN by Echo [facility] (moderate by our Echo here). Follow up on results. Currently on Eliquis but may need higher dose. Symptoms began before resuming the Lisinopril but will monitor closely. (2) Staphylococcus aureus bacteremia with sepsis: Code(s): A41.01 - Sepsis due to Methicillin susceptible Staphylococcus aureus Status: Acute Assessment and Plan: Blood culture growing Staph aureus methicillin sensitive. Concerning given his subcutaneous defibrillator, recent coronary stenting, and hemodialysis vascular access. It is noted he had a left upper extremity peripheral IV infiltration at recent hospitalization at [facility] and it is suspected to be the source. CT of left arm 07/09 revealed cellulitis with no abscess. He was initially treated with IV zosyn given the presumed infectious diarrhea but stool cultures negative. Diarrhea resolved. Switched to IV vancomycin 07/07 and to Ancef 07/08 (D#12 total antibiotics of 28 days) with blood cultures growing MSSA (07/05 and 07/08). Repeat Cx drawn 07/12, 07/13 NGTD. Echo: EF 25-30% with no vegetations seen. WBC 17.8K now. Patient can be changed to Ancef 2gm IV after each HD through 08/03/20. (3) Cellulitis of arm: Code(s): L03.119 - Cellulitis of unspecified part of limb Status: Acute Assessment and Plan: As above. (4) Hypoglycemia: Code(s): E16.2 - Hypoglycemia, unspecified Status: Resolved Assessment and Plan: Patient with persistent hypoglycemia. Patient has poor oral intake and sepsis. Blood sugars as low as 20s but maybe inaccurate since patient remained AOx4 with a glucose <10. A lab draw was 98 and a glucose from the earlobe was 132 when fingerstick was low. Patient eating better. Able to come off the dextrose. Able to remove central line now so he can participate in therapy. (5) Hypotension: Code(s): I95.9 - Hypotension, unspecified Status: Acute Assessment and Plan: BP overall improved. Cortisol okay. Continue Midodrin. Coreg added and appears to be tolerating. Will add Lisinopril at low dose (6) Rhabdomyolysis: Qualifiers: Rhabdomyolysis type: non-traumatic Qualified Code(s): M62.82 - Rhabdomyolysis Code(s): M62.82 - Rhabdomyolysis Status: Acute Assessment and Plan: His atorvastatin dose was recently increased from 40mg daily to 80mg daily which could have contributed to the Rhabdo. This has been stopped. TCK was up to 7100 but has trended down to 750. Resume PT/OT. (7) Diarrhea: Qualifiers: Diarrhea type: unspecified type Qualified Code(s): R19.7 - Diarrhea, unspecified Code(s): R19.7 - Diarrhea, unspecified Status: Resolved Assessment and Plan: Resolved. Patient is eating better. Stool cultures negative. Related to poor oral intake and mostly liquid diet. Dietary following. Continue to monitor. (8) Elevated LFTs: Code(s): R79.89 - Other specified abnormal findings of blood chemistry Status: Acute Assessment and Plan: AST/ALT elevated in the setting of
--- NOTE | 2020-07-18 15:12 | PCPTNOTE ---
patient's femoral line removed this afternoon...needs re-assess prior to d/c for placement...spoke with nursing, and therapy will re-assess patient the first thing in the morning
--- NOTE | 2020-07-18 17:04 | PCPTNOTE ---
patient's femoral line d/c'd this afternoon, and will need re-assess for placement prior to d/c...spoke with nursing, and patient will be seen first thing in the morning by Therapy
[2020-07-18 17:05] LABS: Glucose Point of Care 103 (65-105)
[2020-07-18] MEDS: ceFAZolin 2 GM/D5W 50 ML 2 GM/50 ML BAG IVPB (17:34)
[2020-07-18 20:38] LABS: Glucose Point of Care 109 (65-105)
[2020-07-19] VITALS (36 sets, daily range): BP systolic 98–136; BP diastolic 44–83; PULSE 63–110; RESP 18–24; TEMP 36–37; O2SAT 93–98
[2020-07-19 00:15] LABS: Glucose Point of Care 133 (65-105)
[2020-07-19 04:39] LABS: Hematocrit 25.8 % (42.0-52.0); Hemoglobin 7.9 g/dL (14.0-18.0); Mean Corpuscular HGB Conc 30.6 g/dl (32-36); Mean Corpuscular Hemoglobin 29.4 pg (26-34); Mean Corpuscular Volume 95.9 fl (80-100); Mean Platelet Volume 12.4 fl (7.4-10.4); Platelet Count Result 116 k/mm3 (150-375); Red Blood Count 2.69 M/mm3 (4.6-6.20); Red Cell Distribution Width 17.4 % (11.5-14.5); White Blood Count 15.3 K/mm3 (4.5-10.0)
[2020-07-19 04:57] LABS: Albumin Level 2.9 g/dL (3.5-5.1); Anion Gap 10 mmol/L (8-16); Blood Urea Nitrogen 75 mg/dL (9-20); Calcium 8.3 mg/dL (8.4-10.2); Carbon Dioxide 28 mmol/L (22-30); Chloride 99 mmol/L (98-107); Estimated CRCL calculation 12 ml/min; Estimated Glomerular Filt Rate 12; Glucose 108 mg/dL (75-110); Phosphorus 4.5 mg/dL (2.5-4.5); Potassium 4.9 mmol/L (3.4-5.0); Sodium 137 mmol/L (137-145)
[2020-07-19 08:33] LABS: Glucose Point of Care 89 (65-105)
[2020-07-19] MEDS: APIXABAN 2.5 MG TABLET PO ×2 (08:45→21:59)
[2020-07-19] MEDS: AMIODARONE HCL 200 MG TABLET PO (08:45)
[2020-07-19] MEDS: carvediloL 3.125 MG TABLET PO ×2 (08:46→21:58)
[2020-07-19] MEDS: ASPIRIN 81 MG ENTERIC TABLET PO (08:46)
[2020-07-19] MEDS: FLUTICASONE PROPIONATE 0.05% NA SPR 16 GM BTL (*BKC) 1 SPRAY NASAL ×2 (08:48→21:58)
[2020-07-19] MEDS: PANTOPRAZOLE 40 MG TABLET PO (08:48)
[2020-07-19] MEDS: DORZOLAMIDE HCL 2% OPHTH DROPS 1 DROP EACH EYE (08:48)
[2020-07-19] MEDS: lisinopriL 2.5 MG TABLET PO (08:48)
[2020-07-19] MEDS: MIDODRINE HCL 2.5 MG TABLET PO ×3 (08:48→21:59)
[2020-07-19] MEDS: CLOPIDOGREL BISULFATE 75 MG TABLET PO (08:48)
--- NOTE | 2020-07-19 08:58 | PM.IMPN ---
Progress Note: A&P Assessment and Plan (1) Facial edema: Code(s): R60.0 - Localized edema Status: Acute Assessment and Plan: Patient has been noted to have a round facial features with occasional asymmetry (seems to prefer to lie on his left side). Edema would improve with HD. Patient appears to have facial edema again this morning, although appears to be lying somewhat flat. RN today unsure if there is improvement. CT chest w/ con obtained today which reveals narrowing of brachiocephalic junction with widely patent SVC. VTE considered although less likely given CT results. He was noted to have severe pulmonary HTN by Echo at [facility] (moderate by our Echo here). Follow up on results. Symptoms began before resuming the Lisinopril but will monitor closely; no evidence of airway compromise at this moment. Likely chronic swelling. Will discuss with Nephrology. Will consider possible OP referral to vascular surgeon for possible stenting as suggested in CT chest radiology report. HD to be done today as well (2) Staphylococcus aureus bacteremia with sepsis: Code(s): A41.01 - Sepsis due to Methicillin susceptible Staphylococcus aureus Status: Acute Assessment and Plan: Blood culture growing Staph aureus methicillin sensitive. Concerning given his subcutaneous defibrillator, recent coronary stenting, and hemodialysis vascular access. It is noted he had a left upper extremity peripheral IV infiltration at recent hospitalization at [facility] and it is suspected to be the source. CT of left arm 07/09 revealed cellulitis with no abscess. He was initially treated with IV zosyn given the presumed infectious diarrhea but stool cultures negative. Diarrhea resolved. Switched to IV vancomycin 07/07 and to Ancef 07/08 (D#13 total antibiotics of 28 days) with blood cultures growing MSSA (07/05 and 07/08). Repeat Cx drawn 07/12, 07/13 NGTD. Echo: EF 25-30% with no vegetations seen. WBC 17.8K now. Patient can be changed to Ancef 2gm IV after each HD through 08/03/20. CC working on placement (3) Cellulitis of arm: Code(s): L03.119 - Cellulitis of unspecified part of limb Status: Acute Assessment and Plan: As above. (4) Hypoglycemia: Code(s): E16.2 - Hypoglycemia, unspecified Status: Resolved Assessment and Plan: Patient with persistent hypoglycemia. Patient has poor oral intake and sepsis. Blood sugars as low as 20s but maybe inaccurate since patient remained AOx4 with a glucose <10. A lab draw was 98 and a glucose from the earlobe was 132 when fingerstick was low. Patient eating better. Able to come off the dextrose. Able to remove central line now so he can participate in therapy. Glucose appropriate today. Tolerating diet (5) Hypotension: Code(s): I95.9 - Hypotension, unspecified Status: Acute Assessment and Plan: BP overall improved. Cortisol okay. Continue Midodrin. Coreg added and appears to be tolerating. Lisinopril low dose added (6) Rhabdomyolysis: Qualifiers: Rhabdomyolysis type: non-traumatic Qualified Code(s): M62.82 - Rhabdomyolysis Code(s): M62.82 - Rhabdomyolysis Status: Acute Assessment and Plan: His atorvastatin dose was recently increased from 40mg daily to 80mg daily which could have contributed to the Rhabdo. This has been stopped. TCK was up to 7100 but has trended down to 750. Continue PT/OT. (7) Diarrhea: Qualifiers: Diarrhea type: unspecified type Qualified Code(s): R19.7 - Diarrhea, unspecified Code(s): R19.7 - Diarrhea, unspecified Status: Resolved Assessment and Plan: Resolved. Patient is eating better. Stool cultures negative. Related to poor oral intake and mostly liqu
[2020-07-19 12:05] LABS: Glucose Point of Care 150 (65-105)
[2020-07-19] MEDS: ACETAMINOPHEN 325 MG TABLET 650 MG PO ×2 (12:38→21:59)
--- NOTE | 2020-07-19 14:14 | WPDINFPN2 ---
Progress Note: A&P Assessment and Plan (1) Staphylococcus aureus bacteremia with sepsis: Code(s): A41.01 - Sepsis due to Methicillin susceptible Staphylococcus aureus Status: Acute Assessment and Plan: 1. S aureus bacteremia, suspect septic phlebitis LUE. Microbiologic cure 2. CRf, no U.O at baseline 3. Leukocytosis, I think due to unresolved infection at L forearm, declining slowly REC (antibiotic #13 / 28 days) Ancef #12, through 08/03/20. Follow WBC over time. Ok discharge planning. Can give antibiotic with HD only, at time of discharge, two grams at end of each HD, stop date as above Subjective Date/time seen: 07/19/20 14:14 Interval history: r abdomen and back pain Exam Narrative: Exam Narrative: afebrile Const: General: no acute distress Resp: Effort & Inspection: normal respiratory effort Auscultation: clear to auscultation bilaterally Cardio: Rate: regular rate Rhythm: regular rhythm Heart sounds: no murmurs GI: Inspection: non-distended GI Palp: Yes Soft to palpation and No Tenderness to palpation present (GI) Skin: General skin exam: normal color Other: some raised bullous lesions over Left fingers. Right parasacral area with dressing over a partial thickness breakdown no cellulitis Extrem: Other: left arm still indurated, no sinus tracts/tenderness/ wamth Objective Data Vital Signs Vital Signs: Vital Signs - 24 hr 07/18/20 16:00 07/18/20 16:49 07/18/20 18:10 Temperature 35.8 C L Pulse Rate 74 80 84 Respiratory Rate 20 Blood Pressure 123/76 Pulse Oximetry 98 07/18/20 20:00 07/18/20 20:14 07/18/20 22:00 Temperature 36.8 C Pulse Rate 84 84 80 Respiratory Rate 20 Blood Pressure 129/75 Pulse Oximetry 93 07/19/20 00:00 07/19/20 02:00 07/19/20 04:00 Temperature 36.7 C 36.4 C Pulse Rate 63 76 78 Respiratory Rate 20 18 Blood Pressure 113/70 122/79 Pulse Oximetry 98 97 07/19/20 06:00 07/19/20 08:00 07/19/20 08:45 Temperature 36.1 C L Pulse Rate 76 76 101 H Respiratory Rate 24 H Blood Pressure 131/83 Pulse Oximetry 95 07/19/20 08:46 07/19/20 10:00 07/19/20 12:00 Temperature 36.1 C L Pulse Rate 101 H 77 80 Respiratory Rate 22 H Blood Pressure 125/74 Pulse Oximetry 97 07/19/20 14:00 Temperature Pulse Rate 80 Respiratory Rate Blood Pressure Pulse Oximetry Intake/Output Intake/Output: Intake & Output 07/16/20 07/17/20 07/18/20 07/19/20 23:59 23:59 23:59 23:59 Intake Total 1999 1560 1217 440 Output Total 1999 0 Balance 0 1560 1217 440 Meds/Results Medications: Active Medications Generic Name Dose Route Start Last Admin Trade Name Freq PRN Reason Stop Dose Admin Acetaminophen 650 mg 07/07/20 09:21 07/19/20 12:38 Tylenol Tablet PO 650 mg Q4H PRN Administration Pain Rated 5 or Less Amiodarone HCl 200 mg 07/06/20 09:00 07/19/20 08:45 Pacerone PO 200 mg DAILY TORITO Administration Apixaban 2.5 mg 07/05/20 22:55 07/19/20 08:45 Eliquis PO 2.5 mg BID TORITO Administration Aspirin 81 mg 07/07/20 09:00 07/19/20 08:46 Aspirin Ec PO 81 mg QAM TORITO Administration Calcium Carbonate 200 mg 07/17/20 18:10 07/17/20 18:53 Tums PO 200 mg Q6H PRN Administration Indigestion Carvedilol 3.125 mg 07/16/20 21:50 07/19/20 08:46 Coreg PO 3.125 mg Q12HR TORITO Administration Clopidogrel Bisulfate 75 mg 07/06/20 09:00 07/19/20 08:48 Plavix PO 75 mg DAILY TORITO Administration Dextrose 12.5 gm 07/05/20 14:08 07/14/20 20:12 Dextrose 50% Syringe IV PUSH 12.5 gm PRN PRN Administration Hypoglycemia Protocol Dorzolamide HCl 1 drop 07/06/20 09:00 07/19/20 08:48 Trusopt EACH EYE 1 drop DAILY TORITO Administration Epoetin Nathaniel-epbx 20,000 units 07/19/20 19:12 Retacrit IV PUSH 07/19/20 19:13 ONCE ONE Fluticasone Propionate 1 spray 07/15/20 21:00 07/19/20 08:48 Flonase 0.05% Nasal Gilman NASAL 1 s
[2020-07-19] MEDS: EPOETIN ALFA-EPBX 10,000 UNITS/ML VIAL 20000 UNITS IV PUSH (18:10)
--- NOTE | 2020-07-19 18:18 | P.PNNP_ITS ---
Progress Note: A&P Assessment and Plan (1) ESRD (end stage renal disease): Code(s): N18.6 - End stage renal disease Status: Chronic Assessment and Plan: * HD today and continue Sun/Sun/Sunday schedule * follow electrolytes, volume status, and clearance * push fluid removal as tolerated by hemodynamics (2) Staphylococcus aureus bacteremia with sepsis: Code(s): A41.01 - Sepsis due to Methicillin susceptible Staphylococcus aureus Status: Acute Assessment and Plan: * as noted by admission blood cultures * source? - presumed to be previous IV infiltration/phebitis - transthoracic echo negative for endocarditits * on antibiotics * Infectious Disease recommendations (3) Elevated LFTs: Code(s): R79.89 - Other specified abnormal findings of blood chemistry Status: Acute Assessment and Plan: * possibly due to mild rhabdomyolysis +/- high dose statin therapy * trend LFTs - stable if not better * follow CPK levels - continue to trend downward * statin on hold (4) Hypoglycemia: Code(s): E16.2 - Hypoglycemia, unspecified Status: Resolved Assessment and Plan: * due to diarrhea and poor oral intake * follow oral intake and blood sugars (5) Hyponatremia: Code(s): E87.1 - Hypo-osmolality and hyponatremia Status: Acute Assessment and Plan: * resolved * due to the use of previous use of D10W IVFs to maintain his blood sugar + kidney failure + cardiomyopathy * dialysis will compensate to some degree (6) Hypocalcemia: Code(s): E83.51 - Hypocalcemia Status: Acute Assessment and Plan: * doing better with supplementation * follow trend (7) Ischemic cardiomyopathy: Code(s): I25.5 - Ischemic cardiomyopathy Status: Acute Assessment and Plan: * fluid removal with HD as tolerated * follow respiratory status and daily weights Will continue to follow - not opposed to discharge from renal perspective if otherwise medically stable. Subjective Date/time seen: 07/19/20 18:18 Tolerating dialysis treatment at the time of my visit (seen on HD at ~ 5:50PM); no apparent distress voiced at this time; no events overnight or earlier this AM; no complaints to report currently. Exam Narrative: Exam Narrative: General: WD/WN AA male in NAD Heart: normal S1 and S2; no rub Lungs: clear to auscultation Abdomen: soft, nontender, nondistended, positive bowel sounds Extremities: no cyanosis or clubbing; no edema; s/p right AKA Skin: warm and intact Objective Data Vital Signs Vital Signs: Vital Signs Temp Pulse Resp BP Pulse Ox 07/19/20 18:00 73 07/19/20 17:13 36.4 C L 73 20 134/71 07/19/20 16:00 80 07/19/20 15:31 71 126/72 07/19/20 14:00 80 07/19/20 12:00 36.1 C L 80 22 H 125/74 97 07/19/20 10:00 77 07/19/20 08:46 101 H 07/19/20 08:45 101 H 07/19/20 08:00 36.1 C L 76 24 H 131/83 95 07/19/20 06:00 76 07/19/20 04:00 36.4 C 78 18 122/79 97 07/19/20 02:00 76 07/19/20 00:00 36.7 C 63 20 113/70 98 07/18/20 22:00 80 07/18/20 20:14 84 07/18/20 20:00 36.8 C 84 20 129/75 93 Intake/Output Intake/Output: Intake & Output 07/16/20 07/17/20 0
--- NOTE | 2020-07-19 18:18 | PM.PNNEP ---
Progress Note: A&P Assessment and Plan (1) ESRD (end stage renal disease): Code(s): N18.6 - End stage renal disease Status: Chronic Assessment and Plan: HD today and continue Sun/Sun/Sunday schedule follow electrolytes, volume status, and clearance push fluid removal as tolerated by hemodynamics (2) Staphylococcus aureus bacteremia with sepsis: Code(s): A41.01 - Sepsis due to Methicillin susceptible Staphylococcus aureus Status: Acute Assessment and Plan: as noted by admission blood cultures source? - presumed to be previous IV infiltration/phebitis - transthoracic echo negative for endocarditits on antibiotics Infectious Disease recommendations (3) Elevated LFTs: Code(s): R79.89 - Other specified abnormal findings of blood chemistry Status: Acute Assessment and Plan: possibly due to mild rhabdomyolysis +/- high dose statin therapy trend LFTs - stable if not better follow CPK levels - continue to trend downward statin on hold (4) Hypoglycemia: Code(s): E16.2 - Hypoglycemia, unspecified Status: Resolved Assessment and Plan: due to diarrhea and poor oral intake follow oral intake and blood sugars (5) Hyponatremia: Code(s): E87.1 - Hypo-osmolality and hyponatremia Status: Acute Assessment and Plan: resolved due to the use of previous use of D10W IVFs to maintain his blood sugar + kidney failure + cardiomyopathy dialysis will compensate to some degree (6) Hypocalcemia: Code(s): E83.51 - Hypocalcemia Status: Acute Assessment and Plan: doing better with supplementation follow trend (7) Ischemic cardiomyopathy: Code(s): I25.5 - Ischemic cardiomyopathy Status: Acute Assessment and Plan: fluid removal with HD as tolerated follow respiratory status and daily weights Will continue to follow - not opposed to discharge from renal perspective if otherwise medically stable. Subjective Date/time seen: 07/19/20 18:18 Tolerating dialysis treatment at the time of my visit (seen on HD at ~ 5:50PM); no apparent distress voiced at this time; no events overnight or earlier this AM; no complaints to report currently. Exam Narrative: Exam Narrative: General: WD/WN AA male in NAD Heart: normal S1 and S2; no rub Lungs: clear to auscultation Abdomen: soft, nontender, nondistended, positive bowel sounds Extremities: no cyanosis or clubbing; no edema; s/p right AKA Skin: warm and intact Objective Data Vital Signs Vital Signs: Vital Signs Temp Pulse Resp BP Pulse Ox 07/19/20 18:00 73 07/19/20 17:13 36.4 C L 73 20 134/71 07/19/20 16:00 80 07/19/20 15:31 71 126/72 07/19/20 14:00 80 07/19/20 12:00 36.1 C L 80 22 H 125/74 97 07/19/20 10:00 77 07/19/20 08:46 101 H 07/19/20 08:45 101 H 07/19/20 08:00 36.1 C L 76 24 H 131/83 95 07/19/20 06:00 76 07/19/20 04:00 36.4 C 78 18 122/79 97 07/19/20 02:00 76 07/19/20 00:00 36.7 C 63 20 113/70 98 07/18/20 22:00 80 07/18/20 20:14 84 07/18/20 20:00 36.8 C 84 20 129/75 93 Intake/Output Intake/Output: Intake & Output 07/16/20 07/17/20 07/18/20 07/19/20 23:59 23:59 23:59 23:59 Intake Total 1999 1560 1217 1040 Output Total 1999 0 1300 Balance 0 1560 1217 -260 Meds/Results Medications: Active Medications Generic Name Dose Route Start Last Admin Trade Name Freq PRN Reason Stop Dose Admin Acetaminophen 650 mg 07/07/20 09:21 07/19/20 12:38 Tylenol Tablet PO 650 mg Q4H PRN Administration Pain Rated 5 or Less Amiodarone HCl 200 mg 07/06/20 09:00 07/19/20 08:45 Pacerone PO 200 mg DAILY TORITO Administration Apixaban 2.5 mg 07/05/20 22:55 07/19/20 08:45 Eliquis PO 2.5 mg BID TORITO Administration Aspirin 81 mg 07/07/20 09:00 07/19/20 08:46 Aspirin Ec PO 81 mg
[2020-07-19 20:41] LABS: Glucose Point of Care 72 (65-105)
[2020-07-20] VITALS (17 sets, daily range): BP systolic 94–114; BP diastolic 60–75; PULSE 67–90; RESP 17–20; TEMP 35.5–36.7; O2SAT 96–100
[2020-07-20 00:04] LABS: Glucose Point of Care 104 (65-105)
[2020-07-20 04:47] LABS: Hematocrit 24.6 % (42.0-52.0); Hemoglobin 7.4 g/dL (14.0-18.0); Mean Corpuscular HGB Conc 30.1 g/dl (32-36); Mean Corpuscular Hemoglobin 29.7 pg (26-34); Mean Corpuscular Volume 98.8 fl (80-100); Mean Platelet Volume 12.2 fl (7.4-10.4); Platelet Count Result 112 k/mm3 (150-375); Red Blood Count 2.49 M/mm3 (4.6-6.20); Red Cell Distribution Width 17.6 % (11.5-14.5); White Blood Count 12.1 K/mm3 (4.5-10.0)
[2020-07-20 05:03] LABS: Anion Gap 10 mmol/L (8-16); Blood Urea Nitrogen 44 mg/dL (9-20); Calcium 8.5 mg/dL (8.4-10.2); Carbon Dioxide 30 mmol/L (22-30); Chloride 99 mmol/L (98-107); Estimated CRCL calculation 19 ml/min; Estimated Glomerular Filt Rate 20; Glucose 102 mg/dL (75-110); Phosphorus 3.9 mg/dL (2.5-4.5); Potassium 4.6 mmol/L (3.4-5.0); Sodium 139 mmol/L (137-145)
[2020-07-20 07:41] LABS: Glucose Point of Care 106 (65-105)
[2020-07-20] MEDS: MIDODRINE HCL 2.5 MG TABLET PO ×3 (09:46→17:31)
[2020-07-20] MEDS: lisinopriL 2.5 MG TABLET PO (09:46)
[2020-07-20] MEDS: AMIODARONE HCL 200 MG TABLET PO (09:47)
[2020-07-20] MEDS: carvediloL 3.125 MG TABLET PO ×2 (09:48→21:31)
[2020-07-20] MEDS: APIXABAN 2.5 MG TABLET PO ×2 (09:48→17:32)
[2020-07-20] MEDS: CLOPIDOGREL BISULFATE 75 MG TABLET PO (09:48)
[2020-07-20] MEDS: PANTOPRAZOLE 40 MG TABLET PO (09:48)
[2020-07-20] MEDS: ASPIRIN 81 MG ENTERIC TABLET PO (09:48)
[2020-07-20] MEDS: ACETAMINOPHEN 325 MG TABLET 650 MG PO ×2 (09:54→17:33)
[2020-07-20] MEDS: FLUTICASONE PROPIONATE 0.05% NA SPR 16 GM BTL (*BKC) 1 SPRAY NASAL ×2 (10:15→21:31)
--- NOTE | 2020-07-20 11:00 | P.PNNP_ITS ---
Progress Note: A&P Assessment and Plan (1) ESRD (end stage renal disease): Code(s): N18.6 - End stage renal disease Status: Chronic Assessment and Plan: * HD tomorrow and continue Sun/Sun/Sunday schedule * follow electrolytes, volume status, and clearance * push fluid removal as tolerated by hemodynamics (2) Staphylococcus aureus bacteremia with sepsis: Code(s): A41.01 - Sepsis due to Methicillin susceptible Staphylococcus aureus Status: Acute Assessment and Plan: * as noted by admission blood cultures * source? - presumed to be previous IV infiltration/phebitis - transthoracic echo negative for endocarditits * on antibiotics * Infectious Disease recommendations (3) Elevated LFTs: Code(s): R79.89 - Other specified abnormal findings of blood chemistry Status: Acute Assessment and Plan: * possibly due to mild rhabdomyolysis +/- high dose statin therapy * trend LFTs - stable if not better * follow CPK levels - continue to trend downward * statin on hold (4) Hypoglycemia: Code(s): E16.2 - Hypoglycemia, unspecified Status: Resolved Assessment and Plan: * due to diarrhea and poor oral intake * follow oral intake and blood sugars (5) Hyponatremia: Code(s): E87.1 - Hypo-osmolality and hyponatremia Status: Resolved Assessment and Plan: * resolved * due to the use of previous use of D10W IVFs to maintain his blood sugar + kidney failure + cardiomyopathy * dialysis will compensate to some degree (6) Hypocalcemia: Code(s): E83.51 - Hypocalcemia Status: Resolved Assessment and Plan: * doing better with supplementation * follow trend (7) Ischemic cardiomyopathy: Code(s): I25.5 - Ischemic cardiomyopathy Status: Acute Assessment and Plan: * fluid removal with HD as tolerated * follow respiratory status and daily weights Will continue to follow Subjective Date/time seen: 07/20/20 11:00 Tolerated dialysis yesterday without any significant issues or problems; no acute distress noted at the time of my visit; facial swelling unchanged; no events overnight or earlier this AM. Exam Narrative: Exam Narrative: General: WD/WN AA male in NAD Heart: normal S1 and S2; no rub Lungs: clear to auscultation Abdomen: soft, nontender, nondistended, positive bowel sounds Extremities: no cyanosis or clubbing; no edema; s/p right AKA Skin: no rash or nodules Objective Data Vital Signs Vital Signs: Vital Signs Temp Pulse Resp BP Pulse Ox 07/20/20 09:48 83 07/20/20 09:47 78 07/20/20 08:11 36.2 C L 79 17 114/75 96 07/20/20 06:00 75 07/20/20 04:00 36.5 C 78 20 94/64 L 96 07/20/20 02:00 81 07/20/20 00:00 90 18 96 07/19/20 23:48 36.5 C 90 18 110/60 96 07/19/20 22:00 90 07/19/20 21:58 83 07/19/20 20:30 77 20 97 07/19/20 20:00 36.6 C 83 20 113/64 97 07/19/20 19:57 36.4 C 73 20 122/60 07/19/20 19:53 73 108/50 L 07/19/20 19:45 63 98/57 L 07/19/20 19:30 78 117/44 L 07/19/20 19:15 110 H 125/72 07/19/20 19:00 78 123/69 07/19/20 18:45 76 102/60 07/19/20 18:30 74 136/64 07/19/20 18:15 73 112/56 L 07/19/20 18:00 69
--- NOTE | 2020-07-20 11:00 | PM.PNNEP ---
Progress Note: A&P Assessment and Plan (1) ESRD (end stage renal disease): Code(s): N18.6 - End stage renal disease Status: Chronic Assessment and Plan: HD tomorrow and continue Sun/Sun/Sunday schedule follow electrolytes, volume status, and clearance push fluid removal as tolerated by hemodynamics (2) Staphylococcus aureus bacteremia with sepsis: Code(s): A41.01 - Sepsis due to Methicillin susceptible Staphylococcus aureus Status: Acute Assessment and Plan: as noted by admission blood cultures source? - presumed to be previous IV infiltration/phebitis - transthoracic echo negative for endocarditits on antibiotics Infectious Disease recommendations (3) Elevated LFTs: Code(s): R79.89 - Other specified abnormal findings of blood chemistry Status: Acute Assessment and Plan: possibly due to mild rhabdomyolysis +/- high dose statin therapy trend LFTs - stable if not better follow CPK levels - continue to trend downward statin on hold (4) Hypoglycemia: Code(s): E16.2 - Hypoglycemia, unspecified Status: Resolved Assessment and Plan: due to diarrhea and poor oral intake follow oral intake and blood sugars (5) Hyponatremia: Code(s): E87.1 - Hypo-osmolality and hyponatremia Status: Resolved Assessment and Plan: resolved due to the use of previous use of D10W IVFs to maintain his blood sugar + kidney failure + cardiomyopathy dialysis will compensate to some degree (6) Hypocalcemia: Code(s): E83.51 - Hypocalcemia Status: Resolved Assessment and Plan: doing better with supplementation follow trend (7) Ischemic cardiomyopathy: Code(s): I25.5 - Ischemic cardiomyopathy Status: Acute Assessment and Plan: fluid removal with HD as tolerated follow respiratory status and daily weights Will continue to follow Subjective Date/time seen: 07/20/20 11:00 Tolerated dialysis yesterday without any significant issues or problems; no acute distress noted at the time of my visit; facial swelling unchanged; no events overnight or earlier this AM. Exam Narrative: Exam Narrative: General: WD/WN AA male in NAD Heart: normal S1 and S2; no rub Lungs: clear to auscultation Abdomen: soft, nontender, nondistended, positive bowel sounds Extremities: no cyanosis or clubbing; no edema; s/p right AKA Skin: no rash or nodules Objective Data Vital Signs Vital Signs: Vital Signs Temp Pulse Resp BP Pulse Ox 07/20/20 09:48 83 07/20/20 09:47 78 07/20/20 08:11 36.2 C L 79 17 114/75 96 07/20/20 06:00 75 07/20/20 04:00 36.5 C 78 20 94/64 L 96 07/20/20 02:00 81 07/20/20 00:00 90 18 96 07/19/20 23:48 36.5 C 90 18 110/60 96 07/19/20 22:00 90 07/19/20 21:58 83 07/19/20 20:30 77 20 97 07/19/20 20:00 36.6 C 83 20 113/64 97 07/19/20 19:57 36.4 C 73 20 122/60 07/19/20 19:53 73 108/50 L 07/19/20 19:45 63 98/57 L 07/19/20 19:30 78 117/44 L 07/19/20 19:15 110 H 125/72 07/19/20 19:00 78 123/69 07/19/20 18:45 76 102/60 07/19/20 18:30 74 136/64 07/19/20 18:15 73 112/56 L 07/19/20 18:00 69 107/46 L 07/19/20 17:59 67 106/52 L 07/19/20 17:15 64 120/61 07/19/20 17:13 36.4 C L 73 20 134/71 07/19/20 17:00 72 121/62 07/19/20 16:45 66 131/64 07/19/20 16:30 71 123/60 07/19/20 16:15 72 110/52 L 07/19/20 16:00 75 112/69 07/19/20 15:45 72 120/62 07/19/20 15:31 71 126/72 07/19/20 14:00 80 07/19/20 12:00 36.1 C L 80 22 H 125/74 97 Intake/Output Intake/Output: Intake & Output 07/17/20 07/18/20 07/19/20 07/20/20 23:59 23:59 23:59 23:59 Intake Total 1560 1217 1040 460 Output Total 0 5300 Balance 1560 1217 -4260 460 Meds/Results Medications: Active Medications Generic Name
[2020-07-20 12:26] LABS: Glucose Point of Care 102 (65-105)
[2020-07-20] MEDS: DORZOLAMIDE HCL 2% OPHTH DROPS 1 DROP EACH EYE (12:53)
--- NOTE | 2020-07-20 14:26 | WPDINFPN2 ---
Progress Note: A&P Assessment and Plan (1) Staphylococcus aureus bacteremia with sepsis: Code(s): A41.01 - Sepsis due to Methicillin susceptible Staphylococcus aureus Status: Acute Assessment and Plan: 1. S aureus bacteremia, suspect septic phlebitis LUE. Microbiologic cure 2. CRf, no U.O at baseline 3. Leukocytosis, I think due to unresolved infection at L forearm, declining slowly REC (antibiotic #14 / 28 days) Ancef #13, through 08/03/20. Follow WBC over time. Ok discharge planning. Can give antibiotic with HD only, at time of discharge, two grams at end of each HD, stop date as above Subjective Date/time seen: 07/20/20 14:26 Interval history: pain noted yesterday is better Exam Narrative: Exam Narrative: afebrile Const: General: no acute distress Resp: Effort & Inspection: normal respiratory effort Auscultation: clear to auscultation bilaterally Cardio: Rate: regular rate Rhythm: regular rhythm Heart sounds: no murmurs Objective Data Vital Signs Vital Signs: Vital Signs - 24 hr 07/19/20 15:31 07/19/20 15:45 07/19/20 16:00 Temperature Pulse Rate 71 72 75 Respiratory Rate Blood Pressure 126/72 120/62 112/69 Pulse Oximetry 07/19/20 16:15 07/19/20 16:30 07/19/20 16:45 Temperature Pulse Rate 72 71 66 Respiratory Rate Blood Pressure 110/52 L 123/60 131/64 Pulse Oximetry 07/19/20 17:00 07/19/20 17:13 07/19/20 17:15 Temperature 36.4 C L Pulse Rate 72 73 64 Respiratory Rate 20 Blood Pressure 121/62 134/71 120/61 Pulse Oximetry 07/19/20 17:59 07/19/20 18:00 07/19/20 18:15 Temperature Pulse Rate 67 69 73 Respiratory Rate Blood Pressure 106/52 L 107/46 L 112/56 L Pulse Oximetry 07/19/20 18:30 07/19/20 18:45 07/19/20 19:00 Temperature Pulse Rate 74 76 78 Respiratory Rate Blood Pressure 136/64 102/60 123/69 Pulse Oximetry 07/19/20 19:15 07/19/20 19:30 07/19/20 19:45 Temperature Pulse Rate 110 H 78 63 Respiratory Rate Blood Pressure 125/72 117/44 L 98/57 L Pulse Oximetry 07/19/20 19:53 07/19/20 19:57 07/19/20 20:00 Temperature 36.4 C 36.6 C Pulse Rate 73 73 83 Respiratory Rate 20 20 Blood Pressure 108/50 L 122/60 113/64 Pulse Oximetry 97 07/19/20 20:30 07/19/20 21:58 07/19/20 22:00 Temperature Pulse Rate 77 83 90 Respiratory Rate 20 Blood Pressure Pulse Oximetry 97 07/19/20 23:48 07/20/20 00:00 07/20/20 02:00 Temperature 36.5 C Pulse Rate 90 90 81 Respiratory Rate 18 18 Blood Pressure 110/60 Pulse Oximetry 96 96 07/20/20 04:00 07/20/20 06:00 07/20/20 08:11 Temperature 36.5 C 36.2 C L Pulse Rate 78 75 79 Respiratory Rate 20 17 Blood Pressure 94/64 L 114/75 Pulse Oximetry 96 96 07/20/20 09:47 07/20/20 09:48 07/20/20 12:00 Temperature 35.5 C L Pulse Rate 78 83 67 Respiratory Rate 20 Blood Pressure 105/61 Pulse Oximetry 100 Intake/Output Intake/Output: Intake & Output 07/17/20 07/18/20 07/19/20 07/20/20 23:59 23:59 23:59 23:59 Intake Total 1560 1217 1040 460 Output Total 0 5300 Balance 1560 1217 -4260 460 Meds/Results Medications: Active Medications Generic Name Dose Route Start Last Admin Trade Name Jose C PRN Reason Stop Dose Admin Acetaminophen 650 mg 07/07/20 09:21 07/20/20 09:54 Tylenol Tablet PO 650 mg Q4H PRN Administration Pain Rated 5 or Less Amiodarone HCl 200 mg 07/06/20 09:00 07/20/20 09:47 Pacerone PO 200 mg DAILY TORITO Administration Apixaban 2.5 mg 07/05/20 22:55 07/20/20 09:48 Eliquis PO 2.5 mg BID TORITO Administration Aspirin 81 mg 07/07/20 09:00 07/20/20 09:48 Aspirin Ec PO 81 mg QAM TORITO Administration Calcium Carbonate 200 mg 07/17/20 18:10 07/17/20 18:53 Tums PO 200 mg Q6H PRN Administration Indigestion Carvedilol 3.125 mg 07/16/20 21:50 07/20/20 09:48 Coreg PO 3.125 mg Q12HR TORITO Administration Clopidogrel Bisulfate 75 m
--- NOTE | 2020-07-20 15:25 | PM.IMPN ---
Progress Note: A&P Assessment and Plan (1) Facial edema: Code(s): R60.0 - Localized edema Status: Acute Assessment and Plan: Patient has facial sweling. Continue to monitor, pt receiving HD. I do not think SVC syndrome is likely if this is the case pt will need referral to vascular surgeon for possible stenting. (2) Staphylococcus aureus bacteremia with sepsis: Code(s): A41.01 - Sepsis due to Methicillin susceptible Staphylococcus aureus Status: Acute Assessment and Plan: Vasculopath- ESRD, CAD, ischemic cardiomyopahy, PAD with R BKA Pt has a defibrillator, coronary stenting, and hemodialysis vascular access. Pt had peripheral IV infiltration at recent hospitalization at [facility] which is the thought to be the source. CT of left arm 07/09 revealed cellulitis with no abscess. blood cultures growing MSSA (07/05 and 07/08). per previous notes. Pt will need another 14 days of ancef as per ID recommendation. (3) Cellulitis of arm: Code(s): L03.119 - Cellulitis of unspecified part of limb Status: Acute Assessment and Plan: As above. (4) Hypoglycemia: Code(s): E16.2 - Hypoglycemia, unspecified Status: Resolved Assessment and Plan: Patient with persistent hypoglycemia resolved. (5) Hypotension: Code(s): I95.9 - Hypotension, unspecified Status: Acute Assessment and Plan: BP overall improved. (6) Rhabdomyolysis: Qualifiers: Rhabdomyolysis type: non-traumatic Qualified Code(s): M62.82 - Rhabdomyolysis Code(s): M62.82 - Rhabdomyolysis Status: Resolved Assessment and Plan: His atorvastatin dose has been stopped. (7) Diarrhea: Qualifiers: Diarrhea type: unspecified type Qualified Code(s): R19.7 - Diarrhea, unspecified Code(s): R19.7 - Diarrhea, unspecified Status: Resolved Assessment and Plan: Resolved. (8) Elevated LFTs: Code(s): R79.89 - Other specified abnormal findings of blood chemistry Status: Acute Assessment and Plan: AST/ALT elevated in the setting of rhabdomyolysis or infection. CT shows GB stones. (9) Generalized weakness: Code(s): R53.1 - Weakness Status: Acute Assessment and Plan: Continue PT/OT. (10) End-stage renal disease on hemodialysis: Code(s): N18.6 - End stage renal disease; Z99.2 - Dependence on renal dialysis Status: Chronic Assessment and Plan: Patient with ESRD. 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 (11) Chronic anemia: Code(s): D64.9 - Anemia, unspecified Status: Chronic Assessment and Plan: H&H low at 7.4 history of CKD (12) Paroxysmal atrial fibrillation: Code(s): I48.0 - Paroxysmal atrial fibrillation Status: Acute Assessment and Plan: Continue amiodarone and apixaban. and Coreg . (13) Abnormal finding on lung imaging: Code(s): R91.8 - Other nonspecific abnormal finding of lung field Status: Acute Assessment and Plan: 1. Narrowing of the brachiocephalic junction with widely patent SVC. Could be from scarring at this location, particularly if patient has had dialysis catheters. If patient has SVC syndrome clinically, potentially this could be evaluated by vascular interventionalists for possible stent placement. 2. Approximately 6 pulmonary nodules, could be granulomas but metastatic disease not excludable. 3
[2020-07-20 16:37] LABS: Glucose Point of Care 86 (65-105)
[2020-07-20 20:10] LABS: Glucose Point of Care 124 (65-105)
[2020-07-20 23:58] LABS: Glucose Point of Care 87 (65-105)
[2020-07-21] VITALS (34 sets, daily range): BP systolic 93–145; BP diastolic 52–82; PULSE 72–109; RESP 18–26; TEMP 36.1–37; O2SAT 91–97
[2020-07-21] MEDS: ACETAMINOPHEN 325 MG TABLET 650 MG PO ×2 (07:38→20:57)
[2020-07-21] MEDS: DORZOLAMIDE HCL 2% OPHTH DROPS 1 DROP EACH EYE (07:42)
[2020-07-21] MEDS: FLUTICASONE PROPIONATE 0.05% NA SPR 16 GM BTL (*BKC) 1 SPRAY NASAL ×2 (07:42→20:57)
[2020-07-21] MEDS: PANTOPRAZOLE 40 MG TABLET PO (07:45)
--- NOTE | 2020-07-21 08:32 | PC.NURSE ---
To dialysis room via bed accompanied by RN for treatment
--- NOTE | 2020-07-21 09:57 | P.PNNP_ITS ---
Progress Note: A&P Assessment and Plan (1) ESRD (end stage renal disease): Code(s): N18.6 - End stage renal disease Status: Chronic Assessment and Plan: * HD today and continue Sun/Sun/Sunday schedule * follow electrolytes, volume status, and clearance * push fluid removal as tolerated by hemodynamics (2) Staphylococcus aureus bacteremia with sepsis: Code(s): A41.01 - Sepsis due to Methicillin susceptible Staphylococcus aureus Status: Acute Assessment and Plan: * as noted by admission blood cultures * source? - presumed to be previous IV infiltration/phebitis - transthoracic echo negative for endocarditits * on antibiotics * Infectious Disease recommendations (3) Elevated LFTs: Code(s): R79.89 - Other specified abnormal findings of blood chemistry Status: Acute Assessment and Plan: * possibly due to mild rhabdomyolysis +/- high dose statin therapy * trend LFTs - stable if not better * follow CPK levels - continue to trend downward * statin on hold (4) Hypoglycemia: Code(s): E16.2 - Hypoglycemia, unspecified Status: Resolved Assessment and Plan: * due to diarrhea and poor oral intake * follow oral intake and blood sugars (5) Hyponatremia: Code(s): E87.1 - Hypo-osmolality and hyponatremia Status: Resolved Assessment and Plan: * resolved * due to the use of previous use of D10W IVFs to maintain his blood sugar + kidney failure + cardiomyopathy * dialysis will compensate to some degree (6) Hypocalcemia: Code(s): E83.51 - Hypocalcemia Status: Resolved Assessment and Plan: * doing better with supplementation * follow trend (7) Ischemic cardiomyopathy: Code(s): I25.5 - Ischemic cardiomyopathy Status: Acute Assessment and Plan: * fluid removal with HD as tolerated * follow respiratory status and daily weights Will continue to follow Subjective Date/time seen: 07/21/20 09:57 Tolerating dialysis at the time of my visit (seen on HD at ~ 9:50AM); no apparent distress voiced; no events or issues overnight or earlier this AM. Exam Narrative: Exam Narrative: General: WD/WN AA male in NAD Heart: normal S1 and S2; no rub Lungs: clear to auscultation Abdomen: soft, nontender, nondistended, positive bowel sounds Extremities: no cyanosis or clubbing; no edema; s/p right AKA Skin: warm and dry Objective Data Vital Signs Vital Signs: Vital Signs Temp Pulse Resp BP Pulse Ox 07/21/20 09:45 75 114/52 L 07/21/20 09:30 78 115/70 07/21/20 09:15 72 120/58 L 07/21/20 09:00 75 130/60 07/21/20 08:45 73 120/70 07/21/20 08:31 77 133/76 07/21/20 08:15 36.5 C 79 20 131/80 07/21/20 08:04 78 07/21/20 08:00 36.3 C L 109 H 26 H 136/80 94 07/21/20 06:00 80 07/21/20 04:00 36.6 C 79 18 129/82 97 07/21/20 02:00 72 07/21/20 00:00 82 20 97 07/20/20 23:50 36.7 C 82 20 110/60 97 07/20/20 22:00 85 07/20/20 21:31 83 07/20/20 20:00 36.5 C 78 18 112/69 97 07/20/20 16:15 72 07/20/20 16:00 36.2 C L 75 18 112/62 97 07/20/20 14:00 75 07/20/20 12:00 35.5 C L 70 20 105/61 100 07/20/20 10:00 81 Int
--- NOTE | 2020-07-21 09:57 | PM.PNNEP ---
Progress Note: A&P Assessment and Plan (1) ESRD (end stage renal disease): Code(s): N18.6 - End stage renal disease Status: Chronic Assessment and Plan: HD today and continue Sun/Sun/Sunday schedule follow electrolytes, volume status, and clearance push fluid removal as tolerated by hemodynamics (2) Staphylococcus aureus bacteremia with sepsis: Code(s): A41.01 - Sepsis due to Methicillin susceptible Staphylococcus aureus Status: Acute Assessment and Plan: as noted by admission blood cultures source? - presumed to be previous IV infiltration/phebitis - transthoracic echo negative for endocarditits on antibiotics Infectious Disease recommendations (3) Elevated LFTs: Code(s): R79.89 - Other specified abnormal findings of blood chemistry Status: Acute Assessment and Plan: possibly due to mild rhabdomyolysis +/- high dose statin therapy trend LFTs - stable if not better follow CPK levels - continue to trend downward statin on hold (4) Hypoglycemia: Code(s): E16.2 - Hypoglycemia, unspecified Status: Resolved Assessment and Plan: due to diarrhea and poor oral intake follow oral intake and blood sugars (5) Hyponatremia: Code(s): E87.1 - Hypo-osmolality and hyponatremia Status: Resolved Assessment and Plan: resolved due to the use of previous use of D10W IVFs to maintain his blood sugar + kidney failure + cardiomyopathy dialysis will compensate to some degree (6) Hypocalcemia: Code(s): E83.51 - Hypocalcemia Status: Resolved Assessment and Plan: doing better with supplementation follow trend (7) Ischemic cardiomyopathy: Code(s): I25.5 - Ischemic cardiomyopathy Status: Acute Assessment and Plan: fluid removal with HD as tolerated follow respiratory status and daily weights Will continue to follow Subjective Date/time seen: 07/21/20 09:57 Tolerating dialysis at the time of my visit (seen on HD at ~ 9:50AM); no apparent distress voiced; no events or issues overnight or earlier this AM. Exam Narrative: Exam Narrative: General: WD/WN AA male in NAD Heart: normal S1 and S2; no rub Lungs: clear to auscultation Abdomen: soft, nontender, nondistended, positive bowel sounds Extremities: no cyanosis or clubbing; no edema; s/p right AKA Skin: warm and dry Objective Data Vital Signs Vital Signs: Vital Signs Temp Pulse Resp BP Pulse Ox 07/21/20 09:45 75 114/52 L 07/21/20 09:30 78 115/70 07/21/20 09:15 72 120/58 L 07/21/20 09:00 75 130/60 07/21/20 08:45 73 120/70 07/21/20 08:31 77 133/76 07/21/20 08:15 36.5 C 79 20 131/80 07/21/20 08:04 78 07/21/20 08:00 36.3 C L 109 H 26 H 136/80 94 07/21/20 06:00 80 07/21/20 04:00 36.6 C 79 18 129/82 97 07/21/20 02:00 72 07/21/20 00:00 82 20 97 07/20/20 23:50 36.7 C 82 20 110/60 97 07/20/20 22:00 85 07/20/20 21:31 83 07/20/20 20:00 36.5 C 78 18 112/69 97 07/20/20 16:15 72 07/20/20 16:00 36.2 C L 75 18 112/62 97 07/20/20 14:00 75 07/20/20 12:00 35.5 C L 70 20 105/61 100 07/20/20 10:00 81 Intake/Output Intake/Output: Intake & Output 07/18/20 07/19/20 07/20/20 07/21/20 23:59 23:59 23:59 23:59 Intake Total 1217 1040 940 760 Output Total 0 5300 Balance 1217 -4260 940 760 Meds/Results Medications: Active Medications Generic Name Dose Route Start Last Admin Trade Name Jose C PRN Reason Stop Dose Admin Acetaminophen 650 mg 07/07/20 09:21 07/21/20 07:38 Tylenol Tablet PO 650 mg Q4H PRN Administration Pain Rated 5 or Less Amiodarone HCl 200 mg 07/06/20 09:00 07/20/20 09:47 Pacerone PO 200 mg DAILY TORITO Administration Apixaban 2.5 mg 07/05/20 22:55 07/20/20 17:32 Eliquis PO 2.5 mg BID TORITO Administration Aspirin 81 mg 0
[2020-07-21] MEDS: EPOETIN ALFA-EPBX 10,000 UNITS/ML VIAL 20000 UNITS IV PUSH (11:13)
--- NOTE | 2020-07-21 11:43 | PCOTNOTE ---
Attempted to see patient, however patient off floor for dialysis at this time.
--- NOTE | 2020-07-21 11:46 | PCPTNOTE ---
Attempted therapy session however Pt was in dialysis. Will continues per POC.
[2020-07-21] MEDS: AMIODARONE HCL 200 MG TABLET PO (13:03)
[2020-07-21] MEDS: ASPIRIN 81 MG ENTERIC TABLET PO (13:03)
[2020-07-21] MEDS: APIXABAN 2.5 MG TABLET PO ×2 (13:03→17:15)
[2020-07-21] MEDS: lisinopriL 2.5 MG TABLET PO (13:03)
[2020-07-21] MEDS: CLOPIDOGREL BISULFATE 75 MG TABLET PO (13:04)
[2020-07-21] MEDS: carvediloL 3.125 MG TABLET PO ×2 (13:04→20:56)
[2020-07-21] MEDS: MIDODRINE HCL 2.5 MG TABLET PO ×2 (13:14→17:13)
--- NOTE | 2020-07-21 13:17 | PC.NURSE ---
Returned to room post dialysis treatment
--- NOTE | 2020-07-21 13:39 | WPDINFPN2 ---
Progress Note: A&P Assessment and Plan (1) Staphylococcus aureus bacteremia with sepsis: Code(s): A41.01 - Sepsis due to Methicillin susceptible Staphylococcus aureus Status: Acute Assessment and Plan: 1. S aureus bacteremia, suspect septic phlebitis LUE. Microbiologic cure 2. CRf, no U.O at baseline 3. Leukocytosis, I think due to unresolved infection at L forearm REC (antibiotic #15 / 28 days) Ancef #14, through 08/03/20. Follow WBC over time. Ok discharge planning. Can give antibiotic with HD only, at time of discharge, two grams at end of each HD, stop date as above. Observe the bullae over the L fingers Subjective Date/time seen: 07/21/20 13:39 Interval history: no new complaints. Seen while on HD Exam Narrative: Exam Narrative: afebrile Const: General: no acute distress Resp: Effort & Inspection: normal respiratory effort Auscultation: clear to auscultation bilaterally Cardio: Rate: regular rate Rhythm: regular rhythm Heart sounds: no murmurs Skin: General skin exam: normal color Other: bullae over fingers more extensive, no erythema edema tenderness ROM restriction Extrem: Other: left arm without change Objective Data Vital Signs Vital Signs: Vital Signs - 24 hr 07/20/20 14:00 07/20/20 16:00 07/20/20 16:15 Temperature 36.2 C L Pulse Rate 75 75 72 Respiratory Rate 18 Blood Pressure 112/62 Pulse Oximetry 97 07/20/20 20:00 07/20/20 21:31 07/20/20 22:00 Temperature 36.5 C Pulse Rate 78 83 85 Respiratory Rate 18 Blood Pressure 112/69 Pulse Oximetry 97 07/20/20 23:50 07/21/20 00:00 07/21/20 02:00 Temperature 36.7 C Pulse Rate 82 82 72 Respiratory Rate 20 20 Blood Pressure 110/60 Pulse Oximetry 97 97 07/21/20 04:00 07/21/20 06:00 07/21/20 08:00 Temperature 36.6 C 36.3 C L Pulse Rate 79 80 109 H Respiratory Rate 18 26 H Blood Pressure 129/82 136/80 Pulse Oximetry 97 94 07/21/20 08:04 07/21/20 08:15 07/21/20 08:31 Temperature 36.5 C Pulse Rate 78 79 77 Respiratory Rate 20 Blood Pressure 131/80 133/76 Pulse Oximetry 07/21/20 08:45 07/21/20 09:00 07/21/20 09:15 Temperature Pulse Rate 73 75 72 Respiratory Rate Blood Pressure 120/70 130/60 120/58 L Pulse Oximetry 07/21/20 09:30 07/21/20 09:45 07/21/20 10:00 Temperature Pulse Rate 78 75 75 Respiratory Rate Blood Pressure 115/70 114/52 L 134/78 Pulse Oximetry 07/21/20 10:15 07/21/20 10:30 07/21/20 10:45 Temperature Pulse Rate 78 75 77 Respiratory Rate Blood Pressure 111/70 120/69 141/72 H Pulse Oximetry 07/21/20 11:00 07/21/20 11:15 07/21/20 11:30 Temperature Pulse Rate 75 77 78 Respiratory Rate Blood Pressure 113/61 134/71 116/53 L Pulse Oximetry 07/21/20 11:45 07/21/20 12:00 07/21/20 12:02 Temperature Pulse Rate 82 81 79 Respiratory Rate Blood Pressure 132/71 145/67 H 111/73 Pulse Oximetry 07/21/20 12:10 07/21/20 13:03 07/21/20 13:04 Temperature 36.7 C Pulse Rate 76 80 78 Respiratory Rate 20 Blood Pressure 122/70 Pulse Oximetry 07/21/20 13:11 07/21/20 13:20 Temperature 36.4 C Pulse Rate 80 84 Respiratory Rate 20 Blood Pressure 136/65 Pulse Oximetry 93 Intake/Output Intake/Output: Intake & Output 07/18/20 07/19/20 07/20/20 07/21/20 23:59 23:59 23:59 23:59 Intake Total 1217 1040 940 760 Output Total 0 5300 3700 Balance 1217 -9557 940 2940 Meds/Results Medications: Active Medications Generic Name Dose Route Start Last Admin Trade Name Freq PRN Reason Stop Dose Admin Acetaminophen 650 mg 07/07/20 09:21 07/21/20 07:38 Tylenol Tablet PO 650 mg Q4H PRN Administration Pain Rated 5 or Less Amiodarone HCl 200 mg 07/06/20 09:00 07/21/20 13:03 Pacerone PO 200 mg DAILY TORITO Administration Apixaban 2.5 mg 07/05/20 22:55 07/21/20 13:03 Eliquis PO 2.5 mg BID TORITO Administration Aspirin 81 mg 07/07/20 09:00 07/21/20
--- NOTE | 2020-07-21 13:43 | PCDIET ---
Nutrition Follow-Up Complete: Nutrition Diagnosis: Inadequate oral intake R/T reduced appetite and diarrhea as evidence by wt loss of 2-13lbs Nutrition Goal: Intake of 50% of meals and supplements to help maintain wt Goal met. Patient consuming 75-100% of most meals on renal dialysis diet with Nepro BID. Agree with current diet/supplements. Last recorded weight is 69.1 kg which is stable. Bowel Motility: Last documented BM on 07/20/20. Labs Reviewed: Hgb (7.4), Hct (24.6), BUN (44), Cr (3.7), Alb (3.0) Meds Noted: Protonix, Albumin Additional Notes: Coccyx and left hip with friction areas. Will continue to monitor with same goals. Nutrition Monitoring and Evaluation: Follow up every 7 days.
--- NOTE | 2020-07-21 14:14 | PM.CNPUL ---
Assessment and Plan Assessment and plan (1) Multiple pulmonary nodules determined by computed tomography of lung: Code(s): R91.8 - Other nonspecific abnormal finding of lung field Status: Acute Assessment and Plan: 1) Chest CT Sept 7 showed multiple areas of patchy infiltrate consistent with pneumonia. A follow-up chest CT later this same admission on July 19 showed nodules the largest in the right lower lobe 1.3 cm. The other 5 nodules were in areas that previously had infiltrate. This may represent septic emboli from his MSSA bacteremia, and this will take a while to resolve. Radiologist's differential includes resolving infiltrate or metastatic disease. Recommendation from the radiologist was made for follow-up chest CT in 3 months, and this will be planned as an outpatient. He remains on antibiotic for his MSSA bacteremia which originated in his left forearm IV site. I will be happy to see him as an outpatient. He is followed by Dr Zuñiga who is his primary doctor. 2) Emphysema on chest CT; little smoking, less than 2 years. 3) Pleural effusions- bilateral, larger now than at admission; this may be related to his volume status. I do not see any evidence of pneumonia that would cause bilateral parapneumonic effusions. 4) Pulmonary hypertension; this is likely related to his ischemic cardiomyopathy and possible untreated sleep apnea. He says that he is scheduled to have a sleep study at [facility] sometime in the next week. 5) Rhinitis; has dried blood in the nares and nasal congestion. Will Rx with nasal saline and oral decongestant. 6) Ecchymoses both upper limbs His other medical diagnoses include: 1) MSSA bacteremia 2) ischemic CMP; CAD with 4 stents 11/2016 and V-fib arrest, has ppm/ICD; 3) PAF on amiodarone 4) PVD with R AKA 2016 5) recent rhabdomyolysis from atorvastatin a few weeks ago 6) ESRD on HD x 2005 7) anemia; was transfused 1 unit RBC 07/17 when H/H dropped 6.9/23.2% History of Present Illness History of Present Illness Consult date: 09/23/20 Requesting physician: Olivia Matt MD Chief complaint: Diarrhea. Narrative: lung nodules Dr Matt consulted me to see this patient for an abnormal chest CT, specifically does the patient have lung cancer ? short answer: Probably not This request was made after a chest CT Jul 19 showing 6 nodules in areas that appeared to show pneumonia on admission 2 weeks earlier, 07/07/2020 in the setting of MSSA bacteremia which raises the concern for septic emboli. Radiologist's recommendation is for a repeat CT chest in 3 months. 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 About a week before this admission on Jul 05, he was at [facility] for a cardiac stent with adjustment in amiodarone and long term care phlebotomist anticoagulation for paroxysmal atrial fibrillation. His atorvastatin was doubled during his stay at [facility]. He was admitted here Jul 05 with DIARRHEA and had RHABDOMYOLYSIS that was likely due to increase in his atorvastatin from 40 mg to 80 mg the week before. He was having pain in his thighs that was due to rhabdomyolysis. His labs showed elevated liver function testing, hypoglycemia, elevated lactic acid level which raised a concern for sepsis. He also had a mild leukocytosis and generalized weakness. On admission here, he had MSSA bacteremia which originated from his Left forearm IV access from his [facility] stay, and Dr Nuñez recommended changing the Zosyn that was started for diarrhea to Vanco 07/07, then to Ancef on 07/08 when the cultures showed that the Staph was sensitive to methicillin. While here, he has had hypoglycemia, may have been spurious. Some o
[2020-07-21 14:17] LABS: Glucose Point of Care 67 (65-105)
--- NOTE | 2020-07-21 15:09 | PM.IMPN ---
Progress Note: A&P Assessment and Plan (1) Facial edema: Code(s): R60.0 - Localized edema Status: Acute Assessment and Plan: Patient has facial swelling. Continue to monitor, pt receiving HD. Which is improving. (2) Staphylococcus aureus bacteremia with sepsis: Code(s): A41.01 - Sepsis due to Methicillin susceptible Staphylococcus aureus Status: Acute Assessment and Plan: Vasculopath- ESRD, CAD, ischemic cardiomyopahy, PAD with R BKA Pt has a defibrillator, coronary stenting, and hemodialysis vascular access. Pt had peripheral IV infiltration at recent hospitalization at [facility] which is the thought to be the source. CT of left arm 07/09 revealed cellulitis with no abscess. blood cultures growing MSSA (07/05 and 07/08). per previous notes. Pt will need another 13 days of ancef as per ID recommendation. Dc soon in next 1-2 days time (3) Cellulitis of arm: Code(s): L03.119 - Cellulitis of unspecified part of limb Status: Acute Assessment and Plan: As above. (4) Hypoglycemia: Code(s): E16.2 - Hypoglycemia, unspecified Status: Resolved Assessment and Plan: Patient with persistent hypoglycemia resolved. (5) Hypotension: Code(s): I95.9 - Hypotension, unspecified Status: Acute Assessment and Plan: BP overall improved. (6) Rhabdomyolysis: Qualifiers: Rhabdomyolysis type: non-traumatic Qualified Code(s): M62.82 - Rhabdomyolysis Code(s): M62.82 - Rhabdomyolysis Status: Resolved Assessment and Plan: His atorvastatin dose has been stopped. (7) Diarrhea: Qualifiers: Diarrhea type: unspecified type Qualified Code(s): R19.7 - Diarrhea, unspecified Code(s): R19.7 - Diarrhea, unspecified Status: Resolved Assessment and Plan: Resolved. (8) Elevated LFTs: Code(s): R79.89 - Other specified abnormal findings of blood chemistry Status: Acute Assessment and Plan: AST/ALT elevated in the setting of rhabdomyolysis or infection. CT shows GB stones. (9) Generalized weakness: Code(s): R53.1 - Weakness Status: Acute Assessment and Plan: Continue PT/OT. (10) End-stage renal disease on hemodialysis: Code(s): N18.6 - End stage renal disease; Z99.2 - Dependence on renal dialysis Status: Chronic Assessment and Plan: Patient with ESRD. 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 (11) Chronic anemia: Code(s): D64.9 - Anemia, unspecified Status: Chronic Assessment and Plan: H&H low at 7.4 history of CKD (12) Paroxysmal atrial fibrillation: Code(s): I48.0 - Paroxysmal atrial fibrillation Status: Acute Assessment and Plan: Continue amiodarone and apixaban. and Coreg . (13) Abnormal finding on lung imaging: Code(s): R91.8 - Other nonspecific abnormal finding of lung field Status: Acute Assessment and Plan: 1. Narrowing of the brachiocephalic junction with widely patent SVC. Could be from scarring at this location, particularly if patient has had dialysis catheters. If patient has SVC syndrome clinically, potentially this could be evaluated by vascular interventionists for possible stent placement. 2. Approximately 6 pulmonary nodules, could be granulomas but metastatic disease not excludable. 3. Moderate bilateral pleural effusions, left basilar multi segmental right basilar segmental atelectasis. 4.
[2020-07-21 17:02] LABS: Glucose Point of Care 94 (65-105)
[2020-07-21 22:45] LABS: Glucose Point of Care 144 (65-105)
[2020-07-22] VITALS (13 sets, daily range): BP systolic 99–128; BP diastolic 60–81; PULSE 73–102; RESP 12–22; TEMP 35.7–37.1; O2SAT 91–100
[2020-07-22 05:21] LABS: Basophils Absolute Auto 0.1 K/mm3 (0.0-0.1); Basophils Percent Auto 0.3 % (0.2-1.2); Eosinophils Absolute Auto 0.1 K/mm3 (0-0.3); Eosinophils Percent Auto 0.3 % (0-4.4); Hematocrit 26.1 % (42.0-52.0); Hemoglobin 7.8 g/dL (14.0-18.0); Immature Granulocyte Absolute 0.13 K/mm3 (0.00-0.031); Immature Granulocyte Percent A 0.8 % (0-0.5); Lymphocytes Absolute Auto 0.69 K/mm3 (0.9-3.2); Lymphocytes Percent Auto 4.5 % (18.3-44.2); Mean Corpuscular HGB Conc 29.9 g/dl (32-36); Mean Corpuscular Hemoglobin 29.8 pg (26-34); Mean Corpuscular Volume 99.6 fl (80-100); Mean Platelet Volume 12.8 fl (7.4-10.4); Monocytes Absolute Auto 1.1 K/mm3 (0.1-0.6); Monocytes Percent Auto 6.8 % (2.6-8.5); Neutrophils Absolute Auto 13.4 K/mm3 (1.3-6.7); Neutrophils Percent Auto 87.3 % (45.5-73.1); Nucleated Red Blood Cells Absolute Auto 0.1 K/mm3 (0.0-0.012); Nucleated Red Blood Cells Perc 0.3 % (0.0-0.2); Platelet Count Result 121 k/mm3 (150-375); Red Blood Count 2.62 M/mm3 (4.6-6.20); Red Cell Distribution Width 17.6 % (11.5-14.5); White Blood Count 15.4 K/mm3 (4.5-10.0)
[2020-07-22 05:31] LABS: Anion Gap 10 mmol/L (8-16); Blood Urea Nitrogen 47 mg/dL (9-20); Calcium 9.3 mg/dL (8.4-10.2); Carbon Dioxide 32 mmol/L (22-30); Chloride 95 mmol/L (98-107); Estimated CRCL calculation 17 ml/min; Estimated Glomerular Filt Rate 21; Glucose 100 mg/dL (75-110); Potassium 4.9 mmol/L (3.4-5.0); Sodium 137 mmol/L (137-145)
[2020-07-22 08:23] LABS: Glucose Point of Care 91 (65-105)
[2020-07-22] MEDS: CLOPIDOGREL BISULFATE 75 MG TABLET PO (09:00)
[2020-07-22] MEDS: APIXABAN 2.5 MG TABLET PO ×2 (09:00→16:23)
[2020-07-22] MEDS: ASPIRIN 81 MG ENTERIC TABLET PO (09:00)
[2020-07-22] MEDS: carvediloL 3.125 MG TABLET PO ×2 (09:00→20:58)
[2020-07-22] MEDS: FLUTICASONE PROPIONATE 0.05% NA SPR 16 GM BTL (*BKC) 1 SPRAY NASAL ×2 (09:01→20:58)
[2020-07-22] MEDS: DORZOLAMIDE HCL 2% OPHTH DROPS 1 DROP EACH EYE (09:01)
[2020-07-22] MEDS: lisinopriL 2.5 MG TABLET PO (09:02)
[2020-07-22] MEDS: MIDODRINE HCL 2.5 MG TABLET PO ×3 (09:02→16:23)
[2020-07-22] MEDS: PANTOPRAZOLE 40 MG TABLET PO (09:03)
[2020-07-22] MEDS: AMIODARONE HCL 200 MG TABLET PO (09:03)
[2020-07-22] MEDS: ceFAZolin 2 GM/D5W 50 ML 2 GM/50 ML BAG IVPB (09:46)
[2020-07-22] MEDS: ACETAMINOPHEN 325 MG TABLET 650 MG PO (10:21)
[2020-07-22 12:38] LABS: Glucose Point of Care 117 (65-105)
--- NOTE | 2020-07-22 13:39 | WPDINFPN2 ---
Progress Note: A&P Assessment and Plan (1) Staphylococcus aureus bacteremia with sepsis: Code(s): A41.01 - Sepsis due to Methicillin susceptible Staphylococcus aureus Status: Acute Assessment and Plan: 1. S aureus bacteremia, suspect septic phlebitis LUE. Microbiologic cure 2. CRf, no U.O at baseline 3. Leukocytosis, back up somewhat REC (antibiotic #16 / 28 days) Ancef #15, through 08/03/20. Follow WBC over time. Ok discharge planning. Can give antibiotic with HD only, at time of discharge, two grams at end of each HD, stop date as above. Observe the bullae over the L fingers Subjective Date/time seen: 07/22/20 13:39 Interval history: no new complaints Exam Narrative: Exam Narrative: afebrile Const: General: no acute distress Extrem: Other: left arm with edema and skin discoloration as before, no fluctuance nor tenderness. Bullae over L fingers same, also has discoloration over R fingers Objective Data Vital Signs Vital Signs: Vital Signs - 24 hr 07/21/20 16:00 07/21/20 18:00 07/21/20 20:00 Temperature 37.0 C 36.1 C L Pulse Rate 79 78 84 Respiratory Rate 22 H 24 H Blood Pressure 96/55 L 93/78 L Pulse Oximetry 91 95 07/21/20 20:56 07/21/20 22:00 07/22/20 00:00 Temperature 37.1 C Pulse Rate 80 84 75 Respiratory Rate 20 Blood Pressure 112/67 Pulse Oximetry 95 07/22/20 02:00 07/22/20 04:00 07/22/20 06:00 Temperature 36.8 C Pulse Rate 80 89 91 Respiratory Rate 20 Blood Pressure 111/71 Pulse Oximetry 95 07/22/20 08:00 07/22/20 09:00 07/22/20 09:03 Temperature 35.7 C L Pulse Rate 81 84 80 Respiratory Rate 12 Blood Pressure 128/81 Pulse Oximetry 94 07/22/20 10:00 07/22/20 12:00 Temperature 35.7 C L Pulse Rate 74 100 Respiratory Rate 14 Blood Pressure 99/60 L Pulse Oximetry 100 Intake/Output Intake/Output: Intake & Output 07/19/20 07/20/20 07/21/20 07/22/20 23:59 23:59 23:59 23:59 Intake Total 4155 957 0117 360 Output Total 5300 3700 0 Balance -4260 940 -3350 360 Meds/Results Medications: Active Medications Generic Name Dose Route Start Last Admin Trade Name Freq PRN Reason Stop Dose Admin Acetaminophen 650 mg 07/07/20 09:21 07/22/20 10:21 Tylenol Tablet PO 650 mg Q4H PRN Administration Pain Rated 5 or Less Amiodarone HCl 200 mg 07/06/20 09:00 07/22/20 09:03 Pacerone PO 200 mg DAILY TORITO Administration Apixaban 2.5 mg 07/05/20 22:55 07/22/20 09:00 Eliquis PO 2.5 mg BID TORITO Administration Aspirin 81 mg 07/07/20 09:00 07/22/20 09:00 Aspirin Ec PO 81 mg QAM TORITO Administration Calcium Carbonate 200 mg 07/17/20 18:10 07/17/20 18:53 Tums PO 200 mg Q6H PRN Administration Indigestion Carvedilol 3.125 mg 07/16/20 21:50 07/22/20 09:00 Coreg PO 3.125 mg Q12HR TORITO Administration Clopidogrel Bisulfate 75 mg 07/06/20 09:00 07/22/20 09:00 Plavix PO 75 mg DAILY TORITO Administration Dextrose 12.5 gm 07/05/20 14:08 07/14/20 20:12 Dextrose 50% Syringe IV PUSH 12.5 gm PRN PRN Administration Hypoglycemia Protocol Dorzolamide HCl 1 drop 07/06/20 09:00 07/22/20 09:01 Trusopt EACH EYE 1 drop DAILY TORITO Administration Fluticasone Propionate 1 spray 07/15/20 21:00 07/22/20 09:01 Flonase 0.05% Nasal [place] NASAL 1 spray Q12HR TORITO Administration Glucagon 1 mg 07/05/20 14:08 Glucagon For Inj IM PRN PRN Hypoglycemia Protocol Glucose 15 gm 07/05/20 14:08 07/13/20 12:57 Glutose 15 PO 15 gm PRN PRN Administration Hypoglycemia Protocol Albumin Human 50 mls @ 999 mls/hr 07/06/20 00:44 07/12/20 09:43 Albutein IVPB 08/05/20 00:45 999 mls/hr Q10M PRN Administration HYPOTENSION Cefazolin Sodium 2 gm in 50 mls @ 100 mls/hr 07/22/20 08:43 07/22/20 09:46 Ancef 2 Gm/D5w 50 Ml IVPB 08/03/20 23:59 100 mls/hr PRN PRN Administration POST DIALYSIS Lisino
--- NOTE | 2020-07-22 15:59 | P.PNNP_ITS ---
Progress Note: A&P Assessment and Plan (1) ESRD (end stage renal disease): Code(s): N18.6 - End stage renal disease Status: Chronic Assessment and Plan: * HD tomorrow and continue Sun/Sun/Sunday schedule * follow electrolytes, volume status, and clearance * push fluid removal as tolerated by hemodynamics (2) Staphylococcus aureus bacteremia with sepsis: Code(s): A41.01 - Sepsis due to Methicillin susceptible Staphylococcus aureus Status: Acute Assessment and Plan: * as noted by admission blood cultures * source? - presumed to be previous IV infiltration/septic phlebitis - transthoracic echo negative for endocarditits * on antibiotics * Infectious Disease recommendations noted (3) Elevated LFTs: Code(s): R79.89 - Other specified abnormal findings of blood chemistry Status: Acute Assessment and Plan: * possibly due to mild rhabdomyolysis +/- high dose statin therapy * trend LFTs - stable if not better * follow CPK levels - continue to trend downward * statin on hold (4) Hyponatremia: Code(s): E87.1 - Hypo-osmolality and hyponatremia Status: Resolved Assessment and Plan: * resolved * due to the use of previous use of D10W IVFs to maintain his blood sugar + kidney failure + cardiomyopathy * dialysis will compensate to some degree (5) Hypocalcemia: Code(s): E83.51 - Hypocalcemia Status: Resolved Assessment and Plan: * doing better with supplementation * follow trend (6) Ischemic cardiomyopathy: Code(s): I25.5 - Ischemic cardiomyopathy Status: Acute Assessment and Plan: * fluid removal with HD as tolerated * follow respiratory status and daily weights Will continue to follow Subjective Date/time seen: 07/22/20 15:59 Tolerated dialysis yesterday without any issues or problems; appears to be doing fairly well; no events overnight or earlier this AM; working with PT/OT as tolerated. Exam Narrative: Exam Narrative: General: WD/WN AA male in NAD Heart: normal S1 and S2; no rub Lungs: clear to auscultation Abdomen: soft, nontender, nondistended, positive bowel sounds Extremities: no cyanosis or clubbing; no edema; s/p right AKA Skin: warm and intact Objective Data Vital Signs Vital Signs: Vital Signs Temp Pulse Resp BP Pulse Ox 07/22/20 14:00 73 07/22/20 12:00 35.7 C L 100 14 99/60 L 100 07/22/20 10:00 74 07/22/20 09:03 80 07/22/20 09:00 84 07/22/20 08:00 35.7 C L 81 12 128/81 94 07/22/20 06:00 91 07/22/20 04:00 36.8 C 89 20 111/71 95 07/22/20 02:00 80 07/22/20 00:00 37.1 C 75 20 112/67 95 07/21/20 22:00 84 07/21/20 20:56 80 07/21/20 20:00 36.1 C L 84 24 H 93/78 L 95 07/21/20 18:00 78 Intake/Output Intake/Output: Intake & Output 07/19/20 07/20/20 07/21/20 07/22/20 23:59 23:59 23:59 23:59 Intake Total 9303 983 2251 360 Output Total 5300 3700 0 Balance -4260 940 -2460 360 Meds/Results Medications: Active Medications Generic Name Dose Route Start Last Admin Trade Name Jose C PRN Reason Stop Dose Admin Acetaminophen 650 mg 07/07/20 09:21 07/22/20 10:21
--- NOTE | 2020-07-22 15:59 | PM.PNNEP ---
Progress Note: A&P Assessment and Plan (1) ESRD (end stage renal disease): Code(s): N18.6 - End stage renal disease Status: Chronic Assessment and Plan: HD tomorrow and continue Sun/Sun/Sunday schedule follow electrolytes, volume status, and clearance push fluid removal as tolerated by hemodynamics (2) Staphylococcus aureus bacteremia with sepsis: Code(s): A41.01 - Sepsis due to Methicillin susceptible Staphylococcus aureus Status: Acute Assessment and Plan: as noted by admission blood cultures source? - presumed to be previous IV infiltration/septic phlebitis - transthoracic echo negative for endocarditits on antibiotics Infectious Disease recommendations noted (3) Elevated LFTs: Code(s): R79.89 - Other specified abnormal findings of blood chemistry Status: Acute Assessment and Plan: possibly due to mild rhabdomyolysis +/- high dose statin therapy trend LFTs - stable if not better follow CPK levels - continue to trend downward statin on hold (4) Hyponatremia: Code(s): E87.1 - Hypo-osmolality and hyponatremia Status: Resolved Assessment and Plan: resolved due to the use of previous use of D10W IVFs to maintain his blood sugar + kidney failure + cardiomyopathy dialysis will compensate to some degree (5) Hypocalcemia: Code(s): E83.51 - Hypocalcemia Status: Resolved Assessment and Plan: doing better with supplementation follow trend (6) Ischemic cardiomyopathy: Code(s): I25.5 - Ischemic cardiomyopathy Status: Acute Assessment and Plan: fluid removal with HD as tolerated follow respiratory status and daily weights Will continue to follow Subjective Date/time seen: 07/22/20 15:59 Tolerated dialysis yesterday without any issues or problems; appears to be doing fairly well; no events overnight or earlier this AM; working with PT/OT as tolerated. Exam Narrative: Exam Narrative: General: WD/WN AA male in NAD Heart: normal S1 and S2; no rub Lungs: clear to auscultation Abdomen: soft, nontender, nondistended, positive bowel sounds Extremities: no cyanosis or clubbing; no edema; s/p right AKA Skin: warm and intact Objective Data Vital Signs Vital Signs: Vital Signs Temp Pulse Resp BP Pulse Ox 07/22/20 14:00 73 07/22/20 12:00 35.7 C L 100 14 99/60 L 100 07/22/20 10:00 74 07/22/20 09:03 80 07/22/20 09:00 84 07/22/20 08:00 35.7 C L 81 12 128/81 94 07/22/20 06:00 91 07/22/20 04:00 36.8 C 89 20 111/71 95 07/22/20 02:00 80 07/22/20 00:00 37.1 C 75 20 112/67 95 07/21/20 22:00 84 07/21/20 20:56 80 07/21/20 20:00 36.1 C L 84 24 H 93/78 L 95 07/21/20 18:00 78 Intake/Output Intake/Output: Intake & Output 07/19/20 07/20/20 07/21/20 07/22/20 23:59 23:59 23:59 23:59 Intake Total 6715 897 3246 360 Output Total 5300 3700 0 Balance -4260 940 -2460 360 Meds/Results Medications: Active Medications Generic Name Dose Route Start Last Admin Trade Name Jose C PRN Reason Stop Dose Admin Acetaminophen 650 mg 07/07/20 09:21 07/22/20 10:21 Tylenol Tablet PO 650 mg Q4H PRN Administration Pain Rated 5 or Less Amiodarone HCl 200 mg 07/06/20 09:00 07/22/20 09:03 Pacerone PO 200 mg DAILY TORITO Administration Apixaban 2.5 mg 07/05/20 22:55 07/22/20 09:00 Eliquis PO 2.5 mg BID TORITO Administration Aspirin 81 mg 07/07/20 09:00 07/22/20 09:00 Aspirin Ec PO 81 mg QAM TORITO Administration Calcium Carbonate 200 mg 07/17/20 18:10 07/17/20 18:53 Tums PO 200 mg Q6H PRN Administration Indigestion Carvedilol 3.125 mg 07/16/20 21:50 07/22/20 09:00 Coreg PO 3.125 mg Q12HR TORITO Administration Clopidogrel Bisulfate 75 mg 07/06/20 09:00 07/22/20 09:00 Plavix PO 75 mg DAILY TORITO Administration Dextrose 12.5 g
[2020-07-22 16:05] LABS: Glucose Point of Care 136 (65-105)
--- NOTE | 2020-07-22 16:20 | PM.IMPN ---
Progress Note: A&P Assessment and Plan (1) Facial edema: Code(s): R60.0 - Localized edema Status: Acute Assessment and Plan: Patient has facial swelling. Continue to monitor, pt receiving HD. Which is improving. (2) Staphylococcus aureus bacteremia with sepsis: Code(s): A41.01 - Sepsis due to Methicillin susceptible Staphylococcus aureus Status: Acute Assessment and Plan: Vasculopath- ESRD, CAD, ischemic cardiomyopahy, PAD with R BKA Pt has a defibrillator, coronary stenting, and hemodialysis vascular access. Pt had peripheral IV infiltration at recent hospitalization at [facility] which is the thought to be the source. CT of left arm 07/09 revealed cellulitis with no abscess. blood cultures growing MSSA (07/05 and 07/08). per previous notes. Pt will need another 13 days of ancef as per ID recommendation. Dc soon in next 1-2 days time awaiting placement or discharge home with IV abx after dialysis. Pt yet to decide disposition (3) Cellulitis of arm: Code(s): L03.119 - Cellulitis of unspecified part of limb Status: Acute Assessment and Plan: As above. (4) Hypoglycemia: Code(s): E16.2 - Hypoglycemia, unspecified Status: Resolved Assessment and Plan: Patient with persistent hypoglycemia resolved. (5) Hypotension: Code(s): I95.9 - Hypotension, unspecified Status: Acute Assessment and Plan: BP overall improved. (6) Rhabdomyolysis: Qualifiers: Rhabdomyolysis type: non-traumatic Qualified Code(s): M62.82 - Rhabdomyolysis Code(s): M62.82 - Rhabdomyolysis Status: Resolved Assessment and Plan: His atorvastatin dose has been stopped. (7) Diarrhea: Qualifiers: Diarrhea type: unspecified type Qualified Code(s): R19.7 - Diarrhea, unspecified Code(s): R19.7 - Diarrhea, unspecified Status: Resolved Assessment and Plan: Resolved. (8) Elevated LFTs: Code(s): R79.89 - Other specified abnormal findings of blood chemistry Status: Acute Assessment and Plan: AST/ALT elevated in the setting of rhabdomyolysis or infection. CT shows GB stones. (9) Generalized weakness: Code(s): R53.1 - Weakness Status: Acute Assessment and Plan: Continue PT/OT. (10) End-stage renal disease on hemodialysis: Code(s): N18.6 - End stage renal disease; Z99.2 - Dependence on renal dialysis Status: Chronic Assessment and Plan: Patient with ESRD. 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 (11) Chronic anemia: Code(s): D64.9 - Anemia, unspecified Status: Chronic Assessment and Plan: H&H low at 7.4 history of CKD (12) Paroxysmal atrial fibrillation: Code(s): I48.0 - Paroxysmal atrial fibrillation Status: Acute Assessment and Plan: Continue amiodarone and apixaban. and Coreg . (13) Abnormal finding on lung imaging: Code(s): R91.8 - Other nonspecific abnormal finding of lung field Status: Acute Assessment and Plan: 1. Narrowing of the brachiocephalic junction with widely patent SVC. Could be from scarring at this location, particularly if patient has had dialysis catheters. If patient has SVC syndrome clinically, potentially this could be evaluated by vascular interventionists for possible stent placement. 2. Approximately 6 pulmonary nodules, could be granulomas but metastatic disease not excludable. 3. Moderate bilat
--- NOTE | 2020-07-22 16:21 | PCPTNOTE ---
The patient treatment was not able to be completed on 07/22/2020. Will plan to continue treatment per plan of care.
[2020-07-22 20:29] LABS: Glucose Point of Care 94 (65-105)
--- NOTE | 2020-07-22 21:50 | PM.PNPUL ---
Progress Note: A&P Assessment and Plan (1) Multiple pulmonary nodules determined by computed tomography of lung: Code(s): R91.8 - Other nonspecific abnormal finding of lung field Status: Acute Assessment and Plan: 1) Chest CT Sept 7 showed multiple areas of patchy infiltrate consistent with pneumonia. A follow-up chest CT later this same admission on July 19 showed nodules the largest in the right lower lobe 1.3 cm. The other 5 nodules were in areas that previously had infiltrate. This may represent septic emboli from his MSSA bacteremia, and this will take a while to resolve. Radiologist's differential includes resolving infiltrate or metastatic disease. Recommendation from the radiologist was made for follow-up chest CT in 3 months, and this will be planned as an outpatient. He remains on antibiotic for his MSSA bacteremia which originated in his left forearm IV site. I will be happy to see him as an outpatient. He is followed by Dr Zuñiga who is his primary doctor. 2) Emphysema on chest CT; little smoking, less than 2 years. 3) Pleural effusions- bilateral, larger now than at admission; this may be related to his volume status. I do not see any evidence of pneumonia that would cause bilateral parapneumonic effusions. 4) Pulmonary hypertension; this is likely related to his ischemic cardiomyopathy and possible untreated sleep apnea. He says that he is scheduled to have a sleep study at [facility] sometime in the next week. 5) Rhinitis; has dried blood in the nares and nasal congestion. He has an order for saline to be at the bedside, but he does not have this, so I ordered nasal saline scheduled instead of p.r.n. and he had nasal decongestant with oxymetazoline spray. 6) Ecchymoses both upper limbs His other medical diagnoses include: 1) MSSA bacteremia 2) ischemic CMP; CAD with 4 stents 11/2016 and V-fib arrest, has ppm/ICD; 3) PAF on amiodarone 4) PVD with R AKA 2016 5) recent rhabdomyolysis from atorvastatin a few weeks ago 6) ESRD on HD x 2005 7) anemia; was transfused 1 unit RBC 07/17 when H/H dropped 6.9/23.2% Subjective Date/time seen: 07/22/20 21:50 This 60 yo man is seen in follow up for multiple pulmonary nodules and feeling short of breath. He was moved to room 248 from IMU, feels a little better today. He says that his face does not feel as puffy. He has the same choppy feeling when he breathes, not a smooth easy feeling. He is not coughing or having sputum. Overall he feels better. Review of Systems Review of Systems: All systems reviewed & are unremarkable except as noted in HPI and below Musculoskeletal: Musculoskeletal: Reports arthralgias (both hips hurt quite a bit, and he rolls from side to side to get comfy. ) Exam Const: General: comfortable and no acute distress Other: Pleasant, alert and cooperative. HENMT: Head: normal to inspection (with mild facial fullness) Ears: hearing grossly normal bilaterally General nose exam: Normal external nose present Face and sinus: normal facial exam Mouth: Yes Normal oral and palatal mucosa present Other: Nares with dried blood and yellow secretions bilaterally. His nasal passages are blocked with these. Eyes: General: appearance normal, both eyes and all related structures Resp: Effort & Inspection: normal respiratory effort Auscultation: rhonchi Cardio: Rate: regular rate Rhythm: abnormal rhythm irregularly irregular Heart sounds: Murmur heart sound present systolic III/ and at the left sternal border : Other: not examined Skin: Lesions: lesion noted (raised dried blisters left hand; scattered large flat ecchymoses both UE) Wounds: amputation site (R AKA ) Nails: normal Neuro: General: other (Gait was not tested; patient remained in bed during the interview. ) Speech: normal speech Extrem: General: other (1+ puffiness both hands) Right lower extremity: abnormal to insp
--- NOTE | 2020-07-22 21:51 | PC.NURSE ---
[id number] RECEIVED PATIENT FROM IMU IN BED WITH SPECIALTY MATTRESS IN PLACE. ORIENTED TO SURROUNDINGS. NO QUESTIONS AT THIS TIME.
--- NOTE | 2020-07-22 22:38 | PC.NURSE ---
07/22/20: 2030: patient transferred to 248. report given to
[2020-07-22] MEDS: SALINE 0.65% NAS SOLN 44 ML BTL 1 SPRAY NASAL (23:50)
[2020-07-22 23:53] LABS: Glucose Point of Care 138 (65-105)
[2020-07-23] VITALS (25 sets, daily range): BP systolic 95–129; BP diastolic 45–78; PULSE 55–82; RESP 18–24; TEMP 36.1–36.6; O2SAT 92–97
[2020-07-23 04:10] LABS: Glucose Point of Care 98 (65-105)
[2020-07-23 05:20] LABS: Hematocrit 24.9 % (42.0-52.0); Hemoglobin 7.5 g/dL (14.0-18.0); Mean Corpuscular HGB Conc 30.1 g/dl (32-36); Mean Corpuscular Hemoglobin 29.8 pg (26-34); Mean Corpuscular Volume 98.8 fl (80-100); Mean Platelet Volume 12.7 fl (7.4-10.4); Platelet Count Result 122 k/mm3 (150-375); Red Blood Count 2.52 M/mm3 (4.6-6.20); Red Cell Distribution Width 17.7 % (11.5-14.5); White Blood Count 14.3 K/mm3 (4.5-10.0)
[2020-07-23 05:56] LABS: Anion Gap 10 mmol/L (8-16); Blood Urea Nitrogen 68 mg/dL (9-20); Calcium 9.4 mg/dL (8.4-10.2); Carbon Dioxide 30 mmol/L (22-30); Chloride 96 mmol/L (98-107); Estimated CRCL calculation 12 ml/min; Estimated Glomerular Filt Rate 14; Glucose 105 mg/dL (75-110); Potassium 5.4 mmol/L (3.4-5.0); Sodium 136 mmol/L (137-145)
[2020-07-23] MEDS: SALINE 0.65% NAS SOLN 44 ML BTL 1 SPRAY NASAL ×4 (06:02→23:59)
[2020-07-23] MEDS: ACETAMINOPHEN 325 MG TABLET 650 MG PO (08:10)
--- NOTE | 2020-07-23 08:36 | PC.NURSE ---
Pt to dialysis via hospital bed.
--- NOTE | 2020-07-23 09:23 | PCPTNOTE ---
Attempted to see patient for PT, however patient was in dialysis.
[2020-07-23 10:06] LABS: Glucose Point of Care 106 (65-105)
[2020-07-23] MEDS: EPOETIN ALFA-EPBX 10,000 UNITS/ML VIAL 20000 UNITS IV PUSH (10:52)
--- NOTE | 2020-07-23 12:42 | PM.IMPN ---
Progress Note: A&P Assessment and Plan (1) Facial edema: Code(s): R60.0 - Localized edema Status: Acute Assessment and Plan: Patient has facial swelling. Continue to monitor, pt receiving HD. Which is improving. (2) Staphylococcus aureus bacteremia with sepsis: Code(s): A41.01 - Sepsis due to Methicillin susceptible Staphylococcus aureus Status: Acute Assessment and Plan: Vasculopath- ESRD, CAD, ischemic cardiomyopahy, PAD with R BKA Pt has a defibrillator, coronary stenting, and hemodialysis vascular access. Pt had peripheral IV infiltration at recent hospitalization at [facility] which is the thought to be the source. CT of left arm 07/09 revealed cellulitis with no abscess. blood cultures growing MSSA (07/05 and 07/08). Dc soon in next 1-2 days time awaiting placement (3) Cellulitis of arm: Code(s): L03.119 - Cellulitis of unspecified part of limb Status: Acute Assessment and Plan: As above. blistering rash secondary to underlying infection bullous appearance appears to be resolving (4) Hypoglycemia: Code(s): E16.2 - Hypoglycemia, unspecified Status: Resolved Assessment and Plan: Patient with persistent hypoglycemia resolved. (5) Hypotension: Code(s): I95.9 - Hypotension, unspecified Status: Acute Assessment and Plan: BP overall improved. (6) Rhabdomyolysis: Qualifiers: Rhabdomyolysis type: non-traumatic Qualified Code(s): M62.82 - Rhabdomyolysis Code(s): M62.82 - Rhabdomyolysis Status: Resolved Assessment and Plan: His atorvastatin dose has been stopped. (7) Diarrhea: Qualifiers: Diarrhea type: unspecified type Qualified Code(s): R19.7 - Diarrhea, unspecified Code(s): R19.7 - Diarrhea, unspecified Status: Resolved Assessment and Plan: Resolved. (8) Elevated LFTs: Code(s): R79.89 - Other specified abnormal findings of blood chemistry Status: Acute Assessment and Plan: AST/ALT elevated in the setting of rhabdomyolysis or infection. CT shows GB stones. (9) Generalized weakness: Code(s): R53.1 - Weakness Status: Acute Assessment and Plan: Continue PT/OT. (10) End-stage renal disease on hemodialysis: Code(s): N18.6 - End stage renal disease; Z99.2 - Dependence on renal dialysis Status: Chronic Assessment and Plan: Patient with ESRD. 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 (11) Chronic anemia: Code(s): D64.9 - Anemia, unspecified Status: Chronic Assessment and Plan: H&H low at 7.5 history of CKD (12) Paroxysmal atrial fibrillation: Code(s): I48.0 - Paroxysmal atrial fibrillation Status: Acute Assessment and Plan: Continue amiodarone and apixaban. and Coreg . (13) Abnormal finding on lung imaging: Code(s): R91.8 - Other nonspecific abnormal finding of lung field Status: Acute Assessment and Plan: Long discussion with pulmonology pt will need rpt CT chest in 3 months and follow up for lung nodules not for bronchoscopy presently due to his comorbidities (14) Coronary artery disease: Onset Date: ~11/2016 Qualifiers: Associated angina: without angina Coronary Disease-Associated Artery/Lesion type: [place] artery [place] vs. transplanted heart: [place] heart Qualified Code(s): I25.10 - Atherosclerotic hea
--- NOTE | 2020-07-23 12:50 | PM.PNNEP ---
Progress Note: A&P Assessment and Plan (1) ESRD (end stage renal disease): Code(s): N18.6 - End stage renal disease Status: Chronic Assessment and Plan: HD today and continue Sun/Sun/Sunday schedule follow electrolytes, volume status, and clearance push fluid removal as tolerated by hemodynamics (2) Staphylococcus aureus bacteremia with sepsis: Code(s): A41.01 - Sepsis due to Methicillin susceptible Staphylococcus aureus Status: Acute Assessment and Plan: as noted by admission blood cultures source? - presumed to be previous IV infiltration/septic phlebitis - transthoracic echo negative for endocarditits on antibiotics Infectious Disease recommendations noted (3) Elevated LFTs: Code(s): R79.89 - Other specified abnormal findings of blood chemistry Status: Acute Assessment and Plan: possibly due to mild rhabdomyolysis +/- high dose statin therapy trend LFTs - stable if not better follow CPK levels - continue to trend downward statin on hold (4) Hyponatremia: Code(s): E87.1 - Hypo-osmolality and hyponatremia Status: Resolved Assessment and Plan: resolved due to the use of previous use of D10W IVFs to maintain his blood sugar + kidney failure + cardiomyopathy dialysis will compensate to some degree (5) Hypocalcemia: Code(s): E83.51 - Hypocalcemia Status: Resolved Assessment and Plan: doing better with supplementation follow trend (6) Ischemic cardiomyopathy: Code(s): I25.5 - Ischemic cardiomyopathy Status: Acute Assessment and Plan: fluid removal with HD as tolerated follow respiratory status and daily weights Will continue to follow Subjective Date/time seen: 07/23/20 12:50 Patient tolerating dialysis treatment at the time of my visit (seen on HD at ~ 12:00PM); no apparent distress voiced; no other acute complaints to report; no events overnight or earlier this AM. Exam Narrative: Exam Narrative: General: WD/WN AA male in NAD Heart: normal S1 and S2; no rub Lungs: clear to auscultation Abdomen: soft, nontender, nondistended, positive bowel sounds Extremities: no cyanosis or clubbing; no edema; s/p right AKA Skin: no rash apparent Objective Data Vital Signs Vital Signs: Vital Signs Temp Pulse Resp BP Pulse Ox 07/23/20 12:15 36.4 C 73 20 120/66 07/23/20 12:05 73 129/58 L 07/23/20 12:00 73 106/58 L 07/23/20 11:45 70 120/62 07/23/20 11:30 69 107/54 L 07/23/20 11:15 55 L 122/45 L 07/23/20 11:00 72 109/59 L 07/23/20 10:45 56 L 105/56 L 07/23/20 10:30 81 105/50 L 07/23/20 10:15 70 106/56 L 07/23/20 10:00 72 115/56 L 07/23/20 09:45 70 95/54 L 07/23/20 09:30 59 L 105/59 L 07/23/20 09:15 68 113/63 07/23/20 09:00 78 114/57 L 07/23/20 08:45 73 114/53 L 07/23/20 08:35 79 116/67 07/23/20 08:25 36.5 C 81 24 H 104/65 07/23/20 04:00 36.2 C L 75 20 114/70 92 07/23/20 00:00 36.1 C L 82 22 H 111/78 96 07/22/20 20:58 88 07/22/20 20:00 102 H 18 100 07/22/20 16:00 35.9 C L 102 H 18 119/64 100 07/22/20 14:00 73 Intake/Output Intake/Output: Intake & Output 07/20/20 07/21/20 07/22/20 07/23/20 23:59 23:59 23:59 23:59 Intake Total 940 1240 720 120 Output Total 3700 250 3400 Balance 940 -2290 074 -3280 Meds/Results Medications: Active Medications Generic Name Dose Route Start Last Admin Trade Name Freq PRN Reason Stop Dose Admin Acetaminophen 650 mg 07/07/20 09:21 07/23/20 08:10 Tylenol Tablet PO 650 mg Q4H PRN Administration Pain Rated 5 or Less Amiodarone HCl 200 mg 07/06/20 09:00 07/22/20 09:03 Pacerone PO 200 mg DAILY TORITO Administration Apixaban 2.5 mg 07/05/20 22:55 07/22/20 16:23 Eliquis PO 2.5 mg BID TORITO Administration Aspirin 81 mg 07/07/20 09:00
[2020-07-23] MEDS: ceFAZolin 2 GM/D5W 50 ML 2 GM/50 ML BAG IVPB (13:06)
[2020-07-23] MEDS: DORZOLAMIDE HCL 2% OPHTH DROPS 1 DROP EACH EYE (13:06)
[2020-07-23] MEDS: FLUTICASONE PROPIONATE 0.05% NA SPR 16 GM BTL (*BKC) 1 SPRAY NASAL ×2 (13:06→21:36)
[2020-07-23] MEDS: ASPIRIN 81 MG ENTERIC TABLET PO (13:07)
[2020-07-23] MEDS: APIXABAN 2.5 MG TABLET PO ×2 (13:07→17:41)
[2020-07-23] MEDS: PANTOPRAZOLE 40 MG TABLET PO (13:08)
[2020-07-23] MEDS: lisinopriL 2.5 MG TABLET PO (13:08)
[2020-07-23] MEDS: CLOPIDOGREL BISULFATE 75 MG TABLET PO (13:08)
[2020-07-23] MEDS: carvediloL 3.125 MG TABLET PO ×2 (13:08→21:36)
[2020-07-23] MEDS: MIDODRINE HCL 2.5 MG TABLET PO ×2 (13:08→17:41)
[2020-07-23] MEDS: AMIODARONE HCL 200 MG TABLET PO (13:08)
--- NOTE | 2020-07-23 13:16 | PC.NURSE ---
Pt returned from dialysis via hospital bed.
--- NOTE | 2020-07-23 14:24 | WPDINFPN2 ---
Progress Note: A&P Assessment and Plan (1) Staphylococcus aureus bacteremia with sepsis: Code(s): A41.01 - Sepsis due to Methicillin susceptible Staphylococcus aureus Status: Acute Assessment and Plan: 1. S aureus bacteremia, suspect septic phlebitis LUE. Microbiologic cure 2. CRF 3. Leukocytosis, back down a point REC (antibiotic #17 / 28 days) Ancef #16, through 08/03/20. No new recommendations, will see prn, thanks Subjective Date/time seen: 07/23/20 14:24 Interval history: no complaints Exam Narrative: Exam Narrative: afebrile Skin: General skin exam: normal color Other: fingers L hand unchanged, as is left forearm and upper arm Objective Data Vital Signs Vital Signs: Vital Signs - 24 hr 07/22/20 16:00 07/22/20 20:00 07/22/20 20:58 Temperature 35.9 C L Pulse Rate 102 H 102 H 88 Respiratory Rate 18 18 Blood Pressure 119/64 Pulse Oximetry 100 100 07/23/20 00:00 07/23/20 04:00 07/23/20 08:25 Temperature 36.1 C L 36.2 C L 36.5 C Pulse Rate 82 75 81 Respiratory Rate 22 H 20 24 H Blood Pressure 111/78 114/70 104/65 Pulse Oximetry 96 92 07/23/20 08:35 07/23/20 08:45 07/23/20 09:00 Temperature Pulse Rate 79 73 78 Respiratory Rate Blood Pressure 116/67 114/53 L 114/57 L Pulse Oximetry 07/23/20 09:15 07/23/20 09:30 07/23/20 09:45 Temperature Pulse Rate 68 59 L 70 Respiratory Rate Blood Pressure 113/63 105/59 L 95/54 L Pulse Oximetry 07/23/20 10:00 07/23/20 10:15 07/23/20 10:30 Temperature Pulse Rate 72 70 81 Respiratory Rate Blood Pressure 115/56 L 106/56 L 105/50 L Pulse Oximetry 07/23/20 10:45 07/23/20 11:00 07/23/20 11:15 Temperature Pulse Rate 56 L 72 55 L Respiratory Rate Blood Pressure 105/56 L 109/59 L 122/45 L Pulse Oximetry 07/23/20 11:30 07/23/20 11:45 09/25/20 12:00 Temperature Pulse Rate 69 70 73 Respiratory Rate Blood Pressure 107/54 L 120/62 106/58 L Pulse Oximetry 07/23/20 12:05 07/23/20 12:15 07/23/20 13:08 Temperature 36.4 C Pulse Rate 73 73 73 Respiratory Rate 20 Blood Pressure 129/58 L 120/66 Pulse Oximetry Intake/Output Intake/Output: Intake & Output 07/20/20 07/21/20 07/22/20 07/23/20 23:59 23:59 23:59 23:59 Intake Total 940 1240 720 120 Output Total 3700 250 3400 Balance 310 -2558 434 -4705 Meds/Results Medications: Active Medications Generic Name Dose Route Start Last Admin Trade Name Freq PRN Reason Stop Dose Admin Acetaminophen 650 mg 07/07/20 09:21 07/23/20 08:10 Tylenol Tablet PO 650 mg Q4H PRN Administration Pain Rated 5 or Less Amiodarone HCl 200 mg 07/06/20 09:00 07/23/20 13:08 Pacerone PO 200 mg DAILY TORITO Administration Apixaban 2.5 mg 07/05/20 22:55 07/23/20 13:07 Eliquis PO 2.5 mg BID TORITO Administration Aspirin 81 mg 07/07/20 09:00 07/23/20 13:07 Aspirin Ec PO 81 mg QAM TORITO Administration Calcium Carbonate 200 mg 07/17/20 18:10 07/17/20 18:53 Tums PO 200 mg Q6H PRN Administration Indigestion Carvedilol 3.125 mg 07/16/20 21:50 07/23/20 13:08 Coreg PO 3.125 mg Q12HR TORITO Administration Clopidogrel Bisulfate 75 mg 07/06/20 09:00 07/23/20 13:08 Plavix PO 75 mg DAILY TORITO Administration Dextrose 12.5 gm 07/05/20 14:08 07/14/20 20:12 Dextrose 50% Syringe IV PUSH 12.5 gm PRN PRN Administration Hypoglycemia Protocol Dorzolamide HCl 1 drop 07/06/20 09:00 07/23/20 13:06 Trusopt EACH EYE 1 drop DAILY TORITO Administration Epoetin Nathaniel-epbx 20,000 units 07/23/20 19:33 07/23/20 10:52 Retacrit IV PUSH 07/23/20 19:34 20,000 units ONCE ONE Administration Fluticasone Propionate 1 spray 07/15/20 21:00 07/23/20 13:06 Flonase 0.05% Nasal [place] NASAL 1 spray Q12HR TORITO Administration Glucagon 1 mg 07/05/20 14:08 Glucagon For Inj IM PRN PRN Hypoglycemia Protocol Glucose 15 gm
[2020-07-23 16:02] LABS: Glucose Point of Care 160 (65-105)
[2020-07-23 16:59] LABS: Glucose Point of Care 108 (65-105)
[2020-07-23 18:13] LABS: Potassium 4.3 mmol/L (3.4-5.0)
[2020-07-23 21:43] LABS: Glucose Point of Care 99 (65-105)
[2020-07-24 00:16] LABS: Glucose Point of Care 104 (65-105)
[2020-07-24] MEDS: ACETAMINOPHEN 325 MG TABLET 650 MG PO ×4 (02:53→20:28)
[2020-07-24 04:36] LABS: Glucose Point of Care 103 (65-105)
[2020-07-24 05:13] LABS: Hematocrit 25.7 % (42.0-52.0); Hemoglobin 7.6 g/dL (14.0-18.0); Mean Corpuscular HGB Conc 29.6 g/dl (32-36); Mean Corpuscular Hemoglobin 29.9 pg (26-34); Mean Corpuscular Volume 101.2 fl (80-100); Mean Platelet Volume 12.2 fl (7.4-10.4); Platelet Count Result 127 k/mm3 (150-375); Red Blood Count 2.54 M/mm3 (4.6-6.20); Red Cell Distribution Width 17.7 % (11.5-14.5); White Blood Count 13.3 K/mm3 (4.5-10.0)
[2020-07-24 05:27] LABS: Anion Gap 11 mmol/L (8-16); Blood Urea Nitrogen 43 mg/dL (9-20); Calcium 9.5 mg/dL (8.4-10.2); Carbon Dioxide 31 mmol/L (22-30); Chloride 97 mmol/L (98-107); Estimated CRCL calculation 17 ml/min; Estimated Glomerular Filt Rate 20; Glucose 94 mg/dL (75-110); Potassium 4.4 mmol/L (3.4-5.0); Sodium 139 mmol/L (137-145)
[2020-07-24 05:55] VITALS: BP 118/70; PULSE 74; RESP 16; TEMP 36.4; O2SAT 92
[2020-07-24] MEDS: SALINE 0.65% NAS SOLN 44 ML BTL 1 SPRAY NASAL ×3 (05:57→17:34)
[2020-07-24 07:59] VITALS: PULSE 76
[2020-07-24] MEDS: APIXABAN 2.5 MG TABLET PO ×2 (07:59→17:31)
[2020-07-24] MEDS: AMIODARONE HCL 200 MG TABLET PO (07:59)
[2020-07-24] MEDS: CLOPIDOGREL BISULFATE 75 MG TABLET PO (07:59)
[2020-07-24 08:01] VITALS: PULSE 76
[2020-07-24] MEDS: carvediloL 3.125 MG TABLET PO ×2 (08:01→20:28)
[2020-07-24] MEDS: MIDODRINE HCL 2.5 MG TABLET PO ×3 (08:01→17:31)
[2020-07-24] MEDS: PANTOPRAZOLE 40 MG TABLET PO (08:01)
[2020-07-24] MEDS: ASPIRIN 81 MG ENTERIC TABLET PO (08:01)
[2020-07-24] MEDS: FLUTICASONE PROPIONATE 0.05% NA SPR 16 GM BTL (*BKC) 1 SPRAY NASAL ×2 (08:01→20:28)
[2020-07-24] MEDS: lisinopriL 2.5 MG TABLET PO (08:01)
[2020-07-24] MEDS: DORZOLAMIDE HCL 2% OPHTH DROPS 1 DROP EACH EYE (08:01)
[2020-07-24 08:11] LABS: Glucose Point of Care 90 (65-105)
--- NOTE | 2020-07-24 10:04 | P.PNNP_ITS ---
Progress Note: A&P Assessment and Plan (1) ESRD (end stage renal disease): Code(s): N18.6 - End stage renal disease Status: Chronic Assessment and Plan: * HD yesterday and continue Sun/Sun/Sunday schedule * follow electrolytes, volume status, and clearance * push fluid removal as tolerated by hemodynamics (2) Staphylococcus aureus bacteremia with sepsis: Code(s): A41.01 - Sepsis due to Methicillin susceptible Staphylococcus aureus Status: Acute Assessment and Plan: * as noted by admission blood cultures * source? - presumed to be previous IV infiltration/septic phlebitis - transthoracic echo negative for endocarditits * on antibiotics * Infectious Disease recommendations noted (3) Elevated LFTs: Code(s): R79.89 - Other specified abnormal findings of blood chemistry Status: Acute Assessment and Plan: * possibly due to mild rhabdomyolysis +/- high dose statin therapy * trend LFTs - stable if not better * follow CPK levels - continue to trend downward * statin on hold (4) Hyponatremia: Code(s): E87.1 - Hypo-osmolality and hyponatremia Status: Resolved Assessment and Plan: * resolved * due to the use of previous use of D10W IVFs to maintain his blood sugar + kidney failure + cardiomyopathy * dialysis will compensate to some degree (5) Hypocalcemia: Code(s): E83.51 - Hypocalcemia Status: Resolved Assessment and Plan: * doing better with supplementation * follow trend (6) Ischemic cardiomyopathy: Code(s): I25.5 - Ischemic cardiomyopathy Status: Acute Assessment and Plan: * fluid removal with HD as tolerated * follow respiratory status and daily weights Will continue to follow Subjective Date/time seen: 07/24/20 10:04 Tolerated dialysis yesterday without any issues or problems; sleeping comfortably at the time of my visit; no distress noted; no events overnight or earlier this AM to report. Exam Narrative: Exam Narrative: General: WD/WN AA male in NAD Heart: normal S1 and S2; no rub Lungs: clear to auscultation Abdomen: soft, nontender, nondistended, positive bowel sounds Extremities: no cyanosis or clubbing; no edema; s/p right AKA Skin: no nodules Objective Data Vital Signs Vital Signs: Vital Signs Temp Pulse Resp BP Pulse Ox 07/24/20 08:01 76 07/24/20 07:59 76 07/24/20 05:55 36.4 C L 74 16 118/70 92 07/23/20 22:00 36.5 C 77 22 H 128/60 97 07/23/20 21:36 75 07/23/20 14:00 36.6 C 75 18 98/57 L 94 07/23/20 13:08 73 07/23/20 12:15 36.4 C 73 20 120/66 07/23/20 12:05 73 129/58 L 07/23/20 12:00 73 106/58 L 07/23/20 11:45 70 120/62 07/23/20 11:30 69 107/54 L 07/23/20 11:15 55 L 122/45 L 07/23/20 11:00 72 109/59 L 07/23/20 10:45 56 L 105/56 L 07/23/20 10:30 81 105/50 L 07/23/20 10:15 70 106/56 L Intake/Output Intake/Output: Intake & Output 07/21/20 07/22/20 07/23/20 07/24/20 23:59 23:59 23:59 23:59 Intake Total 1240 720 975 300 Output Total 3700 250 3400 Balance -2460 470 2425 300 Meds/Results Medications: Active Medications Generic
--- NOTE | 2020-07-24 10:04 | PM.PNNEP ---
Progress Note: A&P Assessment and Plan (1) ESRD (end stage renal disease): Code(s): N18.6 - End stage renal disease Status: Chronic Assessment and Plan: HD yesterday and continue Sun/Sun/Sunday schedule follow electrolytes, volume status, and clearance push fluid removal as tolerated by hemodynamics (2) Staphylococcus aureus bacteremia with sepsis: Code(s): A41.01 - Sepsis due to Methicillin susceptible Staphylococcus aureus Status: Acute Assessment and Plan: as noted by admission blood cultures source? - presumed to be previous IV infiltration/septic phlebitis - transthoracic echo negative for endocarditits on antibiotics Infectious Disease recommendations noted (3) Elevated LFTs: Code(s): R79.89 - Other specified abnormal findings of blood chemistry Status: Acute Assessment and Plan: possibly due to mild rhabdomyolysis +/- high dose statin therapy trend LFTs - stable if not better follow CPK levels - continue to trend downward statin on hold (4) Hyponatremia: Code(s): E87.1 - Hypo-osmolality and hyponatremia Status: Resolved Assessment and Plan: resolved due to the use of previous use of D10W IVFs to maintain his blood sugar + kidney failure + cardiomyopathy dialysis will compensate to some degree (5) Hypocalcemia: Code(s): E83.51 - Hypocalcemia Status: Resolved Assessment and Plan: doing better with supplementation follow trend (6) Ischemic cardiomyopathy: Code(s): I25.5 - Ischemic cardiomyopathy Status: Acute Assessment and Plan: fluid removal with HD as tolerated follow respiratory status and daily weights Will continue to follow Subjective Date/time seen: 07/24/20 10:04 Tolerated dialysis yesterday without any issues or problems; sleeping comfortably at the time of my visit; no distress noted; no events overnight or earlier this AM to report. Exam Narrative: Exam Narrative: General: WD/WN AA male in NAD Heart: normal S1 and S2; no rub Lungs: clear to auscultation Abdomen: soft, nontender, nondistended, positive bowel sounds Extremities: no cyanosis or clubbing; no edema; s/p right AKA Skin: no nodules Objective Data Vital Signs Vital Signs: Vital Signs Temp Pulse Resp BP Pulse Ox 07/24/20 08:01 76 07/24/20 07:59 76 07/24/20 05:55 36.4 C L 74 16 118/70 92 07/23/20 22:00 36.5 C 77 22 H 128/60 97 07/23/20 21:36 75 07/23/20 14:00 36.6 C 75 18 98/57 L 94 07/23/20 13:08 73 07/23/20 12:15 36.4 C 73 20 120/66 07/23/20 12:05 73 129/58 L 07/23/20 12:00 73 106/58 L 07/23/20 11:45 70 120/62 07/23/20 11:30 69 107/54 L 07/23/20 11:15 55 L 122/45 L 07/23/20 11:00 72 109/59 L 07/23/20 10:45 56 L 105/56 L 07/23/20 10:30 81 105/50 L 07/23/20 10:15 70 106/56 L Intake/Output Intake/Output: Intake & Output 07/21/20 07/22/20 07/23/20 07/24/20 23:59 23:59 23:59 23:59 Intake Total 1240 720 975 300 Output Total 3700 250 3400 Balance -2460 470 -2425 300 Meds/Results Medications: Active Medications Generic Name Dose Route Start Last Admin Trade Name Freq PRN Reason Stop Dose Admin Acetaminophen 650 mg 07/07/20 09:21 07/24/20 07:59 Tylenol Tablet PO 650 mg Q4H PRN Administration Pain Rated 5 or Less Amiodarone HCl 200 mg 07/06/20 09:00 07/24/20 07:59 Pacerone PO 200 mg DAILY TORITO Administration Apixaban 2.5 mg 07/05/20 22:55 07/24/20 07:59 Eliquis PO 2.5 mg BID TORITO Administration Aspirin 81 mg 07/07/20 09:00 07/24/20 08:01 Aspirin Ec PO 81 mg QAM TORITO Administration Calcium Carbonate 200 mg 07/17/20 18:10 07/17/20 18:53 Tums PO 200 mg Q6H PRN Administration Indigestion Carvedilol 3.125 mg 07/16/20 21:50 07/24/20 08:01 Coreg PO 3.125 mg Q12HR TORITO Administrati
--- NOTE | 2020-07-24 11:00 | PM.IMPN ---
Progress Note: A&P Assessment and Plan (1) Facial edema: Code(s): R60.0 - Localized edema Status: Acute Assessment and Plan: Patient has facial swelling. Continue to monitor, pt receiving HD. Which is improving. (2) Staphylococcus aureus bacteremia with sepsis: Code(s): A41.01 - Sepsis due to Methicillin susceptible Staphylococcus aureus Status: Acute Assessment and Plan: Vasculopath- ESRD, CAD, ischemic cardiomyopahy, PAD with R BKA Pt has a defibrillator, coronary stenting, and hemodialysis vascular access. Pt had peripheral IV infiltration at recent hospitalization at [facility] which is the thought to be the source. CT of left arm 07/09 revealed cellulitis with no abscess. blood cultures growing MSSA (07/05 and 07/08). Dc soon on sunday (3) Cellulitis of arm: Code(s): L03.119 - Cellulitis of unspecified part of limb Status: Acute Assessment and Plan: As above. blistering rash secondary to underlying infection bullous appearance appears to be resolving, can consult wound team sunday if rash gets worse (4) Hypoglycemia: Code(s): E16.2 - Hypoglycemia, unspecified Status: Resolved Assessment and Plan: Patient with persistent hypoglycemia resolved. (5) Hypotension: Code(s): I95.9 - Hypotension, unspecified Status: Acute Assessment and Plan: BP overall improved. (6) Rhabdomyolysis: Qualifiers: Rhabdomyolysis type: non-traumatic Qualified Code(s): M62.82 - Rhabdomyolysis Code(s): M62.82 - Rhabdomyolysis Status: Resolved Assessment and Plan: His atorvastatin dose has been stopped. (7) Diarrhea: Qualifiers: Diarrhea type: unspecified type Qualified Code(s): R19.7 - Diarrhea, unspecified Code(s): R19.7 - Diarrhea, unspecified Status: Resolved Assessment and Plan: Resolved. (8) Elevated LFTs: Code(s): R79.89 - Other specified abnormal findings of blood chemistry Status: Acute Assessment and Plan: AST/ALT elevated in the setting of rhabdomyolysis or infection. CT shows GB stones. (9) Generalized weakness: Code(s): R53.1 - Weakness Status: Acute Assessment and Plan: Continue PT/OT. (10) End-stage renal disease on hemodialysis: Code(s): N18.6 - End stage renal disease; Z99.2 - Dependence on renal dialysis Status: Chronic Assessment and Plan: Patient with ESRD. 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 (11) Chronic anemia: Code(s): D64.9 - Anemia, unspecified Status: Chronic Assessment and Plan: H&H low at 7.5 history of CKD (12) Paroxysmal atrial fibrillation: Code(s): I48.0 - Paroxysmal atrial fibrillation Status: Acute Assessment and Plan: Continue amiodarone and apixaban. and Coreg . (13) Abnormal finding on lung imaging: Code(s): R91.8 - Other nonspecific abnormal finding of lung field Status: Acute Assessment and Plan: Long discussion with pulmonology pt will need rpt CT chest in 3 months and follow up for lung nodules not for bronchoscopy presently due to his comorbidities (14) Coronary artery disease: Onset Date: ~11/2016 Qualifiers: Coronary Disease-Associated Artery/Lesion type: [place] artery [place] vs. transplanted heart: [place] heart Associated angina: without angina Qualified Code(s): I25.10
[2020-07-24 12:07] LABS: Glucose Point of Care 108 (65-105)
[2020-07-24 14:00] VITALS: BP 104/72; PULSE 72; RESP 22; TEMP 36.4; O2SAT 98
[2020-07-24 16:52] LABS: Glucose Point of Care 93 (65-105)
[2020-07-24 20:28] VITALS: PULSE 77
[2020-07-24 22:00] VITALS: BP 103/63; PULSE 77; RESP 18; TEMP 37.1; O2SAT 95
[2020-07-25] MEDS: SALINE 0.65% NAS SOLN 44 ML BTL 1 SPRAY NASAL ×4 (00:28→17:35)
[2020-07-25 00:33] LABS: Glucose Point of Care 143 (65-105)
[2020-07-25 00:35] LABS: Glucose Point of Care 180 (65-105)
[2020-07-25 04:05] LABS: Glucose Point of Care 144 (65-105)
[2020-07-25] MEDS: ACETAMINOPHEN 325 MG TABLET 650 MG PO ×2 (05:39→10:13)
[2020-07-25 05:59] LABS: Hematocrit 26.3 % (42.0-52.0); Hemoglobin 7.8 g/dL (14.0-18.0); Mean Corpuscular HGB Conc 29.7 g/dl (32-36); Mean Corpuscular Hemoglobin 29.7 pg (26-34); Mean Platelet Volume 12.5 fl (7.4-10.4); Platelet Count Result 152 k/mm3 (150-375); Red Blood Count 2.63 M/mm3 (4.6-6.20); Red Cell Distribution Width 17.8 % (11.5-14.5)
[2020-07-25 06:00] VITALS: BP 116/71; PULSE 69; RESP 18; TEMP 36.5; O2SAT 99
[2020-07-25 06:14] LABS: Anion Gap 13 mmol/L (8-16); Blood Urea Nitrogen 68 mg/dL (9-20); Calcium 9.3 mg/dL (8.4-10.2); Carbon Dioxide 28 mmol/L (22-30); Chloride 98 mmol/L (98-107); Estimated CRCL calculation 13 ml/min; Estimated Glomerular Filt Rate 15; Glucose 95 mg/dL (75-110); Potassium 4.7 mmol/L (3.4-5.0); Sodium 139 mmol/L (137-145)
[2020-07-25 07:57] LABS: Glucose Point of Care 85 (65-105)
[2020-07-25 08:40] VITALS: PULSE 72; PULSE 82
[2020-07-25] MEDS: CLOPIDOGREL BISULFATE 75 MG TABLET PO (08:40)
[2020-07-25] MEDS: AMIODARONE HCL 200 MG TABLET PO (08:40)
[2020-07-25] MEDS: APIXABAN 2.5 MG TABLET PO ×2 (08:40→17:34)
[2020-07-25] MEDS: lisinopriL 2.5 MG TABLET PO (08:40)
[2020-07-25] MEDS: MIDODRINE HCL 2.5 MG TABLET PO ×3 (08:40→17:35)
[2020-07-25] MEDS: PANTOPRAZOLE 40 MG TABLET PO (08:40)
[2020-07-25] MEDS: carvediloL 3.125 MG TABLET PO ×2 (08:40→21:55)
[2020-07-25] MEDS: DORZOLAMIDE HCL 2% OPHTH DROPS 1 DROP EACH EYE (08:41)
[2020-07-25] MEDS: ASPIRIN 81 MG ENTERIC TABLET PO (08:41)
[2020-07-25] MEDS: FLUTICASONE PROPIONATE 0.05% NA SPR 16 GM BTL (*BKC) 1 SPRAY NASAL ×2 (08:41→21:57)
[2020-07-25 12:01] LABS: Glucose Point of Care 107 (65-105)
--- NOTE | 2020-07-25 13:31 | P.PNNP_ITS ---
Progress Note: A&P Assessment and Plan (1) ESRD (end stage renal disease): Code(s): N18.6 - End stage renal disease Status: Chronic Assessment and Plan: * HD tomorrow and continue Sun/Sun/Sunday schedule * follow electrolytes, volume status, and clearance * push fluid removal as tolerated by hemodynamics (2) Staphylococcus aureus bacteremia with sepsis: Code(s): A41.01 - Sepsis due to Methicillin susceptible Staphylococcus aureus Status: Acute Assessment and Plan: * as noted by admission blood cultures * source? - presumed to be previous IV infiltration/septic phlebitis - transthoracic echo negative for endocarditits * on antibiotics as outlined * Infectious Disease recommendations noted (3) Elevated LFTs: Code(s): R79.89 - Other specified abnormal findings of blood chemistry Status: Acute Assessment and Plan: * possibly due to mild rhabdomyolysis +/- high dose statin therapy * trend LFTs - stable if not better * follow CPK levels - continue to trend downward * statin on hold (4) Hyponatremia: Code(s): E87.1 - Hypo-osmolality and hyponatremia Status: Resolved Assessment and Plan: * resolved * due to the use of previous use of D10W IVFs to maintain his blood sugar + kidney failure + cardiomyopathy * dialysis has compensated to some degree (5) Hypocalcemia: Code(s): E83.51 - Hypocalcemia Status: Resolved Assessment and Plan: * doing better with supplementation * follow trend (6) Ischemic cardiomyopathy: Code(s): I25.5 - Ischemic cardiomyopathy Status: Acute Assessment and Plan: * fluid removal with HD as tolerated * follow respiratory status and daily weights Will continue to follow Subjective Date/time seen: 07/25/20 13:31 No apparent distress at the time of my visit; facial edema seems to be doing a bit better; no other acute complaints voiced; no porblems overnight or earlier this AM; still has weakness secondary to deconditioning. Exam Narrative: Exam Narrative: General: WD/WN AA male in NAD Heart: normal S1 and S2; no rub Lungs: clear to auscultation Abdomen: soft, nontender, nondistended, positive bowel sounds Extremities: no cyanosis or clubbing; no edema; s/p right AKA Skin: warm and dry Objective Data Vital Signs Vital Signs: Vital Signs Temp Pulse Resp BP Pulse Ox 07/25/20 08:40 82 07/25/20 06:00 36.5 C 69 18 116/71 99 07/24/20 22:00 37.1 C 77 18 103/63 95 07/24/20 20:28 77 07/24/20 14:00 36.4 C L 72 22 H 104/72 98 Intake/Output Intake/Output: Intake & Output 07/22/20 07/23/20 07/24/20 07/25/20 23:59 23:59 23:59 23:59 Intake Total 746 873 1775 360 Output Total 250 3400 0 Balance 470 -2425 1420 360 Meds/Results Medications: Active Medications Generic Name Dose Route Start Last Admin Trade Name Freq PRN Reason Stop Dose Admin Acetaminophen 650 mg 07/07/20 09:21 07/25/20 10:13 Tylenol Tablet PO 650 mg Q4H PRN Administration Pain Rated 5 or Less Amiodarone HCl 200 mg 07/06/20 09:00 07/25/20 08:40 Pacerone PO 200 mg DAILY TORITO Administration Apixaban 2.5 mg 07/05/20 22:55 07/25/20 08:40
--- NOTE | 2020-07-25 13:31 | PM.PNNEP ---
Progress Note: A&P Assessment and Plan (1) ESRD (end stage renal disease): Code(s): N18.6 - End stage renal disease Status: Chronic Assessment and Plan: HD tomorrow and continue Sun/Sun/Sunday schedule follow electrolytes, volume status, and clearance push fluid removal as tolerated by hemodynamics (2) Staphylococcus aureus bacteremia with sepsis: Code(s): A41.01 - Sepsis due to Methicillin susceptible Staphylococcus aureus Status: Acute Assessment and Plan: as noted by admission blood cultures source? - presumed to be previous IV infiltration/septic phlebitis - transthoracic echo negative for endocarditits on antibiotics as outlined Infectious Disease recommendations noted (3) Elevated LFTs: Code(s): R79.89 - Other specified abnormal findings of blood chemistry Status: Acute Assessment and Plan: possibly due to mild rhabdomyolysis +/- high dose statin therapy trend LFTs - stable if not better follow CPK levels - continue to trend downward statin on hold (4) Hyponatremia: Code(s): E87.1 - Hypo-osmolality and hyponatremia Status: Resolved Assessment and Plan: resolved due to the use of previous use of D10W IVFs to maintain his blood sugar + kidney failure + cardiomyopathy dialysis has compensated to some degree (5) Hypocalcemia: Code(s): E83.51 - Hypocalcemia Status: Resolved Assessment and Plan: doing better with supplementation follow trend (6) Ischemic cardiomyopathy: Code(s): I25.5 - Ischemic cardiomyopathy Status: Acute Assessment and Plan: fluid removal with HD as tolerated follow respiratory status and daily weights Will continue to follow Subjective Date/time seen: 07/25/20 13:31 No apparent distress at the time of my visit; facial edema seems to be doing a bit better; no other acute complaints voiced; no porblems overnight or earlier this AM; still has weakness secondary to deconditioning. Exam Narrative: Exam Narrative: General: WD/WN AA male in NAD Heart: normal S1 and S2; no rub Lungs: clear to auscultation Abdomen: soft, nontender, nondistended, positive bowel sounds Extremities: no cyanosis or clubbing; no edema; s/p right AKA Skin: warm and dry Objective Data Vital Signs Vital Signs: Vital Signs Temp Pulse Resp BP Pulse Ox 07/25/20 08:40 82 07/25/20 06:00 36.5 C 69 18 116/71 99 07/24/20 22:00 37.1 C 77 18 103/63 95 07/24/20 20:28 77 07/24/20 14:00 36.4 C L 72 22 H 104/72 98 Intake/Output Intake/Output: Intake & Output 07/22/20 07/23/20 07/24/20 07/25/20 23:59 23:59 23:59 23:59 Intake Total 138 331 4204 360 Output Total 250 3400 0 Balance 470 -2425 1420 360 Meds/Results Medications: Active Medications Generic Name Dose Route Start Last Admin Trade Name Freq PRN Reason Stop Dose Admin Acetaminophen 650 mg 07/07/20 09:21 07/25/20 10:13 Tylenol Tablet PO 650 mg Q4H PRN Administration Pain Rated 5 or Less Amiodarone HCl 200 mg 07/06/20 09:00 07/25/20 08:40 Pacerone PO 200 mg DAILY TORITO Administration Apixaban 2.5 mg 07/05/20 22:55 07/25/20 08:40 Eliquis PO 2.5 mg BID TORITO Administration Aspirin 81 mg 07/07/20 09:00 07/25/20 08:41 Aspirin Ec PO 81 mg QAM TORITO Administration Calcium Carbonate 200 mg 07/17/20 18:10 07/17/20 18:53 Tums PO 200 mg Q6H PRN Administration Indigestion Carvedilol 3.125 mg 07/16/20 21:50 07/25/20 08:40 Coreg PO 3.125 mg Q12HR TORITO Administration Clopidogrel Bisulfate 75 mg 07/06/20 09:00 07/25/20 08:40 Plavix PO 75 mg DAILY TORITO Administration Dextrose 12.5 gm 07/05/20 14:08 07/14/20 20:12 Dextrose 50% Syringe IV PUSH 12.5 gm PRN PRN Administration Hypoglycemia Protocol Dorzolamide HCl 1 drop 07/06/20 09:00 07/25/20 08:41 Trusopt EACH EYE 1
--- NOTE | 2020-07-25 13:55 | PM.IMPN ---
Progress Note: A&P Assessment and Plan (1) Facial edema: Code(s): R60.0 - Localized edema Status: Acute Assessment and Plan: Patient has facial swelling. Continue to monitor, pt receiving HD. Which is improving. (2) Staphylococcus aureus bacteremia with sepsis: Code(s): A41.01 - Sepsis due to Methicillin susceptible Staphylococcus aureus Status: Acute Assessment and Plan: Vasculopath- ESRD, CAD, ischemic cardiomyopahy, PAD with R BKA Pt has a defibrillator, coronary stenting, and hemodialysis vascular access. Pt had peripheral IV infiltration at recent hospitalization at [facility] which is the thought to be the source. CT of left arm 07/09 revealed cellulitis with no abscess. blood cultures growing MSSA (07/05 and 07/08). Dc soon on sunday after dialysis with Ancef three times a week after dialysis with until 08/03 wcc is improving slowly (3) Cellulitis of arm: Code(s): L03.119 - Cellulitis of unspecified part of limb Status: Acute Assessment and Plan: As above. blistering rash secondary to underlying infection bullous appearance appears to be resolving, can consult wound team sunday if rash gets worse. So far getting better drying up with ancef treatments. (4) Hypoglycemia: Code(s): E16.2 - Hypoglycemia, unspecified Status: Resolved Assessment and Plan: Patient with persistent hypoglycemia resolved. (5) Hypotension: Code(s): I95.9 - Hypotension, unspecified Status: Acute Assessment and Plan: BP overall improved. (6) Rhabdomyolysis: Qualifiers: Rhabdomyolysis type: non-traumatic Qualified Code(s): M62.82 - Rhabdomyolysis Code(s): M62.82 - Rhabdomyolysis Status: Resolved Assessment and Plan: His atorvastatin dose has been stopped. (7) Diarrhea: Qualifiers: Diarrhea type: unspecified type Qualified Code(s): R19.7 - Diarrhea, unspecified Code(s): R19.7 - Diarrhea, unspecified Status: Resolved Assessment and Plan: Resolved. (8) Elevated LFTs: Code(s): R79.89 - Other specified abnormal findings of blood chemistry Status: Acute Assessment and Plan: AST/ALT elevated in the setting of rhabdomyolysis or infection. CT shows GB stones. (9) Generalized weakness: Code(s): R53.1 - Weakness Status: Acute Assessment and Plan: Continue PT/OT. (10) End-stage renal disease on hemodialysis: Code(s): N18.6 - End stage renal disease; Z99.2 - Dependence on renal dialysis Status: Chronic Assessment and Plan: Patient with ESRD. 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 (11) Chronic anemia: Code(s): D64.9 - Anemia, unspecified Status: Chronic Assessment and Plan: H&H low at 7.8 history of CKD (12) Paroxysmal atrial fibrillation: Code(s): I48.0 - Paroxysmal atrial fibrillation Status: Acute Assessment and Plan: Continue amiodarone and apixaban and Coreg. (13) Abnormal finding on lung imaging: Code(s): R91.8 - Other nonspecific abnormal finding of lung field Status: Acute Assessment and Plan: Long discussion with pulmonology pt will need rpt CT chest in 3 months and follow up for lung nodules not for bronchoscopy presently due to his comorbidities (14) Coronary artery disease: Onset Date: ~11/2016 Qualifiers: Coronary Diseas
[2020-07-25 14:00] VITALS: BP 119/74; PULSE 67; RESP 18; TEMP 36.1; O2SAT 100
[2020-07-25 17:00] LABS: Glucose Point of Care 92 (65-105)
[2020-07-25] MEDS: CALCIUM CARBONATE (TUMS) 500 MG (200 MG ELEMENTAL) PO (18:04)
--- NOTE | 2020-07-25 21:19 | PM.PNPUL ---
Progress Note: A&P Assessment and Plan (1) Multiple pulmonary nodules determined by computed tomography of lung: Code(s): R91.8 - Other nonspecific abnormal finding of lung field Status: Acute Assessment and Plan: Multiple bilateral pulmonary nodules likely septic emboli from recent MSSA bactermia. Malignancy or other inflammatory processes cannot be rule out. Currently on appropriate antibiotics and appears to be clinically improving. - recommend repeat CT chest non contrast in 2-3 weeks to see if there is radiographic improvement. - If no change on repeat CT chest the I would recommend CT guided biopsy of one of the pleural based nodules. - should f/u with us in pulmonary clinic after next CT chest Subjective Date/time seen: 07/25/20 21:19 Interval history: 60 y/o male with cardiomyopathy, bactermia with MSSA and bilateral peripheral pulmonary nodules. These may be septic emboli. Seems to be clinically improving. Review of Systems Review of Systems: All systems reviewed & are unremarkable except as noted in HPI and below Exam Narrative: Exam Narrative: Chronically ill Resp: Effort & Inspection: normal respiratory effort Auscultation: clear to auscultation bilaterally Cardio: Rate: regular rate Rhythm: regular rhythm Heart sounds: no gallops, no murmurs and no rubs Other: pacemaker in situ GI: Inspection: distended Auscultation: normal bowel sounds Skin: Other: blistering rash on left dorsum of hand improving flat red rash in between spaces of right hand and right arm and right stump like red patches Extrem: Other: right BKA Objective Data Vital Signs Vital Signs: Vital Signs - 24 hr 07/24/20 22:00 07/25/20 06:00 07/25/20 08:40 Temperature 37.1 C 36.5 C Pulse Rate 77 69 82 Respiratory Rate 18 18 Blood Pressure 103/63 116/71 Pulse Oximetry 95 99 07/25/20 14:00 Temperature 36.1 C L Pulse Rate 67 Respiratory Rate 18 Blood Pressure 119/74 Pulse Oximetry 100 Intake/Output Intake/Output: Intake & Output 07/22/20 07/23/20 07/24/20 07/25/20 23:59 23:59 23:59 23:59 Intake Total 496 885 7446 1000 Output Total 250 3400 0 0 Balance 470 -2425 1420 1000 Meds/Results Medications: Active Medications Generic Name Dose Route Start Last Admin Trade Name Freq PRN Reason Stop Dose Admin Acetaminophen 650 mg 07/07/20 09:21 07/25/20 10:13 Tylenol Tablet PO 650 mg Q4H PRN Administration Pain Rated 5 or Less Amiodarone HCl 200 mg 07/06/20 09:00 07/25/20 08:40 Pacerone PO 200 mg DAILY TORITO Administration Apixaban 2.5 mg 07/05/20 22:55 07/25/20 17:34 Eliquis PO 2.5 mg BID TORITO Administration Aspirin 81 mg 07/07/20 09:00 07/25/20 08:41 Aspirin Ec PO 81 mg QAM TORITO Administration Calcium Carbonate 200 mg 07/17/20 18:10 07/25/20 18:04 Tums PO 200 mg Q6H PRN Administration Indigestion Carvedilol 3.125 mg 07/16/20 21:50 07/25/20 08:40 Coreg PO 3.125 mg Q12HR TORITO Administration Clopidogrel Bisulfate 75 mg 07/06/20 09:00 07/25/20 08:40 Plavix PO 75 mg DAILY TORITO Administration Dextrose 12.5 gm 07/05/20 14:08 07/14/20 20:12 Dextrose 50% Syringe IV PUSH 12.5 gm PRN PRN Administration Hypoglycemia Protocol Dorzolamide HCl 1 drop 07/06/20 09:00 07/25/20 08:41 Trusopt EACH EYE 1 drop DAILY TORITO Administration Fluticasone Propionate 1 spray 07/15/20 21:00 07/25/20 08:41 Flonase 0.05% Nasal [place] NASAL 1 spray Q12HR TORITO Administration Glucagon 1 mg 07/05/20 14:08 Glucagon For Inj IM PRN PRN Hypoglycemia Protocol Glucose 15 gm 07/05/20 14:08 07/13/20 12:57 Glutose 15 PO 15 gm PRN PRN Administration Hypoglycemia Protocol Albumin Human 50 mls @ 999 mls/hr 07/06/20 00:44 07/12/20 09:43 Albutein IVPB 08/05/20 00:45 999 mls/hr Q10M PRN Administration HYPOTENSION Cefazolin Sodium 2 gm in 50 mls
[2020-07-25 21:55] VITALS: PULSE 72
[2020-07-25 21:57] VITALS: BP 127/78; PULSE 76; RESP 16; TEMP 36.9; O2SAT 100
[2020-07-25 22:16] LABS: Glucose Point of Care 114 (65-105)
[2020-07-26] VITALS (21 sets, daily range): BP systolic 107–156; BP diastolic 54–82; PULSE 64–88; RESP 16–20; TEMP 36.3–37; O2SAT 96–97
[2020-07-26] MEDS: SALINE 0.65% NAS SOLN 44 ML BTL 1 SPRAY NASAL ×3 (00:23→13:11)
[2020-07-26 08:05] LABS: Glucose Point of Care 93 (65-105)
[2020-07-26] MEDS: ACETAMINOPHEN 325 MG TABLET 650 MG PO ×2 (08:32→13:12)
[2020-07-26] MEDS: DORZOLAMIDE HCL 2% OPHTH DROPS 1 DROP EACH EYE (08:35)
[2020-07-26] MEDS: FLUTICASONE PROPIONATE 0.05% NA SPR 16 GM BTL (*BKC) 1 SPRAY NASAL (08:35)
--- NOTE | 2020-07-26 09:38 | PCOTNOTE ---
Attempted to see patient for skilled OT, patient in dialysis this AM. Will attempt later if time permits or continue plan of care tomorrow 07/27/2020.
--- NOTE | 2020-07-26 10:38 | PM.PNPUL ---
Progress Note: A&P Assessment and Plan (1) Multiple pulmonary nodules determined by computed tomography of lung: Code(s): R91.8 - Other nonspecific abnormal finding of lung field Status: Acute Assessment and Plan: Multiple bilateral pulmonary nodules likely septic emboli from recent MSSA bactermia. Malignancy or other inflammatory processes cannot be rule out. Currently on appropriate antibiotics and appears to be clinically improving. - recommend repeat CT chest non contrast in 2-3 weeks to see if there is radiographic improvement. - If no change on repeat CT chest the I would recommend CT guided biopsy of one of the pleural based nodules. - should f/u with us in pulmonary clinic after next CT chest Subjective Date/time seen: 07/26/20 10:38 Interval history: 60 y/o male with cardiomyopathy, bactermia with MSSA and bilateral peripheral pulmonary nodules. These may be septic emboli. Seems to be clinically improving. Review of Systems Review of Systems: All systems reviewed & are unremarkable except as noted in HPI and below Exam Narrative: Exam Narrative: Chronically ill Resp: Effort & Inspection: normal respiratory effort Auscultation: clear to auscultation bilaterally Cardio: Rate: regular rate Rhythm: regular rhythm Heart sounds: no gallops, no murmurs and no rubs Other: pacemaker in situ GI: Inspection: distended Auscultation: normal bowel sounds Skin: Other: blistering rash on left dorsum of hand improving flat red rash in between spaces of right hand and right arm and right stump like red patches Extrem: Other: right BKA Objective Data Vital Signs Vital Signs: Vital Signs - 24 hr 07/25/20 14:00 07/25/20 21:55 07/25/20 21:57 Temperature 36.1 C L 36.9 C Pulse Rate 67 72 76 Respiratory Rate 18 16 Blood Pressure 119/74 127/78 Pulse Oximetry 100 100 07/26/20 06:00 Temperature 36.7 C Pulse Rate 74 Respiratory Rate 16 Blood Pressure 127/75 Pulse Oximetry 96 Intake/Output Intake/Output: Intake & Output 07/23/20 07/24/20 07/25/20 07/26/20 23:59 23:59 23:59 23:59 Intake Total 975 1420 1000 270 Output Total 3400 0 0 0 Balance -2425 1420 1000 270 Meds/Results Medications: Active Medications Generic Name Dose Route Start Last Admin Trade Name Freq PRN Reason Stop Dose Admin Acetaminophen 650 mg 07/07/20 09:21 07/26/20 08:32 Tylenol Tablet PO 650 mg Q4H PRN Administration Pain Rated 5 or Less Amiodarone HCl 200 mg 07/06/20 09:00 07/25/20 08:40 Pacerone PO 200 mg DAILY TORITO Administration Apixaban 2.5 mg 07/05/20 22:55 07/25/20 17:34 Eliquis PO 2.5 mg BID TORITO Administration Aspirin 81 mg 07/07/20 09:00 07/25/20 08:41 Aspirin Ec PO 81 mg QAM TORITO Administration Calcium Carbonate 200 mg 07/17/20 18:10 07/25/20 18:04 Tums PO 200 mg Q6H PRN Administration Indigestion Carvedilol 3.125 mg 07/16/20 21:50 07/25/20 21:55 Coreg PO 3.125 mg Q12HR TORITO Administration Clopidogrel Bisulfate 75 mg 07/06/20 09:00 07/25/20 08:40 Plavix PO 75 mg DAILY TORITO Administration Dextrose 12.5 gm 07/05/20 14:08 07/14/20 20:12 Dextrose 50% Syringe IV PUSH 12.5 gm PRN PRN Administration Hypoglycemia Protocol Dorzolamide HCl 1 drop 07/06/20 09:00 07/26/20 08:35 Trusopt EACH EYE 1 drop DAILY TORITO Administration Epoetin Nathaniel-epbx 20,000 units 07/26/20 18:24 Retacrit IV PUSH 07/26/20 18:25 ONCE ONE Fluticasone Propionate 1 spray 07/15/20 21:00 07/26/20 08:35 Flonase 0.05% Nasal [place] NASAL 1 spray Q12HR TORITO Administration Glucagon 1 mg 07/05/20 14:08 Glucagon For Inj IM PRN PRN Hypoglycemia Protocol Glucose 15 gm 07/05/20 14:08 07/13/20 12:57 Glutose 15 PO 15 gm PRN PRN Administration Hypoglycemia Protocol Albumin Human 50 mls @ 999 mls/hr 07/06/20 00:44 07/12/20 09:43 Albutein IVPB 08/05
[2020-07-26] MEDS: SODIUM CHLORIDE 0.9% IV 1,000 ML 999 ML IV CONT (12:15)
[2020-07-26] MEDS: EPOETIN ALFA-EPBX 10,000 UNITS/ML VIAL 20000 UNITS IV PUSH (12:15)
--- NOTE | 2020-07-26 12:35 | P.DS_ITS ---
DS: Admitting Diagnosis Admitting Diagnosis Admitting Diagnosis: Diarrhea. DS: Summary Time Spent with Patient Time attestation: Total time spent providing and/or coordinating discharge services: DS: Data Data Completed and Pending Labs on day of discharge: Labs from last 24 hours 07/26/20 07/25/20 07/25/20 07:47 21:54 16:54 POC Capillary Glucose 93 114 H 92 Discharge Plan Discharge Attending physician on discharge: Ralph Tinsley Consulting providers: Carloz Vora ; Silvia Duke Discharging Clinician: Ralph Tinsley Patient Disposition: [place] Intermediate/Asst Living Activity: as tolerated Diet: low sodium Discharge Instructions: Please follow up with CT of the abdomen in 3 months. patient to follow up with Dr. Duke in 2 weeks, Patient will have dialysis every Sunday, Sunday and Sunday and after dialysis will receive Ancef until August 03. Patient to see his primary care provider as soon as possible. Patient Instructions: Antibiotic Form, Piperacillin/Tazobactam (By injection), Apixaban (By mouth), Heart Failure (DC), A-fib (Atrial Fibrillation) (DC), Dehydration (DC), Rhabdomyolysis (DC), Blood Thinners (DC) Stand Alone Forms: General Discharge Information Follow-up/Referrals: Nerissa Torres MD [Physician] - 4 Weeks Carloz Vora MD [Physician] - Matthieu Zuñiga MD [Primary Care Provider] - Discharge Medications: New fluticasone propionate 50 mcg/actuation [place],Suspension 1 spray intranasal Q12HR Qty: 1 RF: 0 midodrine 2.5 mg Tablet 2.5 mg PO TID Qty: 90 RF: 0 sodium chloride [Saline Mist] 0.65 % Aerosol,[place] 1 spray intranasal Q6HR Qty: 1 RF: 0 carvedilol [Coreg] 3.125 mg Tablet 3.125 mg PO Q12HR Qty: 60 RF: 0 oxymetazoline [Nasal Decongestant (oxymetazl)] 0.05 % [place],Non-Aerosol 1 spray intranasal Q12HR PRN (Reason: Congestion) Qty: 1 RF: 0 calcium carbonate 500 mg calcium (1,250 mg) Tablet,Chewable 200 mg PO Q6H PRN (Reason: Indigestion) Qty: 60 RF: 0 lisinopril 2.5 mg Tablet 2.5 mg PO QAM Qty: 30 RF: 0 cefazolin in dextrose (iso-os) 2 gram/50 mL Piggyback 2 g IV PRN PRN (Reason: POST DIALYSIS) Qty: 5 RF: 0 Continued cinacalcet [Sensipar] 90 mg Tablet 90 mg PO DAILY RF: 0 clopidogrel 75 mg Tablet 75 mg PO DAILY RF: 0 pantoprazole 40 mg Tablet,Delayed Release (Dr/Ec) 40 mg PO QAM RF: 0 apixaban 2.5 mg Tablet 2.5 mg PO BID RF: 0 atorvastatin [Lipitor] 40 mg Tablet 80 mg PO HS RF: 0 amiodarone 200 mg Tablet 200 mg PO DAILY RF: 0 aspirin [Adult Low Dose Aspirin] 81 mg Tablet,Delayed Release (Dr/Ec) 81 mg PO DAILY RF: 0 dorzolamide 2 % Drops 1 drp OPHTHALMIC (EYE) BID RF: 0 lanthanum [Fosrenol] 500 mg Tablet,Chewable 1,000 mg PO BID RF: 0 Discontinued carvedilol [Coreg] 25 mg Tablet 25 mg PO Q12H RF: 0 lisinopril 40 mg Tablet 40 mg PO DAILY RF: 0 Other Ambulatory Orders: CT chest wo con (Routine) Timeframe: 3 Weeks Facility: [facility] - Location: [facility] Imaging Ordered By: Nerissa Torres Date of admission: 07/06/20 09:39 Primary Care Provider: Matthieu Zuñiga Admitting Provider: Ralph Tinsley Attending physician on admission: Olivia Matt Condition: Stable Quality VTE Prophylaxis VTE prophylaxis: pharmacologic ordered (On low dose eliquis)
[2020-07-26] MEDS: AMIODARONE HCL 200 MG TABLET PO (13:12)
[2020-07-26] MEDS: PANTOPRAZOLE 40 MG TABLET PO (13:12)
[2020-07-26] MEDS: ceFAZolin 2 GM/D5W 50 ML 2 GM/50 ML BAG IVPB (13:12)
[2020-07-26] MEDS: carvediloL 3.125 MG TABLET PO (13:13)
[2020-07-26] MEDS: APIXABAN 2.5 MG TABLET PO (13:13)
[2020-07-26] MEDS: ASPIRIN 81 MG ENTERIC TABLET PO (13:13)
[2020-07-26] MEDS: CLOPIDOGREL BISULFATE 75 MG TABLET PO (13:14)
[2020-07-26] MEDS: MIDODRINE HCL 2.5 MG TABLET PO (13:14)
[2020-07-26] MEDS: lisinopriL 2.5 MG TABLET PO (13:14)
--- NOTE | 2020-07-26 13:32 | PCOTNOTE ---
Patient returned from dialysis; attempted therapy this afternoon; patient declined therapy; per nursing patient being discharged this date
[2020-07-26 13:33] LABS: Glucose Point of Care 99 (65-105)
--- NOTE | 2020-07-26 15:12 | PM.PNNEP ---
Progress Note: A&P Assessment and Plan (1) ESRD (end stage renal disease): Code(s): N18.6 - End stage renal disease Status: Chronic Assessment and Plan: HD today and continue Sun/Sun/Sunday schedule follow electrolytes, volume status, and clearance push fluid removal as tolerated by hemodynamics (2) Staphylococcus aureus bacteremia with sepsis: Code(s): A41.01 - Sepsis due to Methicillin susceptible Staphylococcus aureus Status: Acute Assessment and Plan: as noted by admission blood cultures source? - presumed to be previous IV infiltration/septic phlebitis - transthoracic echo negative for endocarditits on antibiotics as outlined Infectious Disease recommendations noted (3) Elevated LFTs: Code(s): R79.89 - Other specified abnormal findings of blood chemistry Status: Acute Assessment and Plan: possibly due to mild rhabdomyolysis +/- high dose statin therapy trend LFTs - stable if not better follow CPK levels - stable statin on hold (4) Hyponatremia: Code(s): E87.1 - Hypo-osmolality and hyponatremia Status: Resolved Assessment and Plan: resolved due to the use of previous use of D10W IVFs to maintain his blood sugar + kidney failure + cardiomyopathy dialysis has compensated to some degree (5) Hypocalcemia: Code(s): E83.51 - Hypocalcemia Status: Resolved Assessment and Plan: doing better with supplementation follow trend (6) Ischemic cardiomyopathy: Code(s): I25.5 - Ischemic cardiomyopathy Status: Acute Assessment and Plan: fluid removal with HD as tolerated follow respiratory status and daily weights Will continue to follow Subjective Date/time seen: 07/26/20 15:12 Tolerated dialysis treatment earlier today without any issues or problems; feels reasonably well; facial edema appears to be doing better as well; noted plans for discharge this afternoon. Exam Narrative: Exam Narrative: General: WD/WN AA male in NAD Heart: normal S1 and S2; no rub Lungs: clear to auscultation Abdomen: soft, nontender, nondistended, positive bowel sounds Extremities: no cyanosis or clubbing; no edema; s/p right AKA Skin: warm and intact Objective Data Vital Signs Vital Signs: Vital Signs Temp Pulse Resp BP Pulse Ox 07/26/20 14:00 36.7 C 85 20 108/72 97 07/26/20 13:19 36.3 C L 75 18 124/76 07/26/20 13:13 70 07/26/20 13:12 70 07/26/20 12:40 64 129/58 L 07/26/20 12:30 76 125/66 07/26/20 12:15 71 123/62 07/26/20 12:00 73 121/67 07/26/20 11:45 65 109/70 07/26/20 11:30 73 139/70 07/26/20 11:15 77 118/54 L 07/26/20 11:00 71 107/61 07/26/20 10:45 78 156/66 H 07/26/20 10:30 71 123/67 07/26/20 10:15 81 125/82 07/26/20 10:00 88 112/65 07/26/20 09:45 77 141/78 H 07/26/20 09:37 70 113/68 07/26/20 09:25 36.4 C 75 16 131/81 07/26/20 06:00 36.7 C 74 16 127/75 96 07/25/20 21:57 36.9 C 76 16 127/78 100 07/25/20 21:55 72 Intake/Output Intake/Output: Intake & Output 07/23/20 07/24/20 07/25/20 07/26/20 23:59 23:59 23:59 23:59 Intake Total 975 1420 1000 510 Output Total 3400 0 0 3500 Balance -2425 1420 1000 -2990 Meds/Results Medications: Active Medications Generic Name Dose Route Start Last Admin Trade Name Salq PRN Reason Stop Dose Admin Acetaminophen 650 mg 07/07/20 09:21 07/26/20 13:12 Tylenol Tablet PO 650 mg Q4H PRN Administration Pain Rated 5 or Less Amiodarone HCl 200 mg 07/06/20 09:00 07/26/20 13:12 Pacerone PO 200 mg DAILY TORITO Administration Apixaban 2.5 mg 07/05/20 22:55 07/26/20 13:13 Eliquis PO 2.5 mg BID TORITO Administration Aspirin 81 mg 07/07/20 09:00 07/26/20 13:13 Aspirin Ec PO 81 mg QAM TORITO Administration Calcium Carbonate 200 mg 07/17/20 18:10 07/25/20 18:04
--- NOTE | 2020-07-26 15:12 | P.PNNP_ITS ---
Progress Note: A&P Assessment and Plan (1) ESRD (end stage renal disease): Code(s): N18.6 - End stage renal disease Status: Chronic Assessment and Plan: * HD today and continue Sun/Sun/Sunday schedule * follow electrolytes, volume status, and clearance * push fluid removal as tolerated by hemodynamics (2) Staphylococcus aureus bacteremia with sepsis: Code(s): A41.01 - Sepsis due to Methicillin susceptible Staphylococcus aureus Status: Acute Assessment and Plan: * as noted by admission blood cultures * source? - presumed to be previous IV infiltration/septic phlebitis - transthoracic echo negative for endocarditits * on antibiotics as outlined * Infectious Disease recommendations noted (3) Elevated LFTs: Code(s): R79.89 - Other specified abnormal findings of blood chemistry Status: Acute Assessment and Plan: * possibly due to mild rhabdomyolysis +/- high dose statin therapy * trend LFTs - stable if not better * follow CPK levels - stable * statin on hold (4) Hyponatremia: Code(s): E87.1 - Hypo-osmolality and hyponatremia Status: Resolved Assessment and Plan: * resolved * due to the use of previous use of D10W IVFs to maintain his blood sugar + kidney failure + cardiomyopathy * dialysis has compensated to some degree (5) Hypocalcemia: Code(s): E83.51 - Hypocalcemia Status: Resolved Assessment and Plan: * doing better with supplementation * follow trend (6) Ischemic cardiomyopathy: Code(s): I25.5 - Ischemic cardiomyopathy Status: Acute Assessment and Plan: * fluid removal with HD as tolerated * follow respiratory status and daily weights Will continue to follow Subjective Date/time seen: 07/26/20 15:12 Tolerated dialysis treatment earlier today without any issues or problems; feels reasonably well; facial edema appears to be doing better as well; noted plans for discharge this afternoon. Exam Narrative: Exam Narrative: General: WD/WN AA male in NAD Heart: normal S1 and S2; no rub Lungs: clear to auscultation Abdomen: soft, nontender, nondistended, positive bowel sounds Extremities: no cyanosis or clubbing; no edema; s/p right AKA Skin: warm and intact Objective Data Vital Signs Vital Signs: Vital Signs Temp Pulse Resp BP Pulse Ox 07/26/20 14:00 36.7 C 85 20 108/72 97 07/26/20 13:19 36.3 C L 75 18 124/76 07/26/20 13:13 70 07/26/20 13:12 70 07/26/20 12:40 64 129/58 L 07/26/20 12:30 76 125/66 07/26/20 12:15 71 123/62 07/26/20 12:00 73 121/67 07/26/20 11:45 65 109/70 07/26/20 11:30 73 139/70 07/26/20 11:15 77 118/54 L 07/26/20 11:00 71 107/61 07/26/20 10:45 78 156/66 H 07/26/20 10:30 71 123/67 07/26/20 10:15 81 125/82 07/26/20 10:00 88 112/65 07/26/20 09:45 77 141/78 H 07/26/20 09:37 70 113/68 07/26/20 09:25 36.4 C 75 16 131/81 07/26/20 06:00 36.7 C 74 16 127/75 96 07/25/20 21:57 36.9 C 76 16 127/78 100 07/25/20 21:55 72 Intake/Output Intake/Output: Intake & Output 07/23/20 07/24/20 07/25/20 07/26/20 23:59 23:59 23:59 23:59 Intake To
[2020-07-26 16:25] LABS: Glucose Point of Care 113 (65-105)
== END 2020-07-26 17:11 | DRG 871 ==
LOC: ANHED 08:51 → ANH3MED 08:52 → ANHIMU 07-09 15:46 → ANH2MED 07-22 21:35
PROVIDERS: Emergency Medicine; Family Medicine; Internal Medicine; Internal Medicine Nephrology; Physician Assistant; Admitting Provider Family Medicine; Emergency Provider Emergency Medicine; PCP Family Medicine; Visit Provider Family Medicine
DX: A41.01 Sepsis due to Methicillin susceptible Staphylococcus aureus (principal); N18.6 End stage renal disease; Z94.0 Kidney transplant status; M62.82 Rhabdomyolysis; L03.114 Cellulitis of left upper limb; E87.1 Hypo-osmolality and hyponatremia; I13.2 Hypertensive heart and chronic kidney disease with heart failure and with stage 5 chronic kidney disease, or end stage renal disease; I50.22 Chronic systolic (congestive) heart failure; Z99.2 Dependence on renal dialysis; I27.20 Pulmonary hypertension, unspecified; Z20.828 Contact with and (suspected) exposure to other viral communicable diseases; D63.1 Anemia in chronic kidney disease; R91.8 Other nonspecific abnormal finding of lung field; J43.9 Emphysema, unspecified; R19.7 Diarrhea, unspecified; R60.0 Localized edema; E86.0 Dehydration; E16.2 Hypoglycemia, unspecified; R79.89 Other specified abnormal findings of blood chemistry; I25.10 Atherosclerotic heart disease of native coronary artery without angina pectoris; K21.9 Gastro-esophageal reflux disease without esophagitis; I48.0 Paroxysmal atrial fibrillation; I25.5 Ischemic cardiomyopathy; I73.9 Peripheral vascular disease, unspecified; E21.3 Hyperparathyroidism, unspecified; H40.9 Unspecified glaucoma; Z79.01 Long term (current) use of anticoagulants; Z79.82 Long term (current) use of aspirin; Z79.899 Other long term (current) drug therapy; Z86.74 Personal history of sudden cardiac arrest; Z95.5 Presence of coronary angioplasty implant and graft; Z95.810 Presence of automatic (implantable) cardiac defibrillator; Z89.611 Acquired absence of right leg above knee
CPT/HCPCS: 36415; 36430; 71045; 71250; 71260; 73200; 74176; 80048; 80053; 80069; 80074; 80076; 82533; 82550; 82607; 82728; 82746; 82947; 82948; 83036; 83605; 83615; 83690; 83735; 83970; 84100; 84132; 84439; 84443; 84480; 85025; 85027; 85055; 85610; 85730; 86140; 86706; 86850; 86900; 86901; 86923; 87040; 87045; 87046; 87147; 87186; 87427; 87635; 89055; 93005; 93306; 93970; 96361; 96365; 97110; 97161; 97162; 97166; 97168; 97530; 97535; 99285; A9270; C1751; C9803; G0257; G0378; J0610; J0690; J2543; J3370; J7030; J7040; J7042; J7070; P9016; P9047; Q5106; Q9967; U0003

== ENCOUNTER 2020-07-29 12:31 | Emergency (ER) | payer MEDICARE, OTHER, SELFPAY ==
[2020-07-29 12:31] VITALS: BP 111/75; PULSE 72; RESP 18; TEMP 36.6; O2SAT 100
--- NOTE | 2020-07-29 13:03 | ED.GENADULT ---
HPI - General Adult General Chief complaint: Unspecified Stated complaint: SWELLING Time Seen by Provider: 07/29/20 12:44 Source: patient, family and EMS History of Present Illness HPI narrative: 60 years old -Malagasy male came from long term because of blisters at the dorsal side of the left hand also at the tip of the right stump of the lower extremity. Started while he was in our hospital roughly 8 days ago. Patient was discharged from our hospital 3 days ago. Patient denies fever, chills, nausea, vomiting, chest pain, shortness of breath.. Currently patient on aspirin and Plavix Related Data Home Medications Medication Instructions Recorded Confirmed amiodarone 200 mg PO DAILY 12/05/19 07/05/20 aspirin [Adult Low Dose Aspirin] 81 mg PO DAILY 12/05/19 07/05/20 atorvastatin [Lipitor] 80 mg PO HS 12/05/19 07/05/20 dorzolamide 1 drp OPHTHALMIC (EYE) BID 12/05/19 07/05/20 lanthanum [Fosrenol] 1,000 mg PO BID 12/05/19 07/05/20 cinacalcet [Sensipar] 90 mg PO DAILY 06/21/20 07/05/20 apixaban 2.5 mg PO BID 07/05/20 07/05/20 clopidogrel 75 mg PO DAILY 07/05/20 07/05/20 pantoprazole 40 mg PO QAM 07/05/20 07/05/20 Allergies Allergy/AdvReac Type Severity Reaction Status Date / Time No Known Allergies Allergy Verified 07/05/20 06:19 Review of Systems Review of Systems: Narrative: CONSTITUTIONAL: Denies fever, chills, or sweats. EYES: Denies visual changes, redness, or discharge. ENT: Denies rhinorrhea, congestion, sore throat, or otalgia. CARDIOVASCULAR: Denies chest pain, palpitations, or edema. RESPIRATORY: Denies cough or dyspnea. GASTROINTESTINAL: Denies abdominal pain, nausea, vomiting, or diarrhea. GENITOURINARY: Denies dysuria or hematuria. SKIN: Large hemorrhagic blisters on the dorsal side of left fingers, also at the tip of the right lower extremity stump. No discharge, no surrounding erythema, soft, nontender. MUSCULOSKELETAL: Denies back pain, joint pain, or myalgia. NEUROLOGIC: Denies headache, numbness, or weakness. PSYCHIATRIC: Denies anxiety or depression. [facility] Past Medical History Medical History Cardiac arrest with ventricular fibrillation (~11/2016) Chronic anemia Coronary artery disease (~11/2016) History of stent x4 at [facility]. Dialysis AV fistula malfunction 2 in the left forearm that are new nonfunctioning. The 1 on the right has a positive bruit and thrill. End-stage renal disease on hemodialysis Sunday, Sunday, and Sunday schedule. Gastroesophageal reflux disease Glaucoma Hyperparathyroidism Hypertension Ischemic cardiomyopathy Status post PM/ICD insertion. Multiple pulmonary nodules determined by computed tomography of lung Paroxysmal atrial fibrillation On amiodarone and anticoagulation as of June 2020. Peripheral vascular disease Pulmonary hypertension Surgical History Surgical History History of cardiac catheterization With stents x4 in November 2016 and stent x1 in June 2020 done at [facility]. History of implantable cardioverter-defibrillator (ICD) insertion History of renal transplant Renal transplant in 2002, which became non-functioning in 2005; he has been on hemodialysis since that time. History of vascular surgery Left femoral bypass. Status post above-knee amputation of right lower extremity Family History Family History Father Carcinoma of colon Sibling Heart disease both brothers Social History Social History Social History: The patient lives alone in [place]. 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 He smoked remotely in high school. No alcohol or drug abuse. He designates his mother, Rayna Barrett, as his surrogate decision maker and he wishes be a full code. Gender identity (if verbalized
[2020-07-29 15:00] VITALS: BP 124/88; PULSE 76; RESP 18; O2SAT 98
--- NOTE | 2020-07-29 15:15 | PC.NURSE ---
[facility] ACCEPTED ETA 1600 TRIP# [phone]
--- NOTE | 2020-07-29 16:28 | PC.NURSE ---
NEW ETA FOR [facility] [id number]
[2020-07-29 17:12] VITALS: BP 126/84; PULSE 74; RESP 18; O2SAT 98
== END 2020-07-29 17:15 ==
PROVIDERS: Emergency Provider Emergency Medicine; PCP Family Medicine
DX: R23.8 Other skin changes (principal); I12.0 Hypertensive chronic kidney disease with stage 5 chronic kidney disease or end stage renal disease; N18.6 End stage renal disease; D63.1 Anemia in chronic kidney disease; Z99.2 Dependence on renal dialysis; I25.10 Atherosclerotic heart disease of native coronary artery without angina pectoris; K21.9 Gastro-esophageal reflux disease without esophagitis; H40.9 Unspecified glaucoma; E21.3 Hyperparathyroidism, unspecified; I48.0 Paroxysmal atrial fibrillation; Z79.01 Long term (current) use of anticoagulants; I27.20 Pulmonary hypertension, unspecified; I73.9 Peripheral vascular disease, unspecified; Z89.611 Acquired absence of right leg above knee; Z87.891 Personal history of nicotine dependence
CPT/HCPCS: 99281

== ENCOUNTER 2020-09-29 19:07 | Emergency (ER) | payer MEDICARE, OTHER, SELFPAY ==
[2020-09-29 19:09] VITALS: BP 105/82; PULSE 82; RESP 16; TEMP 36.7; O2SAT 98
--- NOTE | 2020-09-29 19:58 | ED.GENADULT ---
HPI - General Adult General Chief complaint: Wound/Laceration <Faith Berry MD - Last Filed: 09/30/20 08:44> Stated complaint: bleeding through dialysis port <Faith Berry MD - Last Filed: 09/30/20 08:44> Time Seen by Provider: 09/29/20 19:18 <Faith Berry MD - Last Filed: 09/30/20 08:44> Source: patient <Faith Berry MD - Last Filed: 09/30/20 08:44> History of Present Illness HPI narrative: Patient is 60 y/o male complaining of mild right arm AV fistula bleeding today. He states that he had dialysis today and he was sent here by [facility] for further evaluation. There is no known alleviating or exacerbating factor. He has no chest pain or SOB. He states that it's not unusual for him to have some bleeding following dialysis. <Faith Berry MD - Last Filed: 09/30/20 08:44> Related Data Home medications: Home Medications Medication Instructions Recorded Confirmed amiodarone 200 mg PO DAILY 12/05/19 08/10/20 aspirin [Adult Low Dose Aspirin] 81 mg PO DAILY 12/05/19 08/10/20 atorvastatin [Lipitor] 80 mg PO HS 12/05/19 08/10/20 dorzolamide 1 drp OPHTHALMIC (EYE) BID 12/05/19 08/10/20 lanthanum [Fosrenol] 1,000 mg PO BID 12/05/19 08/10/20 cinacalcet [Sensipar] 90 mg PO DAILY 06/21/20 08/10/20 apixaban 2.5 mg PO BID 07/05/20 08/10/20 clopidogrel 75 mg PO DAILY 07/05/20 08/10/20 <Faith Berry MD - Last Filed: 09/30/20 08:44> Allergies/adverse reactions: Allergies Allergy/AdvReac Type Severity Reaction Status Date / Time No Known Allergies Allergy Verified 08/10/20 13:18 <Faith Berry MD - Last Filed: 09/30/20 08:44> Review of Systems Constitutional: Constitutional: Denies chills, Denies fever(s), Denies headache(s) and Denies weakness <Faith Berry MD - Last Filed: 09/30/20 08:44> Eyes: Eyes: Denies blurry vision <Faith Berry MD - Last Filed: 09/30/20 08:44> ENT: Denies headache(s) and Denies neck pain <Faith Berry MD - Last Filed: 09/30/20 08:44> Cardiovascular: Cardiovascular: Denies chest pain and Denies dyspnea <Faith Berry MD - Last Filed: 09/30/20 08:44> Respiratory: Respiratory: Denies cough and Denies dyspnea <Faith Berry MD - Last Filed: 09/30/20 08:44> Gastrointestinal: Gastrointestinal: Denies abdominal pain, Denies diarrhea, Denies nausea and Denies vomiting <Faith Berry MD - Last Filed: 09/30/20 08:44> Genitourinary: Genitourinary: Denies hematuria and Denies dysuria <Faith Berry MD - Last Filed: 09/30/20 08:44> Musculoskeletal: Musculoskeletal: Denies back pain and Denies neck pain <Faith Berry MD - Last Filed: 09/30/20 08:44> Integumentary/Breasts: Skin/Breast: Reports other (right arm bleeding) <Faith Beryr MD - Last Filed: 09/30/20 08:44> Neurologic: Denies headache(s) and Denies weakness <Faith Berry MD - Last Filed: 09/30/20 08:44> [facility] Past Medical History Medical History: Medical History (Updated 09/30/20 @ 02:47 by Clifton Pop MD) Cardiac arrest with ventricular fibrillation (~11/2016) Chronic anemia Coronary artery disease (~11/2016) History of stent x4 at [facility]. Dialysis AV fistula malfunction 2 in the left forearm that are new nonfunctioning. The 1 on the right has a positive bruit and thrill. End-stage renal disease on hemodialysis Sunday, Sunday, and Sunday schedule. Gastroesophageal reflux disease Glaucoma Hyperparathyroidism Hypertension Ischemic cardiomyopathy Status post PM/ICD insertion. Multiple pulmonary nodules determined by computed tomography of lung Paroxysmal atrial fibrillation On amiodarone and anticoagulation as of June 2020. Peripheral vascular disease Pulmonary hypertension <Faith Berry MD - Last Filed: 09/30/20 08:44> Surgical History Surgical History: Surgical History History of cardiac catheterization With stents x4 in November 2016 and stent x1 in June 2020 done at [facility].
[2020-09-29 22:13] VITALS: BP 110/64; PULSE 84; RESP 16; TEMP 36.6; O2SAT 98
[2020-09-30 00:01] VITALS: BP 110/68; PULSE 84; RESP 16; TEMP 36.8; O2SAT 96
[2020-09-30 00:06] LABS: Basophils Percent Auto 0.4 % (0.2-1.2); Eosinophils Absolute Auto 0.1 K/mm3 (0-0.3); Eosinophils Percent Auto 1.4 % (0-4.4); Hematocrit 29.7 % (42.0-52.0); Hemoglobin 8.6 g/dL (14.0-18.0); Immature Granulocyte Absolute 0.03 K/mm3 (0.00-0.031); Immature Granulocyte Percent A 0.4 % (0-0.5); Lymphocytes Absolute Auto 0.58 K/mm3 (0.9-3.2); Lymphocytes Percent Auto 7.9 % (18.3-44.2); Mean Corpuscular Hemoglobin 28.7 pg (26-34); Mean Platelet Volume 12.5 fl (7.4-10.4); Monocytes Absolute Auto 1.2 K/mm3 (0.1-0.6); Monocytes Percent Auto 16.7 % (2.6-8.5); Neutrophils Absolute Auto 5.3 K/mm3 (1.3-6.7); Neutrophils Percent Auto 73.2 % (45.5-73.1); Nucleated Red Blood Cells Perc 0.4 % (0.0-0.2); Platelet Count Result 193 k/mm3 (150-375); Red Cell Distribution Width 22.2 % (11.5-14.5); White Blood Count 7.3 K/mm3 (4.5-10.0)
[2020-09-30 00:15] LABS: INR 1.6; Prothrombin Time 19.5 Seconds (11.1-14.7)
[2020-09-30 00:16] LABS: Partial Thromboplastin Time 58.4 SECONDS (22.3-36.8)
[2020-09-30 00:18] LABS: Anion Gap 11 mmol/L (8-16); Blood Urea Nitrogen 42 mg/dL (9-20); Calcium 7.9 mg/dL (8.4-10.2); Carbon Dioxide 31 mmol/L (22-30); Chloride 99 mmol/L (98-107); Estimated CRCL calculation 12 ml/min; Estimated Glomerular Filt Rate 14; Glucose 104 mg/dL (75-110); Potassium 3.9 mmol/L (3.4-5.0); Sodium 141 mmol/L (137-145)
[2020-09-30 00:33] LABS: Hypochromasia 1+ (NORMAL); Large Platelets Present; Ovalocytes 1+ (NORMAL); Platelet Estimate Adequate (Adequate)
[2020-09-30 02:15] VITALS: BP 141/86; PULSE 85; RESP 18; TEMP 36.7; O2SAT 95
--- NOTE | 2020-09-30 05:10 | PC.NURSE ---
Addendum entered by Luz Marina Zuniga 09/30/20 06:57: 0945: [facility] called with update...ETA now 0945. Called [facility], both declined, not enough staff/trucks. [facility] not available. Addendum entered by Luz Marina Zuniga 09/30/20 06:12: 0610: [facility] called with update...ETA now 0752. Original Note: 0226: Called [facility] to transport patient to [facility]...ETA 0430 0345: Called for status...ETA 0530 0500: Called for status...ETA 0715 (call volume exceeds availability)
[2020-09-30 05:43] VITALS: BP 139/86; PULSE 74; RESP 16; O2SAT 95
[2020-09-30 07:25] VITALS: BP 145/96; PULSE 79; RESP 15; O2SAT 99
--- NOTE | 2020-09-30 07:26 | PC.NURSE ---
Per AURELIA RN, breakfast tray ordered for pt, discussed POC of w/ pt. Pt resting, alert to verbal stimuli.
[2020-09-30 08:02] VITALS: BP 146/88; PULSE 84; RESP 17; O2SAT 97
== END 2020-09-30 08:04 ==
PROVIDERS: Emergency Medicine; Emergency Provider Emergency Medicine; PCP Internal Medicine
DX: T82.838A Hemorrhage due to vascular prosthetic devices, implants and grafts, initial encounter (principal); I25.10 Atherosclerotic heart disease of native coronary artery without angina pectoris; I13.11 Hypertensive heart and chronic kidney disease without heart failure, with stage 5 chronic kidney disease, or end stage renal disease; N18.6 End stage renal disease; Z99.2 Dependence on renal dialysis; K21.9 Gastro-esophageal reflux disease without esophagitis; I48.91 Unspecified atrial fibrillation; Z79.01 Long term (current) use of anticoagulants; E21.3 Hyperparathyroidism, unspecified
CPT/HCPCS: 36415; 80048; 85025; 85610; 85730; 99283

== ENCOUNTER 2020-10-01 06:29 | Emergency (ER) | payer MEDICARE, OTHER, SELFPAY ==
[2020-10-01 06:32] VITALS: BP 121/82; PULSE 75; RESP 16; TEMP 36.7; O2SAT 98
--- NOTE | 2020-10-01 07:45 | PC.NURSE ---
dr. diaz applied silver nitrate to puncture site. pressure dressing applied. breakfast tray called for.
--- NOTE | 2020-10-01 08:43 | ED.WOUNDLAC ---
HPI - Wound/Laceration General Chief Complaint: Wound/Laceration Stated Complaint: wound Time Seen by Provider: 10/01/20 07:24 Source: patient and EMS Mode of arrival: EMS History of Present Illness HPI narrative: Patient is 60 years old -Swedish male brought to the emergency room because of bleeding at the dialysis catheter, right arm. Patient was a scheduled for dialysis this morning. Patient denying any fever, chills, nausea, vomiting, headache, chest pain, shortness of breath or any pain. Patient on aspirin, Eliquis and Brilinta Related Data Home Medications Medication Instructions Recorded Confirmed amiodarone 200 mg PO DAILY 12/05/19 08/10/20 aspirin [Adult Low Dose Aspirin] 81 mg PO DAILY 12/05/19 08/10/20 atorvastatin [Lipitor] 80 mg PO HS 12/05/19 08/10/20 dorzolamide 1 drp OPHTHALMIC (EYE) BID 12/05/19 08/10/20 lanthanum [Fosrenol] 1,000 mg PO BID 12/05/19 08/10/20 cinacalcet [Sensipar] 90 mg PO DAILY 06/21/20 08/10/20 apixaban 2.5 mg PO BID 07/05/20 08/10/20 clopidogrel 75 mg PO DAILY 07/05/20 08/10/20 Allergies Allergy/AdvReac Type Severity Reaction Status Date / Time No Known Allergies Allergy Verified 08/10/20 13:18 Review of Systems Review of Systems: Narrative: CONSTITUTIONAL: Denies fever, chills, or sweats. EYES: Denies visual changes, redness, or discharge. ENT: Denies rhinorrhea, congestion, sore throat, or otalgia. CARDIOVASCULAR: Denies chest pain, palpitations, or edema. RESPIRATORY: Denies cough or dyspnea. GASTROINTESTINAL: Denies abdominal pain, nausea, vomiting, or diarrhea. GENITOURINARY: Denies dysuria or hematuria. SKIN: Denies rash or itching. MUSCULOSKELETAL: Denies back pain, joint pain, or myalgia. NEUROLOGIC: Denies headache, numbness, or weakness. PSYCHIATRIC: Denies anxiety or depression. [facility] Past Medical History Medical History (Updated 10/01/20 @ 09:01 by Elana Caal MD) Cardiac arrest with ventricular fibrillation (~11/2016) Chronic anemia Coronary artery disease (~11/2016) History of stent x4 at [facility]. Dialysis AV fistula malfunction 2 in the left forearm that are new nonfunctioning. The 1 on the right has a positive bruit and thrill. End-stage renal disease on hemodialysis Sunday, Sunday, and Sunday schedule. Gastroesophageal reflux disease Glaucoma Hyperparathyroidism Hypertension Ischemic cardiomyopathy Status post PM/ICD insertion. Multiple pulmonary nodules determined by computed tomography of lung Paroxysmal atrial fibrillation On amiodarone and anticoagulation as of June 2020. Peripheral vascular disease Pulmonary hypertension Surgical History Surgical History History of cardiac catheterization With stents x4 in November 2016 and stent x1 in June 2020 done at [facility]. History of implantable cardioverter-defibrillator (ICD) insertion History of renal transplant Renal transplant in 2002, which became non-functioning in 2005; he has been on hemodialysis since that time. History of vascular surgery Left femoral bypass. Status post above-knee amputation of right lower extremity Family History Family History Father Carcinoma of colon Sibling Heart disease both brothers Social History Social History Social History: The patient lives alone in [place]. 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 He smoked remotely in high school. No alcohol or drug abuse. He designates his mother, Rayna Barrett, as his surrogate decision maker and he wishes be a full code. Gender identity (if verbalized by the patient): Male Spiritual care concerns: No Agree to blood products: Yes Exam Narrative: Exam Narrative: General appearance: Well-developed, well-nourished Skin: Normal color, right arm showed a small hole in the skin whic
--- NOTE | 2020-10-01 08:48 | PC.NURSE ---
no bleeding noted. pending discharge
[2020-10-01 10:00] VITALS: BP 100/67; PULSE 82; RESP 16
== END 2020-10-01 10:00 ==
PROVIDERS: Emergency Provider Emergency Medicine; PCP Internal Medicine
DX: T82.838A Hemorrhage due to vascular prosthetic devices, implants and grafts, initial encounter (principal); I12.0 Hypertensive chronic kidney disease with stage 5 chronic kidney disease or end stage renal disease; N18.6 End stage renal disease; D63.1 Anemia in chronic kidney disease; Z99.2 Dependence on renal dialysis; Z87.891 Personal history of nicotine dependence; I25.10 Atherosclerotic heart disease of native coronary artery without angina pectoris; K21.9 Gastro-esophageal reflux disease without esophagitis; I48.0 Paroxysmal atrial fibrillation; I73.9 Peripheral vascular disease, unspecified; I27.20 Pulmonary hypertension, unspecified; Z79.01 Long term (current) use of anticoagulants; Z79.82 Long term (current) use of aspirin; Z95.5 Presence of coronary angioplasty implant and graft; Z95.810 Presence of automatic (implantable) cardiac defibrillator; Z94.0 Kidney transplant status; Z89.611 Acquired absence of right leg above knee
CPT/HCPCS: 12001; 99282

== ENCOUNTER 2020-11-06 11:20 | Inpatient (IN) | payer MEDICARE, OTHER, SELFPAY ==
[2020-11-06] VITALS (68 sets, daily range): BP systolic 70–111; BP diastolic 43–63; PULSE 52–65; RESP 0–26; TEMP 35.1–36.4; O2SAT 29–100; BMI 19.1
--- NOTE | ~2020-11-06 | CT_ITS ---
EXAMINATION: CT brain wo con DATE: 11/08/2020 10:39 INDICATION: Seizure. TECHNIQUE: Computed tomography (CT) of the head was performed without intravenous contrast. The mA wa s adjusted according to patient size. Iterative reconstruction technique was employed. The dose-lengt h product was 605.33 mGy-cm. COMPARISON: Head CT 12/08/2016 FINDINGS: There are scattered areas of low attenuation in the cerebral white matter. There is no intr acranial hemorrhage, acute infarction, or abnormal intracranial mass lesion. The ventricles are trever l in size. The paranasal sinuses are clear. The orbits are normal. There is a trace right mastoid eff usion. IMPRESSION: 1. Mild nonspecific cerebral white matter disease, which likely represents chronic small vessel ische henry disease. Reviewed, dictated and finalized at location A. TRAINS AND ACCESSORIES SALESPERSON IMPRESSION: 1. Mild nonspecific cerebral white matter disease, which likely represents sports physiologist shayla small vessel ischemic disease.
--- NOTE | ~2020-11-06 | XR_ITS ---
XR chest 2V 11/06/2020 11:54 Indication: Weakness. Near syncope. Procedure: AP and lateral views of the chest Comparison: Comparison to multiple prior studies sequentially, with oldest reviewed study dated 05/17. Findings: Stable position to implantable cardiac defibrillator. There are coronary artery stents. Car diomegaly. Bibasilar infiltrates, most likely atelectasis. No significant effusion or pneumothorax. T here is diffusely increased density of the thoracic spine. Consider renal osteodystrophy and metastat ic disease. Impression: 1: Bibasilar atelectasis. 2: Diffusely increased density of the thoracic spine. Consider renal osteodystrophy free less likely metastatic disease. Reviewed, dictated and finalized at location A. HNUT BATTER MIXER Impression: 1: Bibasilar atelectasis. 2: Diffusely increased density of the thoracic spine. Consider renal osteodystr ophy free less likely metastatic disease.
--- NOTE | ~2020-11-06 | US_ITS ---
US abdomen limited INDICATION: Elevated liver function tests PROCEDURE: Realtime right upper abdominal ultrasound. COMPARISON: No prior studies for comparison. FINDINGS: The pancreas is normal without focal mass or pancreatic ductal dilation. Liver echotexture is normal without focal mass or intrahepatic biliary dilatation. There is normal directional flow i n the portal vein. There are hyperechoic structures near the gallbladder neck, likely stones. There is gallbladder wall thickening. Common bile duct measures 8 mm. There is calcified hypoechoic mass of the right kidney m easuring 3.1 cm, corresponding to rim calcified cyst seen on CT examination dated 07/05/2020. The rig ht kidney is atrophic measuring 5.7 cm in length. IMPRESSION: 1: Probable gallstones with gallbladder wall thickening and biliary dilatation. Consider cholecystiti s in the appropriate clinical setting. Reviewed, dictated and finalized at location A. AL MAINTAINER IMPRESSION: 1: Probable gallstones with gallbladder wall thickening and biliary dilatation. Consider cholecystitis in the appropriate clinical setting.
--- NOTE | 2020-11-06 11:34 | ECG_ITS ---
Measurements Intervals [place] Rate: 57 P: 28 SC: 300 QRS: 78 QRSD: 139 T: -67 QT: 512 QTc: 501 Interpretive Statements SINUS BRADYCARDIA WITH FIRST DEGREE AV BLOCK INTRAVENTRICULAR CONDUCTION DELAY LOW VOLTAGE- LIMB LEADS BORDERLINE R WAVE PROGRESSION, ANTERIOR LEADS BORDERLINE ST-T WAVE ABNORMALITY- INFERIOR LEADS ABNORMAL ECG Electronically Signed On 11-06-2020 14:28:39 [employer] by Nikita Jerez D.O.
--- NOTE | 2020-11-06 12:41 | ED.GENADULT ---
HPI - General Adult General Chief complaint: Weakness Stated complaint: HYPOTENSION Time Seen by Provider: 11/06/20 12:12 Source: patient Mode of arrival: wheelchair Limitations: no limitations History of Present Illness HPI narrative: Patient is 60-year-old male brought in by EMS after home health nurse states that his blood pressure was low and he was feeling weak. Patient states that his blood pressure usually runs low and it is usually in the 70s and been running that for a while . Patient is bedridden and nonambulatory. Patient recently had right lower extremity revision done at the [facility] 4 days ago and wound VAC placed on his right lower extremity, history of [id number] amputation. According to the his blood pressure was low that is why home health sent him to the emergency room for further evaluation treatment. Patient is currently on blood pressure medications. Patient denies any dizziness, headache, chest pain, shortness of breath, bowel pain, nausea, vomiting, diarrhea, fever, chills or urinary symptoms. Related Data Home Medications Medication Instructions Recorded Confirmed amiodarone 200 mg PO DAILY 12/05/19 08/10/20 aspirin [Adult Low Dose Aspirin] 81 mg PO DAILY 12/05/19 08/10/20 atorvastatin [Lipitor] 80 mg PO HS 12/05/19 08/10/20 dorzolamide 1 drp OPHTHALMIC (EYE) BID 12/05/19 08/10/20 lanthanum [Fosrenol] 1,000 mg PO BID 12/05/19 08/10/20 cinacalcet [Sensipar] 90 mg PO DAILY 06/21/20 08/10/20 apixaban 2.5 mg PO BID 07/05/20 08/10/20 clopidogrel 75 mg PO DAILY 07/05/20 08/10/20 Allergies Allergy/AdvReac Type Severity Reaction Status Date / Time No Known Allergies Allergy Verified 11/06/20 11:33 Review of Systems Review of Systems: All systems reviewed & are unremarkable except as noted in HPI and below Constitutional: Constitutional: Denies body ache(s), Denies chills, Denies excessive sweating, Denies fatigue, Denies fever(s), Denies headache(s), Denies lethargy, Denies malaise and Denies weight loss Eyes: Eyes: Denies blurry vision, Denies change in vision and Denies loss of vision ENT: Denies dizziness, Denies ear discharge, Denies headache(s), Denies lip swelling, Denies epistaxis, Denies nasal congestion, Denies neck pain, Denies throat swelling and Denies tongue swelling Cardiovascular: Cardiovascular: Denies chest pain, Denies chest pain at rest, Denies chest pain with activity, Denies diaphoresis, Denies rapid heart rate, Denies edema, Denies irregular heart rhythm, Denies lightheadedness, Denies palpitations, Denies dyspnea and Denies dyspnea on exertion Respiratory: Respiratory: Denies chest congestion, Denies cough, Denies hemoptysis, Denies dyspnea and Denies dyspnea on exertion Gastrointestinal: Gastrointestinal: Denies abdominal pain, Denies melena, Denies hematochezia, Denies diarrhea, Denies nausea, Denies vomiting and Denies hematemesis Musculoskeletal: Musculoskeletal: Denies abnormal gait, Denies deformity, Denies joint swelling, Denies limited range of motion, Denies neck pain and Denies numbness Neurologic: Denies Abnormal speech present, Denies abnormal gait, Denies confusion, Denies dizziness, Denies headache(s), Denies focal weakness, Denies loss of vision, Denies numbness, Denies Other visual disturbances, Denies Sensory deficit (Neuro) and Denies weakness Psychiatric: Psychiatric: Denies confusion, Denies depression, Denies auditory hallucinations, Denies homicidal ideation and Denies suicidal ideation Endocrine: Endocrine: Denies cold intolerance, Denies excessive sweating, Denies fatigue, Denies heat intolerance and Denies palpitations Hematologic/Lymphatic: Hematologic/Lymphatic: Denies easy bleeding and Denies easy bruising Allergic/Immunologic: Allergic/Immunologic: Denies lip swelling, Denies throat swelling and Denies tongue swelling [facility] Past Medical History Medical History (Updated 11/06/20 @ 16:00 by Clifton Pop MD) Cardiac arrest with ventricular fibr
[2020-11-06 12:43] LABS: Basophils Percent Auto 0.1 % (0.2-1.2); Eosinophils Percent Auto 0.2 % (0-4.4); Hematocrit 22.9 % (42.0-52.0); Immature Granulocyte Absolute 0.18 K/mm3 (0.00-0.031); Immature Granulocyte Percent A 1.1 % (0-0.5); Lymphocytes Absolute Auto 0.45 K/mm3 (0.9-3.2); Lymphocytes Percent Auto 2.8 % (18.3-44.2); Mean Corpuscular HGB Conc 29.3 g/dl (32-36); Mean Corpuscular Volume 95.8 fl (80-100); Mean Platelet Volume 11.3 fl (7.4-10.4); Monocytes Percent Auto 12.4 % (2.6-8.5); Neutrophils Absolute Auto 13.6 K/mm3 (1.3-6.7); Neutrophils Percent Auto 83.4 % (45.5-73.1); Platelet Count Result 253 k/mm3 (150-375); Red Blood Count 2.39 M/mm3 (4.6-6.20); Red Cell Distribution Width 19.9 % (11.5-14.5); White Blood Count 16.3 K/mm3 (4.5-10.0)
[2020-11-06 12:45] LABS: Hemoglobin 6.7 g/dL (14.0-18.0)
[2020-11-06 12:53] LABS: INR 2.6; Prothrombin Time 28.7 Seconds (11.1-14.7)
[2020-11-06 12:55] LABS: Partial Thromboplastin Time 64.4 SECONDS (22.3-36.8)
[2020-11-06 12:57] LABS: Anion Gap 14 mmol/L (8-16); Blood Urea Nitrogen 111 mg/dL (9-20); Calcium 6.4 mg/dL (8.4-10.2); Carbon Dioxide 24 mmol/L (22-30); Chloride 99 mmol/L (98-107); Estimated Glomerular Filt Rate 8; Glucose 101 mg/dL (75-110); Potassium 5.9 mmol/L (3.4-5.0); Sodium 137 mmol/L (137-145)
[2020-11-06 13:12] LABS: Lymphocytes Absolute Manual 0.16 K/mm3 (1.1-4.5); Monocytes Absolute Manual 0.81 K/mm3 (0.1-0.90); Monocytes Percent Manual 5 % (3-9); Neutrophils Percent Manual 94 % (46-73); Platelet Estimate Adequate (Adequate); Total Cells Counted 100
[2020-11-06 13:13] LABS: Burr Cells 1+ (NORMAL); Crenated RBC 1+ (NORMAL); Ovalocytes 1+ (NORMAL); Tear Drop Cells 1+ (NORMAL)
[2020-11-06 13:14] LABS: Anisocytosis 1+ (NORMAL); Hypochromasia 1+ (NORMAL)
[2020-11-06 13:19] LABS: Troponin I 0.109 ng/mL (0.000-0.034)
[2020-11-06] MEDS: diphenhydrAMINE HCl INJ 50 MG/ML VIAL 12.5 MG IV PUSH (14:59)
[2020-11-06] MEDS: ACETAMINOPHEN 325 MG TABLET 650 MG PO (14:59)
[2020-11-06] MEDS: SODIUM CHLORIDE 0.9% IV 250 ML 30 ML IV CONT (15:05)
--- NOTE | 2020-11-06 15:15 | PC.NURSE ---
Blood transfusion initiated at 75ml/hr.
--- NOTE | 2020-11-06 15:30 | PC.NURSE ---
Blood infusion rate increased to 150ml/hr. Pt tolerating well. No reaction noted.
[2020-11-06 17:29] LABS: Troponin I 0.105 ng/mL (0.000-0.034)
--- NOTE | 2020-11-06 17:55 | ADMGEN ---
This patient, Veronica Villagran , was admitted to Intensive Care Unit-1. Patient/family oriented to hospital policies and general routines including ID bracelet, bed and alarms, visiting hours, pain management, procedures, bathroom and other care routines, personal items, smoking policy, room service/diet, and visiting hours. Information on how to activate the Rapid Response Team has been discussed. Patient/Family are encouraged to report perceived risks to care and to ask questions if they do not understand what they are told or what they should do.
--- NOTE | 2020-11-06 18:30 | PM.IMHP ---
H&P: HPI History of Present Illness Date/Time: 11/06/20 18:30 <Monik Florez PA-C - Last Filed: 11/07/20 00:44> Chief Complaint: Weakness and low blood pressure. <Monik Florez PA-C - Last Filed: 11/07/20 00:44> Narrative: This is a pleasant 60-year-old male with multiple medical problems including end-stage renal disease on hemodialysis, hypertension, peripheral vascular disease, chronic anemia, coronary artery disease, and ischemic cardiomyopathy who presented to the emergency department earlier today via EMS from home with complaints of weakness and low blood pressure. He apparently was just discharged on Sunday from [facility] where he underwent revision of a right [id number] amputation. During that stay he had problems with hypotension and was started on midodrine, with systolic blood pressures ranging in the 80s since before discharge. He has taken lisinopril 40 mg daily for quite some time and is my understanding that he continues to take that despite the soft blood pressures. In any event he was apparently symptomatic with low blood pressures this morning with reports of weakness and lightheadedness. On arrival to the emergency department is hemoglobin was 6.7 which is about a g or so lower than what it typically runs and he was transfused 1 unit of packed red blood cells with improvement in his blood pressure. This evening his blood pressures have once again been running soft however he has not taken his midodrine yet today. Due to his soft blood pressures and worsening anemia, he is being admitted for further evaluation and to evaluate for possible underlying sepsis. While he does have soft blood pressures and elevated white blood cell count there is no obvious source to suggest underlying infection. At the time my evaluation he does not have any specific complaints. He specifically denies fever, chills, sweats, cold and flu symptoms, cough, shortness of breath, nausea, vomiting, and diarrhea. His surgical site is unremarkable and his chronic pressure sore on his left lateral leg does not appear to be infected. He no longer urinates. <Monik Florez PA-C - Last Filed: 11/07/20 00:44> Review of Systems Review of Systems: Narrative: Twelve systems were reviewed with pertinent positives and negatives as per HPI. He denies headache and neck ache. No auditory visual changes. No focal weakness or paresthesias. No chest pain or pleuritic pain. He denies cough and shortness of breath. No complaints of pain at this time. No epistaxis, hematemesis, melena, or hematochezia. Except as documented, all other systems were reviewed and are negative. <Monik Florez PA-C - Last Filed: 11/07/20 00:44> [facility] Past Medical History Medical History: Medical History (Updated 11/06/20 @ 23:45 by Monik Florez PA-C) Cardiac arrest with ventricular fibrillation (~11/2016) Chronic anemia Coronary artery disease (~11/2016) History of stent x4 at [facility]. 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 End-stage renal disease on hemodialysis Sunday, Sunday, and Sunday schedule. Gastroesophageal reflux disease Glaucoma Hyperparathyroidism Hypertension Ischemic cardiomyopathy Status post PM/ICD insertion. Multiple pulmonary nodules determined by computed tomography of lung Six pulmonary nodules noted on chest CT in June 2020. Paroxysmal atrial fibrillation On amiodarone and anticoagulation as of June 2020. Peripheral vascular disease Pulmonary hypertension <Monik Florez PA-C - Last Filed: 11/07/20 00:44> Surgical History Surgical History: Surgical History (Updated 11/06/20 @ 23:16 by Monik Florez PA-C) History of cardiac catheterization With stents x4 in November 2016 and stent x1 in June 2020 done at [facility]. History of implantable cardioverter-defibrillator (ICD) insertion History of renal transplant Renal transplant in 2002,
[2020-11-06] MEDS: hetaSTARCH 6%/NACL 500 ML 250 ML IV CONT (22:42)
[2020-11-06] MEDS: ATORVASTATIN 40 MG TABLET 80 MG PO (22:52)
[2020-11-06] MEDS: MIDODRINE HCL 2.5 MG TABLET PO (22:53)
[2020-11-06 23:13] LABS: Hematocrit 27.1 % (42.0-52.0); Hemoglobin 8.1 g/dL (14.0-18.0)
[2020-11-06 23:27] LABS: Lactic Acid Reflex 1.1 mmol/L (0.7-2.1)
[2020-11-06 23:38] LABS: Alanine Aminotransferase 166 U/L (4-50); Albumin Level 2.8 g/dL (3.5-5.1); Alkaline Phosphatase 253 U/L (38-126); Anion Gap 13 mmol/L (8-16); Aspartate Amino Transferase 393 U/L (17-59); Bilirubin,Total 2.4 mg/dL (0.2-1.3); Blood Urea Nitrogen 113 mg/dL (9-20); Calcium 6.6 mg/dL (8.4-10.2); Carbon Dioxide 23 mmol/L (22-30); Chloride 100 mmol/L (98-107); Estimated CRCL calculation 7 ml/min; Estimated Glomerular Filt Rate 7; Glucose 91 mg/dL (75-110); Potassium 6.3 mmol/L (3.4-5.0); Sodium 136 mmol/L (137-145)
[2020-11-06 23:47] LABS: Troponin I 0.106 ng/mL (0.000-0.034)
[2020-11-07] VITALS (25 sets, daily range): BP systolic 70–114; BP diastolic 46–64; PULSE 59–66; RESP 14–25; TEMP 35.8–37; O2SAT 91–100
[2020-11-07 00:08] LABS: Glucose Point of Care 99 (65-105)
[2020-11-07 00:08] LABS: Creatine Kinase 1569 U/L (55-170)
[2020-11-07] MEDS: DEXTROSE 50% 25 GM/50 ML SYRINGE IV PUSH (00:13)
[2020-11-07] MEDS: INSULIN HUMAN REGULAR (*BKC) 100 UNITS/ML 10 UNITS IV PUSH (00:13)
[2020-11-07] MEDS: SODIUM POLYSTYRENE SULFONONATE 15 GM/60 ML BTL 30 GM PO ×2 (00:15→17:56)
[2020-11-07] MEDS: SODIUM BICARBONATE 8.4% 50 MEQ/50 ML VIAL IV PUSH (00:20)
[2020-11-07] MEDS: CALCIUM GLUC 1,000 MG/NS 50 ML 1,000 MG/50 ML BAG 100 MG IVPB (00:31)
[2020-11-07 02:36] LABS: Hematocrit 26.5 % (42.0-52.0); Mean Corpuscular HGB Conc 30.2 g/dl (32-36); Mean Corpuscular Hemoglobin 28.5 pg (26-34); Mean Corpuscular Volume 94.3 fl (80-100); Mean Platelet Volume 10.8 fl (7.4-10.4); Platelet Count Result 205 k/mm3 (150-375); Red Blood Count 2.81 M/mm3 (4.6-6.20); Red Cell Distribution Width 20.1 % (11.5-14.5); White Blood Count 14.3 K/mm3 (4.5-10.0)
[2020-11-07 02:47] LABS: INR 2.6
[2020-11-07 02:49] LABS: Magnesium 2.2 mg/dL (1.6-2.3); Partial Thromboplastin Time 60.1 SECONDS (22.3-36.8); Phosphorus 5.4 mg/dL (2.5-4.5)
[2020-11-07 02:50] LABS: Anion Gap 15 mmol/L (8-16); Blood Urea Nitrogen 113 mg/dL (9-20); Calcium 6.7 mg/dL (8.4-10.2); Carbon Dioxide 24 mmol/L (22-30); Chloride 99 mmol/L (98-107); Estimated CRCL calculation 7 ml/min; Estimated Glomerular Filt Rate 7; Glucose 122 mg/dL (75-110); Potassium 5.3 mmol/L (3.4-5.0); Sodium 138 mmol/L (137-145)
--- NOTE | 2020-11-07 04:19 | P.PCNBED_ITS ---
Procedures Central Line Placement Left Femoral: Central Line Date: 11/07/20 Central Line Time: 03:33 Discussed w/ the patient/family/POA,the placement of a central venous catheter, including its clinical necessity/indication & associated potential risks, benifits and alternatives.: Yes The patient/family/POA understand(s) and acknowledge(s) the need to proceed with central venous catheter insertion as an important element of the patient's clinical management.: Yes Time Out Performed: Yes Patient Position: supine Patient placed on monitor/pulse ox: Yes Provider Prep: mask, sterile gown, sterile gloves, Max. sterile barrier precautions, cap and hand hygiene with conventional soap/water or alcohol based hand rub Central line prep: 2% Chlorhexidine scrub and sterile full body sheet applied Local anesthesia used: lidocaine 1% Amount of anesthesia used (ml): 3 Sterile US Technique with sterile gel/sterile probe covers: Yes Central line lumen inserted: triple [place]: 7 Length (cm): 17 Depth of Insertion (cm): 15 Post Procedure: sutured in place, good blood return, all ports aspirated, flushed, capped, transparent dressing, hemostatic product, antimicrobial product, securement product and aseptic technique maintained throughout procedure Patient tolerated procedure: well and no complications
[2020-11-07] MEDS: NOREPINEPHRINE 8 MG/D5W 250 ML 8 MG/250 ML BAG 9.38 MG IV CONT (04:30)
[2020-11-07 05:01] LABS: Hepatitis B Surface Antigen Negative (Negative)
[2020-11-07 05:07] LABS: HAV RESULT Negative (Negative); Hepatitis B Core IgM Result Negative (Negative)
[2020-11-07 05:19] LABS: Hepatitis C Virus Antibody Negative (Negative)
[2020-11-07] MEDS: CENTRAL LINE FLUSH 10 ML IV PUSH ×4 (05:59→21:11)
[2020-11-07 07:07] LABS: Free T4 Free Thyroxine Reflex 2.22 ng/dL (0.78-2.19)
[2020-11-07] MEDS: AMIODARONE HCL 200 MG TABLET PO (08:38)
[2020-11-07] MEDS: APIXABAN 2.5 MG TABLET PO ×2 (08:38→16:13)
[2020-11-07] MEDS: CLOPIDOGREL BISULFATE 75 MG TABLET PO (08:38)
[2020-11-07] MEDS: CINACALCET 30 MG TABLET 90 MG PO (08:39)
[2020-11-07] MEDS: DORZOLAMIDE HCL 2% OPHTH DROPS 1 DROP EACH EYE ×2 (08:39→16:12)
[2020-11-07] MEDS: MIDODRINE HCL 10 MG TABLET PO ×3 (09:09→16:12)
--- NOTE | 2020-11-07 10:04 | WPDCNINT ---
Assessment and Plan Assessment and plan (1) Shock: Code(s): R57.9 - Shock, unspecified Status: Acute Assessment and Plan: Cardiogenic versus septic, patient has also been taking lisinopril, midodrine, states his systolic blood pressures have been in the 70s and 80s at [facility] as well as at home. Also anemic -patient started on Levophed via left femoral central line, maintain MAP > 60-65 mmHg or systolic blood pressure 80 mmHg and above -lactic acid is 1.1 -continue imipenem and vancomycin -blood cultures have been obtained and pending (2) Anemia: Qualifiers: Anemia type: due to chronic kidney disease Chronic kidney disease stage: on chronic dialysis Qualified Code(s): N18.6 - End stage renal disease; D63.1 - Anemia in chronic kidney disease; Z99.2 - Dependence on renal dialysis Code(s): D64.9 - Anemia, unspecified Status: Acute Assessment and Plan: Patient presented with anemia, hemoglobin was 6.7, could be related to end-stage renal disease, history history of chronic kidney, possible peptic ulcer disease -obtain iron panel -stool for occult blood -PPI q.12 hours (3) Elevated troponin: Code(s): R77.8 - Other specified abnormalities of plasma proteins Status: Acute Assessment and Plan: Troponins of plateaued, likely related to anemia, chronic kidney disease, hypotension, shock. Patient is asymptomatic with no chest pain -on 07/07/2020 showed EF of 25-30%. Grade 1 diastolic dysfunction, moderate pulmonary hypertension with RVSP of 51 mmHg mild aortic stenosis moderate tricuspid regurg (4) Elevated LFTs: Code(s): R79.89 - Other specified abnormal findings of blood chemistry Status: Acute Assessment and Plan: Likely related to hypotension, shock -ultrasound of the abdomen showed probable gallstone with gallbladder wall thickening and biliary dilatation consider cholecystitis in appropriate clinical setting. (5) Chronic systolic heart failure: Code(s): I50.22 - Chronic systolic (congestive) heart failure Status: Acute Assessment and Plan: [place] [address] 30% as above -patient on 1 L nasal cannula, -failure seems to be compensated at this time (6) End stage renal disease on dialysis: Code(s): N18.6 - End stage renal disease; Z99.2 - Dependence on renal dialysis Status: Acute Assessment and Plan: End-stage renal disease on dialysis, -patient missed his dialysis on 11/06/2020, gets his dialysis on Tuesdays, and Saturdays -nephrology following -dialysis per Nephrology (7) Paroxysmal atrial fibrillation: Code(s): I48.0 - Paroxysmal atrial fibrillation Status: Acute Assessment and Plan: Currently on Eliquis (8) Unilateral AKA: Code(s): S78.119A - Complete traumatic amputation at level between unspecified hip and knee, initial encounter Status: Acute Assessment and Plan: Right AKA revision done at [facility] recently, he was discharged on 11/03/[address] [facility] with a wound VAC -will consult wound care team to manage wound VAC Additional Plan Discussed with patient updated with his condition and plan of care Code status: Full code Critical care time spent: 45 minutes Due to a high probability of clinically significant, life threatening deterioration, the patient required my highest level of preparedness to intervene emergently and I personally spent this critical care time directly and personally managing the patient. This critical care time included obtaining a history; examining the patient; pulse oximetry; ordering and review of studies; arranging urgent treatment with development of a management plan; evaluation of patient's response to treatment; frequent reassessment; and discussions with other providers. It was exclusive of separately billable procedures and treating other patients and teaching time. Please see Assessment an
--- NOTE | 2020-11-07 10:42 | PM.CNNEP ---
Assessment and Plan Assessment and plan (1) End stage renal disease on dialysis: Code(s): N18.6 - End stage renal disease; Z99.2 - Dependence on renal dialysis Status: Acute Assessment and Plan: The patient has end-stage renal disease probably due to hypertension and diabetes. He is due for dialysis tomorrow. He did not go on Sunday but right now is blood pressure is too low to wrist dialysis with his current situation. Will recheck a potassium this afternoon and see if he needs Kayexalate or not. (2) Hypotension: Code(s): I95.9 - Hypotension, unspecified Status: Acute Assessment and Plan: His blood pressure is low. He says it is always low at his outpatient dialysis facility. With his permission I have reached out to the social insurance administrator at his dialysis facility to to check on this. He feels okay with this low blood pressure. It could be pseudo hypotension because of his severe vascular disease. However he also has recent surgery, and his white count is elevated . So sepsis could be doing this. In addition he has a very low hemoglobin and so anemia could be doing this as well. In addition he has a cardiomyopathy which could have gotten worse. Perhaps he had a oni operative [place] and his EF is lower. That would explain the new need for the midodrine at [facility]. Certainly he did have low blood pressure at [facility] because they sent him home with midodrine. At this point he is getting antibiotics and supportive care. I will try to find out if this blood pressure is indeed chronic. I agree with using midodrine to try to minimize how much pressors IV he needs. Will check a TSH and a cortisol level as well. (3) Elevated LFTs: Code(s): R79.89 - Other specified abnormal findings of blood chemistry Status: Acute Assessment and Plan: His liver enzymes are elevated. I am not sure if these are coming from the liver or the muscles because his CPK is elevated also. His liver enzymes are almost always elevated to a mild degree but also his CPK is almost always elevated to a mild degree going back years. Possibly the low-grade rhabdomyolysis is due to his vascular disease. (4) Sepsis: Code(s): A41.9 - Sepsis, unspecified organism Status: Acute Assessment and Plan: The patient is getting antibiotics and had cultures done. (5) Elevated troponin: Code(s): R77.8 - Other specified abnormalities of plasma proteins Status: Acute Assessment and Plan: He has mildly elevated troponin but is not changing and so was likely to be due to his kidney disease. His muscle turnover from the rhabdomyolysis may be contributing to the troponin as well. (6) Acute on chronic anemia: Code(s): D64.9 - Anemia, unspecified Status: Acute Assessment and Plan: The patient has chronic anemia from kidney disease. However his hemoglobin is low at 6.7 on admission. Will check stool guaiacs and iron levels and give him EPO. (7) Hypocalcemia: Code(s): E83.51 - Hypocalcemia Status: Resolved Assessment and Plan: He has chronic low calcium. This is likely due to renal osteodystrophy. Chronic rhabdo could do this as well I suppose. (8) Chronic systolic heart failure: Code(s): I50.22 - Chronic systolic (congestive) heart failure Status: Acute Assessment and Plan: He has chronic heart failure. If his EF is worse this could causes hypotension as well. Will order an echo. (9) Coronary artery disease: Onset Date: ~11/2016 Qualifiers: Associated angina: without angina Coronary Disease-Associated Artery/Lesion type: [place] artery [place] vs. transplanted heart: [place] heart Qualified Code(s): I25.10 - Atherosclerotic heart disease of [place] coronary artery without angina pectoris Code(s): I25.10 - Atherosclerotic heart disease of [place] coronary artery without ang
[2020-11-07] MEDS: traMADol HCL (*CRX) 25 MG TABLET PO ×2 (12:16→23:40)
[2020-11-07] MEDS: PANTOPRAZOLE SODIUM IV 40 MG VIAL IV PUSH ×2 (12:56→20:14)
[2020-11-07 13:21] LABS: Immature Reticulocyte Fraction 28.9 % (3.0-15.9); Reticulocyte Hemoglobin Conten 23.2 pg (28.2-35.7); Reticulocyte Percent 2.83 % (0.7-4.3); Reticulocytes Absolute 0.08 B/L (32.2-175.7)
[2020-11-07 14:15] LABS: Erythrocyte Sedimentation Rate > 140 mm/hr (0-20)
[2020-11-07 14:46] LABS: Parathyroid Intact 430.7 pg/mL (7.5-53.5)
[2020-11-07 14:58] LABS: Iron 12 ug/dL (49-181)
[2020-11-07 15:07] LABS: Percent Iron Saturation 8 % (20-50)
--- NOTE | 2020-11-07 15:13 | PM.IMPN ---
Progress Note: A&P Assessment and Plan (1) Sepsis: Code(s): A41.9 - Sepsis, unspecified organism Status: Acute Assessment and Plan: 11/07/20 15:13 Patient is 60-year-old male with history of end-stage renal disease on hemodialysis, coronary artery disease status post 4 stents with vascular disease, ischemic cardiomyopathy, recently patient had a revision of right [id number] amputation at the [facility] while there he he was hypotension and patient was started on midodrine and continued his blood pressure medication he presented emergency department with a complaint of generalized weakness he was found to be hypotensive, leukocytosis there was concern the patient may be septic however there is no source of infection empirically patient is started on imipenem and vancomycin, pending blood cultures, also upon arrival patient hemoglobin was 6.7 there is no source of bleeding however patient does have a end-stage renal disease on hemodialysis most likely anemia of chronic disease, patient was given 1 unit of pack RBC, and iron profile is done further recommendation to follow, patient has weakness most likely multifactorial secondary to anemia, hypotension and end-stage renal disease on hemodialysis, patient seen by beater head, Nephrology and further recommendation to follow. (2) Acute on chronic anemia: Code(s): D64.9 - Anemia, unspecified Status: Acute Assessment and Plan: Most likely anemia of chronic disease and iron deficiency is patient has end-stage renal disease on hemodialysis. Seen by gliding pilot instructor (3) Elevated troponin: Code(s): R77.8 - Other specified abnormalities of plasma proteins Status: Acute Assessment and Plan: Most likely secondary hypotension with end-stage renal disease unlikely acute coronary syndrome (4) Elevated LFTs: Code(s): R79.89 - Other specified abnormal findings of blood chemistry Status: Acute Assessment and Plan: Most likely secondary to hypotension (5) End stage renal disease on dialysis: Code(s): N18.6 - End stage renal disease; Z99.2 - Dependence on renal dialysis Status: Acute Assessment and Plan: Patient seen by gliding pilot instructor and will have scheduled hemodialysis (6) Paroxysmal atrial fibrillation: Code(s): I48.0 - Paroxysmal atrial fibrillation Status: Acute Assessment and Plan: Rate is controlled. Additional Plan The patient was brought in this morning as he was feeling weak and dizzy, presumably secondary to hypotension. According to the history I received, he was recently started on midodrine due to low systolic blood pressures in the 80s however he has continued to take his lisinopril. I am not certain why his blood pressures are now low but this is not an acute finding today, at least according to the history I received. His hemoglobin is a bit lower than what he typically runs and thus he was transfused 1 unit of packed red blood cells. He does not look overtly dehydrated or volume overloaded. Technically he meets criteria for sepsis with hypotension and leukocytosis however lactic acid level is within normal limits and there are no overt signs of infection. Given his comorbidities and history, he will be empirically started on vancomycin and imipenem, pending blood cultures. After speaking with Dr. Wayne, he will be given Hespan and if no improvement that and midodrine he will need to be started on vasopressors. Regarding his elevated LFTs, I assume this is secondary to his ongoing hypotension as reported by the patient and his family. His abdominal exam is benign however I will check a right upper quadrant ultrasound for completeness sake. Continue close monitoring of his volume status as he has a history of ischemic cardiomyopathy. Nephrology consulted for dialysis. Continue wound VAC which is in place from recent right above the knee amputation site revision. Depe
[2020-11-07 15:43] LABS: Folic Acid 10.7 ng/mL (2.76->20); Vitamin B12 > 1000.0 pg/mL (239-931)
[2020-11-07 16:27] LABS: Ferritin > 2000.00 ng/mL (11.1-264)
[2020-11-07 16:43] LABS: Potassium 5.5 mmol/L (3.4-5.0)
[2020-11-07 17:37] LABS: Free T4 Free Thyroxine Reflex 2.15 ng/dL (0.78-2.19)
--- NOTE | 2020-11-07 19:06 | PHAR ---
HOME MEDICATION VERIFIED BY PHARMACY: LANTHANUM 1000MG CHEWABLE TABLETS
[2020-11-07 19:42] LABS: Total Triiodothyronine (T3) 0.45 NG/ML (0.97-1.69)
[2020-11-07] MEDS: NOREPINEPHRINE 8 MG/D5W 250 ML 8 MG/250 ML BAG 18.75 MG IV CONT (20:13)
[2020-11-07] MEDS: ATORVASTATIN 40 MG TABLET 80 MG PO (20:14)
[2020-11-07 20:40] LABS: Immunochemical Fecal Occult Bl Negative (N)
[2020-11-07 20:41] LABS: IFOB Positive Control Positive
[2020-11-08] VITALS (14 sets, daily range): BP systolic 72–139; BP diastolic 48–70; PULSE 63–70; RESP 18–30; TEMP 36.5–36.9; O2SAT 94–100
[2020-11-08 05:01] LABS: Hematocrit 25.8 % (42.0-52.0); Hemoglobin 7.9 g/dL (14.0-18.0); Mean Corpuscular HGB Conc 30.6 g/dl (32-36); Mean Corpuscular Hemoglobin 28.6 pg (26-34); Mean Corpuscular Volume 93.5 fl (80-100); Platelet Count Result 230 k/mm3 (150-375); Red Blood Count 2.76 M/mm3 (4.6-6.20); Red Cell Distribution Width 20.2 % (11.5-14.5); White Blood Count 17.2 K/mm3 (4.5-10.0)
[2020-11-08] MEDS: CENTRAL LINE FLUSH 10 ML IV PUSH (05:02)
[2020-11-08 05:17] LABS: Lactic Acid Reflex 0.9 mmol/L (0.7-2.1)
[2020-11-08 06:07] LABS: Alanine Aminotransferase 273 U/L (4-50); Albumin Level 2.6 g/dL (3.5-5.1); Alkaline Phosphatase 283 U/L (38-126); Anion Gap 12 mmol/L (8-16); Bilirubin,Total 1.8 mg/dL (0.2-1.3); Blood Urea Nitrogen 115 mg/dL (9-20); Calcium 5.5 mg/dL (8.4-10.2); Carbon Dioxide 25 mmol/L (22-30); Chloride 101 mmol/L (98-107); Creatine Kinase 1532 U/L (55-170); Estimated CRCL calculation 7 ml/min; Estimated Glomerular Filt Rate 7; Glucose 75 mg/dL (75-110); Phosphorus 5.3 mg/dL (2.5-4.5); Potassium 5.3 mmol/L (3.4-5.0); Sodium 138 mmol/L (137-145)
[2020-11-08 06:26] LABS: Aspartate Amino Transferase 980 U/L (17-59)
[2020-11-08] MEDS: DEXTROSE 50% 25 GM/50 ML SYRINGE IV PUSH ×2 (06:47→07:04)
[2020-11-08 07:09] LABS: Glucose Point of Care 60 (65-105)
[2020-11-08 07:09] LABS: Glucose Point of Care 69 (65-105)
[2020-11-08 07:32] LABS: Glucose Point of Care 168 (65-105)
[2020-11-08 09:01] LABS: Glucose Point of Care 144 (65-105)
[2020-11-08] MEDS: DEXTROSE 10% 1,000 ML 25 ML IV CONT (09:05)
[2020-11-08] MEDS: PANTOPRAZOLE SODIUM IV 40 MG VIAL IV PUSH (09:06)
--- NOTE | 2020-11-08 09:10 | WPDINTPN ---
Progress Note: A&P Assessment and Plan (1) Shock: Code(s): R57.9 - Shock, unspecified Status: Acute Assessment and Plan: Cardiogenic versus septic, patient has also been taking lisinopril, midodrine, states his systolic blood pressures have been in the 70s and 80s at [facility] as well as at home. Also anemic -patient started on Levophed via left femoral central line, maintain MAP > 60-65 mmHg or systolic blood pressure 80 mmHg and above -continue Levophed -continue imipenem and vancomycin -blood cultures have been obtained and pending -continue midodrine (2) Anemia: Qualifiers: Anemia type: due to chronic kidney disease Chronic kidney disease stage: on chronic dialysis Qualified Code(s): N18.6 - End stage renal disease; D63.1 - Anemia in chronic kidney disease; Z99.2 - Dependence on renal dialysis Code(s): D64.9 - Anemia, unspecified Status: Acute Assessment and Plan: Patient presented with anemia, hemoglobin was 6.7, could be related to end-stage renal disease, history history of chronic kidney, possible peptic ulcer disease -obtain iron panel -stool for occult blood -PPI q.12 hours (3) Elevated troponin: Code(s): R77.8 - Other specified abnormalities of plasma proteins Status: Acute Assessment and Plan: Troponins of plateaued, likely related to anemia, chronic kidney disease, hypotension, shock. Patient is asymptomatic with no chest pain -on 07/07/2020 showed EF of 25-30%. Grade 1 diastolic dysfunction, moderate pulmonary hypertension with RVSP of 51 mmHg mild aortic stenosis moderate tricuspid regurg (4) Elevated LFTs: Code(s): R79.89 - Other specified abnormal findings of blood chemistry Status: Acute Assessment and Plan: Likely related to hypotension, shock -ultrasound of the abdomen showed probable gallstone with gallbladder wall thickening and biliary dilatation consider cholecystitis in appropriate clinical setting. -GI consulted -DC statin (5) Chronic systolic heart failure: Code(s): I50.22 - Chronic systolic (congestive) heart failure Status: Acute Assessment and Plan: [place] [address] 30% as above -failure seems to be compensated at this time (6) End stage renal disease on dialysis: Code(s): N18.6 - End stage renal disease; Z99.2 - Dependence on renal dialysis Status: Acute Assessment and Plan: End-stage renal disease on dialysis, -patient missed his dialysis on 11/06/2020, gets his dialysis on Tuesdays, and Saturdays -nephrology following -dialysis scheduled for today (7) Paroxysmal atrial fibrillation: Code(s): I48.0 - Paroxysmal atrial fibrillation Status: Acute Assessment and Plan: Currently on Eliquis (8) Unilateral AKA: Code(s): S78.119A - Complete traumatic amputation at level between unspecified hip and knee, initial encounter Status: Acute Assessment and Plan: Right AKA revision done at [facility] last. He was discharged on 11/03/2020 from [facility] with a wound VAC Patient was seen by wound care team and it appears the wound is infected. I have called [facility] transfer line for possible transfer back to [facility] for further evaluation and management (9) Wound infection: Code(s): T14.8XXA - Other injury of unspecified body region, initial encounter; L08.9 - Local infection of the skin and subcutaneous tissue, unspecified Status: Acute Assessment and Plan: Right amputation site may be infected. Left hip bone also appears necrotic and this is not new as per per his mother wound did look dark when patient was discharged from [facility] last week. (10) Gangrene: Code(s): I96 - Gangrene, not elsewhere classified Status: Acute Assessment and Plan: Left 4th and 5th finger are gangrenous and necrotic and was present at admission. As per patient's mother he has been told th
[2020-11-08 09:12] LABS: HAV RESULT Negative (Negative); Hepatitis B Core IgM Result Negative (Negative); Hepatitis B Surface Antigen Negative (Negative)
[2020-11-08 09:22] LABS: Hepatitis B Surface Anti Res Positive; Hepatitis C Virus Antibody Negative (Negative)
[2020-11-08 10:20] LABS: Iron 18 ug/dL (49-181)
[2020-11-08 10:27] LABS: Percent Iron Saturation 11 % (20-50)
[2020-11-08] MEDS: NOREPINEPHRINE 8 MG/D5W 250 ML 8 MG/250 ML BAG 11.25 MG IV CONT (10:43)
--- NOTE | 2020-11-08 11:03 | PM.TDS ---
Transfer Discharge Sum: Prov Provider Date of admission: 11/06/20 15:47 Primary care physician: Idalia Harvey, Admitting clinician: Ralph Tinsley MD Consults: 11/06/20 Consult to Physician Routine Comment: notified at 0738 Consulting Provider: Partha Dennis mail caller/MD group to consult: nephrology Reason for consultation: dialysis Has provider been notified: Yes 11/06/20 15:48 Consult to Physician Routine Comment: Consulting Provider: Queenie Wayne Reason for consultation: ICU MANAGEMENT Has provider been notified: Yes 11/07/20 Wound/ET Consult Routine Reason for Consult:: WOUND VAC management 11/07/20 12:19 Consult to Physician Routine Comment: Consulting Provider: Bipin Galicia mail caller/MD group to consult: GI Reason for consultation: Gallstones, gallbladder wall thickening and biliary dilatation Has provider been notified: Yes DS: Admitting Diagnosis Admitting Diagnosis Admitting Diagnosis: Weakness and low blood pressure DS: Discharge Diagnosis Discharge Diagnosis (1) Sepsis: Code(s): A41.9 - Sepsis, unspecified organism Status: Acute Assessment and Plan: 11/07/20 15:13 Patient is 60-year-old male with history of end-stage renal disease on hemodialysis, coronary artery disease status post 4 stents with vascular disease, ischemic cardiomyopathy, recently patient had a revision of right [id number] amputation at the [facility] while there he he was hypotension and patient was started on midodrine and continued his blood pressure medication he presented emergency department with a complaint of generalized weakness he was found to be hypotensive, leukocytosis there was concern the patient may be septic however there is no source of infection empirically patient is started on imipenem and vancomycin, pending blood cultures, also upon arrival patient hemoglobin was 6.7 there is no source of bleeding however patient does have a end-stage renal disease on hemodialysis most likely anemia of chronic disease, patient was given 1 unit of pack RBC, and iron profile is done further recommendation to follow, patient has weakness most likely multifactorial secondary to anemia, hypotension and end-stage renal disease on hemodialysis, patient seen by calculation clerk, Nephrology and further recommendation to follow. (2) Acute on chronic anemia: Code(s): D64.9 - Anemia, unspecified Status: Acute Assessment and Plan: Most likely anemia of chronic disease and iron deficiency is patient has end-stage renal disease on hemodialysis. Seen by site superintendent (3) Elevated troponin: Code(s): R77.8 - Other specified abnormalities of plasma proteins Status: Acute Assessment and Plan: Most likely secondary hypotension with end-stage renal disease unlikely acute coronary syndrome (4) Elevated LFTs: Code(s): R79.89 - Other specified abnormal findings of blood chemistry Status: Acute Assessment and Plan: Most likely secondary to hypotension (5) End stage renal disease on dialysis: Code(s): N18.6 - End stage renal disease; Z99.2 - Dependence on renal dialysis Status: Acute Assessment and Plan: Patient seen by site superintendent and will have scheduled hemodialysis (6) Paroxysmal atrial fibrillation: Code(s): I48.0 - Paroxysmal atrial fibrillation Status: Acute Assessment and Plan: Rate is controlled. Transfer Discharge Sum: Med Medications Active and Home Medications: Home Medications amiodarone 200 mg PO DAILY 12/05/19 [History Confirmed 11/06/20] atorvastatin [Lipitor] 80 mg PO HS 12/05/19 [History Confirmed 11/06/20] dorzolamide 1 drp OPHTHALMIC (EYE) BID 12/05/19 [History Confirmed 11/06/20] lanthanum [Fosrenol] 1,000 mg PO TID 12/05/19 [History Confirmed 11/06/20] cinacalcet [Sensipar] 90 mg PO DAILY 06/21/20 [History Confirmed 11/06/20] apixaban 2.
[2020-11-08] MEDS: LORazepam INJ (*CRX) 2 MG/ML VIAL 1 MG IV PUSH (12:02)
[2020-11-08] MEDS: levETIRAcetam 1000MG/NACL100ML 1,000 MG/100 ML BAG 400 MG IVPB (12:32)
--- NOTE | 2020-11-08 13:35 | WPDGICN ---
Assessment and Plan Assessment and plan (1) Acute on chronic anemia: Code(s): D64.9 - Anemia, unspecified Status: Acute Assessment and Plan: probably multifactorial (renal failure, recent surgery, on blood thinners, etc) (2) Shock: Code(s): R57.9 - Shock, unspecified Status: Acute Assessment and Plan: septic shock, on levophed and antibiotics patient is going to be transferred back to [facility] today (3) Elevated LFTs: Code(s): R79.89 - Other specified abnormal findings of blood chemistry Status: Acute Assessment and Plan: probably from shock, also cholecystitis can not get MRCP because AICD in place trend lft's, antibiotics (4) End stage renal disease on dialysis: Code(s): N18.6 - End stage renal disease; Z99.2 - Dependence on renal dialysis Status: Acute Assessment and Plan: by nephrology (5) Seizure: Code(s): R56.9 - Unspecified convulsions Status: Acute (6) Gangrene: Code(s): I96 - Gangrene, not elsewhere classified Status: Acute (7) Wound infection: Code(s): T14.8XXA - Other injury of unspecified body region, initial encounter; L08.9 - Local infection of the skin and subcutaneous tissue, unspecified Status: Acute (8) Unilateral AKA: Code(s): S78.119A - Complete traumatic amputation at level between unspecified hip and knee, initial encounter Status: Acute Assessment and Plan: patient is going back to his surgeon at [facility] (9) Sepsis: Code(s): A41.9 - Sepsis, unspecified organism Status: Acute Assessment and Plan: septic shock, osteologist on board GI Consult Note Consult date/time: 11/08/20 13:35 Reason for consult: elevated liver enzymes, shock, possible cholecystitis HPI: Veronica Villagran Sr. is a 60 year old male with multiple medical problems including end-stage renal disease on dialysis, cardiac arrest with ventricular fibrillation in 2017, chronic anemia, CAD with stent, gastroesophageal reflux, hyperparathyroidism, peripheral vascular disease, pulmonary hypertension who came to the ED 11/06/2020 with generalized weakness and low blood pressures. He was just recently discharged from [facility] on 11/03/2020 after revision of the right [id number] amputation and apparently also had hypotension. Patient was sent here because persistent hypotension found by his home healthcare nurse. Also found to have anemia with a hemoglobin of 6.7, given PRBCs, central line was placed and started on Levophed, admitted to ICU. He also had elevated liver enzymes, ultrasound showed GS with possible cholecystitis and dilated bile duct 8mm. Patient is lethargic and complaining of pain in different areas. Also found to have gangrenous change in fingers left hand and wound in left hip. He is on antibiotics. [employer] already talked to his surgeon at [facility] and will be transferred today. Review of Systems Constitutional: Constitutional: Reports fatigue and Reports lethargy Eyes: Eyes: Reports no additional eye complaints ENT: Reports system reviewed and no additional complaints, except as documented Cardiovascular: Comments: hypotension Respiratory: Respiratory: Denies cough Gastrointestinal: Gastrointestinal: Denies melena Genitourinary: Comments: on dialysis Musculoskeletal: Comments: recent leg amputation Integumentary/Breasts: Skin/Breast: Reports wounds Neurologic: Reports confusion [facility] Past Medical History Medical History Cardiac arrest with ventricular fibrillation (~11/2016) Chronic anemia Coronary artery disease (~11/2016) 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 End-stage renal disease on hemodialysis Sunday, Sunday, and Sunday schedule. Gastroesophageal reflux disease Glaucoma Hyperparathyroidism Hypertension Ischemic cardiomyopa
[2020-11-11 22:05] LABS: JO 1 Antibody <1.0
[2020-11-12 06:08] LABS: SM Antibody <1.0; SM/RNP Antibody <1.0
== END 2020-11-08 13:41 | disposition short-term general hospital (02) | DRG 871 ==
LOC: ANHED 16:00 → ANHICU 16:36
PROVIDERS: Emergency Medicine; Internal Medicine; Internal Medicine Nephrology; Physician Assistant; Admitting Provider Family Medicine; Emergency Provider Emergency Medicine; PCP Internal Medicine; Visit Provider Family Medicine
DX: A41.9 Sepsis, unspecified organism (principal); L89.223 Pressure ulcer of left hip, stage 3; N18.6 End stage renal disease; R65.21 Severe sepsis with septic shock; K80.10 Calculus of gallbladder with chronic cholecystitis without obstruction; I13.2 Hypertensive heart and chronic kidney disease with heart failure and with stage 5 chronic kidney disease, or end stage renal disease; I50.22 Chronic systolic (congestive) heart failure; Z94.0 Kidney transplant status; I96 Gangrene, not elsewhere classified; D63.1 Anemia in chronic kidney disease; I48.0 Paroxysmal atrial fibrillation; I25.5 Ischemic cardiomyopathy; I25.10 Atherosclerotic heart disease of native coronary artery without angina pectoris; H40.9 Unspecified glaucoma; K21.9 Gastro-esophageal reflux disease without esophagitis; E83.51 Hypocalcemia; R56.9 Unspecified convulsions; I73.9 Peripheral vascular disease, unspecified; Z99.2 Dependence on renal dialysis; Z95.5 Presence of coronary angioplasty implant and graft; Z89.611 Acquired absence of right leg above knee; Z95.810 Presence of automatic (implantable) cardiac defibrillator
CPT/HCPCS: 36415; 36430; 70450; 71046; 76705; 80048; 80053; 80069; 80074; 82274; 82330; 82533; 82550; 82607; 82728; 82746; 83540; 83550; 83605; 83735; 83970; 84100; 84132; 84439; 84443; 84480; 84484; 85014; 85018; 85025; 85027; 85046; 85610; 85652; 85730; 86038; 86140; 86235; 86706; 86850; 86900; 86901; 86923; 87040; 93005; 96361; 96365; 96375; 99285; A9270; C1751; C9113; J0610; J0743; J1200; J1815; J1953; J2060; J2543; J3370; J7030; J7050; J7120; P9016; P9047